=== PATIENT | male | born 1955 | race Caucasian/White ===

== ENCOUNTER → 2024-03-14 02:51 | Outpatient (CLI) | payer MEDICARE, MEDICAID, SELFPAY ==
--- NOTE | 2024-03-14 10:13 | DI.RAD_ITS ---
Exam(s) XR HAND RT COMPLETE XR WRIST RT COMPL NAVICULAR EXAM: XR HAND RT COMPLETE and XR wrist RT complete CLINICAL HISTORY: S/P FALL, ? FX,? SNUFFBOX FX. TECHNIQUE: 2D digital imaging was performed of the right wrist and hand. Seven images were obtained . Scaphoid, AP, lateral and oblique views were obtained. COMPARISON: No priors for comparison. FINDINGS: BONES: No acute fracture is present. No bony destructive lesion is seen. JOINTS: No dislocation present. The joint spaces are well maintained. SOFT TISSUE: Vascular calcifications are present. IMPRESSION: No acute fracture or dislocation. DATA REPOSITORY: RADIATION DOSE DELIVERED:
== END ==
PROVIDERS: Visit Provider Nurse Practitioner Family
DX: M25.531 Pain in right wrist (principal); M79.641 Pain in right hand
CPT/HCPCS: 73110; 73130

== ENCOUNTER 2024-04-13 18:11 | Outpatient (REF) | payer MEDICARE, MEDICAID, SELFPAY ==
[2024-04-13 18:32] LABS: Vitamin D 25 Total 38.5 ng/mL (30-100)
== END 2024-04-13 18:12 | disposition home or self-care (01) ==
LOC: LBN 18:11
PROVIDERS: Visit Provider Nurse Practitioner Family
DX: R53.83 Other fatigue (principal)
CPT/HCPCS: 82306

== ENCOUNTER 2024-05-18 20:49 | Outpatient (REF) | payer MEDICARE, MEDICAID, SELFPAY ==
[2024-05-18 16:46] LABS: Abs Immature Grans 0.05 10^3/uL (0.0-0.06); Absolute Basophil Count 0.05 10^3/uL (0.0-0.2); Absolute Eosinophil Count 0.25 10^3/uL (0.0-0.7); Absolute Monocyte Count 0.59 10^3/uL (0.1-0.8); Absolute Neutrophil Count 5.53 10^3/uL (1.2-6.7); Basophils % 0.6 %; Eosinophils % 2.9 %; HCT 38.7 % (40.0-50.0); HGB 12.6 g/dL (13.5-17.5); Immature Grans % 0.6 %; Lymphocytes % 24.5 %; MCH 29.8 pg (27.0-33.0); MCHC 32.6 % (32.0-36.0); MCV 92 fL (80-95); MPV 10.4 fL (8.0-11.0); Monocytes % 6.9 %; Neutrophils % 64.5 %; Platelet Count 252 10^3/uL (130-400); RBC 4.23 10^6/uL (4.36-5.78); RDW 13.2 % (11.8-14.1); RDW-SD 43.6 fL; WBC 8.57 10^3/uL (4.4-10.8)
[2024-05-18 17:44] LABS: Anion Gap 11.1 mmol/L (3-11); BUN 50 mg/dL (7-18); C-Reactive Protein 0.84 mg/dL (<or=0.5); CO2 27.9 mmol/L (21.0-32.0); CREATININE 2.5 mg/dL (0.70-1.30); Calcium 10.1 mg/dL (8.5-10.1); Chloride 98 mmol/L (98-107); Estimated GFR 27.64 (mL/min/1.73m2); Glucose 274 mg/dL (74-106); Potassium 4.3 mmol/L (3.5-5.1); Sodium 137 mmol/L (136-145)
[2024-05-18 19:29] LABS: Vitamin D 25 Total 43.1 ng/mL (30-100)
== END 2024-05-18 20:50 | disposition home or self-care (01) ==
LOC: LBN 20:49
PROVIDERS: Visit Provider Family Medicine
DX: N18.4 Chronic kidney disease, stage 4 (severe) (principal); M86.272 Subacute osteomyelitis, left ankle and foot; L08.9 Local infection of the skin and subcutaneous tissue, unspecified
CPT/HCPCS: 80048; 82306; 85025; 86140

== ENCOUNTER 2024-06-29 10:16 | Outpatient (REF) | payer MEDICARE, MEDICAID, SELFPAY ==
[2024-06-29 11:47] LABS: Anion Gap 8.1 mmol/L (3-11); BUN 47 mg/dL (7-18); CO2 27.9 mmol/L (21.0-32.0); CREATININE 2.3 mg/dL (0.70-1.30); Calcium 9.5 mg/dL (8.5-10.1); Chloride 102 mmol/L (98-107); Estimated GFR 30.55 (mL/min/1.73m2); Glucose 210 mg/dL (74-106); Potassium 4.2 mmol/L (3.5-5.1); Sodium 138 mmol/L (136-145); Vitamin D 25 Total 38.1 ng/mL (30-100)
== END 2024-06-29 10:17 | disposition home or self-care (01) ==
LOC: LBN 10:16
PROVIDERS: Visit Provider Family Medicine
DX: R68.89 Other general symptoms and signs (principal)
CPT/HCPCS: 80048; 82306

== ENCOUNTER 2024-07-05 19:00 | Outpatient (REF) | payer MEDICARE, MEDICAID, SELFPAY ==
[2024-07-05 16:10] LABS: HGB 11.1 g/dL (13.5-17.5)
[2024-07-05 16:31] LABS: Anion Gap 10.1 mmol/L (3-11); BUN 43 mg/dL (7-18); CO2 25.9 mmol/L (21.0-32.0); CREATININE 2.3 mg/dL (0.70-1.30); Calcium 9.5 mg/dL (8.5-10.1); Chloride 101 mmol/L (98-107); Estimated GFR 30.55 (mL/min/1.73m2); Glucose 275 mg/dL (74-106); Magnesium 1.6 mg/dL (1.8-2.4); PHOSPHORUS 3.3 mg/dL (2.6-4.7); Potassium 4.2 mmol/L (3.5-5.1); Sodium 137 mmol/L (136-145)
[2024-07-05 16:56] LABS: Hemoglobin A1C 8.1 % (<5.7)
== END 2024-07-05 19:01 | disposition home or self-care (01) ==
LOC: LBN 19:00
PROVIDERS: Visit Provider Family Medicine
DX: R68.89 Other general symptoms and signs (principal)
CPT/HCPCS: 80048; 83036; 83735; 84100; 85018

== ENCOUNTER 2024-07-06 14:30 | Outpatient (CLI) | payer MEDICARE, MEDICAID, SELFPAY ==
--- NOTE | 2024-07-06 | DI.RAD_ITS ---
Exam(s) XR RIBS RT W PA LAT CHEST EXAM: XR RIBS RT W PA LAT CHEST CLINICAL HISTORY: Rt rib pain TECHNIQUE: 2D digital imaging was performed. COMPARISON: No exams were available for comparison FINDINGS: RIBS 3 VIEWS-right There are no obvious acute rib fractures evident. No lytic rib lesions identified. CXR- 2 VIEWS: No lung contusion or pneumothorax. There is no pleural effusion evident. Heart size is normal and there is no significant mediastinal widening. Multilevel fusion hardware in the cervical and upper thoracic spinal column noted. IMPRESSION: 1. No obvious rib fractures evident. Also no significant rib lesions. 2. No ipsilateral lung nor pleural abnormality evident. No pneumothorax. Fusion hardware in the cervical and upper thoracic spine is noted. DATA REPOSITORY: RADIATION DOSE DELIVERED:
== END 2024-07-06 14:50 ==
PROVIDERS: Visit Provider Family Medicine
DX: M25.531 Pain in right wrist (principal); R07.81 Pleurodynia
CPT/HCPCS: 99203; 71046; 71100; 73110

== ENCOUNTER 2024-07-06 16:08 | Outpatient (CLI) | payer MEDICARE, MEDICAID, SELFPAY ==
--- NOTE | 2024-07-06 08:45 | DI.RAD_ITS ---
Exam(s) XR WRIST RT COMPL NAVICULAR EXAM: XR WRIST RT COMPL NAVICULAR CLINICAL HISTORY: wrist pain. TECHNIQUE: 2D digital imaging was performed of the right wrist. Four views were obtained. Scaphoid, PA, lateral and oblique views were obtained. COMPARISON: CR XR WRIST RT COMPL NAVICULAR from 03/14/2024 FINDINGS: BONES: No acute fracture is present. No bony destructive lesion is seen. JOINTS: The carpal bones are normally aligned. The joint spaces are well maintained. SOFT TISSUE: Vascular calcifications are present. IMPRESSION: No acute abnormality. DATA REPOSITORY: RADIATION DOSE DELIVERED:
== END 2024-07-06 16:09 | disposition home or self-care (01) ==
LOC: DIORS 16:09
PROVIDERS: Visit Provider Student in an Organized Health Care Education/Training Program
DX: S62.001A Unspecified fracture of navicular [scaphoid] bone of right wrist, initial encounter for closed fracture; W19.XXXA Unspecified fall, initial encounter
CPT/HCPCS: 99203; 73110

== ENCOUNTER 2024-07-24 18:29 | Emergency (ER) | payer MEDICARE, MEDICAID, SELFPAY ==
[2024-07-24] VITALS (72 sets, daily range): BP systolic 91–155; BP diastolic 42–78; PULSE 62–79; RESP 10–23; TEMP 36.4–36.8; O2SAT 96–99
--- NOTE | 2024-07-24 18:30 | RT.EKG_ITS ---
APPROVED REPORT Exam: Resting ECG Reason for Exam: Chest Pain Patient Location: E HR:68 bpm ECG Measurements Heart Rate 68 AXIS MN 216 P 57 QRSd 100 QRS 9 QT 433 T 49 QTc 461 Conclusion Sinus rhythm...normal P axis, V-rate 60- 99 Borderline prolonged MN interval...MN >212, V-rate 50- 90 sinus rhtyhm, normal axis, non ischemic
--- NOTE | 2024-07-24 18:30 | DI.RAD_ITS ---
Exam(s) XR PORTABLE CHEST AP EXAM: XR PORTABLE CHEST AP CLINICAL HISTORY: SOB, CP TECHNIQUE: 2D digital imaging was performed of the chest. One image was obtained. An AP view was ob tained. COMPARISON: No exams were available for comparison FINDINGS: MEDIASTINUM: Normal. HEART: Normal. PULMONARY VASCULATURE: Normal. LUNGS: Clear. PLEURAL SPACE: No pleural effusion or pneumothorax. BONE:Within normal limits for the patient's age. Posterior spinal surgery seen in the lower cervical and upper thoracic spine. OTHER FINDINGS:Normal. IMPRESSION: No acute pulmonary findings. DATA REPOSITORY: RADIATION DOSE DELIVERED:
--- NOTE | 2024-07-24 18:34 | W.ED.GENAD ---
Discharge Plan Disposition Patient Disposition: Half-Way Facility(SNF) Discharge Details Clinical Impression: COPD (chronic obstructive pulmonary disease), Chest pain Primary Care Provider: Unknown,Unknown ED Provider: Marily Post Home Meds and New Rx's Prescriptions: Continued acetaminophen 325 mg tablet 650 mg PO Q4H PRN amitriptyline 10 mg tablet 30 mg PO QHS amlodipine 2.5 mg tablet 2.5 mg PO DAILY Anoro Ellipta 62.5-25 mcg/actuation blister with device 1 inh inhalation DAILY aspirin [Adult Aspirin Regimen] 81 mg tablet,delayed release (DR/EC) 81 mg PO DAILY bupropion HCl 300 mg tablet extended release 24 hr 300 mg PO QAM cholecalciferol (vitamin D3) 25 mcg (1,000 unit) capsule 50 mcg PO DAILY ferrous sulfate 325 mg (65 mg iron) tablet 325 mg PO DAILY folic acid 1 mg tablet 1 mg PO DAILY gabapentin 300 mg capsule 300 mg PO BID glucagon 1 mg recon soln 1 mg subcut Q20M PRN Rx Instructions: until target blood sugar attained insulin glargine 100 unit/mL (3 mL) insulin pen 30 unit subcut QAM insulin lispro 100 unit/mL insulin pen 1 sliding scale dose subcut USEASDIRECTD magnesium L-lactate 84 mg tablet extended release 168 mg PO DAILY metoprolol succinate 25 mg tablet extended release 24 hr 25 mg PO BID magnesium hydroxide [Milk of Magnesia] 400 mg/5 mL suspension 30 ml PO DAILY PRN naloxone 4 mg/actuation spray,non-aerosol 4 mg intranasal Q2M Rx Instructions: spray 1 dose into ONE nostril; alternate nostrils w each dose until help arrives nitroglycerin 0.4 mg tablet, sublingual 0.4 mg sublingual Q5M PRN Rx Instructions: do not exceed 3 doses per episode pantoprazole 40 mg tablet,delayed release (DR/EC) 40 mg PO DAILY ranolazine 500 mg tablet extended release 12 hr 500 mg PO BID sevelamer HCl 800 mg tablet 800 mg PO TID Rx Instructions: must administer with a meal/food risperidone 1 mg tablet 1 mg PO DAILY risperidone 2 mg tablet 2 mg PO QHS ropinirole 1 mg tablet 1 mg PO BID rosuvastatin 20 mg tablet 20 mg PO DAILY sennosides-docusate sodium 8.6-50 mg tablet 1 tab-cap PO BID torsemide 20 mg tablet 20 mg PO DAILY tramadol 25 mg tablet 25 mg PO BID PRN Trulicity 0.75 mg/0.5 mL pen injector 0.75 mg subcut QWEEK ipratropium-albuterol 0.5 mg-3 mg(2.5 mg base)/3 mL solution for nebulization 3 ml inhalation Q4H PRNQty: 90 0RF Discharge Instructions Instructions: COPD Exacerbation, Adult ED Additional Instructions: I recommend that you be evaluated by primary care within the week for monitoring of your COPD symptoms. Your cardiac workup today was reassuring. Your symptoms are most likely caused by COPD exacerbation, as they fully resolved with DuoNeb. For wheezing/chest tightness I recommend that you use the DuoNeb every 4-6 hours as needed. Return to emergency care if you develop new chest pain, difficulty breathing, dizziness/feeling like you are going to pass out, or if you are very worried and need to be rechecked again immediately HPI General Date/Time Provider Initiated Documentation: 07/24/24 18:31. HPI Narrative: Mike is a 68 year old male with history of HTN, HLD, GERD, CHF, CKD stage IV, ASCVD, COPD, T2DM, and morbid obesity who presents to the emergency department from [facility] for evaluation of sudden onset of chest pain with shortness of breath approximately half an hour prior to arrival. He reports it feels like a hammer in the middle of his chest, with radiation down his left arm. Started at rest. He denies associated dizziness, recent illness such as congestion/cough/sore throat, nausea/vomiting, extremity weakness, change in bowel or bladder function, black/tarry stools, change in pedal edema. He does have a history of DVT in his lower extremity for which she was treated with Eliquis earlier in this year. Denies history of KS, cancer diagnosis, recent surgery within last 6 months. He is quite sedentary at baseline, but is able to stand and pivot. He has had similar chest pain in the past, says that he is not sure what caused it but said that he has never been diagnosed with a heart attack. Physical exam remarkable for morbidly obese patient who is short of breath with exertion. Pain is reproducible in the central chest with palpation. Slightly increased work of breathing with clear lung sounds. Normal heart sounds. Abdomen is softly distended, nontender to palpation. Mild pedal edema noted bilaterally. Able to move both upper and lower extremities. DDx includes but is not limited to: ACS, PE, CHF, GERD, PNA, COPD, anxiety, esophageal spasm, severe anemia. Heart score 4 (moderate risk of MACE) based on patient's history of ASCVD and age. I independently interpreted the following tests : EKG shows normal sinus rhythm rate 68, slight AK interval prolongation, no changes consistent with acute ischemia. Serial troponins negative. CBC reassuring, anemia unchanged from baseline. CMP reassuring, no significant change from previous in light of known CKD. BNP slightly elevated at 398, decreased from 878 on 02/17/2024. D-dimer negative. Mild hypomagnesemia unchanged from previous, 1.7. Portable chest x-ray performed, no obvious infiltrates. While in the emergency department Mike was given 324 mg ASA and nitroglycerin for chest pain, as well as fentanyl, GI cocktail, and famotidine. He does report good improvement in chest pain, with only mild epigastric discomfort noted on palpation. DuoNeb was given with good improvement in symptoms, Mike reported full resolution of chest tightness and shortness of breath. Lungs sounds remained clear, though aeration has improved. Mike does report that he had a recent cardiology visit last week, as well as echo within the last year. Records requested from [facility]. I did review office visit records from [facility] cardiology on 07/20/2024. Mike had an echo in November of this year, EF 60 to 65%. 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 Mike does have a history of angina, described as somewhat atypical. Stress is a common trigger and is thought to have a component of vasospasm as well. Overall cardiac workup today reassuring, especially in light of unremarkable echo and stress test within the year. Symptoms most likely due to COPD exacerbation, though gastritis may also be contributory. Recommend continue DuoNebs. I did call [facility], nurse confirms that they do have a nebulizer for Mike to use. Prescription provided for DuoNebs. Recommend follow-up with PCP for further evaluation and management of symptoms. Reviewed discharge instructions with patient, he voices agreement with plan of care. Related Data Home Medications ?Medication ?Instructions ?Recorded ?Confirmed acetaminophen 325 mg tablet 650 mg PO Q4H PRN 07/06/24 07/24/24 amitriptyline 10 mg tablet 30 mg PO QHS 07/06/24 07/24/24 amlodipine 2.5 mg tablet 2.5 mg PO DAILY 07/06/24 07/24/24 aspirin 81 mg tablet,delayed 81 mg PO DAILY 07/06/24 07/24/24 release (Adult Aspirin Regimen) bupropion HCl 300 mg 24 hr tablet, 300 mg PO QAM 07/06/24 07/24/24 extended release cholecalciferol (vitamin D3) 25 50 mcg PO DAILY 07/06/24 07/24/24 mcg (1,000 unit) capsule dulaglutide 0.75 mg/0.5 mL 0.75 mg subcut QWEEK 07/06/24 07/24/24 subcutaneous pen injector (Trulicity) ferrous sulfate 325 mg (65 mg 325 mg PO DAILY 07/06/24 07/24/24 iron) tablet folic acid 1 mg tablet 1 mg PO DAILY 07/06/24 07/24/24 gabapentin 300 mg capsule 300 mg PO BID 07/06/24 07/24/24 glucagon 1 mg solution for 1 mg subcut Q20M PRN 07/06/24 07/24/24 injection insulin glargine 100 unit/mL (3 30 unit subcut QAM 07/06/24 07/24/24 mL) subcutaneous pen insulin lispro 100 unit/mL 1 sliding scale dose subcut 07/06/24 07/24/24 subcutaneous pen USEASDIRECTD magnesium L-lactate 84 mg 168 mg PO DAILY 07/06/24 07/24/24 tablet,extended release magnesium hydroxide 400 mg/5 mL 30 ml PO DAILY PRN 07/06/24 07/24/24 oral suspension (Milk of Magnesia) metoprolol succinate 25 mg 25 mg PO BID 07/06/24 07/24/24 tablet,extended release 24 hr naloxone 4 mg/actuation nasal spray 4 mg intranasal Q2M 07/06/24 07/24/24 nitroglycerin 0.4 mg sublingual 0.4 mg sublingual Q5M PRN 07/06/24 07/24/24 tablet pantoprazole 40 mg tablet,delayed 40 mg PO DAILY 07/06/24 07/24/24 release ranolazine 500 mg tablet,extended 500 mg PO BID 07/06/24 07/24/24 release,12 hr risperidone 1 mg tablet 1 mg PO DAILY 07/06/24 07/24/24 risperidone 2 mg tablet 2 mg PO QHS 07/06/24 07/24/24 ropinirole 1 mg tablet 1 mg PO BID 07/06/24 07/24/24 rosuvastatin 20 mg tablet 20 mg PO DAILY 07/06/24 07/24/24 sennosides 8.6 mg-docusate sodium 1 tab-cap PO BID 07/06/24 07/24/24 50 mg tablet sevelamer HCl 800 mg tablet 800 mg PO TID 07/06/24 07/24/24 torsemide 20 mg tablet 20 mg PO DAILY 07/06/24 07/24/24 tramadol 25 mg tablet 25 mg PO BID PRN 07/06/24 07/24/24 umeclidinium 62.5 mcg-vilanterol 1 inh inhalation DAILY 07/06/24 07/24/24 25 mcg/actuation powdr for inhalation (Anoro Ellipta) ipratropium 0.5 mg-albuterol 3 mg 3 ml inhalation Q4H PRN #90 mL 07/24/24 07/24/24 (2.5 mg base)/3 mL nebulization soln Previous Rx's ?Medication ?Instructions ?Recorded ipratropium 0.5 mg-albuterol 3 mg 3 ml inhalation Q4H PRN #90 mL 07/24/24 (2.5 mg base)/3 mL nebulization soln Allergies Allergy/AdvReac Type Severity Reaction Status Date / Time bee pollen Allergy Severe Unknown Verified 07/24/24 18:45 prednisone Allergy Unknown Other (See Verified 07/24/24 18:45 Comment) tamsulosin (From Flomax) Allergy Unknown Other (See Verified 07/24/24 18:45 Comment) General Stated Complaint: Chest Pain VALERI: 3 Review of Systems Narrative: see hpi Exam Const General: cooperative, comfortable and no acute distress Nutritional Appearance: obese Orientation: alert and oriented x3 Resp Effort & Inspection: able to speak in complete sentences and tachypneic (after exertion) Auscultation: clear to auscultation bilaterally Cardio Rate: regular rate Rhythm: regular rhythm GI Inspection: normal to inspection and obesity Palpation: soft, no pulsatile masses and nontender Skin General skin exam: no rashes or lesions noted Extrem General: no pedal edema and no calf tenderness Course Vital Signs Vital signs: Vital Signs Temperature 36.4 C L 07/24/24 18:30 Pulse 79 07/24/24 18:30 Respiratory Rate 14 07/24/24 18:30 Blood Pressure 155/70 H 07/24/24 18:30 Pulse Oximetry 97 07/24/24 18:30 Temperature 36.4 C L 07/24/24 18:30 Temperature Source Temporal Artery Scan 07/24/24 18:30 Pulse 79 07/24/24 18:30 Respiratory Rate 14 07/24/24 18:30 Blood Pressure 155/70 H 07/24/24 18:30 Blood Pressure Position Sitting 07/24/24 18:30 Pulse Oximetry 97 07/24/24 18:30 Oxygen Delivery Method Room Air 07/24/24 18:30 Oxygen Flow Rate 0 07/24/24 18:30 Pain Level 10 07/24/24 18:30 Medical Decision Making Quality:SDOH Health Related Social Needs: No Data to Display PFSH All Active Problems (Updated 07/24/24 @ 22:29 by Marily Raines) Chest pain (Acute) Nondisplaced fracture of right scaphoid bone (Acute 02/01/24) Right wrist pain (Acute) GERD (gastroesophageal reflux disease) (Chronic) Hypertension (Chronic) Neuropathy (Acute) History of venous thrombosis and embolism (Acute) Pityriasis versicolor (Acute) Hyperlipidemia (Acute) Atherosclerotic heart disease of cahto coronary artery without angina pectoris (Acute) CKD stage 4 due to type 2 diabetes mellitus (Acute) Heart failure (Acute) Anxiety (Chronic) Morbid obesity (Acute) Subacute osteomyelitis, left ankle and foot (Acute) Chronic pain (Chronic) COPD (chronic obstructive pulmonary disease) (Chronic) Asthma (Chronic) Type 2 diabetes mellitus (Acute) Medical History (Updated 07/24/24 @ 22:29 by Marily Raines) Phantom limb syndrome Testicular hypofunction Vitamin D deficiency PTSD (post-traumatic stress disorder) Low back pain Social History Smoking/Tobacco Use Status: Former Tobacco Use Smoking risk assessment performed?: Yes Alcohol Intake: current Alcohol Intake frequency: holidays/special occasions only Drug use: Never Substance use type: does not use Housing: other Do you feel safe at home: Yes Do you feel safe in your relationship?: Yes
[2024-07-24] MEDS: Aspirin 81 MG CHEW 324 MG CH (18:44)
[2024-07-24] MEDS: Famotidine 20 MG/2 ML VIAL IVP (18:57)
[2024-07-24 19:05] LABS: Abs Immature Grans 0.05 10^3/uL (0.0-0.06); Absolute Basophil Count 0.03 10^3/uL (0.0-0.2); Absolute Eosinophil Count 0.15 10^3/uL (0.0-0.7); Absolute Lymphocyte Count 1.74 10^3/uL (1.2-3.4); Absolute Monocyte Count 0.56 10^3/uL (0.1-0.8); Absolute Neutrophil Count 5.95 10^3/uL (1.2-6.7); Basophils % 0.4 %; Eosinophils % 1.8 %; HCT 35.3 % (40.0-50.0); HGB 11.5 g/dL (13.5-17.5); Immature Grans % 0.6 %; Lymphocytes % 20.5 %; MCH 30.4 pg (27.0-33.0); MCHC 32.6 % (32.0-36.0); MCV 93 fL (80-95); MPV 9.6 fL (8.0-11.0); Monocytes % 6.6 %; Neutrophils % 70.1 %; Platelet Count 227 10^3/uL (130-400); RBC 3.78 10^6/uL (4.36-5.78); RDW 12.5 % (11.8-14.1); RDW-SD 43.2 fL; WBC 8.48 10^3/uL (4.4-10.8)
[2024-07-24 19:16] LABS: PTT Activated 24.2 sec (23.6-32.8)
[2024-07-24 19:23] LABS: ALT 25 U/L (16-63); AST 15 U/L (15-37); Albumin 3.7 g/dL (3.4-5.0); Alkaline Phosphatase 89 U/L (46-116); Anion Gap 9.9 mmol/L (3-11); BUN 60 mg/dL (7-18); Bilirubin, Total 0.31 mg/dL (0.2-1.0); CO2 29.1 mmol/L (21.0-32.0); CREATININE 2.6 mg/dL (0.70-1.30); Calcium 9.5 mg/dL (8.5-10.1); Chloride 99 mmol/L (98-107); Estimated GFR 26.37 (mL/min/1.73m2); Glucose 216 mg/dL (74-106); Magnesium 1.7 mg/dL (1.8-2.4); NT-proBNP 398 pg/mL (<300); Potassium 4.3 mmol/L (3.5-5.1); Sodium 138 mmol/L (136-145); Total Protein 7.5 g/dL (6.4-8.2); Troponin I 7 ng/L (<or=76)
[2024-07-24] MEDS: nitroGLYcerin 0.4 MG TAB SL (19:30)
[2024-07-24 19:31] LABS: D-Dimer 385 ng/mlFEU (<500)
--- NOTE | 2024-07-24 19:34 | NUR.NOTE ---
pain decrease3 post NTG from 9/10 to 7/10, FPJ
[2024-07-24] MEDS: fentaNYL 100 MCG/2 ML VIAL 50 MCG IVP (19:51)
--- NOTE | 2024-07-24 19:53 | NUR.NOTE ---
Chest pain decrease post GI Cocktail and Fentanyl, from 7/10 to 5/10, FPJ
--- NOTE | 2024-07-24 20:05 | DI.VRAD_ITS ---
PROCEDURE INFORMATION: Exam: XR Chest Exam date and time: 07/24/2024 6:57 PM Age: 68 years old Clinical indication: Shortness of breath; Prior surgery; Surgery date: 6+ months; Surgery type: C-spine surgery; Patient HX: SOB, cough TECHNIQUE: Imaging protocol: Radiologic exam of the chest. Views: 1 view. COMPARISON: CR XR RIBS RT W PA LAT CHEST 07/06/2024 2:41 PM FINDINGS: Lungs: Lungs are clear with no infiltrate or nodule. Pleural spaces: Unremarkable. No pleural effusion. No pneumothorax. Heart/Mediastinum: Cardiomediastinal silhouette is normal. Bones/joints: Fusion rods present in the lower cervical and upper thoracic spine. IMPRESSION: No active cardiopulmonary disease. Dictated and Authenticated by: David Martel MD. Ordering:OANH Calixto MD
[2024-07-24 20:41] LABS: Troponin I 6 ng/L (<or=76)
[2024-07-24] MEDS: Albuterol/Ipratropium 3 ML UPD VIAL UPD (22:00)
[2024-07-24 22:51] LABS: Troponin I 6 ng/L (<or=76)
== END 2024-07-24 23:11 | disposition skilled nursing facility (03) ==
PROVIDERS: Emergency Provider Nurse Practitioner Family
DX: J44.9 Chronic obstructive pulmonary disease, unspecified (principal); R07.9 Chest pain, unspecified; E11.22 Type 2 diabetes mellitus with diabetic chronic kidney disease; I12.9 Hypertensive chronic kidney disease with stage 1 through stage 4 chronic kidney disease, or unspecified chronic kidney disease; N18.4 Chronic kidney disease, stage 4 (severe); I25.10 Atherosclerotic heart disease of native coronary artery without angina pectoris; E66.01 Morbid (severe) obesity due to excess calories; Z79.4 Long term (current) use of insulin; Z87.891 Personal history of nicotine dependence
CPT/HCPCS: 36415; 80053; 93005; 94640; 96374; 96375; 99285; 71045; 83735; 83880; 84484; 85025; 85379; 85730; 93010; 99284; J3010; J7620

== ENCOUNTER 2024-08-02 18:40 | Outpatient (REF) | payer MEDICARE, MEDICAID, SELFPAY ==
[2024-08-02 18:39] LABS: Abs Immature Grans 0.07 10^3/uL (0.0-0.06); Absolute Basophil Count 0.03 10^3/uL (0.0-0.2); Absolute Eosinophil Count 0.12 10^3/uL (0.0-0.7); Absolute Lymphocyte Count 1.79 10^3/uL (1.2-3.4); Absolute Monocyte Count 1.04 10^3/uL (0.1-0.8); Basophils % 0.3 %; Eosinophils % 1.2 %; HCT 30.8 % (40.0-50.0); HGB 10.3 g/dL (13.5-17.5); Immature Grans % 0.7 %; Lymphocytes % 18.5 %; MCH 30.2 pg (27.0-33.0); MCHC 33.4 % (32.0-36.0); MCV 90 fL (80-95); Monocytes % 10.8 %; Neutrophils % 68.5 %; Platelet Count 277 10^3/uL (130-400); RBC 3.41 10^6/uL (4.36-5.78); RDW 12.3 % (11.8-14.1); RDW-SD 40.6 fL; WBC 9.65 10^3/uL (4.4-10.8)
[2024-08-02 18:54] LABS: ALT 25 U/L (16-63); AST 26 U/L (15-37); Alkaline Phosphatase 104 U/L (46-116); Anion Gap 10.8 mmol/L (3-11); BUN 48 mg/dL (7-18); CO2 27.2 mmol/L (21.0-32.0); CREATININE 2.2 mg/dL (0.70-1.30); Chloride 98 mmol/L (98-107); Estimated GFR 32.23 (mL/min/1.73m2); Glucose 189 mg/dL (74-106); Potassium 4.2 mmol/L (3.5-5.1); Sodium 136 mmol/L (136-145); Total Protein 6.7 g/dL (6.4-8.2)
== END 2024-08-02 18:41 | disposition home or self-care (01) ==
LOC: LBN 18:40
PROVIDERS: Visit Provider Family Medicine
DX: R68.89 Other general symptoms and signs (principal)
CPT/HCPCS: 80053; 85025

== ENCOUNTER 2024-08-25 15:22 | Outpatient (REF) | payer MEDICARE, MEDICAID, SELFPAY ==
[2024-08-25 15:40] LABS: Abs Immature Grans 0.03 10^3/uL (0.0-0.06); Absolute Basophil Count 0.03 10^3/uL (0.0-0.2); Absolute Eosinophil Count 0.14 10^3/uL (0.0-0.7); Absolute Lymphocyte Count 1.74 10^3/uL (1.2-3.4); Absolute Monocyte Count 0.56 10^3/uL (0.1-0.8); Absolute Neutrophil Count 4.45 10^3/uL (1.2-6.7); Basophils % 0.4 %; HGB 10.2 g/dL (13.5-17.5); Immature Grans % 0.4 %; MCH 29.7 pg (27.0-33.0); MCHC 31.9 % (32.0-36.0); MCV 93 fL (80-95); MPV 10.3 fL (8.0-11.0); Monocytes % 8.1 %; Neutrophils % 64.1 %; Platelet Count 255 10^3/uL (130-400); RBC 3.44 10^6/uL (4.36-5.78); RDW 12.5 % (11.8-14.1); RDW-SD 42.3 fL; WBC 6.95 10^3/uL (4.4-10.8)
[2024-08-25 16:24] LABS: Ferritin 177 ng/mL (26-388); Folate > 20.0 ng/mL (8.6-20.0); Vitamin B12 700 pg/mL (193-986); Vitamin D 25 Total 34.5 ng/mL (30-100)
[2024-08-25 16:54] LABS: Iron 46 ug/dL (65-175); Total Iron Binding Capacity 205 ug/dL (250-450); Transferrin Sat 22 % (20-55)
[2024-08-25 17:16] LABS: Hemoglobin A1C 7.4 % (<5.7)
== END 2024-08-25 15:23 | disposition home or self-care (01) ==
LOC: LBN 15:22
PROVIDERS: Visit Provider Family Medicine
DX: E11.621 Type 2 diabetes mellitus with foot ulcer (principal); N18.4 Chronic kidney disease, stage 4 (severe); M86.272 Subacute osteomyelitis, left ankle and foot; M62.81 Muscle weakness (generalized); I50.9 Heart failure, unspecified
CPT/HCPCS: 82306; 82607; 82728; 82746; 83036; 83540; 83550; 85025

== ENCOUNTER 2024-10-28 13:04 | Emergency (ER) | payer MEDICARE, MEDICAID, SELFPAY ==
[2024-10-28] VITALS (38 sets, daily range): BP systolic 141–170; BP diastolic 57–72; PULSE 58–69; RESP 9–20; TEMP 35.7–37.2; O2SAT 95–99
--- NOTE | 2024-10-28 12:45 | RT.EKG_ITS ---
APPROVED REPORT Exam: Resting ECG Reason for Exam: Chest pain Patient Location: E HR:64 bpm ECG Measurements Heart Rate 64 AXIS OR 203 P 47 QRSd 110 QRS 14 QT 435 T 43 QTc 451 Conclusion Sinus rhythm 64 NORMAL AIS NO STEMI
--- NOTE | 2024-10-28 13:18 | ED.GENADUL_ITS ---
Discharge Plan Discharge Details Chief Complaint: Chest Pain Primary Care Provider: Unknown,Unknown ED Provider: Andres Hernandez Home Meds and New Rx's Prescriptions: New cephalexin 500 mg capsule 500 mg PO QID 10 Days Qty: 40 0RF No Action acetaminophen 325 mg tablet 650 mg PO Q4H PRN amitriptyline 10 mg tablet 30 mg PO QHS amlodipine 2.5 mg tablet 2.5 mg PO DAILY Anoro Ellipta 62.5-25 mcg/actuation blister with device 1 inh inhalation DAILY aspirin [Adult Aspirin Regimen] 81 mg tablet,delayed release (DR/EC) 81 mg PO DAILY bupropion HCl 300 mg tablet extended release 24 hr 300 mg PO QAM cholecalciferol (vitamin D3) 25 mcg (1,000 unit) capsule 50 mcg PO DAILY ferrous sulfate 325 mg (65 mg iron) tablet 325 mg PO DAILY folic acid 1 mg tablet 1 mg PO DAILY gabapentin 300 mg capsule 300 mg PO BID glucagon 1 mg recon soln 1 mg subcut Q20M PRN Rx Instructions: until target blood sugar attained insulin glargine 100 unit/mL (3 mL) insulin pen 30 unit subcut QAM insulin lispro 100 unit/mL insulin pen 1 sliding scale dose subcut USEASDIRECTD magnesium L-lactate 84 mg tablet extended release 168 mg PO DAILY metoprolol succinate 25 mg tablet extended release 24 hr 25 mg PO BID magnesium hydroxide [Milk of Magnesia] 400 mg/5 mL suspension 30 ml PO DAILY PRN naloxone 4 mg/actuation spray,non-aerosol 4 mg intranasal Q2M Rx Instructions: spray 1 dose into ONE nostril; alternate nostrils w each dose until help arrives nitroglycerin 0.4 mg tablet, sublingual 0.4 mg sublingual Q5M PRN Rx Instructions: do not exceed 3 doses per episode pantoprazole 40 mg tablet,delayed release (DR/EC) 40 mg PO DAILY ranolazine 500 mg tablet extended release 12 hr 500 mg PO BID sevelamer HCl 800 mg tablet 800 mg PO TID Rx Instructions: must administer with a meal/food risperidone 1 mg tablet 1 mg PO DAILY risperidone 2 mg tablet 2 mg PO QHS ropinirole 1 mg tablet 1 mg PO BID rosuvastatin 20 mg tablet 20 mg PO DAILY sennosides-docusate sodium 8.6-50 mg tablet 1 tab-cap PO BID torsemide 20 mg tablet 20 mg PO DAILY tramadol 25 mg tablet 25 mg PO BID PRN Trulicity 0.75 mg/0.5 mL pen injector 0.75 mg subcut QWEEK ipratropium-albuterol 0.5 mg-3 mg(2.5 mg base)/3 mL solution for nebulization 3 ml inhalation Q4H PRNQty: 90 0RF HPI General Date/Time Provider Initiated Documentation: 10/28/24 13:06 . HPI Narrative: 69 year-old male presents to ED today by EMS with a chief complaint of chest pain, central chest pressure, with L arm pain, mid-back pain with onset around 1200 while watching TV. Quality described as severe chest pressure, no radiation to visual changes, syncope, abdominal pain, cough, recent URI, nausea/vomiting. Severity is described as 9/10. Palliating factors include 324mg ASA given by EMS. Provoking factors include nothing specific. Events leading up to the incident/Associated Symptoms: Patient denies history of [place]- endorses CHF, CKDstage4, and DM. Patient not anticoagulated. Related Data Home Medications ?Medication ?Instructions ?Recorded ?Confirmed acetaminophen 325 mg tablet 650 mg PO Q4H PRN 07/06/24 10/28/24 amitriptyline 10 mg tablet 30 mg PO QHS 07/06/24 10/28/24 amlodipine 2.5 mg tablet 2.5 mg PO DAILY 07/06/24 10/28/24 aspirin 81 mg tablet,delayed 81 mg PO DAILY 07/06/24 10/28/24 release (Adult Aspirin Regimen) bupropion HCl 300 mg 24 hr tablet, 300 mg PO QAM 07/06/24 10/28/24 extended release cholecalciferol (vitamin D3) 25 50 mcg PO DAILY 07/06/24 10/28/24 mcg (1,000 unit) capsule dulaglutide 0.75 mg/0.5 mL 0.75 mg subcut QWEEK 07/06/24 10/28/24 subcutaneous pen injector (Trulicity) ferrous sulfate 325 mg (65 mg 325 mg PO DAILY 07/06/24 10/28/24 iron) tablet folic acid 1 mg tablet 1 mg PO DAILY 07/06/24 10/28/24 gabapentin 300 mg capsule 300 mg PO BID 07/06/24 10/28/24 glucagon 1 mg solution for 1 mg subcut Q20M PRN 07/06/24 10/28/24 injection insulin glargine 100 unit/mL (3 30 unit subcut QAM 07/06/24 10/28/24 mL) subcutaneous pen insulin lispro 100 unit/mL 1 sliding scale dose subcut 07/06/24 10/28/24 subcutaneous pen USEASDIRECTD magnesium L-lactate 84 mg 168 mg PO DAILY 07/06/24 10/28/24 tablet,extended release magnesium hydroxide 400 mg/5 mL 30 ml PO DAILY PRN 07/06/24 10/28/24 oral suspension (Milk of Magnesia) metoprolol succinate 25 mg 25 mg PO BID 07/06/24 10/28/24 tablet,extended release 24 hr naloxone 4 mg/actuation nasal spray 4 mg intranasal Q2M 07/06/24 10/28/24 nitroglycerin 0.4 mg sublingual 0.4 mg sublingual Q5M PRN 07/06/24 10/28/24 tablet pantoprazole 40 mg tablet,delayed 40 mg PO DAILY 07/06/24 10/28/24 release ranolazine 500 mg tablet,extended 500 mg PO BID 07/06/24 10/28/24 release,12 hr risperidone 1 mg tablet 1 mg PO DAILY 07/06/24 10/28/24 risperidone 2 mg tablet 2 mg PO QHS 07/06/24 10/28/24 ropinirole 1 mg tablet 1 mg PO BID 07/06/24 10/28/24 rosuvastatin 20 mg tablet 20 mg PO DAILY 07/06/24 10/28/24 sennosides 8.6 mg-docusate sodium 1 tab-cap PO BID 07/06/24 10/28/24 50 mg tablet sevelamer HCl 800 mg tablet 800 mg PO TID 07/06/24 10/28/24 torsemide 20 mg tablet 20 mg PO DAILY 07/06/24 10/28/24 tramadol 25 mg tablet 25 mg PO BID PRN 07/06/24 10/28/24 umeclidinium 62.5 mcg-vilanterol 1 inh inhalation DAILY 07/06/24 10/28/24 25 mcg/actuation powdr for inhalation (Anoro Ellipta) ipratropium 0.5 mg-albuterol 3 mg 3 ml inhalation Q4H PRN #90 mL 07/24/24 10/28/24 (2.5 mg base)/3 mL nebulization soln cephalexin 500 mg capsule 500 mg PO QID cellulitis 10 days 10/28/24 #40 caps Previous Rx's ?Medication ?Instructions ?Recorded ipratropium 0.5 mg-albuterol 3 mg 3 ml inhalation Q4H PRN #90 mL 07/24/24 (2.5 mg base)/3 mL nebulization soln cephalexin 500 mg capsule 500 mg PO QID cellulitis 10 days 10/28/24 #40 caps Allergies Allergy/AdvReac Type Severity Reaction Status Date / Time bee venom protein (honey bee) Allergy Intermediate Anaphylaxis Verified 10/28/24 13:58 clonidine Allergy Mild Unknown Verified 10/28/24 13:58 Influenza Virus Vaccines Allergy Mild Unknown Verified 10/28/24 13:58 prednisone Allergy Unknown Other (See Verified 10/28/24 13:58 Comment) tamsulosin (From Flomax) Allergy Unknown Other (See Verified 10/28/24 13:58 Comment) General Stated Complaint: Chest Pain VALERI: 3 Review of Systems All systems reviewed & are unremarkable except as noted in HPI and below Exam Narrative Exam Narrative: GENERAL APPEARANCE: Morbid obesity, non-toxic, awake and alert, atraumatic, no acute distress. SKIN: Warm, pale, dry, intact, without rashes/lesions/ulcerations. HEAD: Normocephalic, atraumatic, normal hair distribution for gender/age. EYES: Normal conjunctiva, no exudates on lids/lashes. ENT: Nares patent, no circumoral cyanosis, no facial swelling NECK: Supple, trachea midline, painless cervical ROM. LUNGS/CHEST: Difficult auscultation due to body habitus, no overt rhonchi or wheezes, question coarse rales at bases, non-labored respirations, normal A/P diameter, symmetrical expansion, no chest wall deformity, mild tenderness to the left anterior rib cage just medial to the nipple without crepitus or step-off, no focally absent or diminished lung sounds diffusely HEART (CV/PV): Regular rate and rhythm without murmur, no peripheral edema, no JVD. ABDOMEN: Soft, non-distended, no guarding, mild epigastric tenderness without Rodriguez sign. MSK: Normal ROM, no swelling/deformity to bilateral UEs or LEs, moving all extremities without weakness, no cyanosis, spine midline without tenderness, normal curvature. NEURO: Mental Status AAOx4 - alert to person, place, time, events No facial droop, no forehead involvement. Motor: No focal weakness - strength 5/5 in bilateral UEs and LEs, proximal and distal, symmetric. Sensory: sensation intact to light touch globally. Gait normal: patient ambulated without ataxia into ED room. PSYCH: euthymic, cooperative, pleasant, appropriate speech Course Vital Signs Vital signs: Vital Signs Temperature 35.7 C L 10/28/24 13:11 Pulse 65 10/28/24 13:11 Respiratory Rate 15 10/28/24 13:11 Blood Pressure 153/59 H 10/28/24 13:11 Pulse Oximetry 98 10/28/24 13:11 Temperature 35.7 C L 10/28/24 13:11 Temperature Source Temporal Artery Scan 10/28/24 13:11 Pulse 65 10/28/24 13:11 Respiratory Rate 15 10/28/24 13:15 Respiratory Effort Normal 10/28/24 13:15 Respiratory Depth Normal 10/28/24 13:15 Respiratory Pattern Normal 10/28/24 13:15 Blood Pressure 153/59 H 10/28/24 13:11 Blood Pressure Position Supine 10/28/24 13:11 Pulse Oximetry 98 10/28/24 13:11 Oxygen Delivery Method Room Air 10/28/24 13:11 Oxygen Flow Rate 0 10/28/24 13:11 Pain Level 9 10/28/24 13:11 Medical Decision Making This dictation utilizes [id number] dictation software and may contain unedited grammatical errors. 69 year-old male presents to ED today by EMS with a chief complaint of chest pain, central chest pressure, with L arm pain, mid-back pain with onset around 1200 while watching TV. Quality described as severe chest pressure, no radiation to visual changes, syncope, abdominal pain, cough, recent URI, nausea/vomiting. Severity is described as 9/10. Palliating factors include 324mg ASA given by EMS. Provoking factors include nothing specific. Events leading up to the incident/Associated Symptoms: Patient denies history of [place]- endorses CHF, CKDstage4, and DM. Patients' medical history: Low back pain, GERD, neuropathy, hypertension, history of venous thrombosis and embolism, hyperlipidemia, CKD stage IV, type 2 diabetes, heart failure, morbid obesity, subacute osteomyelitis of left foot and ankle, asthma, COPD. Family and social history: Denies EtOH use COVID no exercise good grooming eats unhealthy diet. Pertinent exam findings / vital signs include morbid obesity, mild epigastric tenderness, some left-sided pleuritic chest pain but states the pain is also deeper, lungs CTA but difficult due to body habitus for auscultation, question coarse Rales in bases, neuro intact, nontoxic vital signs, afebrile. Differential / pathologies of concern include CHF exacerbation, COPD exacerbation, ACS, less likely aortic dissection, pneumonia, pancreatitis, GERD, chronic back pain, PE, costochondritis Diagnostic studies of: -CBC, CMP, serial troponins, BNP, lipase, EKG, CT chest abdomen pelvis without contrast, Covid/Flu/RSV PCR -CBC shows no leukocytosis -CMP shows chronically elevated creatinine 2.5, no other actionable abnormality -Serial troponins negative -Lipase negative -COVID/flu/RSV negative -EKG shows some mild ST depression in V45 and 6 that is slightly worse than priors but no other abnormality noted -CT negative for pulmonary edema or any other intrathoracic or abdominal pathology -Pending D-dimer hopeful negative, potential for VQ scan due to patient's GFR Interventions of: -none. ED Course/Assessment/Plan: 69-year-old male presents with onset of 9 out of 10 throbbing chest pain while at home watching TV, he has morbid obesity as well as heart failure and COPD, he cannot have contrast due to extremely low GFR but his CT without shows no extreme dilatation of the aorta and his troponins are negative I do not suspect dissection, he has no evidence of leukocytosis, he has a mild anemia that is improved from priors, no actionable abnormality on labs, chronically elevated creatinine at 2.5, stable troponins with 3-hour pending, BNP's increased from prior level of 300-16 100 without hypoxic respiratory failure and noted pulmonary edema on CT, lipase is negative, patient signed out to oncoming provider Lizy Harris NP with pending third troponin, consider D-dimer and VQ scan. Patient is negative for Covid/Flu/RSV. Findings not consistent with ACS, dissection, hypoxia, pneumonia. Disposition of Chest Pain of Uncertain Etiology. Patient verbalized understanding of the plan and return to ED criteria and engaged in shared decision making. Medical Records Medical records reviewed: Yes I reviewed the patient's medical records. Imaging Data Radiologic Study: Attestation: I personally reviewed and interpreted this imaging study as follows: Imaging: CT Scan Radiologist's impression: EXAM: CT CHEST/ABD/PEL WO CLINICAL HISTORY: GFR 27, aorta study non-con. TECHNIQUE: Imaging Protocol: Axial computed tomography images with coronal and sagittal reformatted images were created and reviewed. Computer aided detection (CAD) was utilized. CONTRAST MATERIAL: Noncontrast COMPARISON: CR,XR XR PORTABLE CHEST AP from 07/24/2024 FINDINGS: CHEST: Tracheobronchial tree: Patent. Pulmonary parenchyma: No consolidation or dominant measurable mass. Pleura: Trace left pleural effusion. No pneumothorax. Mediastinum: Within normal limits. Aorta: Thoracic portion non-dilated. Pulmonary arteries: No visible emboli. Heart: Normal size. Coronary artery calcifications. No pericardial effusion. Bones: Advanced degenerative changes with prominent endplate osteophytes. Metallic rods in the upper thoracic region. No lytic or blastic lesions.No compression fractures. Soft tissues: Unremarkable. ABDOMEN and PELVIS: Exam is limited by patient body habitus and arm positioning. There is also streak artifact from bilateral hip prostheses. Liver: Normal density. No measurable mass. Gallbladder and biliary tract: No evidence of stones or wall thickening. No biliary dilatation. Pancreas: Normal density, no abnormal calcifications or inflammatory process. Spleen: Normal. Kidneys: Normal size, contour and axis. Bilateral nonobstructing stones. No obstructive uropathy. No suspicious masses seen. Adrenal glands: No masses seen. Aorta: Abdominal portion non-dilated. [id number] calcification. Lymph nodes: Within normal limits. Soft tissues: Dehiscence of the anterior abdominal wall without evidence of coby hernia. Bladder: Somewhat over distended. The inferior bladder is obscured by artifact from bilateral prostheses. Bowel: No obstruction or bowel wall thickening. Moderate quantity of stool. Peritoneal cavity: No ascites. No focal collection. No mesenteric inflammatory response. No free air. Bones: Advanced degenerative changes in the spine. Bilateral hip prostheses. Reproductive organs: Prostate obscured by artifact from hip prostheses. IMPRESSION: Trace left pleural effusion. No acute abnormality in the abdomen or pelvis. Lab Data Lab results reviewed: Yes I reviewed the patient's lab results. Labs: Laboratory Tests Range/Units 10/28/24 10/28/24 10/28/24 13:20 14:10 14:17 WBC (4.4-10.8) 10^3/uL 8.65 RBC (4.36-5.78) 10^6/uL 3.71 L Hgb (13.5-17.5) g/dL 11.0 L Hct (40.0-50.0) % 33.8 L MCV (80-95) fL 91 MCH (27.0-33.0) pg 29.6 MCHC (32.0-36.0) % 32.5 RDW (11.8-14.1) % 12.8 Plt Count (130-400) 10^3/uL 232 MPV (8.0-11.0) fL 9.5 Immature Gran % % 0.6 Neutrophils % % 68.9 Lymphocytes % % 20.6 Monocytes % % 7.5 Eosinophils % % 2.1 Basophils % % 0.3 Nucleated RBC % (0.0-0.3) % 0.0 Absolute Neutrophils (1.2-6.7) 10^3/uL 5.96 Absolute Lymphocytes (1.2-3.4) 10^3/uL 1.78 Absolute Monocytes (0.1-0.8) 10^3/uL 0.65 Absolute Eosinophils (0.0-0.7) 10^3/uL 0.18 Absolute Basophils (0.0-0.2) 10^3/uL 0.03 Sodium (136-145) mmol/L 137 Potassium (3.5-5.1) mmol/L 4.7 Chloride (98-107) mmol/L 101 Carbon Dioxide (21.0-32.0) mmol/L 29.5 Anion Gap (3-11) mmol/L 6.5 BUN (7-18) mg/dL 55 H Creatinine (0.70-1.30) mg/dL 2.5 H Est GFR (CKD-EPI 2020) (mL/min/1.73m2) 27.47 Glucose (74-106) mg/dL 176 H Calcium (8.5-10.1) mg/dL 9.2 Total Bilirubin (0.2-1.0) mg/dL 0.26 AST (15-37) U/L 11 L ALT (16-63) U/L 20 Alkaline Phosphatase (46-116) U/L 87 Troponin I (<or=76) ng/L 4 4 NT-Pro-B Natriuret Pep (<300) pg/mL 1661 H Total Protein (6.4-8.2) g/dL 7.2 Albumin (3.4-5.0) g/dL 3.6 Lipase (<78) U/L 73 COVID-19 Source Nasopharynx SARS-CoV-2 (PCR) (Negative) Negative Influenza Type A (PCR) (Negative) Negative Influenza Type B (PCR) (Negative) Negative RSV (PCR) (Negative) Negative Quality:SDOH Health Related Social Needs: No Data to Display PFSH All Active Problems (Updated 08/24/24 @ 00:06 by UMA WILSON) Nondisplaced fracture of right scaphoid bone (Acute 02/01/24) Right wrist pain (Acute) GERD (gastroesophageal reflux disease) (Chronic) Hypertension (Chronic) Neuropathy (Acute) History of venous thrombosis and embolism (Acute) Pityriasis versicolor (Acute) Hyperlipidemia (Acute) Atherosclerotic heart disease of [place] coronary artery without angina pectoris (Acute) CKD stage 4 due to type 2 diabetes mellitus (Acute) Heart failure (Acute) Anxiety (Chronic) Morbid obesity (Acute) Subacute osteomyelitis, left ankle and foot (Acute) Chronic pain (Chronic) COPD (chronic obstructive pulmonary disease) (Chronic) Asthma (Chronic) Type 2 diabetes mellitus (Acute) Medical History (Updated 08/24/24 @ 00:06 by UMA WILSON) Phantom limb syndrome Testicular hypofunction Vitamin D deficiency PTSD (post-traumatic stress disorder) Low back pain Social History Smoking/Tobacco Use Status: Former Tobacco Use Smoking risk assessment performed?: Yes Alcohol Intake: current Alcohol Intake frequency: holidays/special occasions only Drug use: Never Substance use type: does not use Housing: other Do you feel safe at home: Yes Do you feel safe in your relationship?: Yes
[2024-10-28 13:34] LABS: Abs Immature Grans 0.05 10^3/uL (0.0-0.06); Absolute Basophil Count 0.03 10^3/uL (0.0-0.2); Absolute Eosinophil Count 0.18 10^3/uL (0.0-0.7); Absolute Lymphocyte Count 1.78 10^3/uL (1.2-3.4); Absolute Monocyte Count 0.65 10^3/uL (0.1-0.8); Absolute Neutrophil Count 5.96 10^3/uL (1.2-6.7); Basophils % 0.3 %; Eosinophils % 2.1 %; HCT 33.8 % (40.0-50.0); Immature Grans % 0.6 %; Lymphocytes % 20.6 %; MCH 29.6 pg (27.0-33.0); MCHC 32.5 % (32.0-36.0); MCV 91 fL (80-95); MPV 9.5 fL (8.0-11.0); Monocytes % 7.5 %; Neutrophils % 68.9 %; Platelet Count 232 10^3/uL (130-400); RBC 3.71 10^6/uL (4.36-5.78); RDW 12.8 % (11.8-14.1); RDW-SD 41.5 fL; WBC 8.65 10^3/uL (4.4-10.8)
[2024-10-28 13:58] LABS: ALT 20 U/L (16-63); AST 11 U/L (15-37); Albumin 3.6 g/dL (3.4-5.0); Alkaline Phosphatase 87 U/L (46-116); Anion Gap 6.5 mmol/L (3-11); BUN 55 mg/dL (7-18); Bilirubin, Total 0.26 mg/dL (0.2-1.0); CO2 29.5 mmol/L (21.0-32.0); CREATININE 2.5 mg/dL (0.70-1.30); Chloride 101 mmol/L (98-107); Estimated GFR 27.47 (mL/min/1.73m2); Glucose 176 mg/dL (74-106); Lipase 73 U/L (<78); NT-proBNP 1661 pg/mL (<300); Potassium 4.7 mmol/L (3.5-5.1); Sodium 137 mmol/L (136-145); Total Protein 7.2 g/dL (6.4-8.2); Troponin I 4 ng/L (<or=76)
--- NOTE | 2024-10-28 14:00 | DI.CT_ITS ---
Exam(s) CT CHEST/ABD/PEL WO EXAM: CT CHEST/ABD/PEL WO CLINICAL HISTORY: GFR 27, aorta study non-con. TECHNIQUE: Imaging Protocol: Axial computed tomography images with coronal and sagittal reformatted images were created and reviewed. Computer aided detection (CAD) was utilized. CONTRAST MATERIAL: Noncontrast COMPARISON: CR,XR XR PORTABLE CHEST AP from 07/24/2024 FINDINGS: CHEST: Tracheobronchial tree: Patent. Pulmonary parenchyma: No consolidation or dominant measurable mass. Pleura: Trace left pleural effusion. No pneumothorax. Mediastinum: Within normal limits. Aorta: Thoracic portion non-dilated. Pulmonary arteries: No visible emboli. Heart: Normal size. Coronary artery calcifications. No pericardial effusion. Bones: Advanced degenerative changes with prominent endplate osteophytes. Metallic rods in the upper thoracic region. No lytic or blastic lesions.No compression fractures. Soft tissues: Unremarkable. ABDOMEN and PELVIS: Exam is limited by patient body habitus and arm positioning. There is also streak artifact from bila teral hip prostheses. Liver: Normal density. No measurable mass. Gallbladder and biliary tract: No evidence of stones or wall thickening. No biliary dilatation. Pancreas: Normal density, no abnormal calcifications or inflammatory process. Spleen: Normal. Kidneys: Normal size, contour and axis. Bilateral nonobstructing stones. No obstructive uropathy. No suspicious masses seen. Adrenal glands: No masses seen. Aorta: Abdominal portion non-dilated. [id number] calcification. Lymph nodes: Within normal limits. Soft tissues: Dehiscence of the anterior abdominal wall without evidence of coby hernia. Bladder: Somewhat over distended. The inferior bladder is obscured by artifact from bilateral prosth eses. Bowel: No obstruction or bowel wall thickening. Moderate quantity of stool. Peritoneal cavity: No ascites. No focal collection. No mesenteric inflammatory response. No free ai r. Bones: Advanced degenerative changes in the spine. Bilateral hip prostheses. Reproductive organs: Prostate obscured by artifact from hip prostheses. IMPRESSION: Trace left pleural effusion. No acute abnormality in the abdomen or pelvis. RADIATION DOSE DELIVERED: 1,606.01mGy.cm Total DLP DATA REPOSITORY: All CT scans at this facility are submitted to the National Radiology Data Registry (NRDR) Dose Index Registry (DIR) with the [employer] ([employer]). RADIATION OPTIMIZATION: All CT scans at this facility use at least one of these dose optimization te chniques: automated exposure control; mA and/or kV adjustment per patient size (includes targeted exa ms where dose is matched to clinical indication); or iterative reconstruction.
[2024-10-28 14:03] LABS: Calcium 9.2 mg/dL (8.5-10.1)
[2024-10-28 14:39] LABS: Troponin I 4 ng/L (<or=76)
[2024-10-28 15:03] LABS: COVID-19 PCR Negative (Negative); Influenza A PCR Negative (Negative); Influenza B PCR Negative (Negative); RSV PCR Negative (Negative)
[2024-10-28 15:06] LABS: Source Nasopharynx
--- NOTE | 2024-10-28 15:30 | RT.EKG_ITS ---
APPROVED REPORT Exam: Resting ECG Reason for Exam: Repeat, Chest Pain Patient Location: E HR:66 bpm ECG Measurements Heart Rate 66 AXIS MI 197 P 50 QRSd 114 QRS 15 QT 459 T 39 QTc 483 Conclusion Sinus rhythm. 66 normal axis no stemi
--- NOTE | 2024-10-28 15:39 | ED.PROG_ITS ---
Date of service: 10/28/24 Time of Service: 15:39 Medical Decision Making Care assumed from provider (ISMAEL Carroll) Please see their initial HPI, PE, and documentation. Discussed patient details and case and pending workup and disposition. Patient is hemodynamically stable, and alert and oriented. At the time of signout awaiting serial troponin and D-dimer patient still complaining of 8 out of 10 chest pain and just received some morphine. Thus far workup has been relatively negative however he does have elevated BNP of over thousand, unable to give IV contrast due to chronic kidney disease. Will also do a repeat EKG with the third troponin. Repeat EKG performed by staff, ST depressions have resolved in the anterolateral leads V4, V5, V6. D-dimer within normal limits, chest pain is improved after morphine. Disposition pending serial troponin will be discharged to health and rehab via EMS. This text was generated using [employer] system, please disregard any oddities of phrase or misspellings. Medical Records Medical records reviewed: Yes I reviewed the patient's medical records. Lab Data Lab results reviewed: Yes I reviewed the patient's lab results. Labs: Laboratory Tests Range/Units 10/28/24 10/28/24 10/28/24 13:20 14:10 14:17 WBC (4.4-10.8) 10^3/uL 8.65 RBC (4.36-5.78) 10^6/uL 3.71 L Hgb (13.5-17.5) g/dL 11.0 L Hct (40.0-50.0) % 33.8 L MCV (80-95) fL 91 MCH (27.0-33.0) pg 29.6 MCHC (32.0-36.0) % 32.5 RDW (11.8-14.1) % 12.8 Plt Count (130-400) 10^3/uL 232 MPV (8.0-11.0) fL 9.5 Immature Gran % % 0.6 Neutrophils % % 68.9 Lymphocytes % % 20.6 Monocytes % % 7.5 Eosinophils % % 2.1 Basophils % % 0.3 Nucleated RBC % (0.0-0.3) % 0.0 Absolute Neutrophils (1.2-6.7) 10^3/uL 5.96 Absolute Lymphocytes (1.2-3.4) 10^3/uL 1.78 Absolute Monocytes (0.1-0.8) 10^3/uL 0.65 Absolute Eosinophils (0.0-0.7) 10^3/uL 0.18 Absolute Basophils (0.0-0.2) 10^3/uL 0.03 Sodium (136-145) mmol/L 137 Potassium (3.5-5.1) mmol/L 4.7 Chloride (98-107) mmol/L 101 Carbon Dioxide (21.0-32.0) mmol/L 29.5 Anion Gap (3-11) mmol/L 6.5 BUN (7-18) mg/dL 55 H Creatinine (0.70-1.30) mg/dL 2.5 H Est GFR (CKD-EPI 2020) (mL/min/1.73m2) 27.47 Glucose (74-106) mg/dL 176 H Calcium (8.5-10.1) mg/dL 9.2 Total Bilirubin (0.2-1.0) mg/dL 0.26 AST (15-37) U/L 11 L ALT (16-63) U/L 20 Alkaline Phosphatase (46-116) U/L 87 Troponin I (<or=76) ng/L 4 4 NT-Pro-B Natriuret Pep (<300) pg/mL 1661 H Total Protein (6.4-8.2) g/dL 7.2 Albumin (3.4-5.0) g/dL 3.6 Lipase (<78) U/L 73 COVID-19 Source Nasopharynx SARS-CoV-2 (PCR) (Negative) Negative Influenza Type A (PCR) (Negative) Negative Influenza Type B (PCR) (Negative) Negative RSV (PCR) (Negative) Negative Quality:SDOH Health Related Social Needs: No Data to Display Discharge Plan Disposition Patient Disposition: Home Condition: Stable Discharge Details Clinical Impression: Chest pain Primary Care Provider: Unknown,Unknown ED Provider: Lizy Harris Home Meds and New Rx's Prescriptions: New cephalexin 500 mg capsule 500 mg PO QID 10 Days Qty: 40 0RF Continued acetaminophen 325 mg tablet 650 mg PO Q4H PRN amitriptyline 10 mg tablet 30 mg PO QHS amlodipine 2.5 mg tablet 2.5 mg PO DAILY Anoro Ellipta 62.5-25 mcg/actuation blister with device 1 inh inhalation DAILY aspirin [Adult Aspirin Regimen] 81 mg tablet,delayed release (DR/EC) 81 mg PO DAILY bupropion HCl 300 mg tablet extended release 24 hr 300 mg PO QAM cholecalciferol (vitamin D3) 25 mcg (1,000 unit) capsule 50 mcg PO DAILY ferrous sulfate 325 mg (65 mg iron) tablet 325 mg PO DAILY folic acid 1 mg tablet 1 mg PO DAILY gabapentin 300 mg capsule 300 mg PO BID glucagon 1 mg recon soln 1 mg subcut Q20M PRN Rx Instructions: until target blood sugar attained insulin glargine 100 unit/mL (3 mL) insulin pen 30 unit subcut QAM insulin lispro 100 unit/mL insulin pen 1 sliding scale dose subcut USEASDIRECTD magnesium L-lactate 84 mg tablet extended release 168 mg PO DAILY metoprolol succinate 25 mg tablet extended release 24 hr 25 mg PO BID magnesium hydroxide [Milk of Magnesia] 400 mg/5 mL suspension 30 ml PO DAILY PRN naloxone 4 mg/actuation spray,non-aerosol 4 mg intranasal Q2M Rx Instructions: spray 1 dose into ONE nostril; alternate nostrils w each dose until help arrives nitroglycerin 0.4 mg tablet, sublingual 0.4 mg sublingual Q5M PRN Rx Instructions: do not exceed 3 doses per episode pantoprazole 40 mg tablet,delayed release (DR/EC) 40 mg PO DAILY ranolazine 500 mg tablet extended release 12 hr 500 mg PO BID sevelamer HCl 800 mg tablet 800 mg PO TID Rx Instructions: must administer with a meal/food risperidone 1 mg tablet 1 mg PO DAILY risperidone 2 mg tablet 2 mg PO QHS ropinirole 1 mg tablet 1 mg PO BID rosuvastatin 20 mg tablet 20 mg PO DAILY sennosides-docusate sodium 8.6-50 mg tablet 1 tab-cap PO BID torsemide 20 mg tablet 20 mg PO DAILY tramadol 25 mg tablet 25 mg PO BID PRN Trulicity 0.75 mg/0.5 mL pen injector 0.75 mg subcut QWEEK ipratropium-albuterol 0.5 mg-3 mg(2.5 mg base)/3 mL solution for nebulization 3 ml inhalation Q4H PRNQty: 90 0RF Discharge Instructions Instructions: Chest Pain, Adult ED Additional Instructions: At this time your workup is largely unremarkable does not appear that you are having a heart attack or any blood clots in your lungs. This could be chest wall pain or musculoskeletal pain. However that being said please follow-up with your primary care provider next 3 days to discuss an outpatient echocardiogram if needed. Follow up with primary care provider in 3-5 days. Return to ED sooner if any worsening chest pain, dizziness, nausea, shortness of breath or concerns. Please take Tylenol with food every 4-6 hours as needed for pain and swelling. Continue your previously prescribed medications, Thank you for allowing us to care for you today. Referrals: Primary Care Provider [Outside] CARDIOLOGY,[facility] – [place] [OTHER] - CARDIOLOGY,[facility] [OTHER] - Tanesha Mcdaniels MD [ [facility] STAFF PHYSICIAN] -
[2024-10-28] MEDS: MORPHine 10 MG/ML VIAL 6 MG IVP (15:41)
[2024-10-28 15:54] LABS: D-Dimer 476 ng/mlFEU (<500)
[2024-10-28 16:44] LABS: Troponin I 4 ng/L (<or=76)
== END 2024-10-28 17:01 | disposition home or self-care (01) ==
PROVIDERS: Physician Assistant; Emergency Provider Registered Nurse Emergency
DX: R07.9 Chest pain, unspecified (principal); R10.13 Epigastric pain; E11.22 Type 2 diabetes mellitus with diabetic chronic kidney disease; N18.4 Chronic kidney disease, stage 4 (severe); I50.9 Heart failure, unspecified; E66.01 Morbid (severe) obesity due to excess calories; Z79.82 Long term (current) use of aspirin; Z79.4 Long term (current) use of insulin
CPT/HCPCS: 00123; 71250; 80053; 83690; 87637; 93005; 96374; 99285; 74176; 83880; 84484; 85025; 85379; 93010; J2270

== ENCOUNTER 2024-11-28 17:30 | Outpatient (REF) | payer MEDICARE, MEDICAID, SELFPAY ==
[2024-11-28 13:23] LABS: Abs Immature Grans 0.06 10^3/uL (0.0-0.06); Absolute Basophil Count 0.03 10^3/uL (0.0-0.2); Absolute Eosinophil Count 0.28 10^3/uL (0.0-0.7); Absolute Lymphocyte Count 1.74 10^3/uL (1.2-3.4); Absolute Monocyte Count 0.48 10^3/uL (0.1-0.8); Absolute Neutrophil Count 4.31 10^3/uL (1.2-6.7); Basophils % 0.4 %; Eosinophils % 4.1 %; HCT 34.6 % (40.0-50.0); HGB 11.4 g/dL (13.5-17.5); Immature Grans % 0.9 %; Lymphocytes % 25.2 %; MCH 29.9 pg (27.0-33.0); MCHC 32.9 % (32.0-36.0); MCV 91 fL (80-95); MPV 10.1 fL (8.0-11.0); Neutrophils % 62.4 %; Platelet Count 233 10^3/uL (130-400); RBC 3.81 10^6/uL (4.36-5.78); RDW-SD 42.6 fL
[2024-11-28 13:37] LABS: Anion Gap 7.2 mmol/L (3-11); BUN 44 mg/dL (7-18); CO2 29.8 mmol/L (21.0-32.0); CREATININE 2.2 mg/dL (0.70-1.30); Calcium 9.5 mg/dL (8.5-10.1); Chloride 103 mmol/L (98-107); Estimated GFR 32.03 (mL/min/1.73m2); Glucose 234 mg/dL (74-106); Magnesium 1.8 mg/dL (1.8-2.4); Potassium 5.2 mmol/L (3.5-5.1); Sodium 140 mmol/L (136-145)
[2024-11-28 13:54] LABS: Hemoglobin A1C 7.3 % (<5.7)
== END 2024-11-28 17:31 | disposition home or self-care (01) ==
LOC: LBN 17:30
PROVIDERS: Visit Provider Family Medicine Geriatric Medicine
DX: E11.621 Type 2 diabetes mellitus with foot ulcer (principal)
CPT/HCPCS: 80048; 83036; 83735; 85025

== ENCOUNTER 2025-03-15 16:16 | Emergency (ER) | payer MEDICARE, MEDICAID, SELFPAY ==
[2025-03-15] VITALS (20 sets, daily range): BP systolic 134–186; BP diastolic 54–89; PULSE 59–74; RESP 18; TEMP 36.3–36.7; O2SAT 95–100
--- NOTE | 2025-03-15 16:21 | DI.CT_ITS ---
Exam(s) CT ABDOMEN PELVIS WO EXAM: CT ABDOMEN PELVIS WO CLINICAL HISTORY: RLQ pain x 4 days. TECHNIQUE: Imaging Protocol: Axial computed tomography images with coronal and sagittal reformatted images were created and reviewed CONTRAST MATERIAL: Intravenous: none Oral: None COMPARISON: CT CT CHEST/ABD/PEL WO from 10/28/2024 FINDINGS: VISUALIZED LUNG BASES: There are mild benign-appearing increased markings in the posterior basal segm ent of the left lower lobe which are somewhat decreased from findings which are evident at this locat ion on prior CT scan of 10/28/2024. The previously present small left pleural effusion has resolved. ABDOMEN: There is no ascites. LIVER: There are no obvious focal hepatic lesions evident of this noninfused study. GALLBLADDER/BILIARY: No obvious gallbladder pathology. CBD is not dilated. PANCREAS: No evidence of pancreatic mass nor dilatation of the pancreatic duct. SPLEEN: Spleen is not enlarged. No obvious intrasplenic lesions. There is a solitary tiny calcified granuloma in the spleen again noted. ADRENALS: There are no significant adrenal masses. KIDNEYS:There is again noted a prominent calculus in the upper pole calyx of the left kidney, unchang ed. No other significant left kidney findings and no hydronephrosis. Two slightly smaller calculi a re noted in the right kidney the which are also unchanged in size and position when compared to 10/28 and there is no hydronephrosis on the right side. No cysts nor solid renal masses seen. Both ureters are not dilated and there are no calculi in the nondilated ureters nor within the urinary ankit dder. ABDOMINAL AORTA: Abdominal aorta is not enlarged. There is also no aneurysmal dilatation of the yazmin c arteries. LYMPH NODES: There is no retroperitoneal nor paraaortic adenopathy. ABDOMINAL WALL: No evidence of significant anterior abdominal wall nor inguinal hernia. GI: There is no evidence of bowel obstruction, free air, nor abscess. PELVIS: LYMPH NODES: There is no intrapelvic nor inguinal adenopathy. GI: No evidence of appendicitis.No evidence of sigmoid diverticulitis. URINARY BLADDER: No calculi nor obvious masses evident REPRODUCTIVE: Prostate gland does not appear enlarged. 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 On the right side there is some scarring ag ain noted lateral to the right hip but there is also what appears to be a collection lateral to the r ight hip greater trochanter region and extending to the prosthesis level. There does not appear to b e underlying bone destruction. No fractures. IMPRESSION: 1. No evidence of acute appendicitis nor acute diverticulitis nor other obvious acute inflammatory pr ocess within the abdomen pelvic cavities. 2. Bilateral nephrolithiasis with bilateral nonobstructive renal calculi which appears similar to the previous scan of 10/28/2024. There is no hydronephrosis. There are no calculi seen in the urinary bladder. Ureters are not dilated. 3. There are bilateral hip prostheses. There is significant artifact from these prosthesis but there also appears to be a fluid collection associated with the lateral aspect of the right hip extending towards the prosthesis. This is more evident on the present study because of the iMAR imaging techni que used on the present study. Report called by myself to ER provider 03/15/2025 at 6:43 p.m. RADIATION DOSE DELIVERED: 1,851.61mGy.cm Total DLP DATA REPOSITORY: All CT scans at this facility are submitted to the National Radiology Data Registry (NRDR) Dose Index Registry (DIR) with the [employer] (A[employer]). RADIATION OPTIMIZATION: All CT scans at this facility use at least one of these dose optimization te chniques: automated exposure control; mA and/or kV adjustment per patient size (includes targeted exa ms where dose is matched to clinical indication); or iterative reconstruction.
[2025-03-15 17:02] LABS: Abs Immature Grans 0.02 10^3/uL (0.0-0.06); Absolute Basophil Count 0.03 10^3/uL (0.0-0.2); Absolute Eosinophil Count 0.16 10^3/uL (0.0-0.7); Absolute Monocyte Count 0.63 10^3/uL (0.1-0.8); Absolute Neutrophil Count 5.35 10^3/uL (1.2-6.7); Basophils % 0.4 %; HCT 34.4 % (40.0-50.0); HGB 11.4 g/dL (13.5-17.5); Immature Grans % 0.3 %; Lymphocytes % 21.5 %; MCH 29.6 pg (27.0-33.0); MCHC 33.1 % (32.0-36.0); MCV 89 fL (80-95); MPV 9.7 fL (8.0-11.0); Neutrophils % 67.8 %; Platelet Count 179 10^3/uL (130-400); RBC 3.85 10^6/uL (4.36-5.78); RDW 12.2 % (11.8-14.1); RDW-SD 39.4 fL; WBC 7.89 10^3/uL (4.4-10.8)
[2025-03-15 17:19] LABS: ALT 24 U/L (16-63); AST 17 U/L (15-37); Albumin 3.6 g/dL (3.4-5.0); Alkaline Phosphatase 84 U/L (46-116); Anion Gap 4.7 mmol/L (3-11); BUN 40 mg/dL (7-18); Bilirubin, Total 0.3 mg/dL (0.2-1.0); CO2 32.3 mmol/L (21.0-32.0); CREATININE 2.3 mg/dL (0.70-1.30); Calcium 9.3 mg/dL (8.5-10.1); Chloride 102 mmol/L (98-107); Estimated GFR 30.36 (mL/min/1.73m2); Glucose 220 mg/dL (74-106); Lipase 70 U/L (<78); Magnesium 1.6 mg/dL (1.8-2.4); Potassium 4.1 mmol/L (3.5-5.1); Sodium 139 mmol/L (136-145); Total Protein 6.7 g/dL (6.4-8.2)
[2025-03-15 17:26] LABS: Bilirubin Negative (Negative); Blood Negative (Negative); Clarity Clear (Clear); Glucose Negative (Negative); Ketones Negative (Negative); Leukocyte Esterase Trace (Negative); Nitrite Negative (Negative); Urobilinogen 0.2 mg/dL (Up to 0.2); pH 5.5 (5-8)
[2025-03-15 17:35] LABS: Bacteria Negative HPF (Negative); C & S Indicated? No; Crystals Negative HPF (Negative); Epithelial Cells Rare HPF (Negative); Mucus Negative (Negative); RBC 0-2 HPF (0-2); WBC Negative HPF (0-5)
--- NOTE | 2025-03-15 17:39 | W.ED.GENAD ---
Discharge Plan Disposition Patient Disposition: Home Discharge Details Clinical Impression: Acute pain of right hip Primary Care Provider: Unknown,Unknown ED Provider: Marily Post Home Meds and New Rx's Prescriptions: No Action acetaminophen 325 mg tablet 650 mg PO Q4H PRN amitriptyline 10 mg tablet 30 mg PO QHS Anoro Ellipta 62.5-25 mcg/actuation blister with device 1 inh inhalation DAILY aspirin [Adult Aspirin Regimen] 81 mg tablet,delayed release (DR/EC) 81 mg PO DAILY bupropion HCl 300 mg tablet extended release 24 hr 300 mg PO QAM cholecalciferol (vitamin D3) 25 mcg (1,000 unit) capsule 50 mcg PO DAILY ferrous sulfate 325 mg (65 mg iron) tablet 325 mg PO DAILY folic acid 1 mg tablet 1 mg PO DAILY gabapentin 300 mg capsule 300 mg PO BID glucagon 1 mg recon soln 1 mg subcut Q20M PRN Rx Instructions: until target blood sugar attained insulin glargine 100 unit/mL (3 mL) insulin pen 30 unit subcut QAM insulin lispro 100 unit/mL insulin pen 1 sliding scale dose subcut USEASDIRECTD magnesium L-lactate 84 mg tablet extended release 168 mg PO DAILY metoprolol succinate 25 mg tablet extended release 24 hr 25 mg PO BID magnesium hydroxide [Milk of Magnesia] 400 mg/5 mL suspension 30 ml PO DAILY PRN naloxone 4 mg/actuation spray,non-aerosol 4 mg intranasal Q2M Rx Instructions: spray 1 dose into ONE nostril; alternate nostrils w each dose until help arrives nitroglycerin 0.4 mg tablet, sublingual 0.4 mg sublingual Q5M PRN Rx Instructions: do not exceed 3 doses per episode pantoprazole 40 mg tablet,delayed release (DR/EC) 40 mg PO DAILY ranolazine 500 mg tablet extended release 12 hr 500 mg PO BID sevelamer HCl 800 mg tablet 800 mg PO TID Rx Instructions: must administer with a meal/food risperidone 1 mg tablet 1 mg PO DAILY risperidone 2 mg tablet 2 mg PO QHS ropinirole 1 mg tablet 1 mg PO BID rosuvastatin 20 mg tablet 20 mg PO DAILY sennosides-docusate sodium 8.6-50 mg tablet 1 tab-cap PO BID torsemide 20 mg tablet 20 mg PO DAILY tramadol 25 mg tablet 25 mg PO BID PRN ipratropium-albuterol 0.5 mg-3 mg(2.5 mg base)/3 mL solution for nebulization 3 ml inhalation Q4H PRNQty: 90 0RF amlodipine 5 mg tablet 5 mg PO DAILY lidocaine 4 % adhesive patch,medicated 1 patch topical DAILY PRN hydromorphone 2 mg tablet 2 mg PO Q6H PRN isosorbide mononitrate 60 mg tablet extended release 24 hr 60 mg PO DAILY tizanidine 2 mg tablet 2 mg PO QID Trulicity 1.5 mg/0.5 mL pen injector 1.5 mg SUBCUT .weekly Discharge Instructions Additional Instructions: Please call diagnostic imaging first thing in the morning to schedule appointment for outpatient MRI to further evaluate your hip pain. Follow instructions according to the outpatient order form provided Your abdominal workup today was reassuring I would like you to follow-up with orthopedics in 1 week for further evaluation/management of your hip pain. Return to emergency care if you develop any fevers, inability to move your leg/numbness to your leg, redness around your hip, general malaise/feeling very unwell associate with hip pain, or if you are very worried and need to be rechecked again immediately Referrals: [facility] [Provider Group] Discharge Data Discharge Date/Time-TO BE ENTERED AT DEPARTURE: 03/15/25 22:02 HPI General Date/Time Provider Initiated Documentation: 03/15/25 16:21. HPI Narrative: Mike is a 69-year-old male who presents to the emergency department today for evaluation of right lower quadrant pain. Burning sensation in RLQ began as nagging pain 4-5 days ago, now severe and deep. Denies fevers/chills, headaches, dizziness, congestion, sore throat, chest pain, SOB, nausea, or vomiting. Appetite unaffected, regular bowel movements with brief diarrhea this morning. No pharmacological intervention sought. No dysuria, but one episode of urinary incontinence today. Past medical history significant for: T2DM (uses insulin, blood glucose levels 210-240, last A1c 8-9), hypertension, HLD, ASCVD, GERD, CKD, COPD/asthma. History of chickenpox, no shingles vaccine. No abdominal surgeries. Related Data Home Medications ?Medication ?Instructions ?Recorded ?Confirmed acetaminophen 325 mg tablet 650 mg PO Q4H PRN 07/06/24 03/15/25 amitriptyline 10 mg tablet 30 mg PO QHS 07/06/24 03/15/25 aspirin 81 mg tablet,delayed 81 mg PO DAILY 07/06/24 03/15/25 release (Adult Aspirin Regimen) bupropion HCl 300 mg 24 hr tablet, 300 mg PO QAM 07/06/24 03/15/25 extended release cholecalciferol (vitamin D3) 25 50 mcg PO DAILY 07/06/24 03/15/25 mcg (1,000 unit) capsule ferrous sulfate 325 mg (65 mg 325 mg PO DAILY 07/06/24 03/15/25 iron) tablet folic acid 1 mg tablet 1 mg PO DAILY 07/06/24 03/15/25 gabapentin 300 mg capsule 300 mg PO BID 07/06/24 03/15/25 glucagon 1 mg solution for 1 mg subcut Q20M PRN 07/06/24 03/15/25 injection insulin glargine 100 unit/mL (3 30 unit subcut QAM 07/06/24 03/15/25 mL) subcutaneous pen insulin lispro 100 unit/mL 1 sliding scale dose subcut 07/06/24 03/15/25 subcutaneous pen USEASDIRECTD magnesium L-lactate 84 mg 168 mg PO DAILY 07/06/24 03/15/25 tablet,extended release magnesium hydroxide 400 mg/5 mL 30 ml PO DAILY PRN 07/06/24 03/15/25 oral suspension (Milk of Magnesia) metoprolol succinate 25 mg 25 mg PO BID 07/06/24 03/15/25 tablet,extended release 24 hr naloxone 4 mg/actuation nasal spray 4 mg intranasal Q2M 07/06/24 03/15/25 nitroglycerin 0.4 mg sublingual 0.4 mg sublingual Q5M PRN 07/06/24 03/15/25 tablet pantoprazole 40 mg tablet,delayed 40 mg PO DAILY 07/06/24 03/15/25 release ranolazine 500 mg tablet,extended 500 mg PO BID 07/06/24 03/15/25 release,12 hr risperidone 1 mg tablet 1 mg PO DAILY 07/06/24 03/15/25 risperidone 2 mg tablet 2 mg PO QHS 07/06/24 03/15/25 ropinirole 1 mg tablet 1 mg PO BID 07/06/24 03/15/25 rosuvastatin 20 mg tablet 20 mg PO DAILY 07/06/24 03/15/25 sennosides 8.6 mg-docusate sodium 1 tab-cap PO BID 07/06/24 03/15/25 50 mg tablet sevelamer HCl 800 mg tablet 800 mg PO TID 07/06/24 03/15/25 torsemide 20 mg tablet 20 mg PO DAILY 07/06/24 03/15/25 tramadol 25 mg tablet 25 mg PO BID PRN 07/06/24 03/15/25 umeclidinium 62.5 mcg-vilanterol 1 inh inhalation DAILY 07/06/24 03/15/25 25 mcg/actuation powdr for inhalation (Anoro Ellipta) ipratropium 0.5 mg-albuterol 3 mg 3 ml inhalation Q4H PRN #90 mL 07/24/24 03/15/25 (2.5 mg base)/3 mL nebulization soln amlodipine 5 mg tablet 5 mg PO DAILY 03/15/25 03/15/25 dulaglutide 1.5 mg/0.5 mL 1.5 mg subcut .weekly 03/15/25 03/15/25 subcutaneous pen injector (Trulicity) hydromorphone 2 mg tablet 2 mg PO Q6H PRN 03/15/25 03/15/25 isosorbide mononitrate 60 mg 60 mg PO DAILY 03/15/25 03/15/25 tablet,extended release 24 hr lidocaine 4 % topical patch 1 patch topical DAILY PRN 03/15/25 03/15/25 tizanidine 2 mg tablet 2 mg PO QID 03/15/25 03/15/25 Previous Rx's ?Medication ?Instructions ?Recorded ipratropium 0.5 mg-albuterol 3 mg 3 ml inhalation Q4H PRN #90 mL 07/24/24 (2.5 mg base)/3 mL nebulization soln Allergies Allergy/AdvReac Type Severity Reaction Status Date / Time bee venom protein (honey bee) Allergy Intermediate Anaphylaxis Verified 10/28/24 13:58 clonidine Allergy Mild Unknown Verified 10/28/24 13:58 Influenza Virus Vaccines Allergy Mild Unknown Verified 10/28/24 13:58 prednisone Allergy Unknown Other (See Verified 10/28/24 13:58 Comment) tamsulosin (From [employer]) Allergy Unknown Other (See Verified 10/28/24 13:58 Comment) General Stated Complaint: Abd Prob VALERI: 3 Review of Systems Narrative: see hpi Exam Narrative Exam Narrative: General Appearance: Normal, patient is alert and oriented, in no acute distress. Vital signs: Within normal limits. Respiratory: Easy work of breathing, lung sounds clear bilaterally, able to speak in full sentences. Cardiovascular: Regular rate and rhythm, normal heart sounds. Gastrointestinal: Faint ecchymosis (dime size) on right abdomen, no rashes. Tenderness in suprapubic area and RLQ; also with tenderness to palpation of right lateral hip. Normoactive bowel sounds Extremities: Right hip pain with flexion of hip. Sensation grossly intact to lower extremities. Bilateral pedal edema from knees down Skin: Warm and dry, no rash. Psychiatric: Normal. Course Vital Signs Vital signs: Vital Signs Temperature 36.3 C L 03/15/25 16:13 Pulse 74 03/15/25 16:13 Respiratory Rate 18 03/15/25 16:13 Blood Pressure 186/62 H 03/15/25 16:13 Pulse Oximetry 96 03/15/25 16:13 Temperature 36.7 C 03/15/25 17:15 Temperature Source Oral 03/15/25 17:15 Pulse 73 03/15/25 17:15 Respiratory Rate 18 03/15/25 17:15 Blood Pressure 168/89 H 03/15/25 17:15 Blood Pressure Mean 115 03/15/25 17:15 Blood Pressure Position Sitting 03/15/25 16:13 Pulse Oximetry 98 03/15/25 17:15 Oxygen Delivery Method Room Air 03/15/25 17:15 Oxygen Flow Rate 0 03/15/25 17:15 Lab/Test Results Lab/Test Results: Laboratory Tests Range/Units 03/15/25 03/15/25 16:53 17:17 WBC (4.4-10.8) 10^3/uL 7.89 RBC (4.36-5.78) 10^6/uL 3.85 L Hgb (13.5-17.5) g/dL 11.4 L Hct (40.0-50.0) % 34.4 L MCV (80-95) fL 89 MCH (27.0-33.0) pg 29.6 MCHC (32.0-36.0) % 33.1 RDW (11.8-14.1) % 12.2 Plt Count (130-400) 10^3/uL 179 MPV (8.0-11.0) fL 9.7 Immature Gran % % 0.3 Neutrophils % % 67.8 Lymphocytes % % 21.5 Monocytes % % 8.0 Eosinophils % % 2.0 Basophils % % 0.4 Nucleated RBC % (0.0-0.3) % 0.0 Absolute Neutrophils (1.2-6.7) 10^3/uL 5.35 Absolute Lymphocytes (1.2-3.4) 10^3/uL 1.70 Absolute Monocytes (0.1-0.8) 10^3/uL 0.63 Absolute Eosinophils (0.0-0.7) 10^3/uL 0.16 Absolute Basophils (0.0-0.2) 10^3/uL 0.03 Sodium (136-145) mmol/L 139 Potassium (3.5-5.1) mmol/L 4.1 Chloride (98-107) mmol/L 102 Carbon Dioxide (21.0-32.0) mmol/L 32.3 H Anion Gap (3-11) mmol/L 4.7 BUN (7-18) mg/dL 40 H Creatinine (0.70-1.30) mg/dL 2.3 H Est GFR (CKD-EPI 2020) (mL/min/1.73m2) 30.36 Glucose (74-106) mg/dL 220 H Calcium (8.5-10.1) mg/dL 9.3 Magnesium (1.8-2.4) mg/dL 1.6 L Total Bilirubin (0.2-1.0) mg/dL 0.3 AST (15-37) U/L 17 ALT (16-63) U/L 24 Alkaline Phosphatase (46-116) U/L 84 Total Protein (6.4-8.2) g/dL 6.7 Albumin (3.4-5.0) g/dL 3.6 Lipase (<78) U/L 70 Urine Color (Yellow) Yellow Urine Clarity (Clear) Clear Urine pH (5-8) 5.5 Ur Specific [place] (1.005-1.025) 1.010 Urine Protein (Neg-Trace) mg/dL Negative Urine Ketones (Negative) mg/dL Negative Urine Blood (Negative) Negative Urine Nitrite (Negative) Negative Urine Bilirubin (Negative) Negative Urine Urobilinogen (Up to 0.2) mg/dL 0.2 Ur Leukocyte Esterase (Negative) Trace H Urine RBC (0-2) HPF 0-2 Urine WBC (0-5) HPF Negative Ur Epithelial Cells (Negative) HPF Rare Urine Crystals (Negative) HPF Negative Urine Bacteria (Negative) HPF Negative Urine Mucus (Negative) Negative Ur Culture Indicated? No Urine Glucose (Negative) mg/dL Negative Medical Decision Making Initial Assessment: 69-year-old male with right lower quadrant pain, burning and severe, started 4-5 days ago. Differential Diagnosis includes was not limited to: - Appendicitis, UTI, diverticulitis, hernia, early herpes zoster, hip pain ED Course: - Tenderness noted in suprapubic area, RLQ, and right hip. - Advise NPO until further evaluation. - IV fluids if necessary. - Urine test to rule out infection. - IV Tylenol for pain. I independently interpreted the following tests: CBC, CMP (CKD unchanged from baseline), lipase unremarkable. Mild hypomagnesemia, 1.6. Inflammatory markers obtained, unremarkable. While in the emergency department Mike received IV fluids for gentle hydration anticipation of IV contrast CT abdomen/pelvis overall reassuring, however there was what appears to be a collection lateral to the right greater trochanter region. I discussed findings with Dr. Mancilla, orthopedic surgeon. As patient has reassuring inflammatory markers and is able to mobilize hip, unlikely septic arthritis. Recommends MRI outpatient for further follow-up. Outpatient MRI form completed, patient to have scan performed in the morning. Clinical Impression: Abdominal exam reassuring, right hip pain (possibly related to prosthesis) Disposition: - Discharge: Outpatient MRI and orthopedics follow-up to be performed for further evaluation/management of right hip pain MDM Components Evaluation: - Number of Differential Diagnoses or Management Options: Appendicitis, Urinary tract infection, diverticulitis, hernia, hip pain, early herpes zoster - Amount and Complexity of Data Reviewed: Physical examination, urine test, blood work - Risk of Complication and Morbidity or Mortality: Moderate due to severe pain and potential surgical intervention. Patient consented to the use of [facility] Imaging Data Radiologic Study: Radiologist's impression: PROCEDURE INFORMATION: Exam: XR Right Hip Exam date and time: 03/15/2025 8:01 PM Age: 69 years old Clinical indication: Rlq/r hip pain TECHNIQUE: Imaging protocol: Radiologic exam of the right hip. Views: 2 or 3 views hip with pelvis when performed. COMPARISON: CT ABDOMEN PELVIS WO 03/15/2025 5:59 PM FINDINGS: Bones/joints: No acute fracture. There are bilateral total hip joint replacements noted. No evidence of prosthetic dislocation. Soft tissues: Unremarkable. IMPRESSION: No acute findings. Radiologic Study #2: Radiologist's impression: Exam(s) CT ABDOMEN PELVIS WO EXAM: CT ABDOMEN PELVIS WO CLINICAL HISTORY: RLQ pain x 4 days. TECHNIQUE: Imaging Protocol: Axial computed tomography images with coronal and sagittal reformatted images were created and reviewed CONTRAST MATERIAL: Intravenous: none Oral: None COMPARISON: CT CT CHEST/ABD/PEL WO from 10/28/2024 FINDINGS: VISUALIZED LUNG BASES: There are mild benign-appearing increased markings in the posterior basal segment of the left lower lobe which are somewhat decreased from findings which are evident at this location on prior CT scan of 10/28/2024. The previously present small left pleural effusion has resolved. ABDOMEN: There is no ascites. LIVER: There are no obvious focal hepatic lesions evident of this noninfused study. GALLBLADDER/BILIARY: No obvious gallbladder pathology. CBD is not dilated. PANCREAS: No evidence of pancreatic mass nor dilatation of the pancreatic duct. SPLEEN: Spleen is not enlarged. No obvious intrasplenic lesions. There is a solitary tiny calcified granuloma in the spleen again noted. ADRENALS: There are no significant adrenal masses. KIDNEYS:There is again noted a prominent calculus in the upper pole calyx of the left kidney, unchanged. No other significant left kidney findings and no hydronephrosis. Two slightly smaller calculi are noted in the right kidney the which are also unchanged in size and position when compared to 10/28/2024 and there is no hydronephrosis on the right side. No cysts nor solid renal masses seen. Both ureters are not dilated and there are no calculi in the nondilated ureters nor within the urinary bladder. ABDOMINAL AORTA: Abdominal aorta is not enlarged. There is also no aneurysmal dilatation of the iliac arteries. LYMPH NODES: There is no retroperitoneal nor paraaortic adenopathy. ABDOMINAL WALL: No evidence of significant anterior abdominal wall nor inguinal hernia. GI: There is no evidence of bowel obstruction, free air, nor abscess. PELVIS: LYMPH NODES: There is no intrapelvic nor inguinal adenopathy. GI: No evidence of appendicitis.No evidence of sigmoid diverticulitis. URINARY BLADDER: No calculi nor obvious masses evident REPRODUCTIVE: Prostate gland does not appear enlarged. 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 On the right side there is some scarring again noted lateral to the right hip but there is also what appears to be a collection lateral to the right hip greater trochanter region and extending to the prosthesis level. There does not appear to be underlying bone destruction. No fractures. IMPRESSION: 1. No evidence of acute appendicitis nor acute diverticulitis nor other obvious acute inflammatory process within the abdomen pelvic cavities. 2. Bilateral nephrolithiasis with bilateral nonobstructive renal calculi which appears similar to the previous scan of 10/28/2024. There is no hydronephrosis. There are no calculi seen in the urinary bladder. Ureters are not dilated. 3. There are bilateral hip prostheses. There is significant artifact from these prosthesis but there also appears to be a fluid collection associated with the lateral aspect of the right hip extending towards the prosthesis. This is more evident on the present study because of the iMAR imaging technique used on the present study. Quality:SDOH Health Related Social Needs: No Data to Display PFSH All Active Problems (Updated 03/15/25 @ 21:55 by Marily Raines) Acute pain of right hip (Acute) Nondisplaced fracture of right scaphoid bone (Acute 02/01/24) Right wrist pain (Acute) GERD (gastroesophageal reflux disease) (Chronic) Hypertension (Chronic) Neuropathy (Acute) History of venous thrombosis and embolism (Acute) Pityriasis versicolor (Acute) Hyperlipidemia (Acute) Atherosclerotic heart disease of [place] coronary artery without angina pectoris (Acute) CKD stage 4 due to type 2 diabetes mellitus (Acute) Heart failure (Acute) Anxiety (Chronic) Morbid obesity (Acute) Subacute osteomyelitis, left ankle and foot (Acute) Chronic pain (Chronic) COPD (chronic obstructive pulmonary disease) (Chronic) Asthma (Chronic) Type 2 diabetes mellitus (Acute) Medical History (Updated 03/15/25 @ 21:55 by Marily Raines) Phantom limb syndrome Testicular hypofunction Vitamin D deficiency PTSD (post-traumatic stress disorder) Low back pain Social History Smoking/Tobacco Use Status: Former Tobacco Use Smoking risk assessment performed?: Yes Alcohol Intake: current Alcohol Intake frequency: holidays/special occasions only Drug use: Never Substance use type: does not use Housing: assisted living facility Do you feel safe at home: Yes Do you feel safe in your relationship?: Yes
[2025-03-15] MEDS: Normal Saline 1,000 ML 500 ML IV (18:48)
--- NOTE | 2025-03-15 19:30 | DI.RAD_ITS ---
Exam(s) XR HIP RT COMPLETE AP PELVIS EXAM: XR HIP RT COMPLETE AP PELVIS CLINICAL HISTORY: RLQ/R hip pain. TECHNIQUE: 2D digital imaging was performed of the right hip. Three images were obtained. AP pelvis and lateral right hip views were obtained. COMPARISON: CT CT CHEST/ABD/PEL WO from 10/28/[address] ABDOMEN PELVIS WO from 03/15/2025 FINDINGS: BONES: No acute fracture is present. No bony destructive lesion is seen. There is a stable sclerotic focus in the right supra-acetabular region which may represent a bone island. JOINTS: No dislocation present. The patient has bilateral total hip arthroplasties. No lucencies are seen about the orthopedic hardware to suggest loosening. SOFT TISSUE: Atherosclerotic calcification is present. IMPRESSION: 1. Right total hip arthroplasty. No evidence radiographically to suggest loosening. 2. No acute abnormality. DATA REPOSITORY: RADIATION DOSE DELIVERED:
[2025-03-15 19:37] LABS: ESR 1 mm/hr (0-20)
[2025-03-15 21:20] LABS: Lab Add On Test done
[2025-03-15 21:35] LABS: C-Reactive Protein < 0.50 mg/dL (<or=0.5)
--- NOTE | 2025-03-15 22:20 | DI.VRAD_ITS ---
PROCEDURE INFORMATION: Exam: XR Right Hip Exam date and time: 03/15/2025 8:01 PM Age: 69 years old Clinical indication: Rlq/r hip pain TECHNIQUE: Imaging protocol: Radiologic exam of the right hip. Views: 2 or 3 views hip with pelvis when performed. COMPARISON: CT ABDOMEN PELVIS WO 03/15/2025 5:59 PM FINDINGS: Bones/joints: No acute fracture. There are bilateral total hip joint replacements noted. No evidence of prosthetic dislocation. Soft tissues: Unremarkable. IMPRESSION: No acute findings. Dictated and Authenticated by: Desire Vizcaino MD. Orderin Dusty Calixto MD
[2025-03-16 17:59] LABS: CRP, High Sensitivity 1.85 mg/L (See Note)
== END 2025-03-15 22:02 | disposition home or self-care (01) ==
PROVIDERS: Emergency Provider Nurse Practitioner Family
DX: M25.551 Pain in right hip (principal); N13.2 Hydronephrosis with renal and ureteral calculous obstruction; E11.22 Type 2 diabetes mellitus with diabetic chronic kidney disease; N18.4 Chronic kidney disease, stage 4 (severe); I10 Essential (primary) hypertension; E78.5 Hyperlipidemia, unspecified; Z79.4 Long term (current) use of insulin; Z79.82 Long term (current) use of aspirin; Z96.643 Presence of artificial hip joint, bilateral
CPT/HCPCS: 36415; 80053; 83690; 85652; 86141; 99284; 73502; 74176; 81003; 81015; 83735; 85025; 86140

== ENCOUNTER → 2025-03-20 10:35 | Outpatient (BNVA) | payer MEDICARE, MEDICAID, SELFPAY | PROVIDERS: PCP Family Medicine; Visit Provider Podiatrist | DX: I83.019 Varicose veins of right lower extremity with ulcer of unspecified site (principal); I83.029 Varicose veins of left lower extremity with ulcer of unspecified site; L97.919 Non-pressure chronic ulcer of unspecified part of right lower leg with unspecified severity; L97.929 Non-pressure chronic ulcer of unspecified part of left lower leg with unspecified severity; E11.22 Type 2 diabetes mellitus with diabetic chronic kidney disease; N18.4 Chronic kidney disease, stage 4 (severe); I87.2 Venous insufficiency (chronic) (peripheral); I89.0 Lymphedema, not elsewhere classified; I73.89 Other specified peripheral vascular diseases | CPT/HCPCS: 29580; 29850 ==

== ENCOUNTER 2025-03-31 09:44 | Emergency (ER) | payer MEDICARE, MEDICAID, SELFPAY ==
[2025-03-31 09:50] VITALS: BP 167/84; PULSE 89; RESP 18; TEMP 37; O2SAT 96
--- NOTE | 2025-03-31 10:00 | DI.CT_ITS ---
Exam(s) CT HEAD WO/W FACIAL W EXAM: CT HEAD WO/W FACIAL W CLINICAL HISTORY: L ear pain, nerve pain, photophobia. TECHNIQUE: Imaging Protocol: Axial computed tomography images with coronal and sagittal reformatted images were created and reviewed IV Contrast Dose =100 cc COMPARISON: No exams were available for comparison FINDINGS: BRAIN: There are no skull fractures. There is some mucus in the dependent aspect of the right maxillary sin us. Remainder of the paranasal sinuses are clear. However, there is also fluid in left mastoid air cells. Also some density in the left middle ear cavity. There is no evidence of intracranial hemorrhage, mass effect, or shift of midline structures. There are no extra-axial fluid collections. The ventricles are not enlarged or shifted and there is no blo od within the ventricular system nor within the basal cisterns. There are no ring enhancing lesions in the brain and there is no abnormal meningeal enhancement. MAXILLOFACIAL CT SCAN: There is no evidence of facial fractures nor evidence of orbital blowout fractures.. No evidence of nasal bone fracture. No evidence of mandible fracture. TM joints intact. Zygomatic a rches are intact. Incidentally noted is fusion hardware in the cervical spine C2-5 levels. Also intervertebral bone pl ug at C4 level. Prominent posterior osteophytic ridging evident at C3-floor and C4-5 levels. Below C4-5 not included in the field of view. With respect to images of the temporal bones on this study, right side appears unremarkable. There i s, however, some abnormal density evident within the left middle ear cavity both around, medial to, a nd lateral to the ossicles. Possibly of cholesteatoma. IMPRESSION: No acute intracranial findings on this noninfused CT scan of the brain. No evidence of facial bone fractures nor orbital fractures. Left mastoid air cell fluid and there is abnormal density in the left middle ear cavity which may rep resent cholesteatoma. [facility] preliminary report reviewed RADIATION DOSE DELIVERED: 2,916.87mGy.cm Total DLP 2,916.87mGy.cm Total DLP DATA REPOSITORY: All CT scans at this facility are submitted to the National Radiology Data Registry (NRDR) Dose Index Registry (DIR) with the [employer] (A[employer]). RADIATION OPTIMIZATION: All CT scans at this facility use at least one of these dose optimization te chniques: automated exposure control; mA and/or kV adjustment per patient size (includes targeted exa ms where dose is matched to clinical indication); or iterative reconstruction.
--- NOTE | 2025-03-31 10:05 | ED.GENADUL_ITS ---
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 hold while taking antiviral if possible No Action amitriptyline 10 mg tablet 30 mg PO QHS Anoro Ellipta 62.5-25 mcg/actuation blister with device 1 inh inhalation DAILY aspirin [Adult Aspirin Regimen] 81 mg tablet,delayed release (DR/EC) 81 mg PO DAILY cholecalciferol (vitamin D3) 25 mcg (1,000 unit) capsule 50 mcg PO DAILY ferrous sulfate 325 mg (65 mg iron) tablet 325 mg PO DAILY Patient Comments: Take every Mon, Wed, Fri gabapentin 300 mg capsule 300 mg PO BID glucagon 1 mg recon soln 1 mg subcut Q20M PRN Rx Instructions: until target blood sugar attained insulin glargine 100 unit/mL (3 mL) insulin pen 30 unit subcut QAM insulin lispro 100 unit/mL insulin pen 1 sliding scale dose subcut USEASDIRECTD magnesium L-lactate 84 mg tablet extended release 168 mg PO DAILY metoprolol succinate 25 mg tablet extended release 24 hr 25 mg PO BID magnesium hydroxide [Milk of Magnesia] 400 mg/5 mL suspension 30 ml PO DAILY PRN naloxone 4 mg/actuation spray,non-aerosol 4 mg intranasal Q2M Rx Instructions: spray 1 dose into ONE nostril; alternate nostrils w each dose until help arrives nitroglycerin 0.4 mg tablet, sublingual 0.4 mg sublingual Q5M PRN Rx Instructions: do not exceed 3 doses per episode pantoprazole 40 mg tablet,delayed release (DR/EC) 40 mg PO DAILY ranolazine 500 mg tablet extended release 12 hr 500 mg PO BID sevelamer HCl 800 mg tablet 800 mg PO TID Rx Instructions: must administer with a meal/food risperidone 1 mg tablet 1 mg PO BID risperidone 2 mg tablet 2 mg PO QHS ropinirole 1 mg tablet 1 mg PO DAILY rosuvastatin 20 mg tablet 20 mg PO QHS sennosides-docusate sodium 8.6-50 mg tablet 1 tab-cap PO BID torsemide 20 mg tablet 20 mg PO DAILY hydrocodone-acetaminophen 5-325 mg tablet 1 tab PO Q4H PRN Rx Instructions: For severe pain prazosin 1 mg capsule 2 mg PO QPM amlodipine 5 mg tablet 5 mg PO DAILY isosorbide mononitrate 60 mg tablet extended release 24 hr 60 mg PO DAILY Trulicity 1.5 mg/0.5 mL pen injector 1.5 mg SUBCUT .weekly Discharge Instructions Additional Instructions: Please follow-up with [facility] next week for reevaluation. Your ear pain and facial pain is likely due to acute otitis media and probable shingles (herpes zoster). Please keep your skin clean and dry. Gently cleanse the plaques and monitor for signs of infection such as increasing redness, pus drainage, pain. Keep an eye for vesicular lesions consistent with shingles. You are being prescribed Augmentin to treat the ear infection and valacyclovir as an antiviral. Continue using Tylenol and gabapentin for pain control. Return to emergency care if develop new signs of skin infection, severe headache, new neurovascular symptoms, vision loss, protrusion of the ear, severe headaches, uncontrollable vomiting, new weakness, drainage from the ear, or if you are very worried and need to be rechecked again immediately. Referrals: [facility] [Provider Group] HPI General Date/Time Provider Initiated Documentation: 03/31/25 09:52 . HPI Narrative: Mike is a 69-year-old male who presents to the emergency department today for evaluation of left ear pain, photophobia to L eye, and left-sided facial numbness/pain. Severe pain on the left side of his head began yesterday morning, preceded by itching and a sensation of a large blood blister within the ear. He has a history of psoriasis and eczema, which he believes has extended into his left ear, causing hearing loss and pain to the ear. The excruciating pain extends from his ear to his forehead and cheek, worsened by opening his mouth, smiling, or touching the area. He reports photophobia to the left eye only but no changes in vision. Symptoms are accompanied by generalized headache and fatigue/low energy as well as left-sided facial pain. He had a brief episode of dizziness upon standing but no balance issues. Denies recent illness such as congestion, sore throat, cough chest pain, nausea/vomiting, change in p.o. intake, change in bowel or bladder function. Past medical history significant for obesity, T2DM, CKD stage IV, ASCVD, HLD, COPD, and lymphedema. He uses a walker due to previous hip and knee replacements. Related Data Home Medications ?Medication ?Instructions ?Recorded ?Confirmed amitriptyline 10 mg tablet 30 mg PO QHS 07/06/24 03/31/25 aspirin 81 mg tablet,delayed 81 mg PO DAILY 07/06/24 03/31/25 release (Adult Aspirin Regimen) cholecalciferol (vitamin D3) 25 50 mcg PO DAILY 07/06/24 03/31/25 mcg (1,000 unit) capsule ferrous sulfate 325 mg (65 mg 325 mg PO DAILY 07/06/24 03/31/25 iron) tablet gabapentin 300 mg capsule 300 mg PO BID 07/06/24 03/31/25 glucagon 1 mg solution for 1 mg subcut Q20M PRN 07/06/24 03/31/25 injection insulin glargine 100 unit/mL (3 30 unit subcut QAM 07/06/24 03/31/25 mL) subcutaneous pen insulin lispro 100 unit/mL 1 sliding scale dose subcut 07/06/24 03/31/25 subcutaneous pen USEASDIRECTD magnesium L-lactate 84 mg 168 mg PO DAILY 07/06/24 03/31/25 tablet,extended release magnesium hydroxide 400 mg/5 mL 30 ml PO DAILY PRN 07/06/24 03/31/25 oral suspension (Milk of Magnesia) metoprolol succinate 25 mg 25 mg PO BID 07/06/24 03/31/25 tablet,extended release 24 hr naloxone 4 mg/actuation nasal spray 4 mg intranasal Q2M 07/06/24 03/31/25 nitroglycerin 0.4 mg sublingual 0.4 mg sublingual Q5M PRN 07/06/24 03/31/25 tablet pantoprazole 40 mg tablet,delayed 40 mg PO DAILY 07/06/24 03/31/25 release ranolazine 500 mg tablet,extended 500 mg PO BID 07/06/24 03/31/25 release,12 hr risperidone 1 mg tablet 1 mg PO BID 07/06/24 03/31/25 risperidone 2 mg tablet 2 mg PO QHS 07/06/24 03/31/25 ropinirole 1 mg tablet 1 mg PO DAILY 07/06/24 03/31/25 rosuvastatin 20 mg tablet 20 mg PO QHS 07/06/24 03/31/25 sennosides 8.6 mg-docusate sodium 1 tab-cap PO BID 07/06/24 03/31/25 50 mg tablet sevelamer HCl 800 mg tablet 800 mg PO TID 07/06/24 03/31/25 torsemide 20 mg tablet 20 mg PO DAILY 07/06/24 03/31/25 umeclidinium 62.5 mcg-vilanterol 1 inh inhalation DAILY 07/06/24 03/31/25 25 mcg/actuation powdr for inhalation (Anoro Ellipta) amlodipine 5 mg tablet 5 mg PO DAILY 03/15/25 03/31/25 dulaglutide 1.5 mg/0.5 mL 1.5 mg subcut .weekly 03/15/25 03/31/25 subcutaneous pen injector (Trulicity) isosorbide mononitrate 60 mg 60 mg PO DAILY 03/15/25 03/31/25 tablet,extended release 24 hr tizanidine 2 mg tablet 2 mg PO QID 03/15/25 03/31/25 amoxicillin 875 mg-potassium 1 tab PO BID #10 tabs 03/31/25 clavulanate 125 mg tablet hydrocodone 5 mg-acetaminophen 325 1 tab PO Q4H PRN 03/31/25 03/31/25 mg tablet prazosin 1 mg capsule 2 mg PO QPM 03/31/25 03/31/25 valacyclovir 1 gram tablet 1,000 mg PO Q8H #20 tabs 03/31/25 Previous Rx's ?Medication ?Instructions ?Recorded amoxicillin 875 mg-potassium 1 tab PO BID #10 tabs 03/31/25 clavulanate 125 mg tablet valacyclovir 1 gram tablet 1,000 mg PO Q8H #20 tabs 03/31/25 Allergies Allergy/AdvReac Type Severity Reaction Status Date / Time bee venom protein (honey bee) Allergy Intermediate Anaphylaxis Verified 10/28/24 13:58 clonidine Allergy Mild Unknown Verified 10/28/24 13:58 Influenza Virus Vaccines Allergy Mild Unknown Verified 10/28/24 13:58 prednisone Allergy Unknown Other (See Verified 10/28/24 13:58 Comment) tamsulosin (From Flomax) Allergy Unknown Other (See Verified 10/28/24 13:58 Comment) General Stated Complaint: FacialProb VALERI: 4 Exam Narrative Exam Narrative: General Appearance: Normal. Mike is alert and oriented, in no acute distress. Vital signs: Within normal limits. Hypertension noted, consistent with baseline HEENT: Tenderness to palpation of mastoid bone, as well as manipulation of pinna. Also tenderness with palpation of left side of face. No facial drooping. Swelling in the ear canal. Tympanic membrane appears figueroa but difficult to visualize due to edema. No drainage in your canal. Neurological: Cranial nerves 2-12 intact. Clear voice. PERRL, EOMs intact Skin: Warm and dry. Extensive eczema and psoriatic plaques noted over face and around left ear. No obvious vesicular rash. Psychiatric: Normal. Course Vital Signs Vital signs: Vital Signs Temperature 37.0 C 03/31/25 09:50 Pulse 89 03/31/25 09:50 Respiratory Rate 18 03/31/25 09:50 Blood Pressure 167/84 H 03/31/25 09:50 Pulse Oximetry 96 03/31/25 09:50 Temperature 37.0 C 03/31/25 09:50 Pulse 89 03/31/25 09:50 Respiratory Rate 18 03/31/25 09:50 Blood Pressure 167/84 H 03/31/25 09:50 Pulse Oximetry 96 03/31/25 09:50 Pain Level 5 03/31/25 09:50 Medical Decision Making Initial Assessment: Severe pain in the left ear extending to the whole side of his head, started early . Pain worsened by opening mouth, smiling, and touching the area. Swelling in the ear canal, tympanic membrane appears figueroa but difficult to visualize due to edema. History of psoriasis and eczema may have contributed. DDx includes but is not limited to: Giant cell arteritis/temporal arteritis, sinusitis, malignant otitis externa, trigeminal neuralgia, TMJ pain, herpes zoster, dental infection, obstructive process such as neoplasm, skull osteomyelitis I independently interpreted the following tests: CBC notable for mild anemia, unchanged from baseline. CMP reassuring, kidney function unchanged from baseline. A1c 7.4%. TSH and inflammatory markers unremarkable. ED Course: - Blood work and head/facial CT ordered - APAP given for discomfort Discussed case with Terrance Hinojosa ENT PA. If hearing is intact to left ear (I confirmed this with finger rub test), it is appropriate to treat patient for herpes zoster. Terrance did review patient's CT, unclear if mastoid effusion is new. Patient recommended to follow-up with ENT next week for reassessment. I did review previous medical records available from [facility], no previous head CT available for comparison. As it is not clear whether this effusion is new or old, we will treat for AOM due to sudden onset of ear pain with facial neuropathy Final Assessment: Facial neuralgia with probable AOM. Likely herpes zoster etiology. As patient has reassuring physical exam without cranial nerve palsy/deficits and labs are reassuring, this is appropriate for outpatient management with close PCP follow-up. Prescriptions provided for Augmentin and valacyclovir. Reviewed discharge instructions with patient, including importance of follow-up with ENT, medication use, pain control, and red flags indicating need return to emergency care. 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 (Acute) PAD (peripheral artery disease) (Acute) Lymphedema (Acute) Venous ulcers of both lower extremities (Acute) Venous (peripheral) insufficiency (Acute) Phantom limb syndrome (Acute) PTSD (post-traumatic stress disorder) (Acute) Vitamin D deficiency (Acute) Acute pain of right hip (Acute) Nondisplaced fracture of right scaphoid bone (Acute 02/01/24) Right wrist pain (Acute) GERD (gastroesophageal reflux disease) (Chronic) Hypertension (Chronic) Neuropathy (Acute) History of venous thrombosis and embolism (Acute) Pityriasis versicolor (Acute) Hyperlipidemia (Acute) Atherosclerotic heart disease of [place] coronary artery without angina pectoris (Acute) CKD stage 4 due to type 2 diabetes mellitus (Acute) Heart failure (Acute) Anxiety (Chronic) Morbid obesity (Acute) Subacute osteomyelitis, left ankle and foot (Acute) Chronic pain (Chronic) COPD (chronic obstructive pulmonary disease) (Chronic) Asthma (Chronic) Type 2 diabetes mellitus (Acute) Medical History Testicular hypofunction Low back pain Social History Smoking/Tobacco Use Status: Former Tobacco Use Smoking risk assessment performed?: Yes Alcohol Intake: current Alcohol Intake frequency: holidays/special occasions only Drug use: Never Substance use type: does not use Housing: assisted living facility Do you feel safe at home: Yes Do you feel safe in your relationship?: Yes
[2025-03-31 10:27] LABS: Abs Immature Grans 0.02 10^3/uL (0.0-0.06); Absolute Basophil Count 0.03 10^3/uL (0.0-0.2); Absolute Eosinophil Count 0.18 10^3/uL (0.0-0.7); Absolute Lymphocyte Count 1.25 10^3/uL (1.2-3.4); Absolute Monocyte Count 0.47 10^3/uL (0.1-0.8); Absolute Neutrophil Count 5.32 10^3/uL (1.2-6.7); Basophils % 0.4 %; Eosinophils % 2.5 %; HCT 36.8 % (40.0-50.0); HGB 12.4 g/dL (13.5-17.5); Immature Grans % 0.3 %; Lymphocytes % 17.2 %; MCH 29.6 pg (27.0-33.0); MCHC 33.7 % (32.0-36.0); MCV 88 fL (80-95); MPV 9.5 fL (8.0-11.0); Monocytes % 6.5 %; Neutrophils % 73.1 %; Platelet Count 182 10^3/uL (130-400); RBC 4.19 10^6/uL (4.36-5.78); RDW 12.1 % (11.8-14.1); RDW-SD 38.7 fL; WBC 7.27 10^3/uL (4.4-10.8)
[2025-03-31 10:29] VITALS: BP 167/84; PULSE 89; RESP 18; TEMP 37; O2SAT 96
[2025-03-31 10:33] LABS: ESR 4 mm/hr (0-20)
[2025-03-31 10:51] LABS: Hemoglobin A1C 7.4 % (<5.7)
[2025-03-31 10:56] LABS: ALT 32 U/L (16-63); AST 28 U/L (15-37); Albumin 3.9 g/dL (3.4-5.0); Alkaline Phosphatase 81 U/L (46-116); Anion Gap 9.3 mmol/L (3-11); BUN 35 mg/dL (7-18); Bilirubin, Total 0.5 mg/dL (0.2-1.0); CO2 31.7 mmol/L (21.0-32.0); CREATININE 2.3 mg/dL (0.70-1.30); Calcium 9.7 mg/dL (8.5-10.1); Chloride 99 mmol/L (98-107); Estimated GFR 30.36 (mL/min/1.73m2); Glucose 220 mg/dL (74-106); Potassium 4.1 mmol/L (3.5-5.1); Sodium 140 mmol/L (136-145); TSH (W/Ref FT4) 2.24 uIU/mL (0.36-3.74)
[2025-03-31 11:00] LABS: C-Reactive Protein < 0.50 mg/dL (<or=0.5)
[2025-03-31] MEDS: Normal Saline - Diluent 50 ML VIAL IJ (11:22)
[2025-03-31] MEDS: Omnipaque 350 MG/ML 500 ML BTL-Imaging package 100 ML IJ (11:23)
[2025-03-31] MEDS: Acetaminophen 325 MG TAB 650 MG PO (11:40)
[2025-03-31 11:44] VITALS: BP 181/79; PULSE 72; RESP 24; O2SAT 98
[2025-03-31] MEDS: Gabapentin 300 MG CAP PO (16:16)
[2025-03-31] MEDS: Amoxicillin 875/Clav. 125 TAB PO (16:16)
[2025-03-31] MEDS: valACYclovir 1,000 MG TAB 1000 MG PO (16:23)
[2025-03-31 16:44] VITALS: BP 181/79; PULSE 72; RESP 24; O2SAT 98
--- NOTE | 2025-04-03 11:54 | DI.[facility]_ITS ---
Addendum created by Wei Tafoya MD on 03/31/2025 5:55:53 PM EDT: Internal auditory canals are not enlarged. No gross cerebellopontine angle cistern mass. Small vestibular schwannoma can not be excluded. Initial report created on 03/31/2025 2:00:46 PM EDT: PROCEDURE INFORMATION: Exam: CT Head Without And With Contrast Exam date and time: 03/31/2025 11:15 AM Age: 69 years old Clinical indication: Other: L ear pain, nerve pain, photophobia TECHNIQUE: Imaging protocol: Computed tomography of the head without and with contrast. Contrast material: OMNIPAQUE 350; Contrast volume: 100 ml; Contrast route: INTRAVENOUS (IV); COMPARISON: No relevant prior studies available. FINDINGS: Brain: No hemorrhage. Unremarkable white matter. No mass effect. Cerebral ventricles: No ventriculomegaly. Paranasal sinuses: Visualized sinuses are unremarkable. No fluid levels. Mastoid air cells: Visualized mastoid air cells are well aerated. Bones: Unremarkable. No acute fracture. Soft tissues: Unremarkable. IMPRESSION: No acute intracranial abnormality. PROCEDURE INFORMATION: Exam: CT Maxillofacial With Contrast Exam date and time: 03/31/2025 11:15 AM Age: 69 years old Clinical indication: Other: L ear pain, nerve pain, photophobia TECHNIQUE: Imaging protocol: Computed tomography of the face with contrast. Contrast material: OMNIPAQUE 350; Contrast volume: 100 ml; Contrast route: INTRAVENOUS (IV); COMPARISON: No relevant prior studies available. FINDINGS: Paranasal sinuses: No air-fluid levels. Orbital cavities: Orbits are normal. Globes are unremarkable. Mastoid air cells: Left mastoid effusion. Vasculature: Severe stenosis of the bilateral internal carotid arteries. Bones: No acute fracture. Partially visualized severe degenerative changes of the cervical spine Soft tissues: Unremarkable. IMPRESSION: 1. No acute facial bone fracture. 2. Left mastoid effusion. Dictated and Authenticated by: Wei Tafoya MD. Orderin Dusty Calixto MD
== END 2025-03-31 16:44 | disposition skilled nursing facility (03) ==
PROVIDERS: Emergency Provider Nurse Practitioner Family; PCP Family Medicine
DX: G51.9 Disorder of facial nerve, unspecified (principal); H66.92 Otitis media, unspecified, left ear; E11.22 Type 2 diabetes mellitus with diabetic chronic kidney disease; I12.9 Hypertensive chronic kidney disease with stage 1 through stage 4 chronic kidney disease, or unspecified chronic kidney disease; N18.4 Chronic kidney disease, stage 4 (severe); I25.10 Atherosclerotic heart disease of native coronary artery without angina pectoris; E78.5 Hyperlipidemia, unspecified; J44.9 Chronic obstructive pulmonary disease, unspecified; Z98.1 Arthrodesis status; Z79.82 Long term (current) use of aspirin; Z79.4 Long term (current) use of insulin; Z87.891 Personal history of nicotine dependence
CPT/HCPCS: 36415; 80053; 85652; 99285; 70470; 70487; 83036; 84443; 85025; 86140; 99284

== ENCOUNTER 2025-05-18 20:20 | Outpatient (REF) | payer MEDICARE, MEDICAID, SELFPAY ==
[2025-05-18 14:20] LABS: Abs Immature Grans 0.02 10^3/uL (0.0-0.06); HCT 38.9 % (40.0-50.0); HGB 13.4 g/dL (13.5-17.5); Immature Grans % 0.3 %; MCH 30.8 pg (27.0-33.0); MCHC 34.4 % (32.0-36.0); MCV 89 fL (80-95); MPV 10.4 fL (8.0-11.0); Platelet Count 169 10^3/uL (130-400); RBC 4.35 10^6/uL (4.36-5.78); RDW 12.1 % (11.8-14.1); RDW-SD 39.5 fL; WBC 5.97 10^3/uL (4.4-10.8)
[2025-05-18 14:43] LABS: Hemoglobin A1C 8.2 % (<5.7)
[2025-05-18 14:52] LABS: ALT 48 U/L (16-63); AST 26 U/L (15-37); Albumin 4.4 g/dL (3.4-5.0); Alkaline Phosphatase 87 U/L (46-116); Anion Gap 11.9 mmol/L (3-11); BUN 46 mg/dL (7-18); Bilirubin, Total 0.5 mg/dL (0.2-1.0); CO2 27.1 mmol/L (21.0-32.0); Calcium 9.8 mg/dL (8.5-10.1); Calculated LDL 53 mg/dL (<100); Chloride 98 mmol/L (98-107); Cholesterol 168 mg/dL (<200); Estimated GFR 32.03 (mL/min/1.73m2); Glucose 307 mg/dL (74-106); HDL Cholesterol 39 mg/dL (>or=40); Potassium 4.3 mmol/L (3.5-5.1); Sodium 137 mmol/L (136-145); Total Protein 7.3 g/dL (6.4-8.2); Triglyceride 384 mg/dL (<150)
== END 2025-05-18 20:21 | disposition home or self-care (01) ==
LOC: LBN 20:20
PROVIDERS: PCP Family Medicine; Visit Provider Nurse Practitioner Adult Health
DX: E66.01 Morbid (severe) obesity due to excess calories (principal); E11.21 Type 2 diabetes mellitus with diabetic nephropathy
CPT/HCPCS: 80053; 80061; 83036; 85025

== ENCOUNTER 2025-05-23 17:24 | Outpatient (REF) | payer MEDICARE, MEDICAID, SELFPAY ==
[2025-05-23 17:15] LABS: COMMENT (LAB VIEW ONLY) 64.71 mg/dL; Microalb ug/mg Crea 17.0 ug/mg Cr
== END 2025-05-23 17:25 | disposition home or self-care (01) ==
LOC: LBN 17:24
PROVIDERS: PCP Family Medicine; Visit Provider Nurse Practitioner Adult Health
DX: N18.4 Chronic kidney disease, stage 4 (severe) (principal)
CPT/HCPCS: 82043; 82570

== ENCOUNTER 2025-05-30 22:23 | Inpatient (IN) | payer MEDICARE, MEDICAID, SELFPAY ==
[2025-05-30] VITALS (23 sets, daily range): BP systolic 119–161; BP diastolic 50–95; PULSE 69–86; RESP 8–18; O2SAT 95–98
--- NOTE | 2025-05-30 22:15 | RT.EKG_ITS ---
APPROVED REPORT Exam: Resting ECG Reason for Exam: chest pain Patient Location: E HR:77 bpm ECG Measurements Heart Rate 77 AXIS WY 86 P 119 QRSd 102 QRS 26 QT 420 T 43 QTc 477 Conclusion Sinus rhythm...normal P axis, V-rate 60- 99 I have reviewed and interpreted ECG and agree with software generated interpretation.
--- NOTE | 2025-05-30 22:30 | DI.RAD_ITS ---
Exam(s) XR PORTABLE CHEST AP EXAM: XR PORTABLE CHEST AP CLINICAL HISTORY: chest pain, central TECHNIQUE: 2D digital imaging was performed. COMPARISON: CT CT CHEST/ABD/PEL WO from 10/28/2024 FINDINGS: LUNGS: Clear. No pleural abnormality seen. HEART: Normal size. AORTA: Normal diameter. BONES: Unre hardware in the cervical through upper thoracic regions. Soft tissues: Unremarkable. IMPRESSION: No acute findings. The preliminary [facility] report was reviewed. DATA REPOSITORY: RADIATION DOSE DELIVERED:
[2025-05-30] MEDS: nitroGLYcerin in D5W 50 MG/250 ML BTL IV (22:48)
[2025-05-30 22:50] LABS: Abs Immature Grans 0.08 10^3/uL (0.0-0.06); HCT 34.4 % (40.0-50.0); HGB 11.6 g/dL (13.5-17.5); Immature Grans % 1.1 %; MCH 29.7 pg (27.0-33.0); MCHC 33.7 % (32.0-36.0); MCV 88 fL (80-95); MPV 9.8 fL (8.0-11.0); Platelet Count 195 10^3/uL (130-400); RBC 3.90 10^6/uL (4.36-5.78); RDW 12.2 % (11.8-14.1); RDW-SD 39.1 fL; WBC 7.01 10^3/uL (4.4-10.8)
[2025-05-30 23:04] LABS: INR 1.0 (0.9-1.1); PTT Activated 22.5 sec (20.6-30.2); Prothrombin Time 10.3 sec (9.1-11.1)
[2025-05-30 23:15] LABS: ALT 39 U/L (16-63); AST 23 U/L (15-37); Albumin 4.0 g/dL (3.4-5.0); Alkaline Phosphatase 80 U/L (46-116); Anion Gap 7.7 mmol/L (3-11); BUN 43 mg/dL (7-18); Bilirubin, Total 0.4 mg/dL (0.2-1.0); CO2 30.3 mmol/L (21.0-32.0); Calcium 9.2 mg/dL (8.5-10.1); Chloride 97 mmol/L (98-107); Estimated GFR 30.36 (mL/min/1.73m2); Glucose 275 mg/dL (74-106); NT-proBNP 550 pg/mL (<300); Potassium 4.3 mmol/L (3.5-5.1); Sodium 135 mmol/L (136-145); Total Protein 7.0 g/dL (6.4-8.2); Troponin I 5 ng/L (<or=76)
--- NOTE | 2025-05-30 23:52 | DI.VRAD_ITS ---
PROCEDURE INFORMATION: Exam: XR Chest Exam date and time: 05/30/2025 11:03 PM Age: 69 years old Clinical indication: Chest pressure and chest wall pain TECHNIQUE: Imaging protocol: Radiologic exam of the chest. Views: 1 view. COMPARISON: No relevant prior studies available. FINDINGS: Lungs: Lung volumes are low. No significant infiltrate. Pleural spaces: Unremarkable. No pleural effusion. No pneumothorax. Heart/Mediastinum: Unremarkable. No cardiomegaly. Bones/joints: Moderate degenerative changes of the spine and shoulders. Orthopedic hardware in the cervical spine. No acute osseous abnormality. IMPRESSION: No acute abnormality Dictated and Authenticated by: Gennaro Laura MD. Orderin Diego Campos MD
[2025-05-31] VITALS (115 sets, daily range): BP systolic 94–145; BP diastolic 42–74; PULSE 59–82; RESP 9–21; TEMP 35.9–36.5; O2SAT 88–100
--- NOTE | 2025-05-31 00:10 | NUR.NOTE ---
discussed PTs VS with ED MD. ED MD is ok with continuation of nitro drip Nursing Note:
[2025-05-31 00:20] LABS: Troponin I 7 ng/L (<or=76)
--- NOTE | 2025-05-31 01:47 | W.ED.GENAD ---
Discharge Plan Disposition Patient Disposition: Admit to [facility] Condition: Improving Discharge Details Clinical Impression: Chest pain, Unstable angina Primary Care Provider: Nica Carrasco ED Provider: Andres Cortez Home Meds and New Rx's Prescriptions: No Action amitriptyline 10 mg tablet 30 mg PO QHS Anoro Ellipta 62.5-25 mcg/actuation blister with device 1 inh inhalation DAILY aspirin [Adult Aspirin Regimen] 81 mg tablet,delayed release (DR/EC) 81 mg PO DAILY cholecalciferol (vitamin D3) 25 mcg (1,000 unit) capsule 50 mcg PO DAILY ferrous sulfate 325 mg (65 mg iron) tablet 325 mg PO DAILY Patient Comments: Take every Mon, Wed, Fri gabapentin 300 mg capsule 300 mg PO BID glucagon 1 mg recon soln 1 mg subcut Q20M PRN Rx Instructions: until target blood sugar attained insulin glargine 100 unit/mL (3 mL) insulin pen 30 unit subcut QAM insulin lispro 100 unit/mL insulin pen 1 sliding scale dose subcut USEASDIRECTD magnesium L-lactate 84 mg tablet extended release 168 mg PO DAILY metoprolol succinate 25 mg tablet extended release 24 hr 25 mg PO BID magnesium hydroxide [Milk of Magnesia] 400 mg/5 mL suspension 30 ml PO DAILY PRN naloxone 4 mg/actuation spray,non-aerosol 4 mg intranasal Q2M Rx Instructions: spray 1 dose into ONE nostril; alternate nostrils w each dose until help arrives nitroglycerin 0.4 mg tablet, sublingual 0.4 mg sublingual Q5M PRN Rx Instructions: do not exceed 3 doses per episode pantoprazole 40 mg tablet,delayed release (DR/EC) 40 mg PO DAILY ranolazine 500 mg tablet extended release 12 hr 500 mg PO BID sevelamer HCl 800 mg tablet 800 mg PO TID Rx Instructions: must administer with a meal/food risperidone 1 mg tablet 1 mg PO BID risperidone 2 mg tablet 2 mg PO QHS ropinirole 1 mg tablet 1 mg PO DAILY rosuvastatin 20 mg tablet 20 mg PO QHS sennosides-docusate sodium 8.6-50 mg tablet 1 tab-cap PO BID torsemide 20 mg tablet 20 mg PO DAILY hydrocodone-acetaminophen 5-325 mg tablet 1 tab PO Q4H PRN Rx Instructions: For severe pain prazosin 1 mg capsule 2 mg PO QPM amoxicillin-pot clavulanate 875-125 mg tablet 1 tab PO BID Qty: 10 0RF valacyclovir 1 gram tablet 1,000 mg PO Q8H Qty: 20 0RF amlodipine 5 mg tablet 5 mg PO DAILY isosorbide mononitrate 60 mg tablet extended release 24 hr 60 mg PO DAILY tizanidine 2 mg tablet 2 mg PO QID Trulicity 1.5 mg/0.5 mL pen injector 1.5 mg SUBCUT .weekly HPI General Date/Time Provider Initiated Documentation: 05/30/25 22:29. HPI Narrative: This is a 69-year-old male with a past medical history of previous blood clot previously on Eliquis (but not currently), known coronary artery disease with a cardiac cath in 2021 demonstrating severe LAD stenosis but too small for stenting, COPD, CKD, previous TIA, hypertension, diabetes, obesity, bipolar disorder, who currently resides at [facility] presents today for evaluation of chest pain. Patient states that about 30 minutes prior to arrival while resting he developed sudden severe chest pain described as a 400 pound elephant sitting on his chest, with a sharp sensation as well. He had no associated hypoxemia, tachypnea, or shortness of breath. He states that the pain radiates towards his left arm and causes some tingling there as well. EMS administered 325 of aspirin and gave a sublingual nitroglycerin which brought the pain and weight down from 9 to an 8. Currently the patient denies any other complaints aside for the chest pain and heaviness. He denies any cough, pleuritic chest pain, headache, fever, chills, or weakness. No other complaints at this time. He denies any recent exertional component. Related Data Home Medications ?Medication ?Instructions ?Recorded ?Confirmed amitriptyline 10 mg tablet 30 mg PO QHS 07/06/24 03/31/25 aspirin 81 mg tablet,delayed 81 mg PO DAILY 07/06/24 03/31/25 release (Adult Aspirin Regimen) cholecalciferol (vitamin D3) 25 50 mcg PO DAILY 07/06/24 03/31/25 mcg (1,000 unit) capsule ferrous sulfate 325 mg (65 mg 325 mg PO DAILY 07/06/24 03/31/25 iron) tablet gabapentin 300 mg capsule 300 mg PO BID 07/06/24 03/31/25 glucagon 1 mg solution for 1 mg subcut Q20M PRN 07/06/24 03/31/25 injection insulin glargine 100 unit/mL (3 30 unit subcut QAM 07/06/24 03/31/25 mL) subcutaneous pen insulin lispro 100 unit/mL 1 sliding scale dose subcut 07/06/24 03/31/25 subcutaneous pen USEASDIRECTD magnesium L-lactate 84 mg 168 mg PO DAILY 07/06/24 03/31/25 tablet,extended release magnesium hydroxide 400 mg/5 mL 30 ml PO DAILY PRN 07/06/24 03/31/25 oral suspension (Milk of Magnesia) metoprolol succinate 25 mg 25 mg PO BID 07/06/24 03/31/25 tablet,extended release 24 hr naloxone 4 mg/actuation nasal spray 4 mg intranasal Q2M 07/06/24 03/31/25 nitroglycerin 0.4 mg sublingual 0.4 mg sublingual Q5M PRN 07/06/24 03/31/25 tablet pantoprazole 40 mg tablet,delayed 40 mg PO DAILY 07/06/24 03/31/25 release ranolazine 500 mg tablet,extended 500 mg PO BID 07/06/24 03/31/25 release,12 hr risperidone 1 mg tablet 1 mg PO BID 07/06/24 03/31/25 risperidone 2 mg tablet 2 mg PO QHS 07/06/24 03/31/25 ropinirole 1 mg tablet 1 mg PO DAILY 07/06/24 03/31/25 rosuvastatin 20 mg tablet 20 mg PO QHS 07/06/24 03/31/25 sennosides 8.6 mg-docusate sodium 1 tab-cap PO BID 07/06/24 03/31/25 50 mg tablet sevelamer HCl 800 mg tablet 800 mg PO TID 07/06/24 03/31/25 torsemide 20 mg tablet 20 mg PO DAILY 07/06/24 03/31/25 umeclidinium 62.5 mcg-vilanterol 1 inh inhalation DAILY 07/06/24 03/31/25 25 mcg/actuation powdr for inhalation (Anoro Ellipta) amlodipine 5 mg tablet 5 mg PO DAILY 03/15/25 03/31/25 dulaglutide 1.5 mg/0.5 mL 1.5 mg subcut .weekly 03/15/25 03/31/25 subcutaneous pen injector ([facility]) isosorbide mononitrate 60 mg 60 mg PO DAILY 03/15/25 03/31/25 tablet,extended release 24 hr tizanidine 2 mg tablet 2 mg PO QID 03/15/25 03/31/25 Held on 03/31/25. Instructions: Resume on 04/07/25. hold while taking antiviral if possible amoxicillin 875 mg-potassium 1 tab PO BID #10 tabs 03/31/25 clavulanate 125 mg tablet hydrocodone 5 mg-acetaminophen 325 1 tab PO Q4H PRN 03/31/25 03/31/25 mg tablet prazosin 1 mg capsule 2 mg PO QPM 03/31/25 03/31/25 valacyclovir 1 gram tablet 1,000 mg PO Q8H #20 tabs 03/31/25 Previous Rx's ?Medication ?Instructions ?Recorded amoxicillin 875 mg-potassium 1 tab PO BID #10 tabs 03/31/25 clavulanate 125 mg tablet valacyclovir 1 gram tablet 1,000 mg PO Q8H #20 tabs 03/31/25 Allergies Allergy/AdvReac Type Severity Reaction Status Date / Time bee venom protein (honey bee) Allergy Intermediate Anaphylaxis Verified 10/28/24 13:58 clonidine Allergy Mild Unknown Verified 10/28/24 13:58 Influenza Virus Vaccines Allergy Mild Unknown Verified 10/28/24 13:58 prednisone Allergy Unknown Other (See Verified 10/28/24 13:58 Comment) tamsulosin (From Flomax) Allergy Unknown Other (See Verified 10/28/24 13:58 Comment) General Stated Complaint: Chest Pain VALERI: 3 Exam Narrative Exam Narrative: 1.Const: Well-nourished, Well-developed, appearing stated age 2.Eyes: PERRL, no conjunctival injection, and symmetrical lids. 3.ENT: Atraumatic external nose and ears. Moist MM. Neck: Symmetric, trachea midline, No thyromegaly. 4.CVS: +S1/S2, Peripheral pulses 2+ and equal in all extremities. Brisk capillary refill in all extremities. 5.RESP: Unlabored respiratory effort. Clear to auscultation bilaterally. No wheezes rales or rhonchi 6.GI: Soft, Nontender/Nondistended, No hepatosplenomegaly. No guarding or rebound. 7.MSK: Normocephalic/Atraumatic, Extremities w/o deformity or ttp No cyanosis or clubbing, Normal movement of all extremities. +2 pitting edema of his lower extremities bilaterally. 8.Skin: Warm, Dry. Chronic ulcers on his lower extremities bilaterally. Currently wrapped. 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 Sensation grossly intact, no focal neurologic deficits. 10.Psych: (AAO) x3. Appropriate mood and affect Course Vital Signs Vital signs: Vital Signs Pulse 86 05/30/25 22:24 Respiratory Rate 18 05/30/25 22:24 Blood Pressure 161/57 H 05/30/25 22:24 Pulse Oximetry 98 05/30/25 22:24 Pulse 71 05/31/25 01:40 Pulse 71 05/31/25 01:40 Respiratory Rate 11 L 05/31/25 01:40 Respiratory Effort Non-Labored 05/30/25 22:29 Blood Pressure 101/47 L 05/31/25 01:36 Blood Pressure Mean 66 05/31/25 01:36 Pulse Oximetry 96 05/31/25 01:40 Oxygen Delivery Method Room Air 05/30/25 22:24 Oxygen Flow Rate 0 05/30/25 22:24 Pain Level 4 05/31/25 01:09 Lab/Test Results Lab/Test Results: Laboratory Tests Range/Units 05/30/25 05/30/25 22:41 23:58 WBC (4.4-10.8) 10^3/uL 7.01 RBC (4.36-5.78) 10^6/uL 3.90 L Hgb (13.5-17.5) g/dL 11.6 L Hct (40.0-50.0) % 34.4 L MCV (80-95) fL 88 MCH (27.0-33.0) pg 29.7 MCHC (32.0-36.0) % 33.7 RDW (11.8-14.1) % 12.2 Plt Count (130-400) 10^3/uL 195 MPV (8.0-11.0) fL 9.8 Immature Gran % % 1.1 Neutrophils % % 50.4 Lymphocytes % % 36.9 Monocytes % % 6.8 Eosinophils % % 4.4 Basophils % % 0.4 Nucleated RBC % (0.0-0.3) % 0.0 Absolute Neutrophils (1.2-6.7) 10^3/uL 3.52 Absolute Lymphocytes (1.2-3.4) 10^3/uL 2.59 Absolute Monocytes (0.1-0.8) 10^3/uL 0.48 Absolute Eosinophils (0.0-0.7) 10^3/uL 0.31 Absolute Basophils (0.0-0.2) 10^3/uL 0.03 PT (9.1-11.1) sec 10.3 INR (0.9-1.1) 1.0 APTT (20.6-30.2) sec 22.5 Sodium (136-145) mmol/L 135 L Potassium (3.5-5.1) mmol/L 4.3 Chloride (98-107) mmol/L 97 L Carbon Dioxide (21.0-32.0) mmol/L 30.3 Anion Gap (3-11) mmol/L 7.7 BUN (7-18) mg/dL 43 H Creatinine (0.70-1.30) mg/dL 2.3 H Est GFR (CKD-EPI 2020) (mL/min/1.73m2) 30.36 Glucose (74-106) mg/dL 275 H Calcium (8.5-10.1) mg/dL 9.2 Total Bilirubin (0.2-1.0) mg/dL 0.4 AST (15-37) U/L 23 ALT (16-63) U/L 39 Alkaline Phosphatase (46-116) U/L 80 Troponin I (<or=76) ng/L 5 7 NT-Pro-B Natriuret Pep (<300) pg/mL 550 H Total Protein (6.4-8.2) g/dL 7.0 Albumin (3.4-5.0) g/dL 4.0 Medical Decision Making This is a 69-year-old male with a past medical history of previous blood clot previously on Eliquis (but not currently), known coronary artery disease with a cardiac cath in 2021 demonstrating severe LAD stenosis but too small for stenting, COPD, CKD, previous TIA, hypertension, diabetes, obesity, bipolar disorder, who currently resides at [facility] presents today for evaluation of chest pain. Patient states that about 30 minutes prior to arrival while resting he developed sudden severe chest pain described as a 400 pound elephant sitting on his chest, with a sharp sensation as well. He had no associated hypoxemia, tachypnea, or shortness of breath. He states that the pain radiates towards his left arm and causes some tingling there as well. EMS administered 325 of aspirin and gave a sublingual nitroglycerin which brought the pain and weight down from 9 to an 8. Currently the patient denies any other complaints aside for the chest pain and heaviness. He denies any cough, pleuritic chest pain, headache, fever, chills, or weakness. No other complaints at this time. He denies any recent exertional component. Exam demonstrates clear lung sounds, no reproducible component of his chest pain. Vital signs demonstrate hypertension, normal heart rate. Chronic insufficiency of his lower extremities with chronic ulcers. Differential is broad, but includes cardiac etiology versus ACS especially with the nitro improvement in his known history of coronary artery disease. PE is unlikely as he has no tachycardia, tachypnea, pleuritic chest pain or shortness of breath. Pneumonia and pneumothorax less likely with no trauma. Will evaluate for concerning cardiac etiologies, start the patient on a nitroglycerin drip, monitor closely and reassess. 1:57 AM Laboratory workup is returned, no white count. Patient's electrolytes are relatively stable. Renal function at baseline at 2.3 for creatinine. Initial and 1 hour troponin both normal, proBNP 550 suggesting minimal strain. Patient's pain improved from an 8 to a 7 on 20 of nitro. We transitioned him to 100 of nitro and his pain improved to a 4 out of 10 with essentially no weight on his chest anymore. Concern for potential cardiac etiology with his known history. We will contact [facility] cardiology for further discussion. EKG remains benign At this time. 2:32 AM Discussed the case with Dr. Diaz at [facility] cardiology, he agrees with the concern for unstable angina especially considering the patient's prior cath history And responsiveness to nitro. He does recommend heparinization, Plavix load, atorvastatin 80 mg. These have been started. They are resting until tomorrow. However they do accept the patient otherwise for transfer. Patient will be excepted under Dr. Abbasi. In the meantime we will admit the patient here for continued troponin trending, heparinization and monitoring. Discussed the case with the hospitalist Dr. Riddle. She agrees with the assessment and plan. I have extensively reviewed the treatment plan with the patient. I have addressed all patient concerns at this time. I have also discussed the plan with the admitting physician and they agree with the current assessment and plan and have agreed to assume responsibility for the patient. All parties demonstrate verbal understanding and agreement with our assessment and plan at this time. The documentation in this chart was dictated using [employer] dictation software. Please excuse any dictation errors. FINDINGS: Lungs: Lung volumes are low. No significant infiltrate. Pleural spaces: Unremarkable. No pleural effusion. No pneumothorax. Heart/Mediastinum: Unremarkable. No cardiomegaly. Bones/joints: Moderate degenerative changes of the spine and shoulders. Orthopedic hardware in the cervical spine. No acute osseous abnormality. IMPRESSION: No acute abnormality Thank you for allowing us to participate in the care of your patient. Dictated and Authenticated by: Gennaro Laura MD 05/30/2025 11:51 PM Eastern Time ([place] & [place]) Critical Care Time Critical Care Time Critical Care Time: Yes Total Critical Care Time: 45 Attestation: Upon my evaluation, this patient had a high probability of imminent or life-threatening deterioration, which required my direct attention, intervention, and personal management. I have personally provided 45 minutes of critical care time exclusive of time spent on separately billable procedures. Time includes review of laboratory data, radiology results, discussion with consultants, and monitoring for potential decompensation. Interventions were performed as documented. PFSH All Active Problems (Updated 05/31/25 @ 02:36 by Andres Cortez DO) Unstable angina (Acute) Chest pain (Acute) Osteoarthritis of hip (Acute) Right hip pain (Acute) PAD (peripheral artery disease) (Acute) Lymphedema (Acute) Venous ulcers of both lower extremities (Acute) Venous (peripheral) insufficiency (Acute) Phantom limb syndrome (Acute) PTSD (post-traumatic stress disorder) (Acute) Vitamin D deficiency (Acute) Nondisplaced fracture of right scaphoid bone (Acute 02/01/24) Right wrist pain (Acute) GERD (gastroesophageal reflux disease) (Chronic) Hypertension (Chronic) Neuropathy (Acute) History of venous thrombosis and embolism (Acute) Pityriasis versicolor (Acute) Hyperlipidemia (Acute) Atherosclerotic heart disease of [place] coronary artery without angina pectoris (Acute) CKD stage 4 due to type 2 diabetes mellitus (Acute) Heart failure (Acute) Anxiety (Chronic) Morbid obesity (Acute) Subacute osteomyelitis, left ankle and foot (Acute) Chronic pain (Chronic) COPD (chronic obstructive pulmonary disease) (Chronic) Asthma (Chronic) Type 2 diabetes mellitus (Acute) Medical History (Updated 05/31/25 @ 02:36 by Andres Cortez DO) MRSA infection Testicular hypofunction Low back pain Social History Smoking/Tobacco Use Status: Former Tobacco Use Smoking risk assessment performed?: Yes Alcohol Intake: current Alcohol Intake frequency: holidays/special occasions only Drug use: Never Substance use type: does not use Housing: assisted living facility Do you feel safe at home: Yes Do you feel safe in your relationship?: Yes
[2025-05-31 02:06] LABS: Troponin I 5 ng/L (<or=76)
[2025-05-31] MEDS: Atorvastatin 40 MG TAB 80 MG PO (02:33)
[2025-05-31] MEDS: Clopidogrel 300 MG TAB PO (02:35)
[2025-05-31] MEDS: Heparin in 0.45% NaCl 25,000 UNIT/250 ML BAG 10 UNIT IVINF (02:41)
[2025-05-31] MEDS: nitroGLYcerin 2% 1 INCH/1 GM PKT TP (02:43)
--- NOTE | 2025-05-31 02:44 | W.PM.HP.N ---
Date of service: 05/31/25 Time of Service: 01:00 Assessment and Plan Assessment and plan (1) Unstable angina: Status: Acute Assessment and plan: Known LAD occlusion in distal vessel [facility] has accepted patient, awaiting a bed, likely May 31 afternoon Admit to telemetry on heparin drip with nitroglycerin paste PRN oxycodone for pain (no recent narcotics prescribed per [employer]) Continue home medications as tolerated (2) CKD stage 4 due to type 2 diabetes mellitus: Status: Acute Assessment and plan: Creatinine 2.5 at baseline Patient's home regimen includes sevelamer, will hold and check phosphorus (3) Diabetes mellitus type 2, insulin dependent: Status: Acute Assessment and plan: A1C not available Home regimen includes dulaglutide, insulin Hold GLP-1 Will give half basal insulin dose, 15u in the morning Correctional insulin (4) MRSA infection: Assessment and plan: Routine swab was positive Isolation per floor protocol (5) Iron deficiency anemia: Status: Acute Assessment and plan: Chronic, on iron at home Hold PO iron supplementation while hospitalized (6) Chronic back pain greater than 3 months duration: Status: Acute Assessment and plan: Longstanding opioid use, stopped in 2023 He is now on gabapentin, will continue (7) Morbid obesity: Status: Acute Assessment and plan: BMI not available pending height measurement (8) COPD (chronic obstructive pulmonary disease): Status: Chronic Assessment and plan: Hold home regimen (9) Chronic bipolar disorder: Status: Acute Assessment and plan: Continue home regimen History of Present Illness History of Present Illness Chief Complaint: chest pain Narrative: Mike Rouse is a 69 year old man presenting May 30 with severe chest pain and pressure that started a half hour prior to arrival. Per ED physician, patient reported 400 lb elephant on his chest on arrival. Patient reported sharp, throbbing chest pain radiating to his left arm with consequent tingling. He does not know if this feels the same as his similar 2021 episode where he went to the production laborer but LAD was too small for intervention. He has no other complaints. [facility] PMH: DVT, CAD 2021 cath with severe LAD stenosis, COPD, CKD, TIA, HTN, DM, obesity, bipolar disorder In the ED he was hypertensive 160's / 50's. Other vitals unremarkable. Blood glucose 275. Creatinine at baseline 2.3. BNP 550. EKG and CXR unremarkable. Troponins negative x 3. MRSA swab positive. Transfer to [facility] was initiated. Patient continued to have crushing chest pain which eventually abated on nitroglycerin gtt, and he was comfortable on NTG paste. [facility] unable to take patient until May 31 afternoon, so he was started on a heparin drip. PFSH All Active Problems (Updated 05/31/25 @ 06:05 by Mynor Torres MD) Chronic bipolar disorder (Acute) Chronic back pain greater than 3 months duration (Acute) Iron deficiency anemia (Acute) Diabetes mellitus type 2, insulin dependent (Acute) Unstable angina (Acute) Chest pain (Acute) Osteoarthritis of hip (Acute) Right hip pain (Acute) PAD (peripheral artery disease) (Acute) Lymphedema (Acute) Venous ulcers of both lower extremities (Acute) Venous (peripheral) insufficiency (Acute) Phantom limb syndrome (Acute) PTSD (post-traumatic stress disorder) (Acute) Vitamin D deficiency (Acute) Nondisplaced fracture of right scaphoid bone (Acute 02/01/24) Right wrist pain (Acute) GERD (gastroesophageal reflux disease) (Chronic) Hypertension (Chronic) Neuropathy (Acute) History of venous thrombosis and embolism (Acute) Pityriasis versicolor (Acute) Hyperlipidemia (Acute) Atherosclerotic heart disease of [place] coronary artery without angina pectoris (Acute) CKD stage 4 due to type 2 diabetes mellitus (Acute) Heart failure (Acute) Anxiety (Chronic) Morbid obesity (Acute) Subacute osteomyelitis, left ankle and foot (Acute) Chronic pain (Chronic) COPD (chronic obstructive pulmonary disease) (Chronic) Asthma (Chronic) Type 2 diabetes mellitus (Acute) Medical History (Updated 05/31/25 @ 06:05 by Mynor Torres MD) MRSA infection Testicular hypofunction Low back pain Social History Smoking/Tobacco Use Status: Former Tobacco Use Smoking risk assessment performed?: Yes Alcohol Intake: current Alcohol Intake frequency: holidays/special occasions only Drug use: Never Substance use type: does not use Housing: assisted living facility Do you feel safe at home: Yes Do you feel safe in your relationship?: Yes Meds Allergies and Home Medications Allergies Allergy/AdvReac Type Severity Reaction Status Date / Time bee venom protein (honey bee) Allergy Intermediate Anaphylaxis Verified 05/31/25 03:13 clonidine Allergy Mild Unknown Verified 05/31/25 03:13 Influenza Virus Vaccines Allergy Mild Unknown Verified 05/31/25 03:13 prednisone Allergy Unknown Other (See Verified 05/31/25 03:13 Comment) tamsulosin (From Flomax) Allergy Unknown Other (See Verified 05/31/25 03:13 Comment) Home Medications ?Medication ?Instructions ?Recorded ?Confirmed ?Type amitriptyline 10 mg tablet 50 mg PO QHS 07/06/24 05/31/25 History aspirin 81 mg tablet,delayed 81 mg PO DAILY 07/06/24 05/31/25 History release (Adult Aspirin Regimen) cholecalciferol (vitamin D3) 25 50 mcg PO DAILY 07/06/24 05/31/25 History mcg (1,000 unit) capsule ferrous sulfate 325 mg (65 mg 325 mg PO DAILY 07/06/24 05/31/25 History iron) tablet gabapentin 300 mg capsule 300 mg PO BID 07/06/24 05/31/25 History glucagon 1 mg solution for 1 mg subcut Q20M PRN 07/06/24 05/31/25 History injection Held on 05/31/25. Instructions: Changed by Provider insulin glargine 100 unit/mL (3 30 unit subcut QAM 07/06/24 05/31/25 History mL) subcutaneous pen insulin lispro 100 unit/mL 1 sliding scale dose subcut 07/06/24 05/31/25 History subcutaneous pen USEASDIRECTD magnesium L-lactate 84 mg 168 mg PO DAILY 07/06/24 05/31/25 History tablet,extended release magnesium hydroxide 400 mg/5 mL 30 ml PO DAILY PRN 07/06/24 03/31/25 History oral suspension (Milk of Magnesia) metoprolol succinate 25 mg 25 mg PO BID 07/06/24 05/31/25 History tablet,extended release 24 hr naloxone 4 mg/actuation nasal spray 4 mg intranasal Q2M 07/06/24 05/31/25 History nitroglycerin 0.4 mg sublingual 0.4 mg sublingual Q5M PRN 07/06/24 05/31/25 History tablet pantoprazole 40 mg tablet,delayed 40 mg PO DAILY 07/06/24 05/31/25 History release ranolazine 500 mg tablet,extended 500 mg PO BID 07/06/24 05/31/25 History release,12 hr risperidone 1 mg tablet 1 mg PO DAILY 07/06/24 05/31/25 History risperidone 2 mg tablet 2 mg PO QHS 07/06/24 05/31/25 History ropinirole 1 mg tablet 1 mg PO DAILY 07/06/24 05/31/25 History rosuvastatin 20 mg tablet 20 mg PO QHS 07/06/24 05/31/25 History sennosides 8.6 mg-docusate sodium 1 tab-cap PO BID 07/06/24 05/31/25 History 50 mg tablet sevelamer HCl 800 mg tablet 800 mg PO TID 07/06/24 03/31/25 History torsemide 20 mg tablet 20 mg PO DAILY 07/06/24 05/31/25 History umeclidinium 62.5 mcg-vilanterol 1 inh inhalation DAILY 07/06/24 03/31/25 History 25 mcg/actuation powdr for inhalation (Anoro Ellipta) amlodipine 5 mg tablet 5 mg PO DAILY 03/15/25 05/31/25 History dulaglutide 1.5 mg/0.5 mL 1.5 mg subcut .weekly 03/15/25 05/31/25 History subcutaneous pen injector (Trulicity) isosorbide mononitrate 60 mg 60 mg PO DAILY 03/15/25 05/31/25 History tablet,extended release 24 hr tizanidine 2 mg tablet 2 mg PO QID 03/15/25 05/31/25 History amoxicillin 875 mg-potassium 1 tab PO BID #10 tabs 03/31/25 05/31/25 Rx clavulanate 125 mg tablet hydrocodone 5 mg-acetaminophen 325 1 tab PO Q4H PRN 03/31/25 05/31/25 History mg tablet prazosin 1 mg capsule 2 mg PO QPM 03/31/25 05/31/25 History valacyclovir 1 gram tablet 1,000 mg PO Q8H #20 tabs 03/31/25 Rx umeclidinium 62.5 mcg-vilanterol 1 inh inhalation DAILY 05/31/25 05/31/25 History 25 mcg/actuation powdr for inhalation (Anoro Ellipta) Exam Narrative Exam Narrative: General: This is a pleasant, obese man in no distress HEENT: Normocephalic, atraumatic CV: RRR, 2+ distal pitting edema BLE Resp: CTAB Abd: soft, NTND, +NBS MSK: voluntary motion x4 Neuro: Aqwake, alert, no focal deficits Results Labs 05/30/25 22:41 05/30/25 22:41 Labs: Laboratory Results - last 24 hr 05/30/25 05/30/25 05/31/25 22:41 23:58 01:42 WBC 7.01 RBC 3.90 L Hgb 11.6 L Hct 34.4 L MCV 88 MCH 29.7 MCHC 33.7 RDW 12.2 Plt Count 195 MPV 9.8 Immature Gran % 1.1 Neutrophils % 50.4 Lymphocytes % 36.9 Monocytes % 6.8 Eosinophils % 4.4 Basophils % 0.4 Nucleated RBC % 0.0 Absolute Neutrophils 3.52 Absolute Lymphocytes 2.59 Absolute Monocytes 0.48 Absolute Eosinophils 0.31 Absolute Basophils 0.03 PT 10.3 INR 1.0 APTT 22.5 Sodium 135 L Potassium 4.3 Chloride 97 L Carbon Dioxide 30.3 Anion Gap 7.7 BUN 43 H Creatinine 2.3 H Est GFR (CKD-EPI 2020) 30.36 Glucose 275 H Calcium 9.2 Total Bilirubin 0.4 AST 23 ALT 39 Alkaline Phosphatase 80 Troponin I 5 7 5 NT-Pro-B Natriuret Pep 550 H Total Protein 7.0 Albumin 4.0 Last Vital Signs Pulse 67 05/31/25 02:07 Resp 16 05/31/25 02:07 BP 123/48 L 05/31/25 02:07 Pulse Ox 91 L 05/31/25 02:00 Time Spent Time spent with Patient: 40-54 minutes Time was spent: preparing to see the patient(eg.review tests), obtaining and/or reviewing separately otained hiistory, ordering medications,tests, procedures, referring, communicating with other health intensive care medicine specialist, indepentently interpreting results, counseling the patient and care coordination
[2025-05-31 05:30] LABS: MRSA PCR Positive (Negative)
[2025-05-31 07:02] LABS: Lab Add On Test DONE
[2025-05-31 07:48] LABS: HCT 35.1 % (40.0-50.0); HGB 12.1 g/dL (13.5-17.5); MCH 30.2 pg (27.0-33.0); MCHC 34.5 % (32.0-36.0); MCV 88 fL (80-95); MPV 9.8 fL (8.0-11.0); Platelet Count 197 10^3/uL (130-400); RBC 4.01 10^6/uL (4.36-5.78); RDW 12.1 % (11.8-14.1); RDW-SD 38.5 fL; WBC 7.09 10^3/uL (4.4-10.8)
[2025-05-31 08:00] LABS: INR 1.0 (0.9-1.1); Prothrombin Time 10.4 sec (9.1-11.1)
[2025-05-31 08:01] LABS: Anion Gap 7.8 mmol/L (3-11); BUN 41 mg/dL (7-18); CO2 30.2 mmol/L (21.0-32.0); Calcium 9.8 mg/dL (8.5-10.1); Chloride 98 mmol/L (98-107); Estimated GFR 32.03 (mL/min/1.73m2); Glucose 212 mg/dL (74-106); Magnesium 2.0 mg/dL (1.8-2.4); Potassium 4.1 mmol/L (3.5-5.1); Sodium 136 mmol/L (136-145)
[2025-05-31] MEDS: Insulin Aspart 300 UNITS/3 ML PEN SC ×3 (09:25→17:53)
[2025-05-31] MEDS: Insulin Glargine 300 UNITS/3 ML PEN 15 UNITS SC (09:26)
[2025-05-31 09:27] LABS: PTT Activated 34.0 sec (20.6-30.2)
[2025-05-31] MEDS: rOPINIRole 1 MG TAB PO (09:27)
[2025-05-31] MEDS: Normal Saline Flush 10 ML SYR IVP (09:27)
[2025-05-31] MEDS: risperiDONE 1 MG TAB PO (09:27)
[2025-05-31] MEDS: amLODIPine 5 MG TAB PO (09:27)
[2025-05-31] MEDS: Torsemide 20 MG TAB PO (09:27)
[2025-05-31] MEDS: Aspirin E.C. 81 MG TABEC PO (09:27)
[2025-05-31] MEDS: Metoprolol CR 25 MG TABCR PO (09:27)
[2025-05-31] MEDS: Isosorbide Mononitrate 30 MG TABCR 60 MG PO (09:27)
[2025-05-31] MEDS: Miconazole 2% Topical Powder 85 GM BTL (09:35)
--- NOTE | 2025-05-31 10:12 | PDOC.CMIN ---
Date of service: 05/31/25 Time of Service: 10:12 Care Management Initial Assmt Initial Assessment Reason for Hospitalization: chest pain, unstable angina Functional Status/Living Situation Patient Presentation: Mike presented to the ED early this morning with c/o sudden and severe chest pain described as a 400# elephant sitting on his chest, along with a sharp sensation. EMS did give 325mg of aspirin and SL nitroglycerin, which brought the pain down minimally. [facility] has accepted Mike, and his is currently in the ICU on a heparin drip, awaiting a bed. Mike was lying in bed, watching TV, when CM met with him today. He was very pleasant and easy to talk to. He had no complaints, except that he is hungry. He has been kept NPO since his arrival very early this morning. He is really hoping to be transferred soon. Mike is a senior care resident at [facility]. He has lived there for about a year, and had been in a different facility for about 9.5 months prior to that. Mike had a blister on his foot that got infected, and never really healed. He was non-weight bearing, and lost so much strength that he is unable to do more than take a couple of steps. Town of Residence: [facility] Resides with: Other (resides at [facility]) Significant Other/Family: Out of area (no significant family. He has not spoken with his daughter in 13 years.) Employment Status: Disabled Instrumental Activities of Daily Living (ADLs): Requires support Physical Functioning/Mobility Assistive Device: mostly uses a wheel chair. Can take a few steps with a walker Advance Directives Advance Directives: Do you have an Advance Directive: N 10/28/24, 13:[address] [facility]: N 03/15/24, 13:49 Date Asked 05/23/25 05/23/25, 17:25 AD Date Reviewed COLST On File at [facility] COLST Date Scanned Code Status Resuscitation Status Full Code Insurance Coverage/Financial Issues Insurance: Medicare Part A & B - Medicaid of [place] - Care Team Visit Care Team Role Provider Type Alexei Newell MD [facility] STAFF PHYSICIAN Nica Carrasco Primary Care Provider NON-[facility] STAFF PHYSICIAN Andres Cortez DO Emergency Provider [facility] STAFF PHYSICIAN Mynor Torres MD Admit Provider MD [facility] STAFF PHYSICIAN Attending Provider Discharge Potential Discharge Needs: Other (transfer to [facility]) Anticipated Barriers to Discharge: Bed availability Patient/Family Education Needs: Review discharge instructions, discuss Ask Me Three Transportation: EMS Plan: Anticipate that Mike will transfer to [facility] once a bed is available. He will transport via EMS and continue with his care. CM will continue to follow. Social Determinants of Health Screening Will the Patient Participate in the Screening?: Declined to provide PFSH All Active Problems (Updated 05/31/25 @ 06:39 by UMA WILSON) Chronic bipolar disorder (Acute) Chronic back pain greater than 3 months duration (Acute) Iron deficiency anemia (Acute) Diabetes mellitus type 2, insulin dependent (Acute) Unstable angina (Acute) Chest pain (Acute) Osteoarthritis of hip (Acute) Right hip pain (Acute) PAD (peripheral artery disease) (Acute) Lymphedema (Acute) Venous ulcers of both lower extremities (Acute) Venous (peripheral) insufficiency (Acute) Phantom limb syndrome (Acute) PTSD (post-traumatic stress disorder) (Acute) Vitamin D deficiency (Acute) Nondisplaced fracture of right scaphoid bone (Acute 02/01/24) Right wrist pain (Acute) GERD (gastroesophageal reflux disease) (Chronic) Hypertension (Chronic) Neuropathy (Acute) History of venous thrombosis and embolism (Acute) Pityriasis versicolor (Acute) Hyperlipidemia (Acute) Atherosclerotic heart disease of [place] coronary artery without angina pectoris (Acute) CKD stage 4 due to type 2 diabetes mellitus (Acute) Heart failure (Acute) Anxiety (Chronic) Morbid obesity (Acute) Subacute osteomyelitis, left ankle and foot (Acute) Chronic pain (Chronic) COPD (chronic obstructive pulmonary disease) (Chronic) Asthma (Chronic) Type 2 diabetes mellitus (Acute) Medical History (Updated 05/31/25 @ 06:39 by UMA WILSON) MRSA infection Testicular hypofunction Low back pain Social History Smoking/Tobacco Use Status: Former Tobacco Use Smoking risk assessment performed?: Yes Alcohol Intake: current Alcohol Intake frequency: holidays/special occasions only Drug use: Never Substance use type: does not use Housing: assisted living facility Do you feel safe at home: Yes Do you feel safe in your relationship?: Yes
--- NOTE | 2025-05-31 11:00 | PHA.REVIEW2 ---
Pharmacy Admission Review Admission Clinical Review Admission Pharmacy Review: Chronic bipolar disorder (Acute) Chronic back pain greater than 3 months duration (Acute) Iron deficiency anemia (Acute) Diabetes mellitus type 2, insulin dependent (Acute) Unstable angina (Acute) CKD stage 4 due to type 2 diabetes mellitus (Acute) Morbid obesity (Acute) bee venom protein (honey bee) Allergy (Intermediate, Verified 05/31/25 03:13) Anaphylaxis clonidine Allergy (Mild, Verified 05/31/25 03:13) Unknown Influenza Virus Vaccines Allergy (Mild, Verified 05/31/25 03:13) Unknown prednisone Allergy (Unknown, Verified 05/31/25 03:13) Other (See Comment) tamsulosin (From Flomax) Allergy (Unknown, Verified 05/31/25 03:13) Other (See Comment) Resuscitation Status Full Code Height 2.4 in Weight 151.3 kg Pharmacy Admission Review Renal Dosing Renal Dosing: BUN 41 mg/dL (7-18) H 05/31/25 07:15 Creatinine 2.2 mg/dL (0.70-1.30) H 05/31/25 07:15 Medications needing adjustments: Intervened (CrCl 27.91 mL/min, SCr decreased from 2.3) List of meds needing interventions: Reached out to provider regarding oxycodone, recommended frequency of no more than q8h for CrCl < 30. Order changed per provider. Anticoagulation Anticoagulation: Hgb 12.1 g/dL (13.5-17.5) L 05/31/25 07:15 Hct 35.1 % (40.0-50.0) L 05/31/25 07:15 Plt Count 197 10^3/uL (130-400) 05/31/25 07:15 INR 1.0 (0.9-1.1) 05/31/25 07:15 Creatinine 2.2 mg/dL (0.70-1.30) H 05/31/25 07:15 Therapeutic Anticoagulation: Reviewed (last aPTT was 34 at 0902, repeat pending for 1600) Medications: Heparin (infusion @ 14.5mL/hr) Opiate Usage Evaluate Pain Scale/Pains Meds: Intervened (oxycodone 5mg q8h PRN - no doses given, changed frequency from q4h due to CrCl (provider aware)) Scheduled Bowel Reg ordered if on Opiates?: No Relevant Labs Relevant Labs: Sodium 136 mmol/L (136-145) 05/31/25 07:15 Potassium 4.1 mmol/L (3.5-5.1) 05/31/25 07:15 Chloride 98 mmol/L (98-107) 05/31/25 07:15 Phosphorus 4.0 mg/dL (2.6-4.7) 05/31/25 07:15 Magnesium 2.0 mg/dL (1.8-2.4) 05/31/25 07:15 Electrolytes, C-Reactive P, ESR: Reviewed DM Control DM Control: Glucose 212 mg/dL (74-106) H 05/31/25 07:15 Finger Stick Blood Glucose 198 0926 Finger Stick Blood Glucose 198 0925 Finger Stick Blood Glucose 198 0718 Finger Stick Blood Glucose 198 0718 DM Control: Reviewed Insulin Dosing, Diabetic Medication: Has order for SS insulin and glargine 15 units daily Cardiac Review Cardiac Review: Troponin I 5 ng/L (<or=76) 05/31/25 01:42 NT-Pro-B Natriuret Pep 550 pg/mL (<300) H 05/30/25 22:41 BP, HR, EF%: Reviewed (BP and HR WNL) QTc Review QTc: Reviewed (477 from 05/30/25) IV to PO Switch IV Medications: Reviewed (heparin infusion) Home Meds Home Med List reviewed: Intervened Relevent Home Meds Not ordered & why?: sevelamer (on hold per H+P), iron (on hold per H+P), Anoro Ellipta (on hold per H+P), Trulicity (on hold per H+P), vitamin D3, gabapentin, hydrocodone (has order for oxycodone), Augmentin, magnesium, nitroglycerin (PRN), pantoprazole, ranolazine and Senna (PRN) Patient recently filled Augmentin on 05/25 for 10 day supply - reached out to provider to make sure they were aware. Waiting to hear back. Reached out to provider regarding pantoprazole, ranolazine and gabapentin. Waiting to hear back. Called nurse to verify how patient takes amitriptyline and prazosin at home: filled amitriptyline 10mg and 50mg tablet on same day and filled prazosin 1mg and 2mg capsules on same day. Waiting to hear back. Current Meds Current Medication Order Review: Intervened Comments: Changed amitriptyline order from 10mg tablets to 50mg tablets (dose = 50mg) Changed IV ED access order
[2025-05-31] MEDS: Lactated Ringers 1,000 ML 100 ML IV (14:53)
[2025-05-31] MEDS: Heparin in 0.45% NaCl 25,000 UNIT/250 ML BAG 14.5 UNIT IVINF (14:56)
[2025-05-31 17:05] LABS: PTT Activated 67.4 sec (20.6-30.2)
--- NOTE | 2025-05-31 18:48 | DSE_ITS ---
Date of service: 05/31/25 Time of Service: 18:48 DS: Diagnosis Discharge Diagnosis (1) Unstable angina: Status: Acute (2) CKD stage 4 due to type 2 diabetes mellitus: Status: Acute (3) Diabetes mellitus type 2, insulin dependent: Status: Acute (4) MRSA infection: (5) Iron deficiency anemia: Status: Acute (6) Chronic back pain greater than 3 months duration: Status: Acute (7) Morbid obesity: Status: Acute (8) COPD (chronic obstructive pulmonary disease): Status: Chronic (9) Chronic bipolar disorder: Status: Acute Discharge Plan Disposition Patient Disposition: Transfer-Acute Inpatient Care Specific Acute Inpt Facility: [facility] Condition: Fair Discharge Details Reason For Visit: [place] - Chest Pain Admit Date/Time: 05/31/25 02:38 Admit Provider: Mynor Torres Attending Provider: Mynor Torres Primary Care Provider: Nica Carrasco Hospital Course Hospital Course: 69 year old man with history of DVT, CAD 2021 cath with severe LAD stenosis, COPD, CKD, TIA, HTN, DM, obesity, bipolar disorder, presenting May 30 with severe chest pain and pressure that started a half hour prior to arrival. Pain abated with nitroglycerine drip, and he was transitioned to paste. Case reviewed with cardiology who accepted him for unstable angina pending bed availability, he was admitted to [facility] on heparin drip. He was also given 300mg clopidogrel. He was given an 80mg dose of atorvastatin in the ED and written to continue his chronic rosuvastatin 20mg and aspirin 81mg and other chronic cardiac medications. He has CKD4 and his creatinine was at baseline 2.5. His last A1c was 8.2 on 05/18/25 on GLP-1 and basal/bolus insulin. His basal glargine was continued at 15 units. He was NPO pending transfer. SGLT2i should be considered given CKD and heart disease, though it won't help his blood sugar. CKD low to start metformin. He would be a good candidate for CGM to better titrate his insulin. Home Meds and New Rx's Prescriptions: No Action amitriptyline 10 mg tablet 50 mg PO QHS aspirin [Adult Aspirin Regimen] 81 mg tablet,delayed release (DR/EC) 81 mg PO DAILY cholecalciferol (vitamin D3) 25 mcg (1,000 unit) capsule 50 mcg PO DAILY ferrous sulfate 325 mg (65 mg iron) tablet 325 mg PO DAILY Patient Comments: Take every Mon, Wed, Fri gabapentin 300 mg capsule 300 mg PO BID glucagon 1 mg recon soln 1 mg subcut Q20M PRN Rx Instructions: until target blood sugar attained insulin glargine 100 unit/mL (3 mL) insulin pen 30 unit subcut QAM insulin lispro 100 unit/mL insulin pen 1 sliding scale dose subcut USEASDIRECTD magnesium L-lactate 84 mg tablet extended release 168 mg PO DAILY metoprolol succinate 25 mg tablet extended release 24 hr 25 mg PO BID magnesium hydroxide [Milk of Magnesia] 400 mg/5 mL suspension 30 ml PO DAILY PRN naloxone 4 mg/actuation spray,non-aerosol 4 mg intranasal Q2M Rx Instructions: spray 1 dose into ONE nostril; alternate nostrils w each dose until help arrives nitroglycerin 0.4 mg tablet, sublingual 0.4 mg sublingual Q5M PRN Rx Instructions: do not exceed 3 doses per episode pantoprazole 40 mg tablet,delayed release (DR/EC) 40 mg PO DAILY ranolazine 500 mg tablet extended release 12 hr 500 mg PO BID sevelamer HCl 800 mg tablet 800 mg PO TID Rx Instructions: must administer with a meal/food risperidone 1 mg tablet 1 mg PO DAILY risperidone 2 mg tablet 2 mg PO QHS ropinirole 1 mg tablet 1 mg PO DAILY rosuvastatin 20 mg tablet 20 mg PO QHS sennosides-docusate sodium 8.6-50 mg tablet 1 tab-cap PO BID torsemide 20 mg tablet 20 mg PO DAILY hydrocodone-acetaminophen 5-325 mg tablet 1 tab PO Q4H PRN Rx Instructions: For severe pain prazosin 1 mg capsule 2 mg PO QPM amoxicillin-pot clavulanate 875-125 mg tablet 1 tab PO BID Qty: 10 0RF valacyclovir 1 gram tablet 1,000 mg PO Q8H Qty: 20 0RF amlodipine 5 mg tablet 5 mg PO DAILY isosorbide mononitrate 60 mg tablet extended release 24 hr 60 mg PO DAILY tizanidine 2 mg tablet 2 mg PO QID Trulicity 1.5 mg/0.5 mL pen injector 1.5 mg SUBCUT .weekly umeclidinium-vilanterol [Anoro Ellipta] 62.5-25 mcg/actuation blister with device 1 inh inhalation DAILY Discharge Instructions Activity:: Activity as Tolerated Equipment/Supplies:: No Equipment Needed Diet:: NPO pending catheterization Discharge Orders Discharge Orders: Discharge Order (Routine); Ordered 05/31/25 Ordered By: Alexei Newell DS: Summary Time Spent with Patient providing and/or coordinating discharge services: Greater than 30 minutes Status at Discharge Functional status at discharge: independent ambulation Overall status at discharge: patient is not back to baseline Mental Status: mental status grossly normal Speech and Movement: speech and movement normal Mood: congruent mood Affect: normal affect Exam Narrative Exam Narrative: General: This is a pleasant, obese man in no distress HEENT: Normocephalic, atraumatic CV: RRR, no m/g/r. 1-2+ distal pitting edema BLE Resp: CTAB, nl effort Abd: soft, NTND, +NBS Neuro: [place], alert, no focal deficits Psych Mental Status: mental status grossly normal Speech and Movement: speech and movement normal Mood: congruent mood Affect: normal affect DS: Data Vitals/I&O Vitals and I&O: Vital Signs Temperature 36.5 C 05/31/25 15:50 Temperature Source Temporal Artery Scan 05/31/25 15:50 Pulse 66 05/31/25 18:01 Pulse 66 05/31/25 18:01 Respiratory Rate 14 05/31/25 18:01 Respiratory Effort Normal, Non-Labored 05/31/25 06:53 Respiratory Depth Normal 05/31/25 06:53 Blood Pressure 106/62 05/31/25 18:01 Blood Pressure Mean 75 05/31/25 18:01 Blood Pressure Position Supine 05/31/25 06:53 Pulse Oximetry 91 L 05/31/25 12:01 Oxygen Delivery Method Room Air 05/31/25 06:53 Oxygen Flow Rate 0 05/31/25 06:53 Pain Level 4 05/31/25 09:30 Intake & Output 05/30/25 05/31/25 05/31/25 23:59 11:59 23:59 Intake Total 4.725 / 4.725 136 / 239.192 103.192 / 239.192 Output Total 850 / 2525 1675 / 2525 Balance 4.725 / 4.725 -714 / -2285.808 -1571.808 / -2285.808 Weight 154.7 kg 151.3 kg Intake: IV 4.725 / 4.725 136 / 239.192 103.192 / 239.192 Output: Urine 850 / 2525 1675 / 2525 Other: Urine Color Yellow Straw Urine Appearance Clear Clear Data Completed and Pending Labs on day of discharge: Labs from last 24 hours 05/31/25 05/31/25 05/31/25 23:00 16:40 09:02 WBC RBC Hgb Hct MCV MCH MCHC RDW Plt Count MPV Immature Gran % Neutrophils % Lymphocytes % Monocytes % Eosinophils % Basophils % Nucleated RBC % Absolute Neutrophils Absolute Lymphocytes Absolute Monocytes Absolute Eosinophils Absolute Basophils PT INR APTT Pending 67.4 H 34.0 H Sodium Potassium Chloride Carbon Dioxide Anion Gap BUN Creatinine Est GFR (CKD-EPI 2020) Glucose Calcium Phosphorus Magnesium Total Bilirubin AST ALT Alkaline Phosphatase Troponin I NT-Pro-B Natriuret Pep Total Protein Albumin MRSA (TEM-PCR) Add-On Test Request 05/31/25 05/31/25 05/31/25 07:15 05:47 04:15 WBC 7.09 RBC 4.01 L Hgb 12.1 L Hct 35.1 L MCV 88 MCH 30.2 MCHC 34.5 RDW 12.1 Plt Count 197 MPV 9.8 Immature Gran % Neutrophils % Lymphocytes % Monocytes % Eosinophils % Basophils % Nucleated RBC % Absolute Neutrophils Absolute Lymphocytes Absolute Monocytes Absolute Eosinophils Absolute Basophils PT 10.4 INR 1.0 APTT Sodium 136 Potassium 4.1 Chloride 98 Carbon Dioxide 30.2 Anion Gap 7.8 BUN 41 H Creatinine 2.2 H Est GFR (CKD-EPI 2020) 32.03 Glucose 212 H Calcium 9.8 Phosphorus 4.0 Magnesium 2.0 Total Bilirubin AST ALT Alkaline Phosphatase Troponin I NT-Pro-B Natriuret Pep Total Protein Albumin MRSA (TEM-PCR) Positive A Add-On Test Request DONE 05/31/25 05/30/25 05/30/25 01:42 23:58 22:41 WBC 7.01 RBC 3.90 L Hgb 11.6 L Hct 34.4 L MCV 88 MCH 29.7 MCHC 33.7 RDW 12.2 Plt Count 195 MPV 9.8 Immature Gran % 1.1 Neutrophils % 50.4 Lymphocytes % 36.9 Monocytes % 6.8 Eosinophils % 4.4 Basophils % 0.4 Nucleated RBC % 0.0 Absolute Neutrophils 3.52 Absolute Lymphocytes 2.59 Absolute Monocytes 0.48 Absolute Eosinophils 0.31 Absolute Basophils 0.03 PT 10.3 INR 1.0 APTT 22.5 Sodium 135 L Potassium 4.3 Chloride 97 L Carbon Dioxide 30.3 Anion Gap 7.7 BUN 43 H Creatinine 2.3 H Est GFR (CKD-EPI 2020) 30.36 Glucose 275 H Calcium 9.2 Phosphorus Magnesium Total Bilirubin 0.4 AST 23 ALT 39 Alkaline Phosphatase 80 Troponin I 5 7 5 NT-Pro-B Natriuret Pep 550 H Total Protein 7.0 Albumin 4.0 MRSA (TEM-PCR) Add-On Test Request PFSH All Active Problems (Updated 05/31/25 @ 06:39 by UMA WILSON) Chronic bipolar disorder (Acute) Chronic back pain greater than 3 months duration (Acute) Iron deficiency anemia (Acute) Diabetes mellitus type 2, insulin dependent (Acute) Unstable angina (Acute) Chest pain (Acute) Osteoarthritis of hip (Acute) Right hip pain (Acute) PAD (peripheral artery disease) (Acute) Lymphedema (Acute) Venous ulcers of both lower extremities (Acute) Venous (peripheral) insufficiency (Acute) Nondisplaced fracture of right scaphoid bone (Acute 02/01/24) Right wrist pain (Acute) GERD (gastroesophageal reflux disease) (Chronic) Hypertension (Chronic) Neuropathy (Acute) Phantom limb syndrome (Acute) History of venous thrombosis and embolism (Acute) Vitamin D deficiency (Acute) Pityriasis versicolor (Acute) Hyperlipidemia (Acute) Atherosclerotic heart disease of [place] coronary artery without angina pectoris (Acute) CKD stage 4 due to type 2 diabetes mellitus (Acute) Heart failure (Acute) PTSD (post-traumatic stress disorder) (Acute) Anxiety (Chronic) Morbid obesity (Acute) Subacute osteomyelitis, left ankle and foot (Acute) Chronic pain (Chronic) COPD (chronic obstructive pulmonary disease) (Chronic) Asthma (Chronic) Type 2 diabetes mellitus (Acute) Medical History (Updated 05/31/25 @ 06:39 by UMA WILSON) MRSA infection Testicular hypofunction Low back pain Social History Smoking/Tobacco Use Status: Former Tobacco Use Smoking risk assessment performed?: Yes Alcohol Intake: current Alcohol Intake frequency: holidays/special occasions only Drug use: Never Substance use type: does not use Housing: assisted living facility Do you feel safe at home: Yes Do you feel safe in your relationship?: Yes Time Spent with Patient Time Spent with Patient: <45 minutes Time was spent: preparing to see the patient(eg.review tests), obtaining and/or reviewing separately otained hiistory, ordering medications,tests, procedures, referring, communicating with other health reproductive healthcare assistant, indepentently interpreting results, counseling the patient and care coordination
== END 2025-05-31 19:20 | disposition short-term general hospital (02) | DRG 303 ==
LOC: ER 05-31 06:18 → ICU 05-31 06:38
PROVIDERS: Admitting Provider Family Medicine; Emergency Provider Student in an Organized Health Care Education/Training Program; PCP Family Medicine; Responsible Provider Family Medicine; Visit Provider Family Medicine
DX: N18.4 Chronic kidney disease, stage 4 (severe); E11.22 Type 2 diabetes mellitus with diabetic chronic kidney disease; Z79.4 Long term (current) use of insulin; Z79.85 Long-term (current) use of injectable non-insulin antidiabetic drugs; G89.29 Other chronic pain; D50.9 Iron deficiency anemia, unspecified; E66.01 Morbid (severe) obesity due to excess calories; J44.9 Chronic obstructive pulmonary disease, unspecified; F31.9 Bipolar disorder, unspecified; I25.110 Atherosclerotic heart disease of native coronary artery with unstable angina pectoris; Z86.73 Personal history of transient ischemic attack (TIA), and cerebral infarction without residual deficits; I10 Essential (primary) hypertension; I73.9 Peripheral vascular disease, unspecified; I89.0 Lymphedema, not elsewhere classified; I87.2 Venous insufficiency (chronic) (peripheral); F43.10 Post-traumatic stress disorder, unspecified; E55.9 Vitamin D deficiency, unspecified; K21.9 Gastro-esophageal reflux disease without esophagitis; E11.40 Type 2 diabetes mellitus with diabetic neuropathy, unspecified; B36.0 Pityriasis versicolor; E78.5 Hyperlipidemia, unspecified; Z87.891 Personal history of nicotine dependence; Z22.322 Carrier or suspected carrier of Methicillin resistant Staphylococcus aureus
CPT/HCPCS: 00123; 36415; 80048; 80053; 85027; 87641; 93005; 96365; 96366; 99291; 71045; 83735; 83880; 84100; 84484; 85025; 85610; 85730; 93010; 99222; 99236; J1644; J1815; J2305

== ENCOUNTER 2025-06-09 18:29 | Observation (INO) | payer MEDICARE, MEDICAID, SELFPAY ==
[2025-06-09] VITALS (39 sets, daily range): BP systolic 107–149; BP diastolic 49–85; PULSE 69–102; RESP 10–22; TEMP 36.3; O2SAT 97–99
--- NOTE | 2025-06-09 18:15 | RT.EKG_ITS ---
APPROVED REPORT Exam: Resting ECG Reason for Exam: chest pain Patient Location: E HR:81 bpm ECG Measurements Heart Rate 81 AXIS MI 217 P 58 QRSd 112 QRS 9 QT 403 T 72 QTc 468 Conclusion Sinus rhythm...normal P axis, V-rate 60- 99 Multiple ventricular premature complexes...V complexes w/ short R-R intervls Borderline prolonged MI interval...MI >212, V-rate 50- [address] segment or T wave abnormalities to suggest occlusive NE
--- NOTE | 2025-06-09 18:30 | DI.RAD_ITS ---
Exam(s) XR PORTABLE CHEST AP EXAM: XR PORTABLE CHEST AP CLINICAL HISTORY: SOB, CP TECHNIQUE: 2D digital imaging was performed of the chest. One image was obtained. An AP view was obtained. COMPARISON: CR,XR XR PORTABLE CHEST AP from 05/30/2025 FINDINGS: MEDIASTINUM: Normal. HEART: Normal. PULMONARY VASCULATURE: Normal. LUNGS: Clear. PLEURAL SPACE: No pleural effusion or pneumothorax. BONE:Within normal limits for the patient's age. Lower cervical/upper thoracic spine surgery is present. OTHER FINDINGS:Normal. IMPRESSION: 1. No acute pulmonary findings. 2. The preliminary [facility] report was reviewed. DATA REPOSITORY: RADIATION DOSE DELIVERED:
--- NOTE | 2025-06-09 18:35 | W.ED.GENAD ---
Discharge Plan Disposition Patient Disposition: Admit to [facility] Discharge Details Clinical Impression: Acute on chronic kidney failure, Chest pain Primary Care Provider: Nica Carrasco ED Provider: Marily Post Home Meds and New Rx's Prescriptions: No Action amitriptyline 10 mg tablet 50 mg PO QHS aspirin [Adult Aspirin Regimen] 81 mg tablet,delayed release (DR/EC) 81 mg PO DAILY cholecalciferol (vitamin D3) 25 mcg (1,000 unit) capsule 50 mcg PO DAILY ferrous sulfate 325 mg (65 mg iron) tablet 325 mg PO DAILY Patient Comments: Take every Mon, Wed, Fri gabapentin 300 mg capsule 300 mg PO BID glucagon 1 mg recon soln 1 mg subcut Q20M PRN Rx Instructions: until target blood sugar attained insulin glargine 100 unit/mL (3 mL) insulin pen 30 unit subcut QAM insulin lispro 100 unit/mL insulin pen 1 sliding scale dose subcut USEASDIRECTD magnesium L-lactate 84 mg tablet extended release 168 mg PO DAILY metoprolol succinate 25 mg tablet extended release 24 hr 25 mg PO BID magnesium hydroxide [Milk of Magnesia] 400 mg/5 mL suspension 30 ml PO DAILY PRN naloxone 4 mg/actuation spray,non-aerosol 4 mg intranasal Q2M Rx Instructions: spray 1 dose into ONE nostril; alternate nostrils w each dose until help arrives nitroglycerin 0.4 mg tablet, sublingual 0.4 mg sublingual Q5M PRN Rx Instructions: do not exceed 3 doses per episode pantoprazole 40 mg tablet,delayed release (DR/EC) 40 mg PO DAILY ranolazine 500 mg tablet extended release 12 hr 500 mg PO BID sevelamer HCl 800 mg tablet 800 mg PO TID Rx Instructions: must administer with a meal/food risperidone 1 mg tablet 1 mg PO DAILY risperidone 2 mg tablet 2 mg PO QHS ropinirole 1 mg tablet 1 mg PO DAILY rosuvastatin 20 mg tablet 20 mg PO QHS sennosides-docusate sodium 8.6-50 mg tablet 1 tab-cap PO BID torsemide 20 mg tablet 20 mg PO DAILY hydrocodone-acetaminophen 5-325 mg tablet 1 tab PO Q4H PRN Rx Instructions: For severe pain prazosin 1 mg capsule 2 mg PO QPM amoxicillin-pot clavulanate 875-125 mg tablet 1 tab PO BID Qty: 10 0RF valacyclovir 1 gram tablet 1,000 mg PO Q8H Qty: 20 0RF amlodipine 5 mg tablet 5 mg PO DAILY isosorbide mononitrate 60 mg tablet extended release 24 hr 60 mg PO DAILY tizanidine 2 mg tablet 2 mg PO QID Trulicity 1.5 mg/0.5 mL pen injector 1.5 mg SUBCUT .weekly umeclidinium-vilanterol [Anoro Ellipta] 62.5-25 mcg/actuation blister with device 1 inh inhalation DAILY HPI General Date/Time Provider Initiated Documentation: 06/09/25 18:31. HPI Narrative: Mike is a 69-year-old male who presents to the emergency department via EMS from [facility] and rehab for evaluation of sudden onset of sternal chest pressure described as elephant sitting on my chest. This started at 1700 while watching TV, when pain was at its worst 10/10, radiated down left arm and caused a lightheaded feeling. He received 324 mg aspirin, 1 nitro, and 100 mcg fentanyl IM en route, pain is now currently rated 4/10 and lightheaded feeling has disappeared. He denies associated fever/chills, headache, congestion, sore throat, cough, nausea/vomiting, diaphoresis, abdominal pain, change in bowel or bladder function, change in baseline pedal edema. He was recently discharged from [facility] on 05/31. During hospitalization he underwent cardiac catheterization revealed severe CAD inmLAD and pRCA. Stent was placed in the mLAD. He was discharged on clopidogrel, amlodipine, isosorbide, metoprolol, prazosin, rosuvastatin, ranolazine, and torsemide. Past medical history significant for HFpEF, history of PE, bipolar disorder, GERD, COPD, T2DM, arteriosclerosis, stage II CKD, HTN, HLD, asthma, TIA, obesity. Says blood sugars have been well-controlled by health staff. Related Data Home Medications ?Medication ?Instructions ?Recorded ?Confirmed amitriptyline 10 mg tablet 50 mg PO QHS 07/06/24 06/09/25 aspirin 81 mg tablet,delayed 81 mg PO DAILY 07/06/24 06/09/25 release (Adult Aspirin Regimen) cholecalciferol (vitamin D3) 25 50 mcg PO DAILY 07/06/24 06/09/25 mcg (1,000 unit) capsule ferrous sulfate 325 mg (65 mg 325 mg PO DAILY 07/06/24 06/09/25 iron) tablet gabapentin 300 mg capsule 300 mg PO BID 07/06/24 06/09/25 glucagon 1 mg solution for 1 mg subcut Q20M PRN 07/06/24 06/09/25 injection Held on 05/31/25. Instructions: Changed by Provider insulin glargine 100 unit/mL (3 30 unit subcut QAM 07/06/24 06/09/25 mL) subcutaneous pen insulin lispro 100 unit/mL 1 sliding scale dose subcut 07/06/24 06/09/25 subcutaneous pen USEASDIRECTD magnesium L-lactate 84 mg 168 mg PO DAILY 07/06/24 06/09/25 tablet,extended release magnesium hydroxide 400 mg/5 mL 30 ml PO DAILY PRN 07/06/24 06/09/25 oral suspension (Milk of Magnesia) metoprolol succinate 25 mg 25 mg PO BID 07/06/24 06/09/25 tablet,extended release 24 hr naloxone 4 mg/actuation nasal spray 4 mg intranasal Q2M 07/06/24 06/09/25 nitroglycerin 0.4 mg sublingual 0.4 mg sublingual Q5M PRN 07/06/24 06/09/25 tablet pantoprazole 40 mg tablet,delayed 40 mg PO DAILY 07/06/24 06/09/25 release ranolazine 500 mg tablet,extended 500 mg PO BID 07/06/24 06/09/25 release,12 hr risperidone 1 mg tablet 1 mg PO DAILY 07/06/24 06/09/25 risperidone 2 mg tablet 2 mg PO QHS 07/06/24 06/09/25 ropinirole 1 mg tablet 1 mg PO DAILY 07/06/24 06/09/25 rosuvastatin 20 mg tablet 20 mg PO QHS 07/06/24 06/09/25 sennosides 8.6 mg-docusate sodium 1 tab-cap PO BID 07/06/24 06/09/25 50 mg tablet sevelamer HCl 800 mg tablet 800 mg PO TID 07/06/24 06/09/25 torsemide 20 mg tablet 20 mg PO DAILY 07/06/24 06/09/25 amlodipine 5 mg tablet 5 mg PO DAILY 03/15/25 06/09/25 dulaglutide 1.5 mg/0.5 mL 1.5 mg subcut .weekly 03/15/25 06/09/25 subcutaneous pen injector (Trulicity) isosorbide mononitrate 60 mg 60 mg PO DAILY 03/15/25 06/09/25 tablet,extended release 24 hr tizanidine 2 mg tablet 2 mg PO QID 03/15/25 06/09/25 amoxicillin 875 mg-potassium 1 tab PO BID #10 tabs 03/31/25 06/09/25 clavulanate 125 mg tablet hydrocodone 5 mg-acetaminophen 325 1 tab PO Q4H PRN 03/31/25 06/09/25 mg tablet prazosin 1 mg capsule 2 mg PO QPM 03/31/25 06/09/25 valacyclovir 1 gram tablet 1,000 mg PO Q8H #20 tabs 03/31/25 06/09/25 umeclidinium 62.5 mcg-vilanterol 1 inh inhalation DAILY 05/31/25 06/09/25 25 mcg/actuation powdr for inhalation (Anoro Ellipta) Previous Rx's ?Medication ?Instructions ?Recorded amoxicillin 875 mg-potassium 1 tab PO BID #10 tabs 03/31/25 clavulanate 125 mg tablet valacyclovir 1 gram tablet 1,000 mg PO Q8H #20 tabs 03/31/25 Allergies Allergy/AdvReac Type Severity Reaction Status Date / Time bee venom protein (honey bee) Allergy Intermediate Anaphylaxis Verified 05/31/25 03:13 clonidine Allergy Mild Unknown Verified 05/31/25 03:13 Influenza Virus Vaccines Allergy Mild Unknown Verified 05/31/25 03:13 prednisone Allergy Unknown Other (See Verified 05/31/25 03:13 Comment) tamsulosin (From Flomax) Allergy Unknown Other (See Verified 05/31/25 03:13 Comment) General VALERI: 3 Exam Narrative Exam Narrative: General Appearance: Normal. Patient is alert and oriented, no acute distress. Vital signs: Within normal limits, mild hypertension noted, 148/67. HEENT: Oropharynx clear, no lesions. Respiratory: Breath sounds clear bilaterally, no wheezes, rales, or rhonchi. Cardiovascular: Heart sounds normal, no murmurs, rubs, or gallops. Gastrointestinal: Abdomen soft, non-tender, no masses or organomegaly. Skin: Warm and dry, no rash. Psychiatric: Normal. Medical Decision Making Initial Assessment: 69-year-old male with chest pain, similar to previous episodes, described as 'elephant on the chest,' radiating to left arm, associated with shortness of breath and disorientation. Differential Diagnosis includes but is not limited to: ACS, unstable angina, cardiac arrhythmia, pneumonia, electrolyte imbalance, dehydration, GERD, esophageal spasm ED Course: - EKG performed, no changes consistent with acute ischemia - Nitroglycerin administered with good relief of symptoms, Nitropaste applied - Blood work ordered -CXR performed - Consulted with [facility] cardiology I independently interpreted the following tests: Serial EKGs reassuring, initial performed at 183, shows normal sinus rhythm with rate 81, multiple PVCs, prolonged CA interval 217, no changes consistent with acute ischemia. Repeat at 2021 performed, normal sinus rhythm rate 82, PVCs, CA interval 209, no changes consistent with acute ischemia. CMP notable for GINETTE, creatinine and BUN today 3.1 and 56 (compared to 1.78 and 29 respectively at 06/02/2025). BNP elevated at 1255. CBC and serial troponins reassuring. Magnesium slightly low at 1.6. No acute abnormalities noted on chest x-ray, this was confirmed by radiologist I did review patient's [facility] records, including cardiology notes. He was recently discharged from [facility] on 05/31. During hospitalization he underwent cardiac catheterization revealed severe CAD inmLAD and pRCA. Stent was placed in the mLAD. He was discharged on clopidogrel, amlodipine, isosorbide, metoprolol, prazosin, rosuvastatin, ranolazine, and torsemide. Cardiac workup today reassuring. I discussed case with automobile service station manager on-call, who recommends serial troponins, repeat EKGs to see if there is any evolution, and monitoring. As patient recently received stent, unlikely to be any new occlusive process, most likely patient requires optimization of his antianginal therapy. As patient has GINETTE secondary to recent medication changes, hospitalization for optimization of antianginal therapy and treatment of acute GINETTE recommended. Clinical Impression: - chest pain, likely angina -GINETTE Disposition: - Admission to med surg unit; discussed case with Dr. Tran, he is agreeable with plan of care. Patient consented to the use of [facility] Imaging Data Radiologic Study: Radiologist's impression: PROCEDURE INFORMATION: Exam: XR Chest Exam date and time: 06/09/2025 7:19 PM Age: 69 years old Clinical indication: Chest pressure and chest wall pain TECHNIQUE: Imaging protocol: Radiologic exam of the chest. Views: 1 view. COMPARISON: CR XR PORTABLE CHEST AP 05/30/2025 11:03 PM FINDINGS: Lungs: Unremarkable. No consolidation. Pleural spaces: Unremarkable. No pleural effusion. No pneumothorax. Heart/Mediastinum: Unremarkable. No cardiomegaly. Bones/joints: Unremarkable. IMPRESSION: No acute findings. PFSH All Active Problems (Updated 06/10/25 @ 00:45 by Marily Raines) Chest pain (Acute) Acute on chronic kidney failure (Acute) Chronic bipolar disorder (Acute) Chronic back pain greater than 3 months duration (Acute) Iron deficiency anemia (Acute) Diabetes mellitus type 2, insulin dependent (Acute) Unstable angina (Acute) Chest pain (Acute) Osteoarthritis of hip (Acute) Right hip pain (Acute) PAD (peripheral artery disease) (Acute) Lymphedema (Acute) Venous ulcers of both lower extremities (Acute) Venous (peripheral) insufficiency (Acute) Phantom limb syndrome (Acute) PTSD (post-traumatic stress disorder) (Acute) Vitamin D deficiency (Acute) Nondisplaced fracture of right scaphoid bone (Acute 02/01/24) Right wrist pain (Acute) GERD (gastroesophageal reflux disease) (Chronic) Hypertension (Chronic) Neuropathy (Acute) History of venous thrombosis and embolism (Acute) Pityriasis versicolor (Acute) Hyperlipidemia (Acute) Atherosclerotic heart disease of [place] coronary artery without angina pectoris (Acute) CKD stage 4 due to type 2 diabetes mellitus (Acute) Heart failure (Acute) Anxiety (Chronic) Morbid obesity (Acute) Subacute osteomyelitis, left ankle and foot (Acute) Chronic pain (Chronic) COPD (chronic obstructive pulmonary disease) (Chronic) Asthma (Chronic) Type 2 diabetes mellitus (Acute) Medical History (Updated 06/10/25 @ 00:45 by Marily Raines) MRSA infection Testicular hypofunction Low back pain Social History Smoking/Tobacco Use Status: Former Tobacco Use Smoking risk assessment performed?: Yes Alcohol Intake: current Alcohol Intake frequency: holidays/special occasions only Drug use: Never Substance use type: does not use Housing: assisted living facility Do you feel safe at home: Yes Do you feel safe in your relationship?: Yes
[2025-06-09] MEDS: nitroGLYcerin 0.4 MG TAB SL (18:58)
--- NOTE | 2025-06-09 19:56 | DI.VRAD_ITS ---
PROCEDURE INFORMATION: Exam: XR Chest Exam date and time: 06/09/2025 7:19 PM Age: 69 years old Clinical indication: Chest pressure and chest wall pain TECHNIQUE: Imaging protocol: Radiologic exam of the chest. Views: 1 view. COMPARISON: CR XR PORTABLE CHEST AP 05/30/2025 11:03 PM FINDINGS: Lungs: Unremarkable. No consolidation. Pleural spaces: Unremarkable. No pleural effusion. No pneumothorax. Heart/Mediastinum: Unremarkable. No cardiomegaly. Bones/joints: Unremarkable. IMPRESSION: No acute findings. Dictated and Authenticated by: Ramone Valle MD. Orderin Dusty Calixto MD
[2025-06-09 19:58] LABS: Abs Immature Grans 0.03 10^3/uL (0.0-0.06); HCT 31.5 % (40.0-50.0); HGB 10.6 g/dL (13.5-17.5); Immature Grans % 0.6 %; MCH 30.5 pg (27.0-33.0); MCHC 33.7 % (32.0-36.0); MCV 91 fL (80-95); MPV 9.9 fL (8.0-11.0); Platelet Count 173 10^3/uL (130-400); RBC 3.47 10^6/uL (4.36-5.78); RDW 13.0 % (11.8-14.1); RDW-SD 42.3 fL; WBC 4.80 10^3/uL (4.4-10.8)
--- NOTE | 2025-06-09 20:00 | RT.EKG_ITS ---
APPROVED REPORT Exam: Resting ECG Reason for Exam: rpt to r/o changes Patient Location: E HR:82 bpm ECG Measurements Heart Rate 82 AXIS NJ 209 P 86 QRSd 108 QRS 7 QT 385 T 62 QTc 452 Conclusion Sinus rhythm...normal P axis, V-rate 60- 99 Multiple ventricular premature complexes...V complexes w/ short R-R intervls no ST segment or T wave abnormalities to suggest occlusive ME
[2025-06-09 20:13] LABS: INR 1.1 (0.9-1.1); PTT Activated 22.7 sec (20.6-30.2); Prothrombin Time 10.6 sec (9.1-11.1)
[2025-06-09 20:21] LABS: ALT 36 U/L (16-63); AST 20 U/L (15-37); Albumin 4.0 g/dL (3.4-5.0); Alkaline Phosphatase 70 U/L (46-116); Anion Gap 9.9 mmol/L (3-11); BUN 56 mg/dL (7-18); Bilirubin, Total 0.4 mg/dL (0.2-1.0); CO2 26.1 mmol/L (21.0-32.0); Calcium 8.9 mg/dL (8.5-10.1); Chloride 102 mmol/L (98-107); Estimated GFR 21.22 (mL/min/1.73m2); Glucose 211 mg/dL (74-106); Lipase 70 U/L (<78); Magnesium 1.6 mg/dL (1.8-2.4); NT-proBNP 1255 pg/mL (<300); Potassium 4.8 mmol/L (3.5-5.1); Sodium 138 mmol/L (136-145); Total Protein 6.8 g/dL (6.4-8.2); Troponin I 26 ng/L (<or=76)
[2025-06-09] MEDS: nitroGLYcerin 2% 1 INCH/1 GM PKT TP (20:36)
[2025-06-09 21:31] LABS: Troponin I 25 ng/L (<or=76)
[2025-06-09 22:56] LABS: Troponin I 24 ng/L (<or=76)
[2025-06-10] VITALS (19 sets, daily range): BP systolic 136–163; BP diastolic 52–79; PULSE 80–97; RESP 9–22; TEMP 35.9–36.7; O2SAT 96–99
--- NOTE | 2025-06-10 00:43 | W.PM.HP.N ---
Date of service: 06/10/25 Time of Service: 00:43 Assessment and Plan Assessment and plan (1) Unstable angina: Start date: 06/10/25 Status: Acute Assessment and plan: This is a 69-year-old gentleman with recent PTCA and stenting of the LAD and having disease of his proximal RCA not intervened upon. He was placed on torsemide during that hospital stay and had his antianginal medications adjusted. He is on chronic statin and low-dose beta-nereyda. He also is on Imdur. He had resting onset of chest pain with negative troponins x 3 and will be observed overnight with continued cardiac monitoring with PVCs on his EKG with no acute ischemic changes. He was given IV magnesium with hypomagnesemia which should help with his ectopy. He is pain-free presently with residual discomfort which is hard to interpret. He did have resting pain. [facility] [place] wanted to maximize medical therapy therefore metoprolol will be increased with patient having adequate blood pressure with this change. He is already on Imdur 60 mg daily. He will use nitroglycerin sublingually as needed. Because he has slight worsening of his CKD, torsemide will be held. This is given most likely for right-sided heart failure with recent catheterization and echocardiogram revealing left ventricular ejection fraction at 55%. If patient does well he will be discharged to the [place] [facility] with his modified medical therapy. He is minimally physically active. He will be following up with [facility] [place]. (2) CKD stage 4 due to type 2 diabetes mellitus: Status: Chronic Assessment and plan: Worsened recently with torsemide, hold torsemide and oral hydration with trending labs. Continue outpatient medical therapy. (3) Hypomagnesemia: Start date: 06/10/25 Status: Acute Assessment and plan: IV repletion with patient chronically, intermittently hypomagnesemic. Trend lab. (4) Heart failure: Status: Chronic Assessment and plan: Preserved left and right ejection fraction with patient not tolerating torsemide. This most likely is diastolic dysfunction but can be followed up with cardiology [place] [facility] (5) CAD (coronary artery disease), [place] coronary artery: Status: Chronic Assessment and plan: Active disease with patient to modify risk factors as best he can with limited physical ability and being morbidly obese, prognosis is poor. He should review CODE STATUS. (6) Type 2 diabetes mellitus: Status: Chronic Assessment and plan: Hold outpatient medical therapy with glucometer measurements before meals and bedtime and moderate sliding scale insulin coverage. Once he returns to the [place] [facility], he will resume his regimen. (7) COPD (chronic obstructive pulmonary disease): Status: Chronic Assessment and plan: Continue outpatient medical therapy. (8) Hyperlipidemia: Status: Chronic Assessment and plan: Continue statin. (9) Chronic pain: Status: Chronic Assessment and plan: Off hydrocodone since 2023 by review of VPMS. Check NAY. Continue outpatient medical therapy with low-dose amitriptyline and gabapentin. (10) PTSD (post-traumatic stress disorder): Status: Chronic Assessment and plan: Continue outpatient medical therapy and monitoring. He appears to be coping well. (11) Morbid obesity: Status: Chronic Assessment and plan: Poor prognosis for change but patient should consider losing weight. This would need to be through diet with patient having minimal ability to exercise. He is on Trulicity. History of Present Illness History of Present Illness Chief Complaint: Onset retrosternal chest pain watching TV. Narrative: This is a 69-year-old male patient who recently was transferred [place] [facility] [place] institution [place] 05/31/2025 with cardiac catheterization and PTCA with stenting of his LAD and having disease also in the RCA not intervened upon. 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 He was nonweightbearing for such a long time that he had lost the ability to walk and now has lost his apartment. He has been ambulating with assistance recently but had sudden onset of retrosternal chest pressure as if an elephant was sitting on his chest with associated lightheadedness and radiation of pain into his left arm. He was at rest at the time watching TV. EMS was called and patient was treated on the scene with nitroglycerin sublingually, 100 mcg of fentanyl and 325 mg of aspirin. By the time the patient arrived in the ED via EMS his pain was 4-10 having been 10 out of 10 at the [place] [facility]. Treatment in the ED apparently made his chest pain completely resolved with only residual discomfort. At the time I saw the patient he had the same mild discomfort and was not complaining of chest pain. Cardiology at [facility] [place] advise observation with maximizing medical care but no initiation of heparin or further interventions at this time. They did not recommend transfer. Troponins were negative and EKG did show more frequent unifocal PVCs but no acute ischemic changes. They were unchanged prior and after his chest pain resolved. Patient will be observed on telemetry with maximization of medical therapy adjusting his metoprolol with patient already on Imdur and ranolazine. He also recently started on torsemide and had slight worsening of his CKD with torsemide to be held. He is hypomagnesemic and this will be replaced. If the patient's kidney function is improved off torsemide this may be held for now. [facility] [place] need to follow-up patient to continue modification of his medical therapy. He does have a history of CHF which most likely is right-sided with his left ventricular ejection fraction reported during his last hospitalization to be at 55%. Patient was comfortable with this plan and plans return to the [place] [facility]. He is a full code. Review of Systems Narrative: 13 point review of systems otherwise unrevealing or stable. Patient does have chronic nonpitting edema over lower extremities which has not changed and he does wear a bandage over his left foot where he had previous amputations. He is minimally physically active. [facility] All Active Problems (Updated 06/10/25 @ 08:28 by Nahun Tran) Hypomagnesemia (Acute) CAD (coronary artery disease), [place] coronary artery (Chronic) CAD S/P percutaneous coronary angioplasty (Acute) Chest pain (Acute) Acute on chronic kidney failure (Acute) Chronic bipolar disorder (Acute) Chronic back pain greater than 3 months duration (Acute) Iron deficiency anemia (Acute) Diabetes mellitus type 2, insulin dependent (Acute) Unstable angina (Acute) Chest pain (Acute) Osteoarthritis of hip (Acute) Right hip pain (Acute) PAD (peripheral artery disease) (Acute) Lymphedema (Acute) Venous ulcers of both lower extremities (Acute) Venous (peripheral) insufficiency (Acute) Phantom limb syndrome (Acute) PTSD (post-traumatic stress disorder) (Chronic) Vitamin D deficiency (Acute) Nondisplaced fracture of right scaphoid bone (Acute 02/01/24) Right wrist pain (Acute) GERD (gastroesophageal reflux disease) (Chronic) Hypertension (Chronic) Neuropathy (Acute) History of venous thrombosis and embolism (Acute) Pityriasis versicolor (Acute) Hyperlipidemia (Chronic) Atherosclerotic heart disease of [place] coronary artery without angina pectoris (Acute) CKD stage 4 due to type 2 diabetes mellitus (Chronic) Heart failure (Chronic) Anxiety (Chronic) Morbid obesity (Chronic) Subacute osteomyelitis, left ankle and foot (Acute) Chronic pain (Chronic) COPD (chronic obstructive pulmonary disease) (Chronic) Asthma (Chronic) Type 2 diabetes mellitus (Chronic) Medical History MRSA infection Testicular hypofunction Low back pain Social History Smoking/Tobacco Use Status: Former Tobacco Use Smoking risk assessment performed?: Yes Alcohol Intake: current Alcohol Intake frequency: holidays/special occasions only Drug use: Never Substance use type: does not use Housing: assisted living facility Do you feel safe at home: Yes Do you feel safe in your relationship?: Yes Meds Allergies and Home Medications Allergies Allergy/AdvReac Type Severity Reaction Status Date / Time bee venom protein (honey bee) Allergy Intermediate Anaphylaxis Verified 05/31/25 03:13 clonidine Allergy Mild Unknown Verified 05/31/25 03:13 Influenza Virus Vaccines Allergy Mild Unknown Verified 05/31/25 03:13 prednisone Allergy Unknown Other (See Verified 05/31/25 03:13 Comment) tamsulosin (From Flomax) Allergy Unknown Other (See Verified 05/31/25 03:13 Comment) Home Medications ?Medication ?Instructions ?Recorded ?Confirmed ?Type amitriptyline 10 mg tablet 30 mg PO QHS 07/06/24 06/10/25 History aspirin 81 mg tablet,delayed 81 mg PO DAILY 07/06/24 06/09/25 History release (Adult Aspirin Regimen) cholecalciferol (vitamin D3) 25 50 mcg PO DAILY 07/06/24 06/09/25 History mcg (1,000 unit) capsule ferrous sulfate 325 mg (65 mg 325 mg PO DAILY 07/06/24 06/09/25 History iron) tablet gabapentin 300 mg capsule 300 mg PO BID 07/06/24 06/09/25 History glucagon 1 mg solution for 1 mg subcut Q20M PRN 07/06/24 06/09/25 History injection Held on 05/31/25. Instructions: Changed by Provider insulin glargine 100 unit/mL (3 30 unit subcut QAM 07/06/24 06/09/25 History mL) subcutaneous pen insulin lispro 100 unit/mL 1 sliding scale dose subcut 07/06/24 06/09/25 History subcutaneous pen USEASDIRECTD magnesium L-lactate 84 mg 168 mg PO DAILY 07/06/24 06/09/25 History tablet,extended release magnesium hydroxide 400 mg/5 mL 30 ml PO DAILY PRN 07/06/24 06/09/25 History oral suspension (Milk of Magnesia) metoprolol succinate 25 mg 25 mg PO BID 07/06/24 06/09/25 History tablet,extended release 24 hr naloxone 4 mg/actuation nasal spray 4 mg intranasal Q2M 07/06/24 06/09/25 History nitroglycerin 0.4 mg sublingual 0.4 mg sublingual Q5M PRN 07/06/24 06/09/25 History tablet pantoprazole 40 mg tablet,delayed 40 mg PO DAILY 07/06/24 06/09/25 History release ranolazine 500 mg tablet,extended 500 mg PO BID 07/06/24 06/09/25 History release,12 hr risperidone 1 mg tablet 1 mg PO DAILY 07/06/24 06/09/25 History risperidone 2 mg tablet 2 mg PO QHS 07/06/24 06/09/25 History ropinirole 1 mg tablet 2 mg PO DAILY 07/06/24 06/10/25 History rosuvastatin 20 mg tablet 20 mg PO QHS 07/06/24 06/09/25 History sennosides 8.6 mg-docusate sodium 1 tab-cap PO BID 07/06/24 06/09/25 History 50 mg tablet sevelamer HCl 800 mg tablet 800 mg PO TID 07/06/24 06/09/25 History torsemide 20 mg tablet 20 mg PO DAILY 07/06/24 06/09/25 History amlodipine 5 mg tablet 5 mg PO DAILY 03/15/25 06/09/25 History dulaglutide 1.5 mg/0.5 mL 1.5 mg subcut .weekly 03/15/25 06/09/25 History subcutaneous pen injector (Trulicity) isosorbide mononitrate 60 mg 60 mg PO DAILY 03/15/25 06/09/25 History tablet,extended release 24 hr tizanidine 2 mg tablet 2 mg PO QID 03/15/25 06/09/25 History hydrocodone 5 mg-acetaminophen 325 1 tab PO Q4H PRN 03/31/25 06/09/25 History mg tablet prazosin 1 mg capsule 3 mg PO QPM 03/31/25 06/10/25 History umeclidinium 62.5 mcg-vilanterol 1 inh inhalation DAILY 05/31/25 06/09/25 History 25 mcg/actuation powdr for inhalation (Anoro Ellipta) Exam Narrative Exam Narrative: General: Patient is morbidly obese, appears appropriate for age, alert and oriented x 3. He is smiling and joking at times and in no acute distress though he states he has a residual discomfort over his substernal area. He does not radiate with any pain scale. HEENT: Normocephalic, eyes with pupils equal and reactive to light symmetrically, extraocular movement intact and sclera anicteric. Oropharynx with moist mucosa and poor dentition. Neck: Supple without JVD. Back: Stooped posture with patient not able to sit up in bed. Lungs: Fair aeration and clear to auscultation percussion. Bronchovesicular breath sounds diffusely. No focalizing rales or rhonchi. No expiratory wheeze. Heart: Regular rate and rhythm with no appreciable murmurs or gallops. Distant heart sounds. Abdomen: Obese contour, soft and nontender to palpation with no palpable hepatosplenomegaly. Large pannus. Bowel sounds positive all quadrants. Genitalia/rectal: Exam deferred. Extremities: Gross nonpitting edema lower extremities with left foot bandage having had first toe and lateral foot amputation in the past. There is no drainage on the bandage. No cyanosis or clubbing. Fair cap refill. Skin: Normal color, warm and dry. Neuro: Cranial nerves II through XII gross intact, no focalized motor deficits or tremor. Psych: Normal affect and mood. Patient slightly euphoric at times. No abnormal thought processes. Remote and recent memory intact. Results Imaging Imaging Studies: Exam: XR Chest Exam date and time: 06/09/2025 7:19 PM Age: 69 years old Clinical indication: Chest pressure and chest wall pain TECHNIQUE: Imaging protocol: Radiologic exam of the chest. Views: 1 view. COMPARISON: CR XR PORTABLE CHEST AP 05/30/2025 11:03 PM FINDINGS: Lungs: Unremarkable. No consolidation. Pleural spaces: Unremarkable. No pleural effusion. No pneumothorax. Heart/Mediastinum: Unremarkable. No cardiomegaly. Bones/joints: Unremarkable. IMPRESSION: No acute findings. Labs 06/09/25 19:51 06/09/25 19:51 Labs: Laboratory Results - last 24 hr 06/09/25 06/09/25 06/09/25 19:00 19:51 20:54 WBC Cancelled 4.80 RBC Cancelled 3.47 L Hgb Cancelled 10.6 L Hct Cancelled 31.5 L MCV Cancelled 91 MCH Cancelled 30.5 MCHC Cancelled 33.7 RDW Cancelled 13.0 Plt Count Cancelled 173 MPV Cancelled 9.9 Immature Gran % Cancelled 0.6 Neutrophils % Cancelled 55.4 Band Neutrophils % Cancelled Lymphocytes % Cancelled 28.1 Atypical Lymphs % Cancelled Monocytes % Cancelled 9.0 Eosinophils % Cancelled 6.5 Basophils % Cancelled 0.4 Metamyelocytes % Cancelled Myelocytes % Cancelled Promyelocytes % Cancelled Other Cells % Cancelled Nucleated RBC % Cancelled 0.0 Absolute Neutrophils Cancelled 2.66 Absolute Lymphocytes Cancelled 1.35 Absolute Monocytes Cancelled 0.43 Absolute Eosinophils Cancelled 0.31 Absolute Basophils Cancelled 0.02 RBC Morphology Cancelled Polychromasia Cancelled Hypochromasia Cancelled Poikilocytosis Cancelled Basophilic Stippling Cancelled Anisocytosis Cancelled Microcytosis Cancelled Macrocytosis Cancelled Spherocytes Cancelled Tear Drop Cells Cancelled Ovalocytes Cancelled Stomatocytes Cancelled [place] Bodies Cancelled Alie Cells/Echinocytes Cancelled Acanthocytes (Spur) Cancelled Schistocytes Cancelled PT Cancelled 10.6 INR Cancelled 1.1 APTT Cancelled 22.7 Sodium Cancelled 138 Potassium Cancelled 4.8 Chloride Cancelled 102 Carbon Dioxide Cancelled 26.1 Anion Gap Cancelled 9.9 BUN Cancelled 56 H Creatinine Cancelled 3.1 H Est GFR (CKD-EPI 2020) Cancelled 21.22 Glucose Cancelled 211 H Calcium Cancelled 8.9 Magnesium Cancelled 1.6 L Total Bilirubin Cancelled 0.4 AST Cancelled 20 ALT Cancelled 36 Alkaline Phosphatase Cancelled 70 Troponin I Cancelled 26 25 NT-Pro-B Natriuret Pep Cancelled 1255 H Total Protein Cancelled 6.8 Albumin Cancelled 4.0 Lipase Cancelled 70 06/09/25 22:31 WBC RBC Hgb Hct MCV MCH MCHC RDW Plt Count MPV Immature Gran % Neutrophils % Band Neutrophils % Lymphocytes % Atypical Lymphs % Monocytes % Eosinophils % Basophils % Metamyelocytes % Myelocytes % Promyelocytes % Other Cells % Nucleated RBC % Absolute Neutrophils Absolute Lymphocytes Absolute Monocytes Absolute Eosinophils Absolute Basophils RBC Morphology Polychromasia Hypochromasia Poikilocytosis Basophilic Stippling Anisocytosis Microcytosis Macrocytosis Spherocytes Tear Drop Cells Ovalocytes Stomatocytes [place] Bodies [place] Cells/Echinocytes Acanthocytes (Spur) Schistocytes PT INR APTT Sodium Potassium Chloride Carbon Dioxide Anion Gap BUN Creatinine Est GFR (CKD-EPI 2020) Glucose Calcium Magnesium Total Bilirubin AST ALT Alkaline Phosphatase Troponin I 24 NT-Pro-B Natriuret Pep Total Protein Albumin Lipase Last Vital Signs Temp 36.3 C L 06/09/25 18:33 Pulse 86 06/10/25 00:05 Resp 11 L 06/10/25 00:05 BP 137/56 L 06/10/25 00:05 Pulse Ox 99 06/10/25 00:05 Time Spent Time spent with Patient: >75 minutes Time was spent: preparing to see the patient(eg.review tests), obtaining and/or reviewing separately otained hiistory, ordering medications,tests, procedures, referring, communicating with other health healthcare associate, indepentently interpreting results, counseling the patient and care coordination
[2025-06-10] MEDS: Magnesium Oxide 400 MG TAB PO (01:08)
--- NOTE | 2025-06-10 01:37 | W.PC.ACHO ---
Registration Status: REG ER Primary Language: Preferred Language: ED Information & Data Chief Complaint Chest Pain 06/09/25 22:03 Chief Complaint Chest Pain 06/09/25 18:33 Triage Note Approx 1730 10/ Crushing 06/09/25 18:33 Sternal CP with SOB and flushed feeling after exertion. [place] sluggish all day yesterday in the afternoon felt increased fatigue had a weight on chest Prior to arrival x1 nitro and Fent 100mg IM with some relief HX Recent stent placement 05/31/25 Medical / Surgical History (Last Reviewed 06/10/25 @ 00:43 by Nahun Tran) MRSA infection Testicular hypofunction Low back pain Most Recent Vital Signs Temperature 36.3 C L 06/09/25 18:33 Temperature Source Tympanic 06/09/25 18:33 Pulse 89 06/10/25 01:28 Pulse 88 06/10/25 01:28 Respiratory Rate 22 06/10/25 01:28 Respiratory Effort Normal 06/09/25 22:03 Respiratory Depth Normal 06/09/25 22:03 Respiratory Pattern Normal 06/09/25 22:03 Blood Pressure 145/52 H 06/10/25 01:28 Blood Pressure Mean 81 06/10/25 01:28 Pulse Oximetry 98 06/10/25 01:28 Oxygen Delivery Method Room Air 06/09/25 18:33 Oxygen Flow Rate 0 06/09/25 18:33 Pain Level 4 06/09/25 18:58 Allergies bee venom protein (honey bee) Allergy (Intermediate, Verified 05/31/25 03:13) Anaphylaxis clonidine Allergy (Mild, Verified 05/31/25 03:13) Unknown Influenza Virus Vaccines Allergy (Mild, Verified 05/31/25 03:13) Unknown prednisone Allergy (Unknown, Verified 05/31/25 03:13) Other (See Comment) tamsulosin (From Flomax) Allergy (Unknown, Verified 05/31/25 03:13) Other (See Comment) Precautions Isolation Standard precaution 06/09/25 22:03 Diagnostics 06/10/25 06/10/25 06/09/25 Range/Units 05:35 01:30 22:31 WBC RBC Hgb Hct MCV MCH MCHC RDW Plt Count MPV Immature Gran % Neutrophils % Band Neutrophils % Lymphocytes % Atypical Lymphs % Monocytes % Eosinophils % Basophils % Metamyelocytes % Myelocytes % Promyelocytes % Other Cells % Nucleated RBC % Absolute Neutrophils Absolute Lymphocytes Absolute Monocytes Absolute Eosinophils Absolute Basophils RBC Morphology Polychromasia Hypochromasia Poikilocytosis Basophilic Stippling Anisocytosis Microcytosis Macrocytosis Spherocytes Tear Drop Cells Ovalocytes Stomatocytes [place] Bodies [place] Cells/Echinocytes Acanthocytes (Spur) Schistocytes PT INR APTT Sodium Potassium Chloride Carbon Dioxide Anion Gap BUN Creatinine Est GFR (CKD-EPI 2020) Glucose Calcium Phosphorus Pending Magnesium Total Bilirubin AST ALT Alkaline Phosphatase Troponin I 24 NT-Pro-B Natriuret Pep Total Protein Albumin Lipase COVID-19 Source Pending SARS-CoV-2 (PCR) Pending Influenza Type A (PCR) Pending Influenza Type B (PCR) Pending RSV (PCR) Pending 06/09/25 06/09/25 06/09/25 Range/Units 20:54 19:51 19:00 WBC 4.80 Cancelled RBC 3.47 L Cancelled Hgb 10.6 L Cancelled Hct 31.5 L Cancelled MCV 91 Cancelled MCH 30.5 Cancelled MCHC 33.7 Cancelled RDW 13.0 Cancelled Plt Count 173 Cancelled MPV 9.9 Cancelled Immature Gran % 0.6 Cancelled Neutrophils % 55.4 Cancelled Band Neutrophils % Cancelled Lymphocytes % 28.1 Cancelled Atypical Lymphs % Cancelled Monocytes % 9.0 Cancelled Eosinophils % 6.5 Cancelled Basophils % 0.4 Cancelled Metamyelocytes % Cancelled Myelocytes % Cancelled Promyelocytes % Cancelled Other Cells % Cancelled Nucleated RBC % 0.0 Cancelled Absolute Neutrophils 2.66 Cancelled Absolute Lymphocytes 1.35 Cancelled Absolute Monocytes 0.43 Cancelled Absolute Eosinophils 0.31 Cancelled Absolute Basophils 0.02 Cancelled RBC Morphology Cancelled Polychromasia Cancelled Hypochromasia Cancelled Poikilocytosis Cancelled Basophilic Stippling Cancelled Anisocytosis Cancelled Microcytosis Cancelled Macrocytosis Cancelled Spherocytes Cancelled Tear Drop Cells Cancelled Ovalocytes Cancelled Stomatocytes Cancelled [place] Bodies Cancelled Alie Cells/Echinocytes Cancelled Acanthocytes (Spur) Cancelled Schistocytes Cancelled PT 10.6 Cancelled INR 1.1 Cancelled APTT 22.7 Cancelled Sodium 138 Cancelled Potassium 4.8 Cancelled Chloride 102 Cancelled Carbon Dioxide 26.1 Cancelled Anion Gap 9.9 Cancelled BUN 56 H Cancelled Creatinine 3.1 H Cancelled Est GFR (CKD-EPI 2020) 21.22 Cancelled Glucose 211 H Cancelled Calcium 8.9 Cancelled Phosphorus Magnesium 1.6 L Cancelled Total Bilirubin 0.4 Cancelled AST 20 Cancelled ALT 36 Cancelled Alkaline Phosphatase 70 Cancelled Troponin I 25 26 Cancelled NT-Pro-B Natriuret Pep 1255 H Cancelled Total Protein 6.8 Cancelled Albumin 4.0 Cancelled Lipase 70 Cancelled COVID-19 Source SARS-CoV-2 (PCR) Influenza Type A (PCR) Influenza Type B (PCR) RSV (PCR) Intake and Output - 24 Hour Total 06/09/25 18:21 thru 06/10/25 00:07 Output Total 550 Balance -550 Weight 155.9 kg Output: Urine 550 Other: Urine Color Yellow Urine Appearance Clear Urine Odor Normal Falls Risk Assessment History of Falls No History 06/09/25 22:03 Contributing Factors Impairments,Incontinence 06/09/25 22:03 Ambulatory Aids Uses ambulatory device + 06/09/25 22:03 Tubes/Lines With any additional score 06/09/25 22:03 Cognition No cognitive impairment 06/09/25 22:03 Fall Total Score 56 06/09/25 22:03 Level of Risk High Risk 06/09/25 22:03 Problems (Last Reviewed 06/10/25 @ 00:43 by Nahun Tran) Hypomagnesemia (Acute) CAD (coronary artery disease), [place] coronary artery (Chronic) Chest pain (Acute) Acute on chronic kidney failure (Acute) Unstable angina (Acute) PTSD (post-traumatic stress disorder) (Acute) Hyperlipidemia (Chronic) CKD stage 4 due to type 2 diabetes mellitus (Chronic) Heart failure (Chronic) Morbid obesity (Acute) Chronic pain (Chronic) COPD (chronic obstructive pulmonary disease) (Chronic) Type 2 diabetes mellitus (Chronic) v v v v v v v v v Sending and/or Receiving Nurses: Please use comment section below to note any information pertinent to the patient hand-off not included above. Information / Comments: Report received from: Danielito
[2025-06-10 02:11] LABS: COVID-19 PCR Negative (Negative); RSV PCR Negative (Negative)
[2025-06-10] MEDS: MAGNESIUM SULFATE 4 GM/100 ML BAG IV_INF (03:05)
[2025-06-10] MEDS: Acetaminophen 325 MG TAB 650 MG PO (06:40)
[2025-06-10 07:36] LABS: TSH (W/Ref FT4) 3.70 uIU/mL (0.36-3.74)
[2025-06-10 07:56] LABS: ALT 35 U/L (16-63); AST 18 U/L (15-37); Albumin 4.0 g/dL (3.4-5.0); Alkaline Phosphatase 62 U/L (46-116); Anion Gap 9.4 mmol/L (3-11); BUN 52 mg/dL (7-18); Bilirubin, Total 0.3 mg/dL (0.2-1.0); CO2 27.6 mmol/L (21.0-32.0); Calcium 9.3 mg/dL (8.5-10.1); Chloride 104 mmol/L (98-107); Estimated GFR 23.98 (mL/min/1.73m2); Glucose 185 mg/dL (74-106); Magnesium 2.8 mg/dL (1.8-2.4); Potassium 4.5 mmol/L (3.5-5.1); Sodium 141 mmol/L (136-145); Total Protein 6.8 g/dL (6.4-8.2); Troponin I 21 ng/L (<or=76)
--- NOTE | 2025-06-10 08:21 | TELEP.MEDR_ITS ---
Date of service: 06/10/25 Time of Service: 08:21 Telepharmacy Home Med Rec Allergies Allergies: bee venom protein (honey bee) Allergy (Intermediate, Verified 05/31/25 03:13) Anaphylaxis clonidine Allergy (Mild, Verified 05/31/25 03:13) Unknown Influenza Virus Vaccines Allergy (Mild, Verified 05/31/25 03:13) Unknown prednisone Allergy (Unknown, Verified 05/31/25 03:13) Other (See Comment) tamsulosin (From Flomax) Allergy (Unknown, Verified 05/31/25 03:13) Other (See Comment) Interview Person Interviewed: pharmacy Quality Quality of Interview/Accuracy of Medication List: Good Sources Sources used to compile medication list: [facility] Medication List, Retail Pharmacy and Patient List Changes made to Home Medication List: ADDITIONS: None DELETIONS: * Augmentin * valacyclovir CHANGES: * amitriptyline: dose decreased from 50mg to 30mg based on most recent pharmacy fill * prazosin: increased from 2mg to 3mg based on most recent pharmacy fill * ropinirole: increased from 1mg to 2mg based on most recent pharmacy fill Additional Notes Additional Notes: Patient did not know his medications. A med list for patient was faxed, but list was from 2020 so do not believe it is up to date. Patient's pharmacy recently filled all his medications in mid-May so I used that list to complete med rec. Recommended Changes Attestation: The home medication list is now updated to the best of my knowledge and is ready to be reconciled by the provider. Please contact the TelePharmacy Medication Reconciliation Pharmacist at for any questions.
[2025-06-10] MEDS: Cholecalciferol (Vitamin D3) 1,000 UNIT TAB 2000 UNITS PO (08:32)
[2025-06-10] MEDS: Ferrous Sulfate 325 MG TAB PO (08:32)
[2025-06-10] MEDS: Sennosides/Docusate Sodium TAB 1 TAB PO (08:32)
[2025-06-10] MEDS: amLODIPine 5 MG TAB PO (08:32)
[2025-06-10] MEDS: risperiDONE 1 MG TAB PO (08:32)
[2025-06-10] MEDS: Metoprolol 25 MG TAB PO ×2 (08:32→13:47)
[2025-06-10] MEDS: Pantoprazole 40 MG TABCR PO (08:33)
[2025-06-10] MEDS: Isosorbide Mononitrate 60 MG TABCR PO (08:33)
[2025-06-10] MEDS: Aspirin E.C. 81 MG TABEC PO (08:33)
[2025-06-10] MEDS: Gabapentin 300 MG CAP PO (08:33)
[2025-06-10] MEDS: Ranolazine 500 MG TABCR PO (08:33)
[2025-06-10] MEDS: rOPINIRole 1 MG TAB PO (08:33)
[2025-06-10] MEDS: Magnesium Lactate-SR 84 MG TABCR 168 MG PO (08:33)
[2025-06-10] MEDS: Normal Saline Flush 10 ML SYR IVP (08:34)
[2025-06-10] MEDS: Enoxaparin 40 MG/0.4 ML SYR SC (08:34)
--- NOTE | 2025-06-10 08:43 | PDOC.CMIN ---
Date of service: 06/10/25 Time of Service: 08:44 Care Management Initial Assmt Functional Status/Living Situation Town of Residence: [place] Resides with: Other ([place] at [facility]) Natural Supports: no significant family. He has not spoken with his daughter in 13 years. Employment Status: Disabled Instrumental Activities of Daily Living (ADLs): Requires support Medications Medication Management: No Issues/Barriers identified Advance Directives Advance Directives: Do you have an Advance Directive: N 10/28/24, 13:12 AD On File at [facility]: N 03/15/24, 13:49 Date Asked 06/09/25 06/09/25, 19:18 AD Date Reviewed COLST On File at [facility] No 06/09/25, 19:18 COLST Date Scanned Code Status Resuscitation Status Full Code Insurance Coverage/Financial Issues Insurance: Medicare Part A & B - Medicaid of [place] - Care Team Visit Care Team Role Provider Type Nica Carrasco Primary Care Provider NON-[facility] STAFF PHYSICIAN Marily Raines Emergency Provider NURSE PRACTITIONER Nahun Tran Admit Provider NON-[facility] STAFF PHYSICIAN Attending Provider Social Determinants of Health Screening Will the Patient Participate in the Screening?: Unable to obtain Do you worry about having a steady place to live?: no In the past 12 months, have you had to go without electric, gas, oil or water in your home?: no Has lack of transportation kept you from medical appointments or from doing things needed for daily living?: no Has anyone in your life made you feel unsafe or unsupported?: no How hard is it for you to pay for the very basics like food, housing, medical care, and heating? Would you say it is:: Not hard at all Do you want help finding or keeping work or a job?: I do not need or want help If for any reason you need help with day-to-day activities such as bathing, preparing meals, shopping, managing finances, etc., do you get the help you need?: I need a lot more help How often do you feel lonely or isolated from those around you?: Never Do you speak a language other than Yoruba at home?: No Does the patient want assistance with any of the above?: No Health Related Social Needs Health related social needs: problems with daily activities (Z73.9) PFSH All Active Problems (Updated 06/10/25 @ 08:28 by Nahun Tran) Hypomagnesemia (Acute) CAD (coronary artery disease), [place] coronary artery (Chronic) CAD S/P percutaneous coronary angioplasty (Acute) Chest pain (Acute) Acute on chronic kidney failure (Acute) Chronic bipolar disorder (Acute) Chronic back pain greater than 3 months duration (Acute) Iron deficiency anemia (Acute) Diabetes mellitus type 2, insulin dependent (Acute) Unstable angina (Acute) Chest pain (Acute) Osteoarthritis of hip (Acute) Right hip pain (Acute) PAD (peripheral artery disease) (Acute) Lymphedema (Acute) Venous ulcers of both lower extremities (Acute) Venous (peripheral) insufficiency (Acute) Phantom limb syndrome (Acute) PTSD (post-traumatic stress disorder) (Chronic) Vitamin D deficiency (Acute) Nondisplaced fracture of right scaphoid bone (Acute 02/01/24) Right wrist pain (Acute) GERD (gastroesophageal reflux disease) (Chronic) Hypertension (Chronic) Neuropathy (Acute) History of venous thrombosis and embolism (Acute) Pityriasis versicolor (Acute) Hyperlipidemia (Chronic) Atherosclerotic heart disease of [place] coronary artery without angina pectoris (Acute) CKD stage 4 due to type 2 diabetes mellitus (Chronic) Heart failure (Chronic) Anxiety (Chronic) Morbid obesity (Chronic) Subacute osteomyelitis, left ankle and foot (Acute) Chronic pain (Chronic) COPD (chronic obstructive pulmonary disease) (Chronic) Asthma (Chronic) Type 2 diabetes mellitus (Chronic) Medical History MRSA infection Testicular hypofunction Low back pain Social History Smoking/Tobacco Use Status: Former Tobacco Use Smoking risk assessment performed?: Yes Alcohol Intake: current Alcohol Intake frequency: holidays/special occasions only Drug use: Never Substance use type: does not use Housing: assisted living facility Do you feel safe at home: Yes Do you feel safe in your relationship?: Yes Readmission Within the Past 30 Days Yes or No: Yes Date of First Admission Date of 1st Admission: 05/31/25 Date of this Admission Date of Admission: 06/09/25 This admission was: Through ED Office Visit Since 1st Admission Have you seen your PCP in the office since discharge?: No Speicalist Appointments Have you seen any other specialist since your 1st Admission?: No
[2025-06-10] MEDS: Tiotropium/Olodaterol 10 PUFF INHALER 2 PUFF IH (09:14)
--- NOTE | 2025-06-10 10:55 | PDOC.CMDIS ---
Date of service: 06/10/25 Time of Service: 10:55 Care Management Discharge Plan Reason for Hospitalization: Angina Discharge Plan: Mike is discharged back to [facility], where he resides for long-term care. [facility] will provide transportation. The patient will follow up with facility and community providers and continue with the discharge plan of care as directed. Patient/Family Education Needs: Review discharge instructions and plan to follow up with [facility]. Discuss ask me three. Services Needed at Discharge: Nursing Home Facility and Transportation ([facility]) SDOH Health Related Social Needs: Health related social needs daily activities
--- NOTE | 2025-06-10 11:21 | W.PM.PROGNOT ---
Date of Service Date of service: 06/10/25 Time of Service: 11:23 Objective Last Vital Signs Temp 35.9 C L 06/10/25 07:32 Pulse 89 06/10/25 07:32 Resp 16 06/10/25 07:32 BP 159/70 H 06/10/25 07:32 Pulse Ox 98 06/10/25 07:32 Laboratory Results - last 24 hr 06/09/25 06/09/25 06/09/25 19:00 19:51 20:54 WBC Cancelled 4.80 RBC Cancelled 3.47 L Hgb Cancelled 10.6 L Hct Cancelled 31.5 L MCV Cancelled 91 MCH Cancelled 30.5 MCHC Cancelled 33.7 RDW Cancelled 13.0 Plt Count Cancelled 173 MPV Cancelled 9.9 Immature Gran % Cancelled 0.6 Neutrophils % Cancelled 55.4 Band Neutrophils % Cancelled Lymphocytes % Cancelled 28.1 Atypical Lymphs % Cancelled Monocytes % Cancelled 9.0 Eosinophils % Cancelled 6.5 Basophils % Cancelled 0.4 Metamyelocytes % Cancelled Myelocytes % Cancelled Promyelocytes % Cancelled Other Cells % Cancelled Nucleated RBC % Cancelled 0.0 Absolute Neutrophils Cancelled 2.66 Absolute Lymphocytes Cancelled 1.35 Absolute Monocytes Cancelled 0.43 Absolute Eosinophils Cancelled 0.31 Absolute Basophils Cancelled 0.02 RBC Morphology Cancelled Polychromasia Cancelled Hypochromasia Cancelled Poikilocytosis Cancelled Basophilic Stippling Cancelled Anisocytosis Cancelled Microcytosis Cancelled Macrocytosis Cancelled Spherocytes Cancelled Tear Drop Cells Cancelled Ovalocytes Cancelled Stomatocytes Cancelled [place] Bodies Cancelled Alie Cells/Echinocytes Cancelled Acanthocytes (Spur) Cancelled Schistocytes Cancelled PT Cancelled 10.6 INR Cancelled 1.1 APTT Cancelled 22.7 Sodium Cancelled 138 Potassium Cancelled 4.8 Chloride Cancelled 102 Carbon Dioxide Cancelled 26.1 Anion Gap Cancelled 9.9 BUN Cancelled 56 H Creatinine Cancelled 3.1 H Est GFR (CKD-EPI 2020) Cancelled 21.22 Glucose Cancelled 211 H Calcium Cancelled 8.9 Phosphorus Magnesium Cancelled 1.6 L Total Bilirubin Cancelled 0.4 AST Cancelled 20 ALT Cancelled 36 Alkaline Phosphatase Cancelled 70 Troponin I Cancelled 26 25 NT-Pro-B Natriuret Pep Cancelled 1255 H Total Protein Cancelled 6.8 Albumin Cancelled 4.0 Lipase Cancelled 70 TSH COVID-19 Source SARS-CoV-2 (PCR) Influenza Type A (PCR) Influenza Type B (PCR) RSV (PCR) 06/09/25 06/10/25 06/10/25 22:31 01:30 06:48 WBC RBC Hgb Hct MCV MCH MCHC RDW Plt Count MPV Immature Gran % Neutrophils % Band Neutrophils % Lymphocytes % Atypical Lymphs % Monocytes % Eosinophils % Basophils % Metamyelocytes % Myelocytes % Promyelocytes % Other Cells % Nucleated RBC % Absolute Neutrophils Absolute Lymphocytes Absolute Monocytes Absolute Eosinophils Absolute Basophils RBC Morphology Polychromasia Hypochromasia Poikilocytosis Basophilic Stippling Anisocytosis Microcytosis Macrocytosis Spherocytes Tear Drop Cells Ovalocytes Stomatocytes [place] Bodies [place] Cells/Echinocytes Acanthocytes (Spur) Schistocytes PT INR APTT Sodium 141 Potassium 4.5 Chloride 104 Carbon Dioxide 27.6 Anion Gap 9.4 BUN 52 H Creatinine 2.8 H Est GFR (CKD-EPI 2020) 23.98 Glucose 185 H Calcium 9.3 Phosphorus 2.1 L Magnesium 2.8 H Total Bilirubin 0.3 AST 18 ALT 35 Alkaline Phosphatase 62 Troponin I 24 21 NT-Pro-B Natriuret Pep Total Protein 6.8 Albumin 4.0 Lipase TSH 3.70 COVID-19 Source Nasopharynx SARS-CoV-2 (PCR) Negative Influenza Type A (PCR) Negative Influenza Type B (PCR) Negative RSV (PCR) Negative
--- NOTE | 2025-06-10 11:23 | DSE_ITS ---
Date of service: 06/10/25 Time of Service: 11:23 DS: Diagnosis Discharge Diagnosis (1) Unstable angina: Status: Acute (2) CKD stage 4 due to type 2 diabetes mellitus: Status: Chronic (3) Hypomagnesemia: Status: Acute (4) Heart failure: Status: Chronic (5) CAD (coronary artery disease), [place] coronary artery: Status: Chronic (6) Type 2 diabetes mellitus: Status: Chronic (7) COPD (chronic obstructive pulmonary disease): Status: Chronic (8) Hyperlipidemia: Status: Chronic (9) Chronic pain: Status: Chronic (10) PTSD (post-traumatic stress disorder): Status: Chronic (11) Morbid obesity: Status: Chronic Discharge Plan Disposition Patient Disposition: Intermediate Facility(SNF) Condition: Stable Discharge Details Reason For Visit: CAD with angina pectoria, CKD CHG Admit Date/Time: 06/10/25 01:20 Admit Provider: Nahun Tran Attending Provider: Nahun Tran Primary Care Provider: Nica Carrasco Hospital Course Hospital Course: 69-year-old male with a past medical history significant for HFpEF, history of PE, bipolar disorder, obesity GERD, COPD, T2DM, arteriosclerosis, stage II CKD, HTN, HLD, asthma, TIA, with recent PTCA and stenting of the mLAD and having disease of his proximal RCA not intervened upon and discharged on discharged on clopidogrel, amlodipine, isosorbide, metoprolol, prazosin, rosuvastatin, ranolazine, and torsemide who presented to the ED om 06/09/25 via EMS from [facility] rehab for evaluation of sudden onset of sternal chest pressure described as elephant sitting on my chest. He received 324 mg aspirin, 1 nitro, and 100 mcg fentanyl IM en route with pain down to 4/10 from 10/10 on arrival. In the ED, symptoms subsided after nitroglycerin paste application. EKG was negative for coronary occlusion, troponins were negative X2 , magnesium was supplement ed for hypomagnesemia, BNP at 1255, Cr at 3.1 with repeat at 2.8. [facility] cardiology recommended admission for serial troponin, EKGs which remained unremarkable. The patient was admitted to the medical surgical floor with telemetry by the hospitalist for unstable angina. The patient no longer experienced chest pain. Troponin still negative this AM. The patient will be discharged to SNF with optimized medical therapy and follow- up with [facility] cardiology as previously scheduled on 06/12/25. Patient to take nitro SL PRN chest pain. Torsemide on held but to be resumed in AM as Cr is trending toward baseline. The patient mentioned a follow-up with his cardi ologist at [facility] on Thursday06/12/25. Follow-up with outpatient provider within [address] Discuss[address] Newell Home Meds and New Rx's Prescriptions: Continued amitriptyline 10 mg tablet 30 mg PO QHS aspirin [Adult Aspirin Regimen] 81 mg tablet,delayed release (DR/EC) 81 mg PO DAILY cholecalciferol (vitamin D3) 25 mcg (1,000 unit) capsule 50 mcg PO DAILY ferrous sulfate 325 mg (65 mg iron) tablet 325 mg PO DAILY Patient Comments: Take every Mon, Thu, Thu gabapentin 300 mg capsule 300 mg PO BID glucagon 1 mg recon soln 1 mg subcut Q20M PRN Rx Instructions: until target blood sugar attained insulin glargine 100 unit/mL (3 mL) insulin pen 30 unit subcut QAM insulin lispro 100 unit/mL insulin pen 1 sliding scale dose subcut USEASDIRECTD magnesium L-lactate 84 mg tablet extended release 168 mg PO DAILY metoprolol succinate 25 mg tablet extended release 24 hr 25 mg PO BID magnesium hydroxide [Milk of Magnesia] 400 mg/5 mL suspension 30 ml PO DAILY PRN naloxone 4 mg/actuation spray,non-aerosol 4 mg intranasal Q2M Rx Instructions: spray 1 dose into ONE nostril; alternate nostrils w each dose until help arrives nitroglycerin 0.4 mg tablet, sublingual 0.4 mg sublingual Q5M PRN Rx Instructions: do not exceed 3 doses per episode pantoprazole 40 mg tablet,delayed release (DR/EC) 40 mg PO DAILY ranolazine 500 mg tablet extended release 12 hr 500 mg PO BID sevelamer HCl 800 mg tablet 800 mg PO TID Rx Instructions: must administer with a meal/food risperidone 1 mg tablet 1 mg PO DAILY risperidone 2 mg tablet 2 mg PO QHS ropinirole 1 mg tablet 2 mg PO DAILY rosuvastatin 20 mg tablet 20 mg PO QHS sennosides-docusate sodium 8.6-50 mg tablet 1 tab-cap PO BID hydrocodone-acetaminophen 5-325 mg tablet 1 tab PO Q4H PRN Rx Instructions: For severe pain prazosin 1 mg capsule 3 mg PO QPM torsemide 20 mg tablet 20 mg PO DAILY Qty: 0 0RF Rx Instructions: Hold until 06/11/25 isosorbide mononitrate 60 mg tablet extended release 24 hr 60 mg PO DAILY tizanidine 2 mg tablet 2 mg PO QID Trulicity 1.5 mg/0.5 mL pen injector 1.5 mg SUBCUT .weekly umeclidinium-vilanterol [Anoro Ellipta] 62.5-25 mcg/actuation blister with device 1 inh inhalation DAILY Changed amlodipine 5 mg tablet 10 mg PO DAILY Qty: 0 0RF Discharge Instructions Referrals: Nica Carrasco [Primary Care Provider, Medicine] Referral Note: Follow-up within7 days of discharge Activity:: Activity as Tolerated Equipment/Supplies:: No Equipment Needed Diet:: heart healthy diabetic Discharge Orders Discharge Orders: Discharge Order (Routine); Ordered 06/10/25 Ordered By: Lisa Rubalcava DS: Summary Time Spent with Patient providing and/or coordinating discharge services: Greater than 30 minutes Status at Discharge Functional status at discharge: independent ambulation Overall status at discharge: patient is progressing back to baseline Mental Status: mental status grossly normal Speech and Movement: speech and movement normal Mood: congruent mood Affect: normal affect Quality:SDOH Health Related Social Needs: Health related social needs daily activities Exam Narrative Exam Narrative: Alert and oriented X 4, no focal neurological deficit, clear lungs, unlabored breathing S1, S2 no murmur tele SA HR 95, abdomen in non-acute, no CVA tenderness Psych Mental Status: mental status grossly normal Speech and Movement: speech and movement normal Mood: congruent mood Affect: normal affect DS: Data Vitals/I&O Vitals and I&O: Vital Signs Temperature 36.7 C 06/10/25 11:20 Temperature Source Temporal Artery Scan 06/10/25 11:20 Pulse 80 06/10/25 11:20 Pulse Rhythm Regular 06/10/25 02:06 Pulse 88 06/10/25 01:28 Respiratory Rate 16 06/10/25 11:20 Respiratory Effort Normal 06/10/25 02:06 Respiratory Depth Normal 06/10/25 02:06 Respiratory Pattern Normal 06/09/25 22:03 Blood Pressure 140/68 06/10/25 11:20 Blood Pressure Mean 92 06/10/25 11:20 Pulse Oximetry 98 06/10/25 11:20 Oxygen Delivery Method Room Air 06/10/25 11:20 Oxygen Flow Rate 0 06/10/25 11:20 Pain Level 2 06/10/25 02:33 Intake & Output 06/09/25 06/09/25 06/10/25 11:59 23:59 11:59 Intake Total 240 / 240 Output Total 1250 / 1250 Balance -1010 / -1010 Weight 155.9 kg 148.325 kg Intake: Oral 240 / 240 Output: Urine 1250 / 1250 Other: Urine Color Yellow Urine Appearance Clear Urine Odor Normal Data Completed and Pending Labs on day of discharge: Labs from last 24 hours 06/10/25 06/10/25 06/09/25 06:48 01:30 22:31 WBC RBC Hgb Hct MCV MCH MCHC RDW Plt Count MPV Immature Gran % Neutrophils % Band Neutrophils % Lymphocytes % Atypical Lymphs % Monocytes % Eosinophils % Basophils % Metamyelocytes % Myelocytes % Promyelocytes % Other Cells % Nucleated RBC % Absolute Neutrophils Absolute Lymphocytes Absolute Monocytes Absolute Eosinophils Absolute Basophils RBC Morphology Polychromasia Hypochromasia Poikilocytosis Basophilic Stippling Anisocytosis Microcytosis Macrocytosis Spherocytes Tear Drop Cells Ovalocytes Stomatocytes [place] Bodies Alie Cells/Echinocytes Acanthocytes (Spur) Schistocytes PT INR APTT Sodium 141 Potassium 4.5 Chloride 104 Carbon Dioxide 27.6 Anion Gap 9.4 BUN 52 H Creatinine 2.8 H Est GFR (CKD-EPI 2020) 23.98 Glucose 185 H Calcium 9.3 Phosphorus 2.1 L Magnesium 2.8 H Total Bilirubin 0.3 AST 18 ALT 35 Alkaline Phosphatase 62 Troponin I 21 24 NT-Pro-B Natriuret Pep Total Protein 6.8 Albumin 4.0 Lipase TSH 3.70 COVID-19 Source Nasopharynx SARS-CoV-2 (PCR) Negative Influenza Type A (PCR) Negative Influenza Type B (PCR) Negative RSV (PCR) Negative 06/09/25 06/09/25 06/09/25 20:54 19:51 19:00 WBC 4.80 Cancelled RBC 3.47 L Cancelled Hgb 10.6 L Cancelled Hct 31.5 L Cancelled MCV 91 Cancelled MCH 30.5 Cancelled MCHC 33.7 Cancelled RDW 13.0 Cancelled Plt Count 173 Cancelled MPV 9.9 Cancelled Immature Gran % 0.6 Cancelled Neutrophils % 55.4 Cancelled Band Neutrophils % Cancelled Lymphocytes % 28.1 Cancelled Atypical Lymphs % Cancelled Monocytes % 9.0 Cancelled Eosinophils % 6.5 Cancelled Basophils % 0.4 Cancelled Metamyelocytes % Cancelled Myelocytes % Cancelled Promyelocytes % Cancelled Other Cells % Cancelled Nucleated RBC % 0.0 Cancelled Absolute Neutrophils 2.66 Cancelled Absolute Lymphocytes 1.35 Cancelled Absolute Monocytes 0.43 Cancelled Absolute Eosinophils 0.31 Cancelled Absolute Basophils 0.02 Cancelled RBC Morphology Cancelled Polychromasia Cancelled Hypochromasia Cancelled Poikilocytosis Cancelled Basophilic Stippling Cancelled Anisocytosis Cancelled Microcytosis Cancelled Macrocytosis Cancelled Spherocytes Cancelled Tear Drop Cells Cancelled Ovalocytes Cancelled Stomatocytes Cancelled [place] Bodies Cancelled [place] Cells/Echinocytes Cancelled Acanthocytes (Spur) Cancelled Schistocytes Cancelled PT 10.6 Cancelled INR 1.1 Cancelled APTT 22.7 Cancelled Sodium 138 Cancelled Potassium 4.8 Cancelled Chloride 102 Cancelled Carbon Dioxide 26.1 Cancelled Anion Gap 9.9 Cancelled BUN 56 H Cancelled Creatinine 3.1 H Cancelled Est GFR (CKD-EPI 2020) 21.22 Cancelled Glucose 211 H Cancelled Calcium 8.9 Cancelled Phosphorus Magnesium 1.6 L Cancelled Total Bilirubin 0.4 Cancelled AST 20 Cancelled ALT 36 Cancelled Alkaline Phosphatase 70 Cancelled Troponin I 25 26 Cancelled NT-Pro-B Natriuret Pep 1255 H Cancelled Total Protein 6.8 Cancelled Albumin 4.0 Cancelled Lipase 70 Cancelled TSH COVID-19 Source SARS-CoV-2 (PCR) Influenza Type A (PCR) Influenza Type B (PCR) RSV (PCR) PFSH All Active Problems (Updated 06/10/25 @ 12:57 by Lisa Rubalcava APRN) Hypomagnesemia (Acute) CAD (coronary artery disease), [place] coronary artery (Chronic) CAD S/P percutaneous coronary angioplasty (Acute) Chest pain (Acute) Acute on chronic kidney failure (Acute) Chronic bipolar disorder (Acute) Chronic back pain greater than 3 months duration (Acute) Iron deficiency anemia (Acute) Diabetes mellitus type 2, insulin dependent (Acute) Unstable angina (Acute) Chest pain (Acute) Osteoarthritis of hip (Acute) Right hip pain (Acute) PAD (peripheral artery disease) (Acute) Lymphedema (Acute) Venous ulcers of both lower extremities (Acute) Venous (peripheral) insufficiency (Acute) Phantom limb syndrome (Acute) PTSD (post-traumatic stress disorder) (Chronic) Vitamin D deficiency (Acute) Nondisplaced fracture of right scaphoid bone (Acute 02/01/24) Right wrist pain (Acute) GERD (gastroesophageal reflux disease) (Chronic) Hypertension (Chronic) Neuropathy (Acute) History of venous thrombosis and embolism (Acute) Pityriasis versicolor (Acute) Hyperlipidemia (Chronic) Atherosclerotic heart disease of [place] coronary artery without angina pectoris (Acute) CKD stage 4 due to type 2 diabetes mellitus (Chronic) Heart failure (Chronic) Anxiety (Chronic) Morbid obesity (Chronic) Subacute osteomyelitis, left ankle and foot (Acute) Chronic pain (Chronic) COPD (chronic obstructive pulmonary disease) (Chronic) Asthma (Chronic) Type 2 diabetes mellitus (Chronic) Medical History MRSA infection Testicular hypofunction Low back pain Social History Smoking/Tobacco Use Status: Former Tobacco Use Smoking risk assessment performed?: Yes Alcohol Intake: current Alcohol Intake frequency: holidays/special occasions only Drug use: Never Substance use type: does not use Housing: assisted living facility Do you feel safe at home: Yes Do you feel safe in your relationship?: Yes Time Spent with Patient Time Spent with Patient: >85 minutes Time was spent: preparing to see the patient(eg.review tests), obtaining and/or reviewing separately otained hiistory, ordering medications,tests, procedures, referring, communicating with other health patient care technician instructor, indepentently interpreting results, counseling the patient and care coordination
--- NOTE | 2025-06-10 17:45 | W.PM.DS.N ---
Date of service: 06/10/25 Time of Service: 11:30 DS: Diagnosis Discharge Diagnosis (1) Unstable angina: Status: Acute (2) CKD stage 4 due to type 2 diabetes mellitus: Status: Chronic (3) Hypomagnesemia: Status: Acute (4) Heart failure: Status: Chronic (5) CAD (coronary artery disease), douglas coronary artery: Status: Chronic (6) Type 2 diabetes mellitus: Status: Chronic (7) COPD (chronic obstructive pulmonary disease): Status: Chronic (8) Hyperlipidemia: Status: Chronic (9) Chronic pain: Status: Chronic (10) PTSD (post-traumatic stress disorder): Status: Chronic (11) Morbid obesity: Status: Chronic Discharge Plan Disposition [facility] Condition: Stable Discharge Details Reason For Visit: CAD with angina pectoria, CKD CHG Admit Date/Time: 06/10/25 01:20 Admit Provider: Nahun Tran Attending Provider: Nahun Tran Primary Care Provider: Nica Carrasco Hospital Course Hospital Course: 69-year-old male with a past medical history significant for HFpEF, history of PE, bipolar disorder, obesity GERD, COPD, T2DM, arteriosclerosis, stage II CKD, HTN, HLD, asthma, TIA, with recent PTCA and stenting of the mLAD and having disease of his proximal RCA not intervened upon and discharged on discharged on clopidogrel, amlodipine, isosorbide, metoprolol, prazosin, rosuvastatin, ranolazine, and torsemide who presented to the ED om 06/09/25 via EMS from [facility] for evaluation of sudden onset of sternal chest pressure described as elephant sitting on my chest. He received 324 mg aspirin, 1 nitro, and 100 mcg fentanyl IM en route with pain down to 4/10 from 10/10 on arrival. In the ED, symptoms subsided after nitroglycerin paste application. EKG was negative for coronary occlusion, troponins were negative X2 , magnesium was supplement ed for hypomagnesemia, BNP at 1255, Cr at 3.1 with repeat at 2.8. [facility] [place] admission for serial troponin, EKGs which remained unremarkable. The patient was admitted to the medical surgical floor with telemetry by the hospitalist for unstable angina. The patient no longer experienced chest pain. Troponin still negative this AM. The patient will be discharged to SNF with optimized medical therapy and follow-up with [facility] [place] as previously scheduled on 06/12/25. Patient to take nitro SL PRN chest pain. Torsemide on held but to be resumed in AM as Cr is trending toward baseline. 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 Follow-up with outpatient provider within 7 days of discharge. At 16:00 [facility] from [facility] brought accurate home medicines list s/p d/c at [facility] s/sp stent - medicines at discharge from [facility] today updated. Discussed Dr. Newell Home Meds and New Rx's Prescriptions: New acetaminophen 500 mg capsule 1,000 mg PO Q8H PRN PRNQty: 10 0RF hydrocodone-acetaminophen 10-325 mg tablet 1 tab PO Q6H PRNQty: 10 0RF insulin asp prt-insulin aspart [Novolog Mix 70-30 U-100 Insuln] 100 unit/mL (70-30) solution 50 unit subcut DAILY Qty: 10 0RF Rx Instructions: In AM insulin asp prt-insulin aspart [Novolog Mix 70-30 U-100 Insuln] 100 unit/mL (70-30) solution 45 unit subcut HS Qty: 10 0RF Rx Instructions: hold if BS < 140 polyethylene glycol 3350 17 gram/dose powder 17 g PO DAILY PRNQty: 119 0RF Rx Instructions: Constipation magnesium oxide 400 mg magnesium capsule 400 mg PO DAILY Qty: 7 0RF metformin 750 mg tablet 750 mg PO BID Qty: 10 0RF bisacodyl [Dulcolax (bisacodyl)] 10 mg suppository 10 mg ND DAILY PRNQty: 12 0RF diazepam [Valium] 5 mg tablet 5 mg PO DAILY Qty: 7 0RF Rx Instructions: anxiety- end date 06/21/25 clopidogrel 75 mg tablet 75 mg PO DAILY Qty: 10 0RF lidocaine 4 % adhesive patch,medicated 1 patch topical DAILY PRNQty: 5 0RF Biofreeze (menthol) 4 % gel 1 applic topical Q6H PRN PRNQty: 237 0RF Continued aspirin [Adult Aspirin Regimen] 81 mg tablet,delayed release (DR/EC) 81 mg PO DAILY ferrous sulfate 325 mg (65 mg iron) tablet 325 mg PO DAILY Patient Comments: Take every Thu, Wed, Thu gabapentin 300 mg capsule 300 mg PO BID glucagon 1 mg recon soln 1 mg subcut Q20M PRN Rx Instructions: until target blood sugar attained insulin lispro 100 unit/mL insulin pen 1 sliding scale dose subcut USEASDIRECTD metoprolol succinate 25 mg tablet extended release 24 hr 25 mg PO BID magnesium hydroxide [Milk of Magnesia] 400 mg/5 mL suspension 30 ml PO DAILY PRN naloxone 4 mg/actuation spray,non-aerosol 4 mg intranasal Q2M Rx Instructions: spray 1 dose into ONE nostril; alternate nostrils w each dose until help arrives nitroglycerin 0.4 mg tablet, sublingual 0.4 mg sublingual Q5M PRN Rx Instructions: do not exceed 3 doses per episode pantoprazole 40 mg tablet,delayed release (DR/EC) 40 mg PO DAILY ranolazine 500 mg tablet extended release 12 hr 500 mg PO BID sevelamer HCl 800 mg tablet 800 mg PO TID Rx Instructions: must administer with a meal/food risperidone 1 mg tablet 1 mg PO DAILY risperidone 2 mg tablet 2 mg PO QHS rosuvastatin 20 mg tablet 20 mg PO QHS sennosides-docusate sodium 8.6-50 mg tablet 1 tab-cap PO BID prazosin 1 mg capsule 3 mg PO QPM torsemide 20 mg tablet 20 mg PO DAILY Qty: 0 0RF Rx Instructions: Hold until 06/11/25 Trulicity 1.5 mg/0.5 mL pen injector 1.5 mg SUBCUT .weekly Qty: 0 0RF Rx Instructions: On Thursday isosorbide mononitrate 60 mg tablet extended release 24 hr 60 mg PO DAILY tizanidine 2 mg tablet 2 mg PO QID umeclidinium-vilanterol [Anoro Ellipta] 62.5-25 mcg/actuation blister with device 1 inh inhalation DAILY Changed amlodipine 5 mg tablet 10 mg PO DAILY Qty: 0 0RF amitriptyline 10 mg tablet 50 mg PO QHS Qty: 0 0RF cholecalciferol (vitamin D3) 25 mcg (1,000 unit) capsule 100 mcg PO DAILY Qty: 0 0RF ropinirole 1 mg tablet 1 mg PO BID Qty: 0 0RF Discontinued insulin glargine 100 unit/mL (3 mL) insulin pen 30 unit subcut QAM magnesium L-lactate 84 mg tablet extended release 168 mg PO DAILY hydrocodone-acetaminophen 5-325 mg tablet 1 tab PO Q4H PRN Rx Instructions: For severe pain Discharge Instructions Referrals: Nica Carrasco [Primary Care Provider, Medicine] Referral Note: Follow-up within7 days of discharge Activity:: Activity as Tolerated Equipment/Supplies:: No Equipment Needed Diet:: heart healthy diabetic Discharge Orders Discharge Orders: Discharge Order (Routine); Ordered 06/10/25 Ordered By: Lisa Rubalcava Discharge Data Discharge Date/Time-TO BE ENTERED AT DEPARTURE: 06/10/25 14:04 DS: Summary Time Spent with Patient providing and/or coordinating discharge services: Greater than 30 minutes Status at Discharge Functional status at discharge: independent ambulation Overall status at discharge: patient is progressing back to baseline Mental Status: mental status grossly normal Speech and Movement: speech and movement normal Mood: congruent mood Affect: normal affect Exam Narrative Exam Narrative: Alert and oriented X 4, no focal neurological deficit, clear lungs, unlabored breathing S1, S2 no murmur tele SA HR 95, abdomen in non-acute, no CVA tenderness Psych Mental Status: mental status grossly normal Speech and Movement: speech and movement normal Mood: congruent mood Affect: normal affect DS: Data Vitals/I&O Vitals and I&O: Vital Signs Temperature 36.7 C 06/10/25 11:20 Temperature Source Temporal Artery Scan 06/10/25 11:20 Pulse 80 06/10/25 11:20 Pulse Rhythm Regular 06/10/25 02:06 Pulse 88 06/10/25 01:28 Respiratory Rate 16 06/10/25 11:20 Respiratory Effort Normal 06/10/25 02:06 Respiratory Depth Normal 06/10/25 02:06 Respiratory Pattern Normal 06/09/25 22:03 Blood Pressure 140/68 06/10/25 11:20 Blood Pressure Mean 92 06/10/25 11:20 Pulse Oximetry 98 06/10/25 11:20 Oxygen Delivery Method Room Air 06/10/25 11:20 Oxygen Flow Rate 0 06/10/25 11:20 Pain Level 2 06/10/25 02:33 Intake & Output 06/09/25 06/10/25 06/10/25 23:59 11:59 23:59 Intake Total 240 / 240 Output Total 1250 / 1250 Balance -1010 / -1010 Weight 155.9 kg 148.325 kg Intake: Oral 240 / 240 Output: Urine 1250 / 1250 Other: Urine Color Yellow Urine Appearance Clear Urine Odor Normal Data Completed and Pending Labs on day of discharge: Labs from last 24 hours 06/10/25 06/10/25 06/09/25 06:48 01:30 22:31 WBC RBC Hgb Hct MCV MCH MCHC RDW Plt Count MPV Immature Gran % Neutrophils % Band Neutrophils % Lymphocytes % Atypical Lymphs % Monocytes % Eosinophils % Basophils % Metamyelocytes % Myelocytes % Promyelocytes % Other Cells % Nucleated RBC % Absolute Neutrophils Absolute Lymphocytes Absolute Monocytes Absolute Eosinophils Absolute Basophils RBC Morphology Polychromasia Hypochromasia Poikilocytosis Basophilic Stippling Anisocytosis Microcytosis Macrocytosis Spherocytes Tear Drop Cells Ovalocytes Stomatocytes [place]vey-Sultana Bodies Alie Cells/Echinocytes Acanthocytes (Spur) Schistocytes PT INR APTT Sodium 141 Potassium 4.5 Chloride 104 Carbon Dioxide 27.6 Anion Gap 9.4 BUN 52 H Creatinine 2.8 H Est GFR (CKD-EPI 2020) 23.98 Glucose 185 H Calcium 9.3 Phosphorus 2.1 L Magnesium 2.8 H Total Bilirubin 0.3 AST 18 ALT 35 Alkaline Phosphatase 62 Troponin I 21 24 NT-Pro-B Natriuret Pep Total Protein 6.8 Albumin 4.0 Lipase TSH 3.70 COVID-19 Source Nasopharynx SARS-CoV-2 (PCR) Negative Influenza Type A (PCR) Negative Influenza Type B (PCR) Negative RSV (PCR) Negative 06/09/25 06/09/25 06/09/25 20:54 19:51 19:00 WBC 4.80 Cancelled RBC 3.47 L Cancelled Hgb 10.6 L Cancelled Hct 31.5 L Cancelled MCV 91 Cancelled MCH 30.5 Cancelled MCHC 33.7 Cancelled RDW 13.0 Cancelled Plt Count 173 Cancelled MPV 9.9 Cancelled Immature Gran % 0.6 Cancelled Neutrophils % 55.4 Cancelled Band Neutrophils % Cancelled Lymphocytes % 28.1 Cancelled Atypical Lymphs % Cancelled Monocytes % 9.0 Cancelled Eosinophils % 6.5 Cancelled Basophils % 0.4 Cancelled Metamyelocytes % Cancelled Myelocytes % Cancelled Promyelocytes % Cancelled Other Cells % Cancelled Nucleated RBC % 0.0 Cancelled Absolute Neutrophils 2.66 Cancelled Absolute Lymphocytes 1.35 Cancelled Absolute Monocytes 0.43 Cancelled Absolute Eosinophils 0.31 Cancelled Absolute Basophils 0.02 Cancelled RBC Morphology Cancelled Polychromasia Cancelled Hypochromasia Cancelled Poikilocytosis Cancelled Basophilic Stippling Cancelled Anisocytosis Cancelled Microcytosis Cancelled Macrocytosis Cancelled Spherocytes Cancelled Tear Drop Cells Cancelled Ovalocytes Cancelled Stomatocytes Cancelled [place]vey-Sult[place] Bodies Cancelled Lockwood Cells/Echinocytes Cancelled Acanthocytes (Spur) Cancelled Schistocytes Cancelled PT 10.6 Cancelled INR 1.1 Cancelled APTT 22.7 Cancelled Sodium 138 Cancelled Potassium 4.8 Cancelled Chloride 102 Cancelled Carbon Dioxide 26.1 Cancelled Anion Gap 9.9 Cancelled BUN 56 H Cancelled Creatinine 3.1 H Cancelled Est GFR (CKD-EPI 2020) 21.22 Cancelled Glucose 211 H Cancelled Calcium 8.9 Cancelled Phosphorus Magnesium 1.6 L Cancelled Total Bilirubin 0.4 Cancelled AST 20 Cancelled ALT 36 Cancelled Alkaline Phosphatase 70 Cancelled Troponin I 25 26 Cancelled NT-Pro-B Natriuret Pep 1255 H Cancelled Total Protein 6.8 Cancelled Albumin 4.0 Cancelled Lipase 70 Cancelled TSH COVID-19 Source SARS-CoV-2 (PCR) Influenza Type A (PCR) Influenza Type B (PCR) RSV (PCR) PFSH All Active Problems (Updated 06/10/25 @ 12:57 by Lisa Rubalcava APRN) Hypomagnesemia (Acute) CAD (coronary artery disease), douglas coronary artery (Chronic) CAD S/P percutaneous coronary angioplasty (Acute) Chest pain (Acute) Acute on chronic kidney failure (Acute) Chronic bipolar disorder (Acute) Chronic back pain greater than 3 months duration (Acute) Iron deficiency anemia (Acute) Diabetes mellitus type 2, insulin dependent (Acute) Unstable angina (Acute) Chest pain (Acute) Osteoarthritis of hip (Acute) Right hip pain (Acute) PAD (peripheral artery disease) (Acute) Lymphedema (Acute) Venous ulcers of both lower extremities (Acute) Venous (peripheral) insufficiency (Acute) Phantom limb syndrome (Acute) PTSD (post-traumatic stress disorder) (Chronic) Vitamin D deficiency (Acute) Nondisplaced fracture of right scaphoid bone (Acute 02/01/24) Right wrist pain (Acute) GERD (gastroesophageal reflux disease) (Chronic) Hypertension (Chronic) Neuropathy (Acute) History of venous thrombosis and embolism (Acute) Pityriasis versicolor (Acute) Hyperlipidemia (Chronic) Atherosclerotic heart disease of douglas coronary artery without angina pectoris (Acute) CKD stage 4 due to type 2 diabetes mellitus (Chronic) Heart failure (Chronic) Anxiety (Chronic) Morbid obesity (Chronic) Subacute osteomyelitis, left ankle and foot (Acute) Chronic pain (Chronic) COPD (chronic obstructive pulmonary disease) (Chronic) Asthma (Chronic) Type 2 diabetes mellitus (Chronic) Medical History MRSA infection Testicular hypofunction Low back pain Social History Smoking/Tobacco Use Status: Former Tobacco Use Smoking risk assessment performed?: Yes Alcohol Intake: current Alcohol Intake frequency: holidays/special occasions only Drug use: Never Substance use type: does not use Housing: assisted living facility Do you feel safe at home: Yes Do you feel safe in your relationship?: Yes Time Spent with Patient Time Spent with Patient: >85 minutes Time was spent: preparing to see the patient(eg.review tests), obtaining and/or reviewing separately otained hiistory, ordering medications,tests, procedures, referring, communicating with other health summer child caregiver, indepentently interpreting results, counseling the patient and care coordination
== END 2025-06-10 14:04 | disposition skilled nursing facility (03) ==
LOC: ER 06-10 00:45 → MS 06-10 01:54
PROVIDERS: Admitting Provider Family Medicine; Emergency Provider Nurse Practitioner Family; PCP Family Medicine; Responsible Provider Nurse Practitioner Acute Care; Visit Provider Family Medicine
DX: I25.110 Atherosclerotic heart disease of native coronary artery with unstable angina pectoris (principal); E11.22 Type 2 diabetes mellitus with diabetic chronic kidney disease; N18.4 Chronic kidney disease, stage 4 (severe); I13.0 Hypertensive heart and chronic kidney disease with heart failure and stage 1 through stage 4 chronic kidney disease, or unspecified chronic kidney disease; Z68.41 Body mass index [BMI] 40.0-44.9, adult; J44.9 Chronic obstructive pulmonary disease, unspecified; I50.32 Chronic diastolic (congestive) heart failure; E11.40 Type 2 diabetes mellitus with diabetic neuropathy, unspecified; E78.5 Hyperlipidemia, unspecified; I73.9 Peripheral vascular disease, unspecified; E83.42 Hypomagnesemia; G89.29 Other chronic pain; E66.01 Morbid (severe) obesity due to excess calories; F43.10 Post-traumatic stress disorder, unspecified; F31.9 Bipolar disorder, unspecified; D50.9 Iron deficiency anemia, unspecified; I89.0 Lymphedema, not elsewhere classified; K21.9 Gastro-esophageal reflux disease without esophagitis; Z79.4 Long term (current) use of insulin; Z95.5 Presence of coronary angioplasty implant and graft; Z86.718 Personal history of other venous thrombosis and embolism; Z86.73 Personal history of transient ischemic attack (TIA), and cerebral infarction without residual deficits; Z86.711 Personal history of pulmonary embolism
CPT/HCPCS: 00123; 36415; 80053; 83690; 87637; 93005; 96365; 96372; 99285; J1650; 71045; 83735; 83880; 84100; 84443; 84484; 85025; 85610; 85730; 93010; 99236; G0378; J1815; J3475; J3490

== ENCOUNTER 2025-06-13 16:04 | Observation (INO) | payer MEDICARE, MEDICAID, SELFPAY ==
--- NOTE | 2025-06-13 16:00 | RT.EKG_ITS ---
APPROVED REPORT Exam: Resting ECG Reason for Exam: CVA Patient Location: E HR:67 bpm ECG Measurements Heart Rate 67 AXIS [place] 201 P 55 QRSd 101 QRS 12 QT 396 T 53 QTc 419 Conclusion Sinus rhythm...normal P axis, V-rate 60- 99 Ventricular premature complex...V complex w/ short R-R interval
[2025-06-13 16:06] VITALS: BP 137/50; PULSE 69; RESP 22; TEMP 36.4; O2SAT 98
--- NOTE | 2025-06-13 16:07 | W.ED.GENAD ---
Discharge Plan Disposition Patient Disposition: Admit to [facility] Condition: Improving Discharge Details Clinical Impression: TIA (transient ischemic attack) Primary Care Provider: Nica Carrasco ED Provider: Toby Friedman Home Meds and New Rx's Prescriptions: Continued aspirin [Adult Aspirin Regimen] 81 mg tablet,delayed release (DR/EC) 81 mg PO DAILY ferrous sulfate 325 mg (65 mg iron) tablet 325 mg PO DAILY Patient Comments: Take every Mon, Thu, Thu gabapentin 300 mg capsule 300 mg PO BID glucagon 1 mg recon soln 1 mg subcut Q20M PRN Rx Instructions: until target blood sugar attained insulin lispro 100 unit/mL insulin pen 1 sliding scale dose subcut USEASDIRECTD metoprolol succinate 25 mg tablet extended release 24 hr 25 mg PO BID magnesium hydroxide [Milk of Magnesia] 400 mg/5 mL suspension 30 ml PO DAILY PRN naloxone 4 mg/actuation spray,non-aerosol 4 mg intranasal Q2M Rx Instructions: spray 1 dose into ONE nostril; alternate nostrils w each dose until help arrives nitroglycerin 0.4 mg tablet, sublingual 0.4 mg sublingual Q5M PRN Rx Instructions: do not exceed 3 doses per episode pantoprazole 40 mg tablet,delayed release (DR/EC) 40 mg PO DAILY ranolazine 500 mg tablet extended release 12 hr 500 mg PO BID sevelamer HCl 800 mg tablet 800 mg PO TID Rx Instructions: must administer with a meal/food risperidone 1 mg tablet 1 mg PO DAILY risperidone 2 mg tablet 2 mg PO QHS rosuvastatin 20 mg tablet 20 mg PO QHS sennosides-docusate sodium 8.6-50 mg tablet 1 tab-cap PO BID prazosin 1 mg capsule 3 mg PO QPM torsemide 20 mg tablet 20 mg PO DAILY Qty: 0 0RF Rx Instructions: Hold until 06/11/25 amlodipine 5 mg tablet 10 mg PO DAILY Qty: 0 0RF amitriptyline 10 mg tablet 50 mg PO QHS Qty: 0 0RF hydrocodone-acetaminophen 10-325 mg tablet 1 tab PO Q6H PRNQty: 10 0RF insulin asp prt-insulin aspart [Novolog Mix 70-30 U-100 Insuln] 100 unit/mL (70-30) solution 50 unit subcut DAILY Qty: 10 0RF Rx Instructions: In AM insulin asp prt-insulin aspart [Novolog Mix 70-30 U-100 Insuln] 100 unit/mL (70-30) solution 45 unit subcut HS Qty: 10 0RF Rx Instructions: hold if BS < 140 cholecalciferol (vitamin D3) 25 mcg (1,000 unit) capsule 100 mcg PO DAILY Qty: 0 0RF polyethylene glycol 3350 17 gram/dose powder 17 g PO DAILY PRNQty: 119 0RF Rx Instructions: Constipation magnesium oxide 400 mg magnesium capsule 400 mg PO DAILY Qty: 7 0RF metformin 750 mg tablet 750 mg PO BID Qty: 10 0RF bisacodyl [Dulcolax (bisacodyl)] 10 mg suppository 10 mg MN DAILY PRNQty: 12 0RF diazepam [Valium] 5 mg tablet 5 mg PO DAILY Qty: 7 0RF Rx Instructions: anxiety- end date 06/21/25 clopidogrel 75 mg tablet 75 mg PO DAILY Qty: 10 0RF lidocaine 4 % adhesive patch,medicated 1 patch topical DAILY PRNQty: 5 0RF Biofreeze (menthol) 4 % gel 1 applic topical Q6H PRN PRNQty: 237 0RF ropinirole 1 mg tablet 1 mg PO BID Qty: 0 0RF Trulicity 1.5 mg/0.5 mL pen injector 1.5 mg SUBCUT .weekly Qty: 0 0RF Rx Instructions: On Thursday loperamide [Anti-Diarrheal (loperamide)] 2 mg capsule 2 mg PO Q6H PRN vilazodone [Viibryd] 20 mg tablet 20 mg PO DAILY Rx Instructions: must administer with a meal/food acetaminophen 500 mg capsule 650 mg PO Q4H PRN isosorbide mononitrate 60 mg tablet extended release 24 hr 60 mg PO DAILY tizanidine 2 mg tablet 2 mg PO QID umeclidinium-vilanterol [Anoro Ellipta] 62.5-25 mcg/actuation blister with device 1 inh inhalation DAILY Discharge Data Discharge Physician: Toby Friedman [facility] General Date/Time Provider Initiated Documentation: 06/13/25 16:07. HPI Narrative: Patient presents emergency department after he experienced about 45 minutes ago left-sided weakness which she states his left side of arm and leg are weaker. Related Data Home Medications ?Medication ?Instructions ?Recorded ?Confirmed aspirin 81 mg tablet,delayed 81 mg PO DAILY 07/06/24 06/13/25 release (Adult Aspirin Regimen) ferrous sulfate 325 mg (65 mg 325 mg PO DAILY 07/06/24 06/13/25 iron) tablet gabapentin 300 mg capsule 300 mg PO BID 07/06/24 06/13/25 glucagon 1 mg solution for 1 mg subcut Q20M PRN 07/06/24 06/13/25 injection insulin lispro 100 unit/mL 1 sliding scale dose subcut 07/06/24 06/13/25 subcutaneous pen USEASDIRECTD magnesium hydroxide 400 mg/5 mL 30 ml PO DAILY PRN 07/06/24 06/13/25 oral suspension (Milk of Magnesia) metoprolol succinate 25 mg 25 mg PO BID 07/06/24 06/13/25 tablet,extended release 24 hr naloxone 4 mg/actuation nasal spray 4 mg intranasal Q2M 07/06/24 06/13/25 nitroglycerin 0.4 mg sublingual 0.4 mg sublingual Q5M PRN 07/06/24 06/13/25 tablet pantoprazole 40 mg tablet,delayed 40 mg PO DAILY 07/06/24 06/13/25 release ranolazine 500 mg tablet,extended 500 mg PO BID 07/06/24 06/13/25 release,12 hr risperidone 1 mg tablet 1 mg PO DAILY 07/06/24 06/13/25 risperidone 2 mg tablet 2 mg PO QHS 07/06/24 06/13/25 rosuvastatin 20 mg tablet 20 mg PO QHS 07/06/24 06/13/25 sennosides 8.6 mg-docusate sodium 1 tab-cap PO BID 07/06/24 06/13/25 50 mg tablet sevelamer HCl 800 mg tablet 800 mg PO TID 07/06/24 06/13/25 isosorbide mononitrate 60 mg 60 mg PO DAILY 03/15/25 06/13/25 tablet,extended release 24 hr tizanidine 2 mg tablet 2 mg PO QID 03/15/25 06/13/25 prazosin 1 mg capsule 3 mg PO QPM 03/31/25 06/13/25 umeclidinium 62.5 mcg-vilanterol 1 inh inhalation DAILY 05/31/25 06/13/25 25 mcg/actuation powdr for inhalation (Anoro Ellipta) amitriptyline 10 mg tablet 50 mg (5 x 10 mg) PO QHS #0 tabs 06/10/25 06/13/25 amlodipine 5 mg tablet 10 mg (2 x 5 mg) PO DAILY #0 tabs 06/10/25 06/13/25 bisacodyl 10 mg rectal suppository 10 mg MN DAILY PRN #12 ea 06/10/25 06/13/25 (Dulcolax (bisacodyl)) cholecalciferol (vitamin D3) 25 100 mcg (4 x 25 mcg (1,000 unit)) 06/10/25 06/13/25 mcg (1,000 unit) capsule PO DAILY #0 caps clopidogrel 75 mg tablet 75 mg PO DAILY #10 tabs 06/10/25 06/13/25 diazepam 5 mg tablet (Valium) 5 mg PO DAILY #7 tabs 06/10/25 06/13/25 dulaglutide 1.5 mg/0.5 mL 1.5 mg (0.5 mL) subcut .weekly #0 06/10/25 06/13/25 subcutaneous pen injector mL (Trulicity) hydrocodone 10 mg-acetaminophen 1 tab PO Q6H PRN #10 tabs 06/10/25 06/13/25 325 mg tablet insulin aspar prt-insulin aspart 45 unit (0.45 mL) subcut HS #10 mL 06/10/25 06/13/25 100 unit/mL (70-30) subcutaneous soln (Novolog Mix 70-30 U-100 Insuln) insulin aspar prt-insulin aspart 50 unit (0.5 mL) subcut DAILY #10 06/10/25 06/13/25 100 unit/mL (70-30) subcutaneous mL soln (Novolog Mix 70-30 U-100 Insuln) lidocaine 4 % topical patch 1 patch topical DAILY PRN #5 ea 06/10/25 06/13/25 magnesium oxide 400 mg PO DAILY #7 caps 06/10/25 06/13/25 menthol 4 % topical gel (Biofreeze 1 applic topical Q6H PRN PRN #237 06/10/25 06/13/25 (menthol)) mL metformin 750 mg tablet 750 mg PO BID #10 tabs 06/10/25 06/13/25 polyethylene glycol 3350 17 17 g PO DAILY PRN #119 grams 06/10/25 06/13/25 gram/dose oral powder ropinirole 1 mg tablet 1 mg PO BID #0 tabs 06/10/25 06/13/25 torsemide 20 mg tablet 20 mg PO DAILY #0 tabs 06/10/25 06/13/25 acetaminophen 500 mg capsule 650 mg PO Q4H PRN 06/13/25 06/13/25 loperamide 2 mg capsule 2 mg PO Q6H PRN 06/13/25 06/13/25 (Anti-Diarrheal (loperamide)) vilazodone 20 mg tablet (Viibryd) 20 mg PO DAILY 06/13/25 06/13/25 Previous Rx's ?Medication ?Instructions ?Recorded amitriptyline 10 mg tablet 50 mg (5 x 10 mg) PO QHS #0 tabs 06/10/25 amlodipine 5 mg tablet 10 mg (2 x 5 mg) PO DAILY #0 tabs 06/10/25 bisacodyl 10 mg rectal suppository 10 mg MN DAILY PRN #12 ea 06/10/25 (Dulcolax (bisacodyl)) cholecalciferol (vitamin D3) 25 100 mcg (4 x 25 mcg (1,000 unit)) 06/10/25 mcg (1,000 unit) capsule PO DAILY #0 caps clopidogrel 75 mg tablet 75 mg PO DAILY #10 tabs 06/10/25 diazepam 5 mg tablet (Valium) 5 mg PO DAILY #7 tabs 06/10/25 dulaglutide 1.5 mg/0.5 mL 1.5 mg (0.5 mL) subcut .weekly #0 06/10/25 subcutaneous pen injector mL (Trulicity) hydrocodone 10 mg-acetaminophen 1 tab PO Q6H PRN #10 tabs 06/10/25 325 mg tablet insulin aspar prt-insulin aspart 45 unit (0.45 mL) subcut HS #10 mL 06/10/25 100 unit/mL (70-30) subcutaneous soln (Novolog Mix 70-30 U-100 Insuln) insulin aspar prt-insulin aspart 50 unit (0.5 mL) subcut DAILY #10 06/10/25 100 unit/mL (70-30) subcutaneous mL soln (Novolog Mix 70-30 U-100 Insuln) lidocaine 4 % topical patch 1 patch topical DAILY PRN #5 ea 06/10/25 magnesium oxide 400 mg PO DAILY #7 caps 06/10/25 menthol 4 % topical gel (Biofreeze 1 applic topical Q6H PRN PRN #237 06/10/25 (menthol)) mL metformin 750 mg tablet 750 mg PO BID #10 tabs 06/10/25 polyethylene glycol 3350 17 17 g PO DAILY PRN #119 grams 06/10/25 gram/dose oral powder ropinirole 1 mg tablet 1 mg PO BID #0 tabs 06/10/25 torsemide 20 mg tablet 20 mg PO DAILY #0 tabs 06/10/25 Allergies Allergy/AdvReac Type Severity Reaction Status Date / Time bee venom protein (honey bee) Allergy Intermediate Anaphylaxis Verified 06/13/25 16:18 clonidine Allergy Mild Unknown Verified 06/13/25 16:18 Influenza Virus Vaccines Allergy Mild Unknown Verified 06/13/25 16:18 prednisone Allergy Unknown Other (See Verified 06/13/25 16:18 Comment) tamsulosin (From Flomax) Allergy Unknown Other (See Verified 06/13/25 16:18 Comment) General VALERI: 3 Review of Systems Narrative: Review of Systems: Constitutional: No fevers, chills, sweats Eye: No recent visual problems ENT: No ear pain, nasal congestion, sore throat Respiratory: No shortness of breath, cough Cardiovascular: No Chest pain, palpitations, syncope Gastrointestinal: No nausea, vomiting, diarrhea Genitourinary: No hematuria Reddy/Lymph: Negative for bruising tendency, swollen lymph glands Endocrine: Negative for excessive thirst, excessive hunger Musculoskeletal: No back pain, neck pain, joint pain, muscle pain, decreased range of motion Integumentary: No rash, pruritus, abrasions Neurologic: Alert & oriented X 4 Psychiatric: No anxiety, depression Exam Narrative Exam Narrative: Exam; vitals signs as reported above normal Constitutional; In no acute distress, afebrile General: cooperative, healthy appearing, comfortable and no acute distress HEENT: Head: normal to inspection, no palpable skull fracture and normocephalic atraumatic Eyes: : appearance normal, both eyes and all related structures EOM intact bilaterally Pupils: PERRL : conjunctiva normal Direct ophthalmoscopy: normal light reflex, normal conjunctiva, normal visual acuity Ears: Normal TM, normal external canal Nose: normal no rhinorreha Neck no JVD, supple non tender Neck: normal visual inspection, full ROM and no lymphadenopathy Chest: normal inspection of the chest Respiratory : normal respiratory effort and able to speak in complete sentences no wheezing no rales Cardio Rate: regular rate, rhythm: regular rhythm normal heart sounds S1 and S2 no murmurs, gallops, or rubs GI : normal to inspection, normal bowel sounds, soft, non tender, non distended, no organomegaly Back/Spine/ no CVA tenderness Thoracic/Lumbar Spine: no tenderness or deformities Skin no rashes or lesions Neuro: patient alert oriented x 4 and no meningeal signs, Cranial Nerves: CN's II-XI intact bilaterally, Cognition: normal cognition, Speech: speech normal, Gait: normal gait, Depp tendon reflexes normal 2+ muscle strength 5/5 bilaterally NIH score is 0 Extremities, no edema, full range of motion, normal strength Medical Decision Making MDM: Summary: Patient who was discharged from the hospital 2 days ago after he underwent hospitalization he went to [facility] for cardiac catheterization for unstable angina but sent back here on Plavix and aspirin after stent who is not in A-fib and today at the alf where he resides across the street experience dizziness and left upper extremity left lower extremity weakness. When he came here he was not weak with an NIH score is 0 CT scan of the head was obtained without a show any abnormality. Teleneurology was consulted and Dr. Morales also agrees that his NIH score is 0 but she suggest the patient get admitted to the hospital for any other echocardiogram and neurological workup and monitor for A-fib. She also suggested the patient be on atorvastatin 80 mg daily which apparently he did not get when he was discharged from [facility]. Patient is to continue Plavix and aspirin for now Data Review Analysis All the data on this patient was reviewed by me including laboratory and imaging studies as well as bedside studies performed by me Independent review of Studies Imaging CT scan as reported above Lab: Labs are similar to previous when he is anemic with chronic kidney disease and elevated BUN and creatinine Risk Stratification: Patient with a questionable TIA he will need to be treated for monitoring Differential Diagnosis: 1. TIA 2. Stroke in evolution 3. Hypoglycemia 4. 5. Consultants: Spoke with Dr. Barragan who will admit the patient Shared disposition: Patient resents disposition Impression: Medical Records Medical records reviewed: Yes I reviewed the patient's medical records. Lab Data Lab results reviewed: Yes I reviewed the patient's lab results. ECG Data Attestation: I personally reviewed and interpreted this ECG (s) as follows: Prior ECG tracings: available for review Interpretation: Normal sinus rhythm heart rate [address]-T changes occasional PVC PFSH All Active Problems (Updated 06/13/25 @ 19:32 by Toby Friedman MD) TIA (transient ischemic attack) (Acute) CAD (coronary artery disease), [place] coronary artery (Chronic) CAD S/P percutaneous coronary angioplasty (Acute) Acute on chronic kidney failure (Acute) Chronic bipolar disorder (Acute) Chronic back pain greater than 3 months duration (Acute) Iron deficiency anemia (Acute) Diabetes mellitus type 2, insulin dependent (Acute) Unstable angina (Acute) Chest pain (Acute) Osteoarthritis of hip (Acute) Right hip pain (Acute) PAD (peripheral artery disease) (Acute) Lymphedema (Acute) Venous ulcers of both lower extremities (Acute) Venous (peripheral) insufficiency (Acute) Phantom limb syndrome (Acute) PTSD (post-traumatic stress disorder) (Chronic) Vitamin D deficiency (Acute) Nondisplaced fracture of right scaphoid bone (Acute 02/01/24) Right wrist pain (Acute) GERD (gastroesophageal reflux disease) (Chronic) Hypertension (Chronic) Neuropathy (Acute) History of venous thrombosis and embolism (Acute) Pityriasis versicolor (Acute) Hyperlipidemia (Chronic) Atherosclerotic heart disease of [place] coronary artery without angina pectoris (Acute) CKD stage 4 due to type 2 diabetes mellitus (Chronic) Heart failure (Chronic) Anxiety (Chronic) Morbid obesity (Chronic) Subacute osteomyelitis, left ankle and foot (Acute) Chronic pain (Chronic) COPD (chronic obstructive pulmonary disease) (Chronic) Asthma (Chronic) Type 2 diabetes mellitus (Chronic) Medical History MRSA infection Testicular hypofunction Low back pain Social History Smoking/Tobacco Use Status: Former Tobacco Use Smoking risk assessment performed?: Yes Alcohol Intake: current Alcohol Intake frequency: holidays/special occasions only Drug use: Never Substance use type: does not use Housing: assisted living facility Do you feel safe at home: Yes Do you feel safe in your relationship?: Yes
--- NOTE | 2025-06-13 16:08 | DI.CT_ITS ---
Exam(s) CT HEAD WO EXAM: CT HEAD WO CLINICAL HISTORY: left sided wekaness. TECHNIQUE: Imaging Protocol: Axial computed tomography images with coronal and sagittal reformatted images were created and reviewed COMPARISON: CT CT HEAD WO/W FACIAL W from 03/31/2025 FINDINGS: Ventricles and Extra axial spaces: Normal in size and morphology for the patient's age. Hemorrhage: None. Cerebral parenchyma: There are areas of decreased attenuation seen in the white matter suggesting chronic microvascular ischemic disease. No acute territorial infarct is seen at this time. Midline shift: None. Brainstem/Cerebellum: Normal. Calvarium: Normal. Visualized Paranasal sinuses/Mastoids: Clear. Soft Tissues: Unremarkable. IMPRESSION: No acute intracranial process. RADIATION DOSE DELIVERED: 818.24mGy.cm Total DLP DATA REPOSITORY: All CT scans at this facility are submitted to the National Radiology Data Registry (NRDR) Dose Index Registry (DIR) with the [employer] (A[employer]). RADIATION OPTIMIZATION: All CT scans at this facility use at least one of these dose optimization techniques: automated exposure control; mA and/or kV adjustment per patient size (includes targeted exams where dose is matched to clinical indication); or iterative reconstruction.
[2025-06-13 16:10] VITALS: RESP 18
[2025-06-13 16:37] LABS: Abs Immature Grans 0.02 10^3/uL (0.0-0.06); HCT 33.1 % (40.0-50.0); HGB 11.1 g/dL (13.5-17.5); Immature Grans % 0.3 %; MCH 30.7 pg (27.0-33.0); MCHC 33.5 % (32.0-36.0); MCV 92 fL (80-95); MPV 9.7 fL (8.0-11.0); Platelet Count 212 10^3/uL (130-400); RBC 3.61 10^6/uL (4.36-5.78); RDW 13.2 % (11.8-14.1); RDW-SD 43.7 fL; WBC 7.58 10^3/uL (4.4-10.8)
[2025-06-13 17:04] LABS: ALT 28 U/L (16-63); AST 18 U/L (15-37); Albumin 4.0 g/dL (3.4-5.0); Alkaline Phosphatase 65 U/L (46-116); Anion Gap 6.0 mmol/L (3-11); BUN 53 mg/dL (7-18); Bilirubin, Total 0.4 mg/dL (0.2-1.0); CO2 32.0 mmol/L (21.0-32.0); Calcium 9.1 mg/dL (8.5-10.1); Chloride 100 mmol/L (98-107); Estimated GFR 23.98 (mL/min/1.73m2); Glucose 99 mg/dL (74-106); Magnesium 1.6 mg/dL (1.8-2.4); Potassium 4.8 mmol/L (3.5-5.1); Sodium 138 mmol/L (136-145); Total Protein 6.8 g/dL (6.4-8.2); Troponin I 19 ng/L (<or=76)
[2025-06-13 17:56] LABS: Troponin I 17 ng/L (<or=76)
--- NOTE | 2025-06-13 19:42 | W.PM.HP.N ---
Date of service: 06/13/25 Time of Service: 20:56 Assessment and Plan Assessment and plan (1) TIA (transient ischemic attack): Status: Acute Assessment and plan: - Patient initially presented to the emergency department due to dizziness, left upper and lower extremity weakness - However, upon arrival to the emergency department patient's NIH score was 0 - Appreciate teleneurology recommendations; obtain echocardiogram, monitor on telemetry, continue aspirin and Plavix, initiate 80 mg statin - MRI was recommended, however patient states that he is highly anxious and only able to sit in MRI for an open MRI machine, and is recommended that this be scheduled as outpatient (2) CAD (coronary artery disease), craig coronary artery: Status: Chronic Assessment and plan: - Recently at [facility] with cardiac catheterization resulting in stenting of mLAD, and known proximal RCA disease without intervention - Continue home Plavix, aspirin, isosorbide mononitrate, metoprolol, torsemide (3) Chronic bipolar disorder: Status: Acute Assessment and plan: - Continue home for vilazodone, risperidone, amitriptyline - Also with anxiety and PTSD, continue daily 5 mg Valium (4) Chronic back pain greater than 3 months duration: Status: Acute Assessment and plan: - Chronic, with acute out acute exacerbation - Continue home hydrocodone every 6 hours as needed (5) Diabetes mellitus type 2, insulin dependent: Status: Acute Assessment and plan: - Continue home long-acting insulin, 50 units a.m., 45 units NovoLog at bedtime, metformin - Sliding scale insulin, heart healthy carb consistent diet History of Present Illness History of Present Illness Chief Complaint: Left-sided weakness Narrative: 69-year-old male past medical history HFpEF, history of PE, bipolar, obesity, GERD, COPD, IDDM, CKD stage II, hypertension, hyperlipidemia, asthma, TIA, and cardiac catheterization with stenting of mLAD and noted disease of proximal RCA without intervention presents to the emergency department with complaints of left-sided weakness. Patient states that about 45 minutes prior to arrival to the emergency department he experienced dizziness, left upper and lower extremity weakness. However, upon presenting to the emergency department symptoms appear to have resolved the patient had an NIH score of 0, as well as a head CT without any acute findings. CBC, and CMP were also unremarkable. While in the emergency department patient had teleneuro consultation, and they recommended obtaining MRI, placing on telemetry to evaluate for possible atrial fibrillation, and echocardiogram as well as initiating 80 mg statin and continuing Plavix and aspirin. At which time emergency room physician paged hospitalist for admission for patient with suspected TIA. Review of Systems All systems reviewed & are unremarkable except as noted in HPI and below PFSH All Active Problems (Updated 06/13/25 @ 19:32 by Toby Friedman MD) TIA (transient ischemic attack) (Acute) CAD (coronary artery disease), craig coronary artery (Chronic) CAD S/P percutaneous coronary angioplasty (Acute) Acute on chronic kidney failure (Acute) Chronic bipolar disorder (Acute) Chronic back pain greater than 3 months duration (Acute) Iron deficiency anemia (Acute) Diabetes mellitus type 2, insulin dependent (Acute) Unstable angina (Acute) Chest pain (Acute) Osteoarthritis of hip (Acute) Right hip pain (Acute) PAD (peripheral artery disease) (Acute) Lymphedema (Acute) Venous ulcers of both lower extremities (Acute) Venous (peripheral) insufficiency (Acute) Phantom limb syndrome (Acute) PTSD (post-traumatic stress disorder) (Chronic) Vitamin D deficiency (Acute) Nondisplaced fracture of right scaphoid bone (Acute 02/01/24) Right wrist pain (Acute) GERD (gastroesophageal reflux disease) (Chronic) Hypertension (Chronic) Neuropathy (Acute) History of venous thrombosis and embolism (Acute) Pityriasis versicolor (Acute) Hyperlipidemia (Chronic) Atherosclerotic heart disease of craig coronary artery without angina pectoris (Acute) CKD stage 4 due to type 2 diabetes mellitus (Chronic) Heart failure (Chronic) Anxiety (Chronic) Morbid obesity (Chronic) Subacute osteomyelitis, left ankle and foot (Acute) Chronic pain (Chronic) COPD (chronic obstructive pulmonary disease) (Chronic) Asthma (Chronic) Type 2 diabetes mellitus (Chronic) Medical History MRSA infection Testicular hypofunction Low back pain Social History Smoking/Tobacco Use Status: Former Tobacco Use Smoking risk assessment performed?: Yes Alcohol Intake: current Alcohol Intake frequency: holidays/special occasions only Drug use: Never Substance use type: does not use Housing: assisted living facility Do you feel safe at home: Yes Do you feel safe in your relationship?: Yes Meds Allergies and Home Medications Allergies Allergy/AdvReac Type Severity Reaction Status Date / Time bee venom protein (honey bee) Allergy Intermediate Anaphylaxis Verified 06/13/25 16:18 clonidine Allergy Mild Unknown Verified 06/13/25 16:18 Influenza Virus Vaccines Allergy Mild Unknown Verified 06/13/25 16:18 prednisone Allergy Unknown Other (See Verified 06/13/25 16:18 Comment) tamsulosin (From Flomax) Allergy Unknown Other (See Verified 06/13/25 16:18 Comment) Home Medications ?Medication ?Instructions ?Recorded ?Confirmed ?Type aspirin 81 mg tablet,delayed 81 mg PO DAILY 07/06/24 06/13/25 History release (Adult Aspirin Regimen) ferrous sulfate 325 mg (65 mg 325 mg PO DAILY 07/06/24 06/13/25 History iron) tablet gabapentin 300 mg capsule 300 mg PO BID 07/06/24 06/13/25 History glucagon 1 mg solution for 1 mg subcut Q20M PRN 07/06/24 06/13/25 History injection insulin lispro 100 unit/mL 1 sliding scale dose subcut 07/06/24 06/13/25 History subcutaneous pen USEASDIRECTD magnesium hydroxide 400 mg/5 mL 30 ml PO DAILY PRN 07/06/24 06/13/25 History oral suspension (Milk of Magnesia) metoprolol succinate 25 mg 25 mg PO BID 07/06/24 06/13/25 History tablet,extended release 24 hr naloxone 4 mg/actuation nasal spray 4 mg intranasal Q2M 07/06/24 06/13/25 History nitroglycerin 0.4 mg sublingual 0.4 mg sublingual Q5M PRN 07/06/24 06/13/25 History tablet pantoprazole 40 mg tablet,delayed 40 mg PO DAILY 07/06/24 06/13/25 History release ranolazine 500 mg tablet,extended 500 mg PO BID 07/06/24 06/13/25 History release,12 hr risperidone 1 mg tablet 1 mg PO DAILY 07/06/24 06/13/25 History risperidone 2 mg tablet 2 mg PO QHS 07/06/24 06/13/25 History rosuvastatin 20 mg tablet 20 mg PO QHS 07/06/24 06/13/25 History sennosides 8.6 mg-docusate sodium 1 tab-cap PO BID 07/06/24 06/13/25 History 50 mg tablet sevelamer HCl 800 mg tablet 800 mg PO TID 07/06/24 06/13/25 History isosorbide mononitrate 60 mg 60 mg PO DAILY 03/15/25 06/13/25 History tablet,extended release 24 hr tizanidine 2 mg tablet 2 mg PO QID 03/15/25 06/13/25 History prazosin 1 mg capsule 3 mg PO QPM 03/31/25 06/13/25 History umeclidinium 62.5 mcg-vilanterol 1 inh inhalation DAILY 05/31/25 06/13/25 History 25 mcg/actuation powdr for inhalation (Anoro Ellipta) amitriptyline 10 mg tablet 50 mg (5 x 10 mg) PO QHS #0 tabs 06/10/25 06/13/25 Rx amlodipine 5 mg tablet 10 mg (2 x 5 mg) PO DAILY #0 tabs 06/10/25 06/13/25 Rx bisacodyl 10 mg rectal suppository 10 mg OK DAILY PRN #12 ea 06/10/25 06/13/25 Rx (Dulcolax (bisacodyl)) cholecalciferol (vitamin D3) 25 100 mcg (4 x 25 mcg (1,000 unit)) 06/10/25 06/13/25 Rx mcg (1,000 unit) capsule PO DAILY #0 caps clopidogrel 75 mg tablet 75 mg PO DAILY #10 tabs 06/10/25 06/13/25 Rx diazepam 5 mg tablet (Valium) 5 mg PO DAILY #7 tabs 06/10/25 06/13/25 Rx dulaglutide 1.5 mg/0.5 mL 1.5 mg (0.5 mL) subcut .weekly #0 06/10/25 06/13/25 Rx subcutaneous pen injector mL (Trulicity) hydrocodone 10 mg-acetaminophen 1 tab PO Q6H PRN #10 tabs 06/10/25 06/13/25 Rx 325 mg tablet insulin aspar prt-insulin aspart 45 unit (0.45 mL) subcut HS #10 mL 06/10/25 06/13/25 Rx 100 unit/mL (70-30) subcutaneous soln (Novolog Mix 70-30 U-100 Insuln) insulin aspar prt-insulin aspart 50 unit (0.5 mL) subcut DAILY #10 08/09/25 08/12/25 Rx 100 unit/mL (70-30) subcutaneous mL soln (Novolog Mix 70-30 U-100 Insuln) lidocaine 4 % topical patch 1 patch topical DAILY PRN #5 ea 06/10/25 06/13/25 Rx magnesium oxide 400 mg PO DAILY #7 caps 06/10/25 06/13/25 Rx menthol 4 % topical gel (Biofreeze 1 applic topical Q6H PRN PRN #237 06/10/25 06/13/25 Rx (menthol)) mL metformin 750 mg tablet 750 mg PO BID #10 tabs 06/10/25 06/13/25 Rx polyethylene glycol 3350 17 17 g PO DAILY PRN #119 grams 06/10/25 06/13/25 Rx gram/dose oral powder ropinirole 1 mg tablet 1 mg PO BID #0 tabs 06/10/25 06/13/25 Rx torsemide 20 mg tablet 20 mg PO DAILY #0 tabs 06/10/25 06/13/25 Rx acetaminophen 500 mg capsule 650 mg PO Q4H PRN 06/13/25 06/13/25 History loperamide 2 mg capsule 2 mg PO Q6H PRN 06/13/25 06/13/25 History (Anti-Diarrheal (loperamide)) vilazodone 20 mg tablet (Viibryd) 20 mg PO DAILY 06/13/25 06/13/25 History Exam Narrative Exam Narrative: Well-appearing gentleman laying in bed in no acute distress, ANO x 4, heart regular rhythm, lungs good auscultation bilaterally, abdomen soft, nontender, nondistended, cranial nerves II through XII intact, normal sensation and strength in bilateral upper and lower extremities Results Labs 06/13/25 16:28 06/13/25 16:28 Labs: Laboratory Results - last 24 hr 06/13/25 06/13/25 16:28 17:26 WBC 7.58 RBC 3.61 L Hgb 11.1 L Hct 33.1 L MCV 92 MCH 30.7 MCHC 33.5 RDW 13.2 Plt Count 212 MPV 9.7 Immature Gran % 0.3 Neutrophils % 47.8 Lymphocytes % 34.7 Monocytes % 9.4 Eosinophils % 7.1 Basophils % 0.7 Nucleated RBC % 0.0 Absolute Neutrophils 3.63 Absolute Lymphocytes 2.63 Absolute Monocytes 0.71 Absolute Eosinophils 0.54 Absolute Basophils 0.05 Sodium 138 Potassium 4.8 Chloride 100 Carbon Dioxide 32.0 Anion Gap 6.0 BUN 53 H Creatinine 2.8 H Est GFR (CKD-EPI 2020) 23.98 Glucose 99 Calcium 9.1 Magnesium 1.6 L Total Bilirubin 0.4 AST 18 ALT 28 Alkaline Phosphatase 65 Troponin I 19 17 Total Protein 6.8 Albumin 4.0 Last Vital Signs Temp 97.5 F L 06/13/25 16:06 Pulse 69 06/13/25 16:06 Resp 18 06/13/25 16:10 BP 137/50 L 06/13/25 16:06 Pulse Ox 98 06/13/25 16:06 Time Spent Time spent with Patient: >75 minutes Time was spent: preparing to see the patient(eg.review tests), obtaining and/or reviewing separately otained hiistory, ordering medications,tests, procedures, referring, communicating with other health career consultant, indepentently interpreting results, counseling the patient and care coordination
[2025-06-13 20:00] VITALS: BP 149/51; PULSE 97; RESP 18; TEMP 36; O2SAT 97
[2025-06-13 20:11] VITALS: BP 118/30; PULSE 74; RESP 19; O2SAT 96
[2025-06-13] MEDS: Ranolazine 500 MG TABCR PO (21:37)
[2025-06-13] MEDS: Metoprolol CR 25 MG TABCR PO (21:38)
[2025-06-13] MEDS: risperiDONE 1 MG TAB 2 MG PO (21:38)
[2025-06-13] MEDS: Gabapentin 300 MG CAP PO (21:38)
[2025-06-13] MEDS: Amitriptyline 50 MG TAB PO (21:38)
[2025-06-13] MEDS: rOPINIRole 1 MG TAB PO (21:38)
[2025-06-13] MEDS: Normal Saline Flush 10 ML SYR IVP (21:39)
[2025-06-13] MEDS: Prazosin 1 MG CAP 3 MG PO (22:09)
[2025-06-13] MEDS: HYDROcodone 10/Acetaminophen 325 TAB PO (22:20)
[2025-06-13] MEDS: Atorvastatin 40 MG TAB 80 MG PO (22:21)
[2025-06-13 23:06] VITALS: BP 127/64; PULSE 68; RESP 18; TEMP 35.7; O2SAT 97
--- NOTE | 2025-06-13 23:32 | W.PC.ACHO ---
Registration Status: ADM NEL Primary Language: Preferred Language: ED Information & Data Chief Complaint CVA/TIA 06/13/25 16:10 Chief Complaint CVA/TIA 06/13/25 16:06 Triage Note Pt reports he was sitting in 06/13/25 16:06 his wheelchair when everything went blank- when he came to he couldn't remember anything or move his left side- believes it was about 1 hour to 30 minutes ago Medical / Surgical History (Last Reviewed 06/13/25 @ 16:32 by Toby Friedman MD) MRSA infection Testicular hypofunction Low back pain Most Recent Vital Signs Temperature 35.7 C L 06/13/25 23:06 Temperature Source Temporal Artery Scan 06/13/25 23:06 Pulse 68 06/13/25 23:06 Respiratory Rate 18 06/13/25 23:06 Respiratory Effort Normal 06/13/25 20:00 Respiratory Depth Normal 06/13/25 20:00 Respiratory Pattern Normal 06/13/25 20:00 Blood Pressure 127/64 06/13/25 23:06 Blood Pressure Mean 85 06/13/25 23:06 Blood Pressure Position Sitting 06/13/25 16:06 Pulse Oximetry 97 06/13/25 23:06 Oxygen Delivery Method Room Air 06/13/25 23:06 Oxygen Flow Rate 0 06/13/25 23:06 Pain Level 8 06/13/25 23:06 Allergies bee venom protein (honey bee) Allergy (Intermediate, Verified 06/13/25 16:18) Anaphylaxis clonidine Allergy (Mild, Verified 06/13/25 16:18) Unknown Influenza Virus Vaccines Allergy (Mild, Verified 06/13/25 16:18) Unknown prednisone Allergy (Unknown, Verified 06/13/25 16:18) Other (See Comment) tamsulosin (From Flomax) Allergy (Unknown, Verified 06/13/25 16:18) Other (See Comment) Precautions Isolation Standard precaution 06/13/25 16:10 Active Medications Generic Name Dose Route Start Last Admin Trade Name Freq PRN Reason Stop Dose Admin Hydrocodone Bitart/Acetaminophen 1 tab 06/13/25 20:26 06/13/25 22:20 Hydrocodone 10/Acetaminophen 325 Tab PO 1 tab Q6H PRN PRN Administration Amitriptyline HCl 50 mg 06/13/25 20:48 06/13/25 21:38 Amitriptyline 50 Mg Tab PO 50 mg HS HANSEL Administration Atorvastatin Calcium 80 mg 06/13/25 22:00 06/13/25 22:21 Atorvastatin 40 Mg Tab PO 80 mg QPM HANSEL Administration Gabapentin 300 mg 06/13/25 20:26 06/13/25 21:38 Gabapentin 300 Mg Cap PO 300 mg BID HANSEL Administration Insulin Aspart 0 units 06/13/25 22:00 06/13/25 21:22 Insulin Aspart 300 Units/3 Ml Pen SC Not Given 0800,1200,1700,2200 [facility] Protocol Metoprolol Succinate 25 mg 06/13/25 20:26 06/13/25 21:38 Metoprolol Cr 25 Mg Tabcr PO 25 mg BID HANSEL Administration Prazosin HCl 3 mg 06/13/25 20:26 06/13/25 22:09 Prazosin 1 Mg Cap PO 3 mg QPM HANSEL Administration Ranolazine 500 mg 06/13/25 20:26 06/13/25 21:37 Ranolazine 500 Mg Tabcr PO 500 mg BID HANSEL Administration Risperidone 2 mg 06/13/25 20:57 06/13/25 21:38 Risperidone 1 Mg Tab PO 2 mg HS HANSEL Administration Ropinirole HCl 1 mg 06/13/25 21:00 06/13/25 21:38 Ropinirole 1 Mg Tab PO 1 mg BID HANSEL Administration Sodium Chloride 0 ml 06/13/25 20:00 06/13/25 21:39 Normal Saline Flush 10 Ml Syr IVP 10 ml BID HANSEL Administration Tizanidine HCl 2 mg 06/13/25 21:00 06/13/25 21:37 Tizanidine 2 Mg Tab PO 2 mg QID HANSEL Administration IV IV Catheter Type [Right Peripheral IV Antecubital] IV Catheter Gauge [Right 18 Antecubital] Diet Orders Category Date Time Status Diabetes Consistent CHO/Heart Healthy [DIET] Nutrition 06/14/25 Breakfast Ordered Diagnostics 06/13/25 06/13/25 06/13/25 Range/Units 19:09 17:26 16:28 WBC 7.58 (4.4-10.8) 10^3/uL RBC 3.61 L (4.36-5.78) 10^6/uL Hgb 11.1 L (13.5-17.5) g/dL Hct 33.1 L (40.0-50.0) % MCV 92 (80-95) fL MCH 30.7 (27.0-33.0) pg MCHC 33.5 (32.0-36.0) % RDW 13.2 (11.8-14.1) % Plt Count 212 (130-400) 10^3/uL MPV 9.7 (8.0-11.0) fL Immature Gran % 0.3 % Neutrophils % 47.8 % Lymphocytes % 34.7 % Monocytes % 9.4 % Eosinophils % 7.1 % Basophils % 0.7 % Nucleated RBC % 0.0 (0.0-0.3) % Absolute Neutrophils 3.63 (1.2-6.7) 10^3/uL Absolute Lymphocytes 2.63 (1.2-3.4) 10^3/uL Absolute Monocytes 0.71 (0.1-0.8) 10^3/uL Absolute Eosinophils 0.54 (0.0-0.7) 10^3/uL Absolute Basophils 0.05 (0.0-0.2) 10^3/uL Sodium 138 (136-145) mmol/L Potassium 4.8 (3.5-5.1) mmol/L Chloride 100 (98-107) mmol/L Carbon Dioxide 32.0 (21.0-32.0) mmol/L Anion Gap 6.0 (3-11) mmol/L BUN 53 H (7-18) mg/dL Creatinine 2.8 H (0.70-1.30) mg/dL Est GFR (CKD-EPI 2020) 23.98 (mL/min/1.73m2) Glucose 99 (74-106) mg/dL Calcium 9.1 (8.5-10.1) mg/dL Magnesium 1.6 L (1.8-2.4) mg/dL Total Bilirubin 0.4 (0.2-1.0) mg/dL AST 18 (15-37) U/L ALT 28 (16-63) U/L Alkaline Phosphatase 65 (46-116) U/L Troponin I Cancelled 17 19 (<or=76) ng/L Total Protein 6.8 (6.4-8.2) g/dL Albumin 4.0 (3.4-5.0) g/dL [id number] Documentation Fingerstick Glucose Start: 06/13/25 16:08 Freq: Status: Complete Protocol: Activity Type Activity Date Activity User E-sign Co-sign Detail Recorded Client Recorded Date Recorded By Document 06/13/25 16:07 BKG DAEMON(10) [id number] 06/13/25 16:08 BKG DAEMON(10) Fingerstick Glucose Start: 06/13/25 16:09 Freq: .Stat Status: Complete Protocol: Activity Type Activity Date Activity User E-sign Co-sign Detail Recorded Client Recorded Date Recorded By Document 06/13/25 16:22 CB [id number] 06/13/25 16:22 CB Fingerstick Glucose Start: 06/13/25 19:48 Freq: .ACHS Status: Active Protocol: Activity Type Activity Date Activity User E-sign Co-sign Detail Recorded Client Recorded Date Recorded By Document 06/13/25 20:32 BKG DAEMON(10) [id number] 06/13/25 20:33 BKG DAEMON(10) Intake and Output - 24 Hour Total 06/13/25 16:01 thru 06/13/25 22:50 Intake Total 210 Output Total 779 Balance -569 Weight 154.2 kg Intake: IV 10 Oral 200 Output: Urine 779 Other: Urine Appearance Clear Falls Risk Assessment History of Falls No History 06/13/25 20:00 Contributing Factors Impairments 06/13/25 20:00 Ambulatory Aids Uses ambulatory device 06/13/25 20:00 Tubes/Lines None 06/13/25 20:00 Gait Evaluation W/any additional score 06/13/25 20:00 Cognition No cognitive impairment 06/13/25 16:12 Fall Total Score 38 06/13/25 20:00 Level of Risk Moderate Risk 06/13/25 20:00 Problems (Last Reviewed 06/13/25 @ 16:32 by Toby Friedman MD) TIA (transient ischemic attack) (Acute) CAD (coronary artery disease), [place] coronary artery (Chronic) Chronic bipolar disorder (Acute) Chronic back pain greater than 3 months duration (Acute) Diabetes mellitus type 2, insulin dependent (Acute) v v v v v v v v v Sending and/or Receiving Nurses: Please use comment section below to note any information pertinent to the patient hand-off not included above. Information / Comments: DC from hospital 2 days ago TO [facility] for cardiac cath, pt lives in nnursing home cross the street, felt dizzeness and weakness on left side, comebac to ER, A&OX4, on RA, VS stable, CT head normal,not able to do MRI, pt doesn't fit on the machine. Report received from: Irene Raymond
--- NOTE | 2025-06-14 | DI.US_ITS ---
Exam(s) US CAROTID EXAM: US CAROTID CLINICAL HISTORY: TIA. TECHNIQUE: Ultrasound carotids performed using grayscale, color-flow, and spectral Doppler imaging. COMPARISON: No exams were available for comparison FINDINGS: RIGHT CAROTID ARTERY: Evaluation of the right internal carotid arteries with somewhat limited due to the patient's cervical spine orthopedic hardware. Plaque: Moderate calcific plaque is seen particularly in the carotid bulb. Velocity elevation: Yes. LEFT CAROTID ARTERY: Plaque: Moderate calcific plaque is seen particularly in the carotid bulb. Velocity elevation: Yes VERTEBRAL ARTERIES: Antegrade flow. Measurements: R Bulb: 73cm/s PS / 9.3cm/s ED R CCA: 58.3cm/s PS / 8.4cm/s ED R ECA: 166.1cm/s PS / 9.3cm/s ED R ICA Prox: 181.3cm/s PS / 24.9cm/s ED R ICA Mid: 174.2cm/s PS / 24.2cm/s ED R ICA Distal: 43.9cm/s PS /12cm/s ED R Vert: 82.8cm/s PS / 16.7cm/s ED R SVR: 3.1 R DVR: 3 L Bulb: 103cm/s PS / 19.3cm/s ED L CCA: 89.3cm/s PS / 15.7cm/s ED L ECA: 129cm/s PS / 5.3cm/s ED L ICA Prox: 163cm/s PS / 38cm/s ED L ICA Mid: 93.9cm/s PS / 17.5cm/s ED L ICA Distal: 86.6cm/s PS / 19.3cm/s ED L Vert: 78.3cm/s PS / 8.3cm/s ED L SVR: 1.8 L DVR: 2.4 IMPRESSION: 1. There are velocity elevations seen in the proximal internal carotid arteries bilaterally consistent with 50-69 percent stenosis. 2. Atherosclerotic calcification is present. Criteria for Carotid Stenosis: Normal: ICA PSV <125 cm/s no plaque or intimal thickening is visible. <50% stenosis: ICA PSV <125 cm/s and plaque or intimal thickening is visible. 50-69% stenosis: ICA PSV is 125-250 cm/s and plaque is visible. >70% stenosis to near occlusion: ICA PSV >250 cm/s with visible plaque and luminal narrowing. DATA REPOSITORY:
[2025-06-14] MEDS: Insulin Asp Prt/Insulin Aspart 70/30 Mix 300 UNITS/3 ML PEN 45 UNITS SC (00:31)
[2025-06-14 03:06] VITALS: BP 129/58; PULSE 65; RESP 18; TEMP 35.5; O2SAT 97
[2025-06-14 06:45] LABS: HCT 38.0 % (40.0-50.0); HGB 12.7 g/dL (13.5-17.5); MCH 30.4 pg (27.0-33.0); MCHC 33.4 % (32.0-36.0); MCV 91 fL (80-95); MPV 9.6 fL (8.0-11.0); Platelet Count 216 10^3/uL (130-400); RBC 4.18 10^6/uL (4.36-5.78); RDW 12.9 % (11.8-14.1); RDW-SD 42.0 fL; WBC 6.79 10^3/uL (4.4-10.8)
[2025-06-14 06:59] LABS: Anion Gap 7.0 mmol/L (3-11); BUN 48 mg/dL (7-18); CO2 32.0 mmol/L (21.0-32.0); Calcium 9.7 mg/dL (8.5-10.1); Chloride 101 mmol/L (98-107); Estimated GFR 26.21 (mL/min/1.73m2); Glucose 67 mg/dL (74-106); Magnesium 1.8 mg/dL (1.8-2.4); Potassium 3.9 mmol/L (3.5-5.1); Sodium 140 mmol/L (136-145)
[2025-06-14 07:15] VITALS: BP 127/63; PULSE 63; RESP 16; TEMP 35.2; O2SAT 99
[2025-06-14] MEDS: Tiotropium/Olodaterol 10 PUFF INHALER 2 PUFF IH (07:57)
--- NOTE | 2025-06-14 08:52 | INITIAL_ITS ---
Date of service: 06/14/25 Time of Service: 08:52 Care Management Initial Assmt Initial Assessment Reason for Hospitalization: TIA Functional Status/Living Situation Patient Presentation: Mike presented to the ED yesterday afternoon with c/o left-sided weakness and dizziness. Weakness and dizziness had resolved by the time he came to the ED, but tele-neuro suggested echocardiogram, neuro workup and monitoring for afib. Head CT did not show any acute process, he is ordered for carotid ultrasound and echo. Mike lives at [facility], and was just discharged from [facility] on 06/11 where he had a cardiac cath. 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 He has lived there for about a year, and had been in a different facility for about 9.5 months prior to that. Mike had a blister on his foot that got infected, and never really healed. He was non-weight bearing, and lost so much strength that he is unable to do more than take a couple of steps. Mike was sitting up in the bed side chair, watching TV, when CM met with him. He is known to and was very pleasant. Mike will be discharged back to [facility] later today. Town of Residence: [facility] Resides with: Other ([facility]) Significant Other/Family: Out of area (no significant family. He has not spoken with his daughter in 13 years.) Caregiver/Guardian: [facility] Employment Status: Disabled Instrumental Activities of Daily Living (ADLs): Requires support Medications Medication Management: No Issues/Barriers identified Physical Functioning/Mobility Assistive Device: mostly uses a wheel chair. Can take a few steps with a walker Advance Directives Advance Directives: Do you have an Advance Directive: N , 13:12 AD On File at [facility]: N 03/15/24, 13:49 Date Asked 06/13/25 06/13/25, 16:11 AD Date Reviewed COLST On File at [facility] No 06/09/25, 19:18 COLST Date Scanned Code Status Resuscitation Status Full Code Insurance Coverage/Financial Issues Insurance: Medicare Part A & B - Medicaid of [place] - Care Team Visit Care Team Role Provider Type Silvia García NP MD [facility] STAFF PHYSICIAN Nica Carrasco Primary Care Provider NON-[facility] STAFF PHYSICIAN Toby Friedman MD Emergency Provider [facility] STAFF PHYSICIAN Bijan Barragan MD Admit Provider [facility] STAFF PHYSICIAN Attending Provider Discharge Potential Discharge Needs: Imaging/labs (head CT and echocardiogram) and PCP F/U Appt Anticipated Barriers to Discharge: None Identified Patient/Family Education Needs: Review discharge instructions, discuss Ask Me Three Transportation: [facility] Transportation: Wheel chair van Plan: Mike will return to [facility] this afternoon. He will require an outpatient open MRI and this was communicated with [facility] staff by CM. He will f/u with the facility provider and continue per his plan of care. Mike will transport via [facility] wheelchair van. CM will continue to follow. Social Determinants of Health Screening Social Determinants of health last assessed in clinic: 06/16/25 Will the Patient Participate in the Screening?: Yes Do you worry about having a steady place to live?: no Problems where you live: no known problems In the past 12 months, have you had to go without electric, gas, oil or water in your home?: no 1. Within the past 12 months, we worried whether our food would run out before we got money to buy more.: Never true 2. Within the past 12 months, the food we bought just didn't last and we didn't have money to get more.: Never true Has lack of transportation kept you from medical appointments or from doing things needed for daily living?: no Has anyone in your life made you feel unsafe or unsupported?: no How hard is it for you to pay for the very basics like food, housing, medical care, and heating? Would you say it is:: Not hard at all Do you want help finding or keeping work or a job?: I do not need or want help If for any reason you need help with day-to-day activities such as bathing, preparing meals, shopping, managing finances, etc., do you get the help you need?: I don?t need any help How often do you feel lonely or isolated from those around you?: Never Do you speak a language other than Slov[place] at home?: No Does the patient want assistance with any of the above?: No Comments: pt lives in [facility] All Active Problems (Updated 06/15/25 @ 00:03 by UMA WILSON) TIA (transient ischemic attack) (Acute) CAD S/P percutaneous coronary angioplasty (Acute) Acute on chronic kidney failure (Acute) Iron deficiency anemia (Acute) Unstable angina (Acute) Chest pain (Acute) Osteoarthritis of hip (Acute) Right hip pain (Acute) PAD (peripheral artery disease) (Acute) Lymphedema (Acute) Venous ulcers of both lower extremities (Acute) Venous (peripheral) insufficiency (Acute) Phantom limb syndrome (Acute) PTSD (post-traumatic stress disorder) (Chronic) Vitamin D deficiency (Acute) Nondisplaced fracture of right scaphoid bone (Acute 02/01/24) Right wrist pain (Acute) GERD (gastroesophageal reflux disease) (Chronic) Hypertension (Chronic) Neuropathy (Acute) History of venous thrombosis and embolism (Acute) Pityriasis versicolor (Acute) Hyperlipidemia (Chronic) Atherosclerotic heart disease of [place] coronary artery without angina pectoris (Acute) CKD stage 4 due to type 2 diabetes mellitus (Chronic) Heart failure (Chronic) Anxiety (Chronic) Morbid obesity (Chronic) Subacute osteomyelitis, left ankle and foot (Acute) Chronic pain (Chronic) COPD (chronic obstructive pulmonary disease) (Chronic) Asthma (Chronic) Type 2 diabetes mellitus (Chronic) Medical History MRSA infection Testicular hypofunction Low back pain Social History Smoking/Tobacco Use Status: Former Tobacco Use Smoking risk assessment performed?: Yes Alcohol Intake: current Alcohol Intake frequency: holidays/special occasions only Drug use: Never Substance use type: does not use Housing: assisted living facility Do you feel safe at home: Yes Do you feel safe in your relationship?: Yes
--- NOTE | 2025-06-14 09:23 | NUR.NOTE ---
Patient currently off unit at ultrasound ,will assess upon returning Note:
[2025-06-14] MEDS: Gabapentin 300 MG CAP PO (10:31)
[2025-06-14] MEDS: Vilazodone 20 MG TAB PO (10:31)
[2025-06-14] MEDS: Pantoprazole 40 MG TABCR PO (10:31)
[2025-06-14] MEDS: rOPINIRole 1 MG TAB PO (10:31)
[2025-06-14] MEDS: diazePAM 5 MG TAB PO (10:32)
[2025-06-14] MEDS: Clopidogrel 75 MG TAB PO (10:32)
[2025-06-14] MEDS: Magnesium Oxide 400 MG TAB PO (10:32)
[2025-06-14] MEDS: Isosorbide Mononitrate 60 MG TABCR PO (10:32)
[2025-06-14] MEDS: Metoprolol CR 25 MG TABCR PO (10:32)
[2025-06-14] MEDS: risperiDONE 1 MG TAB PO (10:32)
[2025-06-14] MEDS: amLODIPine 5 MG TAB 10 MG PO (10:33)
[2025-06-14] MEDS: Aspirin E.C. 81 MG TABEC PO (10:33)
[2025-06-14] MEDS: Torsemide 20 MG TAB PO (10:33)
[2025-06-14] MEDS: Ranolazine 500 MG TABCR PO (10:33)
[2025-06-14] MEDS: Enoxaparin 40 MG/0.4 ML SYR SC (10:33)
[2025-06-14] MEDS: Normal Saline Flush 10 ML SYR IVP (10:39)
[2025-06-14 10:45] VITALS: BP 128/64; PULSE 71; RESP 16; TEMP 35.2; O2SAT 100
[2025-06-14] MEDS: HYDROcodone 10/Acetaminophen 325 TAB PO (11:15)
[2025-06-14] MEDS: Ferrous Sulfate 325 MG TAB PO (11:16)
--- NOTE | 2025-06-14 12:13 | DSE_ITS ---
Date of service: 06/14/25 Time of Service: 12:14 DS: Diagnosis Discharge Diagnosis (1) TIA (transient ischemic attack): Status: Acute (2) CAD (coronary artery disease), [place] coronary artery: Status: Chronic (3) Chronic bipolar disorder: Status: Acute (4) Chronic back pain greater than 3 months duration: Status: Acute (5) Diabetes mellitus type 2, insulin dependent: Status: Acute Discharge Plan Disposition Patient Disposition: [facility]NF[facility] Condition: Improving Condition: Fair Discharge Details Reason For Visit: TIA Admit Date/Time: 06/13/25 19:42 Admit Provider: Bijan Barragan Attending Provider: Bijan Barragan Primary Care Provider: Nica Carrasco Hospital Course Hospital Course: Reason for Admission: 69-year-old male with sudden onset dizziness and transient left-sided weakness. Symptoms resolved prior to arrival; NIHSS = 0. Past Medical History: HFpEF, prior PE, bipolar disorder, obesity, GERD, COPD, type 2 diabetes mellitus, arteriosclerosis, stage II CKD, hypertension, hyperlipidemia, asthma, prior TIA, recent PTCA with mid-LAD stenting, proximal RCA disease without intervention. Recent Hospitalization Prior to This Admission (06/09/25 ? [facility]): Patient was transferred via EMS from [facility] for sudden-onset sternal chest pressure described as ?an elephant sitting on my chest.? En route, he received aspirin 324 mg, nitroglycerin ?1, and fentanyl 100 mcg IM with partial relief. In the ED, symptoms resolved after nitroglycerin paste application. EKG showed no acute ischemia; serial troponins were negative; magnesium was repleted for hypomagnesemia. BNP was elevated at 1255; creatinine was 3.1, improved to 2.8. [facility] cardiology recommended admission for unstable angina monitoring. The patient remained chest pain?free with negative troponins throughout admission. He was discharged to SNF with optimized medical therapy, including clopidogrel, amlodipine, isosorbide mononitrate, metoprolol, prazosin, rosuvastatin, ranolazine, and torsemide (held initially, resumed as renal function improved), with follow-up scheduled at [facility] cardiology on 06/12/25. Current Admission (06/13/25 ? [facility]): Patient presented to the ED with sudden-onset dizziness and transient left upper and lower extremity weakness that resolved prior to arrival. On evaluation, NIHSS = 0; head CT was negative for acute findings; CBC and CMP were unremarkable. Teleneurology recommended echocardiogram, telemetry monitoring for possible atrial fibrillation, continuation of aspirin and clopidogrel, initiation of high-intensity statin, and MRI brain. Patient declined inpatient MRI due to anxiety and need for open MRI; this will be arranged as outpatient. No recurrence of neurologic symptoms during admission. Hospital Course: * Monitored on telemetry; no arrhythmias detected. * Echocardiogram ordered; results pending at discharge. * Risk factor modification discussed; patient agreeable to high-intensity statin. Discharge Medications (TIA-related changes): * Continue: Aspirin 81 mg daily, Clopidogrel 75 mg daily. * Start: Atorvastatin 80 mg nightly (replaces rosuvastatin). Other chronic cardiac, psychiatric, pulmonary, and diabetes medications continued per home regimen. Follow-Up & Instructions: * Outpatient open MRI brain. * Outpatient echocardiogram (if not completed prior to discharge). * Follow-up with [facility] cardiology and primary care provider within 1 week. * Return to ED for any recurrence of neurologic symptoms, chest pain, shortness of breath, or severe headache. Discharge Medications (TIA-related changes): * Continue: Aspirin 81 mg daily, Clopidogrel 75 mg daily. * Start: Atorvastatin 80 mg nightly * Stop: Rosuvastatin Follow-up & Instructions: * Outpatient open MRI brain. * Cardiology follow-up as arranged. * Continue risk factor modification for secondary stroke prevention. * Return to ED for any recurrence of weakness, numbness, vision/speech changes, or severe headache. Home Meds and New Rx's Prescriptions: New clopidogrel [Plavix] 75 mg tablet 75 mg PO DAILY Qty: 20 0RF atorvastatin [Lipitor] 80 mg tablet 80 mg PO DAILY Qty: 30 0RF Continued aspirin [Adult Aspirin Regimen] 81 mg tablet,delayed release (DR/EC) 81 mg PO DAILY ferrous sulfate 325 mg (65 mg iron) tablet 325 mg PO DAILY Patient Comments: Take every Mon, Wed, Fri gabapentin 300 mg capsule 300 mg PO BID glucagon 1 mg recon soln 1 mg subcut Q20M PRN Rx Instructions: until target blood sugar attained insulin lispro 100 unit/mL insulin pen 1 sliding scale dose subcut USEASDIRECTD metoprolol succinate 25 mg tablet extended release 24 hr 25 mg PO BID magnesium hydroxide [Milk of Magnesia] 400 mg/5 mL suspension 30 ml PO DAILY PRN naloxone 4 mg/actuation spray,non-aerosol 4 mg intranasal Q2M Rx Instructions: spray 1 dose into ONE nostril; alternate nostrils w each dose until help arrives nitroglycerin 0.4 mg tablet, sublingual 0.4 mg sublingual Q5M PRN Rx Instructions: do not exceed 3 doses per episode pantoprazole 40 mg tablet,delayed release (DR/EC) 40 mg PO DAILY ranolazine 500 mg tablet extended release 12 hr 500 mg PO BID sevelamer HCl 800 mg tablet 800 mg PO TID Rx Instructions: must administer with a meal/food risperidone 1 mg tablet 1 mg PO DAILY risperidone 2 mg tablet 2 mg PO QHS sennosides-docusate sodium 8.6-50 mg tablet 1 tab-cap PO BID prazosin 1 mg capsule 3 mg PO QPM torsemide 20 mg tablet 20 mg PO DAILY Qty: 0 0RF Rx Instructions: Hold until 06/11/25 amlodipine 5 mg tablet 10 mg PO DAILY Qty: 0 0RF amitriptyline 10 mg tablet 50 mg PO QHS Qty: 0 0RF hydrocodone-acetaminophen 10-325 mg tablet 1 tab PO Q6H PRNQty: 10 0RF insulin asp prt-insulin aspart [Novolog Mix 70-30 U-100 Insuln] 100 unit/mL (70-30) solution 50 unit subcut DAILY Qty: 10 0RF Rx Instructions: In AM insulin asp prt-insulin aspart [Novolog Mix 70-30 U-100 Insuln] 100 unit/mL (70-30) solution 45 unit subcut HS Qty: 10 0RF Rx Instructions: hold if BS < 140 cholecalciferol (vitamin D3) 25 mcg (1,000 unit) capsule 100 mcg PO DAILY Qty: 0 0RF polyethylene glycol 3350 17 gram/dose powder 17 g PO DAILY PRNQty: 119 0RF Rx Instructions: Constipation magnesium oxide 400 mg magnesium capsule 400 mg PO DAILY Qty: 7 0RF metformin 750 mg tablet 750 mg PO BID Qty: 10 0RF bisacodyl [Dulcolax (bisacodyl)] 10 mg suppository 10 mg SC DAILY PRNQty: 12 0RF diazepam [Valium] 5 mg tablet 5 mg PO DAILY Qty: 7 0RF Rx Instructions: anxiety- end date 06/21/25 clopidogrel 75 mg tablet 75 mg PO DAILY Qty: 10 0RF lidocaine 4 % adhesive patch,medicated 1 patch topical DAILY PRNQty: 5 0RF Biofreeze (menthol) 4 % gel 1 applic topical Q6H PRN PRNQty: 237 0RF ropinirole 1 mg tablet 1 mg PO BID Qty: 0 0RF Trulicity 1.5 mg/0.5 mL pen injector 1.5 mg SUBCUT .weekly Qty: 0 0RF Rx Instructions: On Thursday loperamide [Anti-Diarrheal (loperamide)] 2 mg capsule 2 mg PO Q6H PRN vilazodone [Viibryd] 20 mg tablet 20 mg PO DAILY Rx Instructions: must administer with a meal/food acetaminophen 500 mg capsule 650 mg PO Q4H PRN amitriptyline 50 mg tablet 50 mg PO HS isosorbide mononitrate 60 mg tablet extended release 24 hr 60 mg PO DAILY tizanidine 2 mg tablet 2 mg PO QID umeclidinium-vilanterol [Anoro Ellipta] 62.5-25 mcg/actuation blister with device 1 inh inhalation DAILY Discontinued rosuvastatin 20 mg tablet 20 mg PO QHS Discharge Instructions Additional Instructions: Return to [facility]. Recommend PT. Continue clopidorgrel and aspirin. Follow up with PCP. Referrals: Nica Carrasco [Primary Care Provider, Medicine] Referral Note: 1 week s/p TIA Activity:: Activity as Tolerated Equipment/Supplies:: No Equipment Needed Diet:: As Tolerated Discharge Orders Discharge Orders: Discharge Order (Routine); Ordered 06/14/25 Ordered By: Silvia García DS: Summary Time Spent with Patient providing and/or coordinating discharge services: Greater than 30 minutes Status at Discharge Functional status at discharge: independent ambulation Overall status at discharge: patient is back to baseline Mental Status: mental status grossly normal Speech and Movement: speech and movement normal Mood: congruent mood Affect: normal affect Exam Narrative Exam Narrative: General: Alert, oriented, in no acute distress. Vital Signs: Stable; mild hypertension noted (BP 148/67). HEENT: Oropharynx clear, no lesions. Respiratory: Lungs clear to auscultation bilaterally; no wheezes, rales, or rhonchi. Cardiovascular: Regular rate and rhythm; no murmurs, rubs, or gallops. Abdomen: Soft, non-tender, non-distended; no masses or hepatosplenomegaly. Skin: Warm, dry, no rashes or lesions. Psychiatric: Appropriate mood and affect. Psych Mental Status: mental status grossly normal Speech and Movement: speech and movement normal Mood: congruent mood Affect: normal affect DS: Data Vitals/I&O Vitals and I&O: Vital Signs Temperature 35.2 C L 06/14/25 10:45 Temperature Source Temporal Artery Scan 06/14/25 10:45 Pulse 71 06/14/25 10:45 Respiratory Rate 16 06/14/25 10:45 Respiratory Effort Normal 06/13/25 20:00 Respiratory Depth Normal 06/13/25 20:00 Respiratory Pattern Normal 06/13/25 20:00 Blood Pressure 128/64 06/14/25 10:45 Blood Pressure Mean 85 06/14/25 10:45 Blood Pressure Position Sitting 06/13/25 16:06 Pulse Oximetry 100 06/14/25 10:45 Oxygen Delivery Method Room Air 06/14/25 10:45 Oxygen Flow Rate 0 06/14/25 10:45 Pain Level 10 06/14/25 11:00 Intake & Output 06/13/25 06/14/25 06/14/25 23:59 11:59 23:59 Intake Total 210 / 210 240 / 240 Output Total 779 / 779 1850 / 1850 Balance -569 / -569 -1610 / -1610 Weight 154.2 kg Intake: IV 10 Oral 200 / 200 240 / 240 Output: Urine 779 / 779 1850 / 1850 Other: Urine Color Yellow Urine Appearance Clear Clear Sediment Urine Odor Normal Data Completed and Pending Labs on day of discharge: Labs from last 24 hours 06/14/25 06/13/25 06/13/25 06:32 19:09 17:26 WBC 6.79 RBC 4.18 L Hgb 12.7 L Hct 38.0 L MCV 91 MCH 30.4 MCHC 33.4 RDW 12.9 Plt Count 216 MPV 9.6 Immature Gran % Neutrophils % Lymphocytes % Monocytes % Eosinophils % Basophils % Nucleated RBC % Absolute Neutrophils Absolute Lymphocytes Absolute Monocytes Absolute Eosinophils Absolute Basophils Sodium 140 Potassium 3.9 Chloride 101 Carbon Dioxide 32.0 Anion Gap 7.0 BUN 48 H Creatinine 2.6 H Est GFR (CKD-EPI 2020) 26.21 Glucose 67 L Calcium 9.7 Magnesium 1.8 Total Bilirubin AST ALT Alkaline Phosphatase Troponin I Cancelled 17 Total Protein Albumin 06/13/25 16:28 WBC 7.58 RBC 3.61 L Hgb 11.1 L Hct 33.1 L MCV 92 MCH 30.7 MCHC 33.5 RDW 13.2 Plt Count 212 MPV 9.7 Immature Gran % 0.3 Neutrophils % 47.8 Lymphocytes % 34.7 Monocytes % 9.4 Eosinophils % 7.1 Basophils % 0.7 Nucleated RBC % 0.0 Absolute Neutrophils 3.63 Absolute Lymphocytes 2.63 Absolute Monocytes 0.71 Absolute Eosinophils 0.54 Absolute Basophils 0.05 Sodium 138 Potassium 4.8 Chloride 100 Carbon Dioxide 32.0 Anion Gap 6.0 BUN 53 H Creatinine 2.8 H Est GFR (CKD-EPI 2020) 23.98 Glucose 99 Calcium 9.1 Magnesium 1.6 L Total Bilirubin 0.4 AST 18 ALT 28 Alkaline Phosphatase 65 Troponin I 19 Total Protein 6.8 Albumin 4.0 PFSH All Active Problems (Updated 06/13/25 @ 19:32 by Toby Friedman MD) TIA (transient ischemic attack) (Acute) CAD (coronary artery disease), [place] coronary artery (Chronic) CAD S/P percutaneous coronary angioplasty (Acute) Acute on chronic kidney failure (Acute) Chronic bipolar disorder (Acute) Chronic back pain greater than 3 months duration (Acute) Iron deficiency anemia (Acute) Diabetes mellitus type 2, insulin dependent (Acute) Unstable angina (Acute) Chest pain (Acute) Osteoarthritis of hip (Acute) Right hip pain (Acute) PAD (peripheral artery disease) (Acute) Lymphedema (Acute) Venous ulcers of both lower extremities (Acute) Venous (peripheral) insufficiency (Acute) Phantom limb syndrome (Acute) PTSD (post-traumatic stress disorder) (Chronic) Vitamin D deficiency (Acute) Nondisplaced fracture of right scaphoid bone (Acute 02/01/24) Right wrist pain (Acute) GERD (gastroesophageal reflux disease) (Chronic) Hypertension (Chronic) Neuropathy (Acute) History of venous thrombosis and embolism (Acute) Pityriasis versicolor (Acute) Hyperlipidemia (Chronic) Atherosclerotic heart disease of [place] coronary artery without angina pectoris (Acute) CKD stage 4 due to type 2 diabetes mellitus (Chronic) Heart failure (Chronic) Anxiety (Chronic) Morbid obesity (Chronic) Subacute osteomyelitis, left ankle and foot (Acute) Chronic pain (Chronic) COPD (chronic obstructive pulmonary disease) (Chronic) Asthma (Chronic) Type 2 diabetes mellitus (Chronic) Medical History MRSA infection Testicular hypofunction Low back pain Social History Smoking/Tobacco Use Status: Former Tobacco Use Smoking risk assessment performed?: Yes Alcohol Intake: current Alcohol Intake frequency: holidays/special occasions only Drug use: Never Substance use type: does not use Housing: assisted living facility Do you feel safe at home: Yes Do you feel safe in your relationship?: Yes Time Spent with Patient Time Spent with Patient: 45-69 minutes Time was spent: preparing to see the patient(eg.review tests), ordering medications,tests, procedures, referring, communicating with other health sub acute care nurse, indepentently interpreting results, counseling the patient and care coordination
== END 2025-06-14 13:09 | disposition skilled nursing facility (03) ==
LOC: ER 19:32 → MS 20:19
PROVIDERS: Admitting Provider Family Medicine; Emergency Provider Emergency Medicine Emergency Medical Services; PCP Family Medicine; Responsible Provider Nurse Practitioner Family; Visit Provider Family Medicine
DX: I65.23 Occlusion and stenosis of bilateral carotid arteries (principal); F31.9 Bipolar disorder, unspecified; G89.29 Other chronic pain; I50.30 Unspecified diastolic (congestive) heart failure; I25.10 Atherosclerotic heart disease of native coronary artery without angina pectoris; Z95.5 Presence of coronary angioplasty implant and graft; Z86.711 Personal history of pulmonary embolism; Z79.4 Long term (current) use of insulin; Z79.85 Long-term (current) use of injectable non-insulin antidiabetic drugs; Z79.82 Long term (current) use of aspirin; I13.0 Hypertensive heart and chronic kidney disease with heart failure and stage 1 through stage 4 chronic kidney disease, or unspecified chronic kidney disease; E11.22 Type 2 diabetes mellitus with diabetic chronic kidney disease; N18.2 Chronic kidney disease, stage 2 (mild); E78.5 Hyperlipidemia, unspecified; J44.9 Chronic obstructive pulmonary disease, unspecified; K21.9 Gastro-esophageal reflux disease without esophagitis; D50.9 Iron deficiency anemia, unspecified; I73.9 Peripheral vascular disease, unspecified; I89.0 Lymphedema, not elsewhere classified; E55.9 Vitamin D deficiency, unspecified; E11.40 Type 2 diabetes mellitus with diabetic neuropathy, unspecified; E66.01 Morbid (severe) obesity due to excess calories; Z68.41 Body mass index [BMI] 40.0-44.9, adult; Z86.73 Personal history of transient ischemic attack (TIA), and cerebral infarction without residual deficits
CPT/HCPCS: 00123; 36415; 36416; 80048; 80053; 82962; 85027; 93005; 94640; 96372; 99285; J1650; 70450; 83735; 84484; 85025; 93010; 93306; 93880; 94664; 99223; 99239; G0378; J1815; J3490

== ENCOUNTER 2025-06-14 07:58 | Outpatient (CLI) | payer MEDICARE, MEDICAID, SELFPAY | END 2025-06-14 07:59 | disposition home or self-care (01) | LOC: DI.CARD 07:59 | PROVIDERS: PCP Family Medicine; Visit Provider Registered Nurse | CPT/HCPCS: 93010 ==

== ENCOUNTER 2025-06-20 15:40 | Emergency (ER) | payer MEDICARE, MEDICAID, SELFPAY ==
[2025-06-20] VITALS (36 sets, daily range): BP systolic 129–154; BP diastolic 41–79; PULSE 67–78; RESP 9–22; TEMP 36.7; O2SAT 97–100
--- NOTE | 2025-06-20 15:30 | RT.EKG_ITS ---
APPROVED REPORT Exam: Resting ECG Reason for Exam: Chest Pain Patient Location: E HR:74 bpm ECG Measurements Heart Rate 74 AXIS MD 214 P 67 QRSd 107 QRS 12 QT 421 T 43 QTc 466 Conclusion Sinus rhythm...normal P axis, V-rate 60- 99 Borderline prolonged MD interval...MD >212, V-rate 50- 90
--- NOTE | 2025-06-20 16:19 | W.ED.GENAD ---
Discharge Plan Disposition Patient Disposition[facility] Condition: Stable Discharge Details Clinical Impression: Chest pain Primary Care Provider: Nica Carrasco ED Provider: Lizy Harris [place] Meds and New Rx's Prescriptions: Continued aspirin [Adult Aspirin Regimen] 81 mg tablet,delayed release (DR/EC) 81 mg PO DAILY ferrous sulfate 325 mg (65 mg iron) tablet 325 mg PO DAILY Patient Comments: Take every Mon, Wed, Fri gabapentin 300 mg capsule 300 mg PO BID glucagon 1 mg recon soln 1 mg subcut Q20M PRN Rx Instructions: until target blood sugar attained insulin lispro 100 unit/mL insulin pen 1 sliding scale dose subcut USEASDIRECTD metoprolol succinate 25 mg tablet extended release 24 hr 25 mg PO BID magnesium hydroxide [Milk of Magnesia] 400 mg/5 mL suspension 30 ml PO DAILY PRN naloxone 4 mg/actuation spray,non-aerosol 4 mg intranasal Q2M Rx Instructions: spray 1 dose into ONE nostril; alternate nostrils w each dose until help arrives nitroglycerin 0.4 mg tablet, sublingual 0.4 mg sublingual Q5M PRN Rx Instructions: do not exceed 3 doses per episode pantoprazole 40 mg tablet,delayed release (DR/EC) 40 mg PO DAILY ranolazine 500 mg tablet extended release 12 hr 500 mg PO BID sevelamer HCl 800 mg tablet 800 mg PO TID Rx Instructions: must administer with a meal/food risperidone 1 mg tablet 1 mg PO DAILY risperidone 2 mg tablet 2 mg PO QHS sennosides-docusate sodium 8.6-50 mg tablet 1 tab-cap PO BID prazosin 1 mg capsule 3 mg PO QPM torsemide 20 mg tablet 20 mg PO DAILY Qty: 0 0RF Rx Instructions: Hold until 06/11/25 amlodipine 5 mg tablet 10 mg PO DAILY Qty: 0 0RF amitriptyline 10 mg tablet 50 mg PO QHS Qty: 0 0RF hydrocodone-acetaminophen 10-325 mg tablet 1 tab PO Q6H PRNQty: 10 0RF insulin asp prt-insulin aspart [Novolog Mix 70-30 U-100 Insuln] 100 unit/mL (70-30) solution 50 unit subcut DAILY Qty: 10 0RF Rx Instructions: In AM insulin asp prt-insulin aspart [Novolog Mix 70-30 U-100 Insuln] 100 unit/mL (70-30) solution 45 unit subcut HS Qty: 10 0RF Rx Instructions: hold if BS < 140 cholecalciferol (vitamin D3) 25 mcg (1,000 unit) capsule 100 mcg PO DAILY Qty: 0 0RF polyethylene glycol 3350 17 gram/dose powder 17 g PO DAILY PRNQty: 119 0RF Rx Instructions: Constipation magnesium oxide 400 mg magnesium capsule 400 mg PO DAILY Qty: 7 0RF metformin 750 mg tablet 750 mg PO BID Qty: 10 0RF bisacodyl [Dulcolax (bisacodyl)] 10 mg suppository 10 mg CO DAILY PRNQty: 12 0RF diazepam [Valium] 5 mg tablet 5 mg PO DAILY Qty: 7 0RF Rx Instructions: anxiety- end date 06/21/25 clopidogrel 75 mg tablet 75 mg PO DAILY Qty: 10 0RF lidocaine 4 % adhesive patch,medicated 1 patch topical DAILY PRNQty: 5 0RF Biofreeze (menthol) 4 % gel 1 applic topical Q6H PRN PRNQty: 237 0RF ropinirole 1 mg tablet 1 mg PO BID Qty: 0 0RF Trulicity 1.5 mg/0.5 mL pen injector 1.5 mg SUBCUT .weekly Qty: 0 0RF Patient Comments: Per [facility], dosage is 3Mg/0.5Ml Q Thursday. Rx Instructions: On Thursday loperamide [Anti-Diarrheal (loperamide)] 2 mg capsule 2 mg PO Q6H PRN vilazodone [Viibryd] 20 mg tablet 20 mg PO DAILY Rx Instructions: must administer with a meal/food acetaminophen 500 mg capsule 650 mg PO Q4H PRN amitriptyline 50 mg tablet 50 mg PO HS clopidogrel [Plavix] 75 mg tablet 75 mg PO DAILY Qty: 20 0RF atorvastatin [Lipitor] 80 mg tablet 80 mg PO DAILY Qty: 30 0RF Enema 19-7 gram/118 mL enema 118 ml CO DAILY PRN ketoconazole 2 % shampoo 1 applic topical Q2W isosorbide mononitrate 60 mg tablet extended release 24 hr 60 mg PO DAILY tizanidine 2 mg tablet 2 mg PO QID umeclidinium-vilanterol [Anoro Ellipta] 62.5-25 mcg/actuation blister with device 1 inh inhalation DAILY Discharge Instructions Instructions: Chest Pain, Adult ED Additional Instructions: At this time you have had 2 flat troponins no evidence of heart attack on your EKG, please continue with your previously prescribed medications. Follow up with primary care provider in 3-5 days. Return to ED sooner if any worsening or concerns. Thank you for allowing us to care for you today. Referrals: Nica Carrasco [Primary Care Provider, Medicine] - 3 days Discharge Data Discharge Date/Time-TO BE ENTERED AT DEPARTURE: 06/20/25 20:04 HPI General Mode of arrival: EMS. Date/Time Provider Initiated Documentation: 06/20/25 15:52. Limitations to Documentation: no limitations. Information obtained by: patient, EMS, RN notes reviewed and old records reviewed. HPI Narrative: 89-year-old male with a past medical history of coronary artery disease, status post percutaneous angiography, COPD, asthma insulin-dependent diabetes, hypertension, chronic kidney disease stage IV, cholesterol bipolar disorder chronic back pain, presents with 10 out of 10 chest pressure which began around 1430 this afternoon was given 3 nitroglycerin prior to arrival and aspirin 324 mg patient reports the pain radiates to his left jaw and arm. He is a full code. He does take clopidogrel daily did receive his a.m. medications this morning. Related Data Home Medications ?Medication ?Instructions ?Recorded ?Confirmed aspirin 81 mg tablet,delayed 81 mg PO DAILY 07/06/24 06/20/25 release (Adult Aspirin Regimen) ferrous sulfate 325 mg (65 mg 325 mg PO DAILY 07/06/24 06/20/25 iron) tablet gabapentin 300 mg capsule 300 mg PO BID 07/06/24 06/20/25 glucagon 1 mg solution for 1 mg subcut Q20M PRN 07/06/24 06/20/25 injection insulin lispro 100 unit/mL 1 sliding scale dose subcut 07/06/24 06/20/25 subcutaneous pen USEASDIRECTD magnesium hydroxide 400 mg/5 mL 30 ml PO DAILY PRN 07/06/24 06/20/25 oral suspension (Milk of Magnesia) metoprolol succinate 25 mg 25 mg PO BID 07/06/24 06/20/25 tablet,extended release 24 hr naloxone 4 mg/actuation nasal spray 4 mg intranasal Q2M 07/06/24 06/20/25 nitroglycerin 0.4 mg sublingual 0.4 mg sublingual Q5M PRN 07/06/24 06/20/25 tablet pantoprazole 40 mg tablet,delayed 40 mg PO DAILY 07/06/24 06/20/25 release ranolazine 500 mg tablet,extended 500 mg PO BID 07/06/24 06/20/25 release,12 hr risperidone 1 mg tablet 1 mg PO DAILY 07/06/24 06/20/25 risperidone 2 mg tablet 2 mg PO QHS 07/06/24 06/20/25 sennosides 8.6 mg-docusate sodium 1 tab-cap PO BID 07/06/24 06/20/25 50 mg tablet sevelamer HCl 800 mg tablet 800 mg PO TID 07/06/24 06/20/25 isosorbide mononitrate 60 mg 60 mg PO DAILY 03/15/25 06/20/25 tablet,extended release 24 hr tizanidine 2 mg tablet 2 mg PO QID 03/15/25 06/20/25 prazosin 1 mg capsule 3 mg PO QPM 03/31/25 06/20/25 umeclidinium 62.5 mcg-vilanterol 1 inh inhalation DAILY 05/31/25 06/20/25 25 mcg/actuation powdr for inhalation (Anoro Ellipta) amitriptyline 10 mg tablet 50 mg (5 x 10 mg) PO QHS #0 tabs 06/10/25 06/20/25 amlodipine 5 mg tablet 10 mg (2 x 5 mg) PO DAILY #0 tabs 06/10/25 06/20/25 bisacodyl 10 mg rectal suppository 10 mg CO DAILY PRN #12 ea 06/10/25 06/20/25 (Dulcolax (bisacodyl)) cholecalciferol (vitamin D3) 25 100 mcg (4 x 25 mcg (1,000 unit)) 06/10/25 06/20/25 mcg (1,000 unit) capsule PO DAILY #0 caps clopidogrel 75 mg tablet 75 mg PO DAILY #10 tabs 06/10/25 06/20/25 diazepam 5 mg tablet (Valium) 5 mg PO DAILY #7 tabs 06/10/25 06/20/25 dulaglutide 1.5 mg/0.5 mL 1.5 mg (0.5 mL) subcut .weekly #0 06/10/25 06/20/25 subcutaneous pen injector mL (Trulicity) hydrocodone 10 mg-acetaminophen 1 tab PO Q6H PRN #10 tabs 06/10/25 06/20/25 325 mg tablet insulin aspar prt-insulin aspart 45 unit (0.45 mL) subcut HS #10 mL 06/10/25 06/20/25 100 unit/mL (70-30) subcutaneous soln (Novolog Mix 70-30 U-100 Insuln) insulin aspar prt-insulin aspart 50 unit (0.5 mL) subcut DAILY #10 06/10/25 06/20/25 100 unit/mL (70-30) subcutaneous mL soln (Novolog Mix 70-30 U-100 Insuln) lidocaine 4 % topical patch 1 patch topical DAILY PRN #5 ea 06/10/25 06/20/25 magnesium oxide 400 mg PO DAILY #7 caps 06/10/25 06/20/25 menthol 4 % topical gel (Biofreeze 1 applic topical Q6H PRN PRN #237 06/10/25 06/20/25 (menthol)) mL metformin 750 mg tablet 750 mg PO BID #10 tabs 06/10/25 06/20/25 polyethylene glycol 3350 17 17 g PO DAILY PRN #119 grams 06/10/25 06/20/25 gram/dose oral powder ropinirole 1 mg tablet 1 mg PO BID #0 tabs 06/10/25 06/20/25 torsemide 20 mg tablet 20 mg PO DAILY #0 tabs 06/10/25 06/20/25 acetaminophen 500 mg capsule 650 mg PO Q4H PRN 06/13/25 06/20/25 loperamide 2 mg capsule 2 mg PO Q6H PRN 06/13/25 06/20/25 (Anti-Diarrheal (loperamide)) vilazodone 20 mg tablet (Viibryd) 20 mg PO DAILY 06/13/25 06/20/25 amitriptyline 50 mg tablet 50 mg PO HS 06/14/25 06/20/25 atorvastatin 80 mg tablet (Lipitor) 80 mg PO DAILY #30 tabs 06/14/25 06/20/25 clopidogrel 75 mg tablet (Plavix) 75 mg PO DAILY #20 tabs 06/14/25 06/20/25 ketoconazole 2 % shampoo 1 applic topical Q2W 06/20/25 06/20/25 sodium phosphates 19 gram-7 118 ml CO DAILY PRN 06/20/25 06/20/25 gram/118 mL enema (Enema) Previous Rx's ?Medication ?Instructions ?Recorded amitriptyline 10 mg tablet 50 mg (5 x 10 mg) PO QHS #0 tabs 06/10/25 amlodipine 5 mg tablet 10 mg (2 x 5 mg) PO DAILY #0 tabs 06/10/25 bisacodyl 10 mg rectal suppository 10 mg CO DAILY PRN #12 ea 06/10/25 (Dulcolax (bisacodyl)) cholecalciferol (vitamin D3) 25 100 mcg (4 x 25 mcg (1,000 unit)) 06/10/25 mcg (1,000 unit) capsule PO DAILY #0 caps clopidogrel 75 mg tablet 75 mg PO DAILY #10 tabs 06/10/25 diazepam 5 mg tablet (Valium) 5 mg PO DAILY #7 tabs 06/10/25 dulaglutide 1.5 mg/0.5 mL 1.5 mg (0.5 mL) subcut .weekly #0 06/10/25 subcutaneous pen injector mL (Trulicity) hydrocodone 10 mg-acetaminophen 1 tab PO Q6H PRN #10 tabs 06/10/25 325 mg tablet insulin aspar prt-insulin aspart 45 unit (0.45 mL) subcut HS #10 mL 06/10/25 100 unit/mL (70-30) subcutaneous soln (Novolog Mix 70-30 U-100 Insuln) insulin aspar prt-insulin aspart 50 unit (0.5 mL) subcut DAILY #10 06/10/25 100 unit/mL (70-30) subcutaneous mL soln (Novolog Mix 70-30 U-100 Insuln) lidocaine 4 % topical patch 1 patch topical DAILY PRN #5 ea 06/10/25 magnesium oxide 400 mg PO DAILY #7 caps 06/10/25 menthol 4 % topical gel (Biofreeze 1 applic topical Q6H PRN PRN #237 06/10/25 (menthol)) mL metformin 750 mg tablet 750 mg PO BID #10 tabs 06/10/25 polyethylene glycol 3350 17 17 g PO DAILY PRN #119 grams 06/10/25 gram/dose oral powder ropinirole 1 mg tablet 1 mg PO BID #0 tabs 06/10/25 torsemide 20 mg tablet 20 mg PO DAILY #0 tabs 06/10/25 atorvastatin 80 mg tablet (Lipitor) 80 mg PO DAILY #30 tabs 06/14/25 clopidogrel 75 mg tablet (Plavix) 75 mg PO DAILY #20 tabs 06/14/25 Allergies Allergy/AdvReac Type Severity Reaction Status Date / Time bee venom protein (honey bee) Allergy Intermediate Anaphylaxis Verified 06/13/25 16:18 clonidine Allergy Mild Unknown Verified 06/13/25 16:18 Influenza Virus Vaccines Allergy Mild Unknown Verified 06/13/25 16:18 prednisone Allergy Unknown Other (See Verified 06/13/25 16:18 Comment) tamsulosin (From Flomax) Allergy Unknown Other (See Verified 06/13/25 16:18 Comment) General Stated Complaint: Chest Pain VALERI: 3 Review of Systems All systems reviewed & are unremarkable except as noted in HPI and below Cardiovascular Cardiovascular: Reports chest pain, Reports chest pain at rest, Denies syncope, Reports leg edema (None new), Reports radiating jaw, neck or arm pain and Reports dyspnea Respiratory Respiratory: Denies cough, Denies excessive phlegm production and Reports dyspnea Integumentary/Breasts Skin/Breast: Reports skin pain, Reports skin ulcer (Does have some diabetic skin ulcers noted to his bilateral legs) and Reports sores Neurologic Neurologic: Denies syncope Hematologic/Lymphatic Hematologic/Lymphatic: Reports easy bleeding and Reports easy bruising Exam Narrative Exam Narrative: Constitutional: Alert and oriented x3. Appears stated age. Obese body habitus. Patient appears chronically ill. Head: Normocephalic, no trauma. Eyes: Pupils PERRL, Red reflex noted, EOM's intact. Eyelids symmetrical without lesions, discharge, or swelling. ENT: Bilateral TM's WNL, External ear normal to inspection, no mastoid TTP, swelling, or erythema, Nasal turbinates WNL, no nasal discharge. Normal dentition, Posterior pharynx WNL, no exudate. Chest: RRR, Normal S1, S2, distal pulses intact. Resp: Lungs clear to auscultation bilaterally, no wheezes, rales, or rhonchi. No increased work of breathing, no tachypnea, no pursed lip breathing. Abdomen: Soft, non-distended, Normoactive bowel sounds all 4 quads. Musculoskeletal: Unable to assess gait, bilateral lower extremity swelling approximately 2-3+ bilaterally, Skin: Skin sloughing noted to bilateral lower extremities, up presents with dressings in place, no significant drainage noted no significant erythema or induration, capillary refill less than 2 sec. does have multiple healing bruises noted to bilateral upper extremities. Neurologic: Cranial nerves II-XII intact. Alert and oriented x 3. Motor: No deficits noted. Sensory: Intact bilaterally all 4 extremities. Hematologic/Lymphatic: No ecchymosis, no lymphadenopathy. Course Vital Signs Vital signs: Vital Signs Temperature 36.7 C 06/20/25 15:42 Pulse 78 06/20/25 15:42 Respiratory Rate 20 06/20/25 15:42 Blood Pressure 154/59 H 06/20/25 15:42 Pulse Oximetry 99 06/20/25 15:42 Temperature 36.7 C 06/20/25 15:42 Temperature Source Oral 06/20/25 15:42 Pulse 78 06/20/25 15:42 Respiratory Rate 20 06/20/25 15:42 Respiratory Effort Short of Breath 06/20/25 15:46 Respiratory Depth Normal 06/20/25 15:46 Respiratory Pattern Normal 06/20/25 15:46 Blood Pressure 154/59 H 06/20/25 15:42 Blood Pressure Position Sitting 06/20/25 15:42 Pulse Oximetry 99 06/20/25 15:42 Oxygen Delivery Method Room Air 06/20/25 15:42 Oxygen Flow Rate 0 06/20/25 15:42 Pain Level 10 06/20/25 15:46 Medical Decision Making 89-year-old male with a past medical history of coronary artery disease, status post percutaneous angiography, COPD, asthma insulin-dependent diabetes, hypertension, chronic kidney disease stage IV, cholesterol bipolar disorder chronic back pain, presents with 10 out of 10 chest pressure which began around 1430 this afternoon was given 3 nitroglycerin prior to arrival and aspirin 324 mg patient reports the pain radiates to his left jaw and arm. He is a full code. He does take clopidogrel daily did receive his a.m. medications this morning. EKG was reviewed by myself and Dr. Goddard ER attending, sinus rhythm, nonischemic EKG CO interval 214, QT 421 no significant ectopy, old EKG available for review. Workup ordered including serial troponins, CBC PT PTT proBNP and lipase chest x-ray. CBC shows no leukocytosis hemoglobin 10.4 hematocrit 32.2 approximately 6 days ago hemoglobin was 12 and hematocrit was 38. Initial troponin has resulted which is 10, chemistries were slight bit delayed, sodium 141 potassium 4.8 BUN is 61 creatinine 2.8, baseline is approximately 2.3, GFR is 23.9 which is about at patient's baseline, glucose 167 magnesium is 1.5, baseline is approximately 1.6. proBNP is pending at this time. Lipase 41. Patient does take daily magnesium oxide 400 mg. I did order an additional 400 mg of p.o. magnesium. 1 hour serial troponin pending. Serial 1 hour troponin is flat at 10 on patient reevaluation he is sleeping peacefully, breathing eupneic awakens easily to verbal. Discussed home care, follow-up care and will discharge back to health and rehab. This text was generated using Ticiesation system, please disregard any oddities of phrase or misspellings. Patient remained hemodynamically stable throughout the remainder of stay. Medical Records Medical records reviewed: Yes I reviewed the patient's medical records. Lab Data Lab results reviewed: Yes I reviewed the patient's lab results. Labs: Laboratory Tests Range/Units 06/20/25 06/20/25 06/20/25 16:32 18:00 18:00 WBC (4.4-10.8) 10^3/uL 10.60 RBC (4.36-5.78) 10^6/uL 3.44 L Hgb (13.5-17.5) g/dL 10.4 L Hct (40.0-50.0) % 32.2 L MCV (80-95) fL 94 MCH (27.0-33.0) pg 30.2 MCHC (32.0-36.0) % 32.3 RDW (11.8-14.1) % 13.3 Plt Count (130-400) 10^3/uL 168 MPV (8.0-11.0) fL 9.8 Immature Gran % % 0.8 Neutrophils % % 73.8 Lymphocytes % % 16.4 Monocytes % % 5.5 Eosinophils % % 3.1 Basophils % % 0.4 Nucleated RBC % (0.0-0.3) % 0.0 Absolute Neutrophils (1.2-6.7) 10^3/uL 7.83 H Absolute Lymphocytes (1.2-3.4) 10^3/uL 1.74 Absolute Monocytes (0.1-0.8) 10^3/uL 0.58 Absolute Eosinophils (0.0-0.7) 10^3/uL 0.33 Absolute Basophils (0.0-0.2) 10^3/uL 0.04 PT (9.1-11.1) sec 10.8 INR (0.9-1.1) 1.1 APTT (20.6-30.2) sec 23.0 Sodium (136-145) mmol/L 141 Potassium (3.5-5.1) mmol/L 4.8 Chloride (98-107) mmol/L 102 Carbon Dioxide (21.0-32.0) mmol/L 28.4 Anion Gap (3-11) mmol/L 10.6 BUN (7-18) mg/dL 61 H Creatinine (0.70-1.30) mg/dL 2.8 H Est GFR (CKD-EPI 2020) (mL/min/1.73m2) 23.98 Glucose (74-106) mg/dL 167 H Calcium (8.5-10.1) mg/dL 9.4 Magnesium (1.8-2.4) mg/dL 1.5 L Total Bilirubin (0.2-1.0) mg/dL 0.4 AST (15-37) U/L 22 ALT (16-63) U/L 32 Alkaline Phosphatase (46-116) U/L 58 Troponin I (<or=76) ng/L 10 10 Cancelled NT-Pro-B Natriuret Pep (<300) pg/mL 738 H Total Protein (6.4-8.2) g/dL 6.7 Albumin (3.4-5.0) g/dL 4.0 Lipase (<78) U/L 41 PFSH All Active Problems (Updated 06/20/25 @ 19:29 by Lizy Harris NP) Chest pain (Acute) TIA (transient ischemic attack) (Acute) CAD S/P percutaneous coronary angioplasty (Acute) Acute on chronic kidney failure (Acute) Iron deficiency anemia (Acute) Unstable angina (Acute) Chest pain (Acute) Osteoarthritis of hip (Acute) Right hip pain (Acute) PAD (peripheral artery disease) (Acute) Lymphedema (Acute) Venous ulcers of both lower extremities (Acute) Venous (peripheral) insufficiency (Acute) Phantom limb syndrome (Acute) PTSD (post-traumatic stress disorder) (Chronic) Vitamin D deficiency (Acute) Nondisplaced fracture of right scaphoid bone (Acute 02/01/24) Right wrist pain (Acute) GERD (gastroesophageal reflux disease) (Chronic) Hypertension (Chronic) Neuropathy (Acute) History of venous thrombosis and embolism (Acute) Pityriasis versicolor (Acute) Hyperlipidemia (Chronic) Atherosclerotic heart disease of [place] coronary artery without angina pectoris (Acute) CKD stage 4 due to type 2 diabetes mellitus (Chronic) Heart failure (Chronic) Anxiety (Chronic) Morbid obesity (Chronic) Subacute osteomyelitis, left ankle and foot (Acute) Chronic pain (Chronic) COPD (chronic obstructive pulmonary disease) (Chronic) Asthma (Chronic) Type 2 diabetes mellitus (Chronic) Medical History CAD (coronary artery disease), [place] coronary artery Chronic bipolar disorder Chronic back pain greater than 3 months duration Diabetes mellitus type 2, insulin dependent MRSA infection Testicular hypofunction Low back pain Social History Smoking/Tobacco Use Status: Former Tobacco Use Smoking risk assessment performed?: Yes Alcohol Intake: current Alcohol Intake frequency: holidays/special occasions only Drug use: Never Substance use type: does not use Housing: assisted living facility Do you feel safe at home: Yes Do you feel safe in your relationship?: Yes
[2025-06-20 16:43] LABS: Abs Immature Grans 0.08 10^3/uL (0.0-0.06); HCT 32.2 % (40.0-50.0); HGB 10.4 g/dL (13.5-17.5); Immature Grans % 0.8 %; MCH 30.2 pg (27.0-33.0); MCHC 32.3 % (32.0-36.0); MCV 94 fL (80-95); MPV 9.8 fL (8.0-11.0); Platelet Count 168 10^3/uL (130-400); RBC 3.44 10^6/uL (4.36-5.78); RDW 13.3 % (11.8-14.1); RDW-SD 45.4 fL; WBC 10.60 10^3/uL (4.4-10.8)
--- NOTE | 2025-06-20 16:50 | DI.RAD_ITS ---
Exam(s) XR PORTABLE CHEST AP EXAM: XR PORTABLE CHEST AP CLINICAL HISTORY: Chest pain TECHNIQUE: 2D digital imaging was performed. COMPARISON: No exams were available for comparison FINDINGS: Exam mildly limited by lordotic positioning. LUNGS: Clear. No pleural abnormality seen. HEART: Normal size. AORTA: Normal diameter. BONES: The hardware in the lower cervical upper thoracic spine. Soft tissues: Unremarkable. IMPRESSION: No acute findings. DATA REPOSITORY: RADIATION DOSE DELIVERED:
[2025-06-20 16:56] LABS: INR 1.1 (0.9-1.1); PTT Activated 23.0 sec (20.6-30.2); Prothrombin Time 10.8 sec (9.1-11.1)
[2025-06-20 17:22] LABS: ALT 32 U/L (16-63); AST 22 U/L (15-37); Albumin 4.0 g/dL (3.4-5.0); Alkaline Phosphatase 58 U/L (46-116); Anion Gap 10.6 mmol/L (3-11); BUN 61 mg/dL (7-18); Bilirubin, Total 0.4 mg/dL (0.2-1.0); CO2 28.4 mmol/L (21.0-32.0); Calcium 9.4 mg/dL (8.5-10.1); Chloride 102 mmol/L (98-107); Estimated GFR 23.98 (mL/min/1.73m2); Glucose 167 mg/dL (74-106); Lipase 41 U/L (<78); Magnesium 1.5 mg/dL (1.8-2.4); Potassium 4.8 mmol/L (3.5-5.1); Sodium 141 mmol/L (136-145); Total Protein 6.7 g/dL (6.4-8.2); Troponin I 10 ng/L (<or=76)
[2025-06-20 17:46] LABS: NT-proBNP 738 pg/mL (<300)
[2025-06-20] MEDS: Magnesium Oxide 400 MG TAB PO (18:01)
[2025-06-20 18:29] LABS: Troponin I 10 ng/L (<or=76)
== END 2025-06-20 20:04 | disposition skilled nursing facility (03) ==
PROVIDERS: Emergency Provider Registered Nurse Emergency; PCP Family Medicine
DX: R07.9 Chest pain, unspecified (principal)
CPT/HCPCS: 80053; 83690; 93005; 99285; 71045; 83735; 83880; 84484; 85025; 85610; 85730; 93010; 99284

== ENCOUNTER 2025-06-28 12:09 | Inpatient (IN) | payer MEDICARE, MEDICAID, SELFPAY ==
[2025-06-28] VITALS (80 sets, daily range): BP systolic 109–157; BP diastolic 43–78; PULSE 40–85; RESP 10–23; TEMP 36–36.9; O2SAT 97–100
--- NOTE | 2025-06-28 12:00 | RT.EKG_ITS ---
APPROVED REPORT Exam: Resting ECG Reason for Exam: Chest Pain Patient Location: E HR:66 bpm ECG Measurements Heart Rate 66 AXIS ID 195 P 52 QRSd 90 QRS 13 QT 412 T 35 QTc 431 Conclusion Sinus rhythm...normal P axis, V-rate 60- 99 Sinus rhythm. When compared to prior 06/20/25 ID has decreased. WD
[2025-06-28 12:41] LABS: Abs Immature Grans 0.01 10^3/uL (0.0-0.06); HCT 34.8 % (40.0-50.0); HGB 11.3 g/dL (13.5-17.5); Immature Grans % 0.2 %; MCH 30.4 pg (27.0-33.0); MCHC 32.5 % (32.0-36.0); MCV 94 fL (80-95); MPV 9.6 fL (8.0-11.0); Platelet Count 178 10^3/uL (130-400); RBC 3.72 10^6/uL (4.36-5.78); RDW 13.3 % (11.8-14.1); RDW-SD 45.7 fL; WBC 5.95 10^3/uL (4.4-10.8)
--- NOTE | 2025-06-28 12:41 | DI.RAD_ITS ---
Exam(s) XR PORTABLE CHEST AP EXAM: XR PORTABLE CHEST AP CLINICAL HISTORY: Chest pain TECHNIQUE: 2D digital imaging was performed of the chest. One image was obtained. An AP view was obtained. COMPARISON: CR XR PORTABLE CHEST AP from 06/20/2025 FINDINGS: MEDIASTINUM: Normal. HEART: Normal. PULMONARY VASCULATURE: Normal. LUNGS: Clear. PLEURAL SPACE: No pleural effusion or pneumothorax. BONE:Within normal limits for the patient's age. There is again seen posterior spinal surgery spanning the cervical thoracic junction. OTHER FINDINGS:Normal. IMPRESSION: No acute pulmonary findings. DATA REPOSITORY: RADIATION DOSE DELIVERED:
[2025-06-28 12:59] LABS: ALT 34 U/L (16-63); AST 25 U/L (15-37); Albumin 4.3 g/dL (3.4-5.0); Alkaline Phosphatase 58 U/L (46-116); Anion Gap 11.1 mmol/L (3-11); BUN 42 mg/dL (7-18); Bilirubin, Total 0.6 mg/dL (0.2-1.0); CO2 26.9 mmol/L (21.0-32.0); Calcium 9.6 mg/dL (8.5-10.1); Chloride 101 mmol/L (98-107); Estimated GFR 32.03 (mL/min/1.73m2); Glucose 173 mg/dL (74-106); Lipase 74 U/L (<78); Magnesium 1.4 mg/dL (1.8-2.4); Potassium 4.6 mmol/L (3.5-5.1); Sodium 139 mmol/L (136-145); Total Protein 7.1 g/dL (6.4-8.2)
[2025-06-28 13:01] LABS: Troponin I 369 ng/L (<or=76)
--- NOTE | 2025-06-28 13:07 | W.ED.GENAD ---
Discharge Plan Disposition Patient Disposition: Admit to [facility] Condition: Stable Discharge Details Clinical Impression: Acute non-ST elevation myocardial infarction (NSTEMI), CKD stage 4 due to type 2 diabetes mellitus, Hypomagnesemia Primary Care Provider: Nica Carrasco ED Provider: Oma Mcclellan Home Meds and New Rx's Prescriptions: No Action aspirin [Adult Aspirin Regimen] 81 mg tablet,delayed release (DR/EC) 81 mg PO DAILY ferrous sulfate 325 mg (65 mg iron) tablet 325 mg PO DAILY Patient Comments: Take every Mon, Wed, Fri gabapentin 300 mg capsule 300 mg PO BID glucagon 1 mg recon soln 1 mg subcut Q20M PRN Rx Instructions: until target blood sugar attained insulin lispro 100 unit/mL insulin pen 1 sliding scale dose subcut USEASDIRECTD metoprolol succinate 25 mg tablet extended release 24 hr 25 mg PO BID magnesium hydroxide [Milk of Magnesia] 400 mg/5 mL suspension 30 ml PO DAILY PRN naloxone 4 mg/actuation spray,non-aerosol 4 mg intranasal Q2M Rx Instructions: spray 1 dose into ONE nostril; alternate nostrils w each dose until help arrives nitroglycerin 0.4 mg tablet, sublingual 0.4 mg sublingual Q5M PRN Rx Instructions: do not exceed 3 doses per episode pantoprazole 40 mg tablet,delayed release (DR/EC) 40 mg PO DAILY ranolazine 500 mg tablet extended release 12 hr 500 mg PO BID sevelamer HCl 800 mg tablet 800 mg PO TID Rx Instructions: must administer with a meal/food risperidone 1 mg tablet 1 mg PO DAILY risperidone 2 mg tablet 2 mg PO QHS sennosides-docusate sodium 8.6-50 mg tablet 1 tab-cap PO BID prazosin 1 mg capsule 3 mg PO QPM torsemide 20 mg tablet 20 mg PO DAILY Qty: 0 0RF Rx Instructions: Hold until 06/11/25 amlodipine 5 mg tablet 10 mg PO DAILY Qty: 0 0RF hydrocodone-acetaminophen 10-325 mg tablet 1 tab PO Q6H PRNQty: 10 0RF insulin asp prt-insulin aspart [Novolog Mix 70-30 U-100 Insuln] 100 unit/mL (70-30) solution 50 unit subcut DAILY Qty: 10 0RF Rx Instructions: In AM insulin asp prt-insulin aspart [Novolog Mix 70-30 U-100 Insuln] 100 unit/mL (70-30) solution 45 unit subcut HS Qty: 10 0RF Rx Instructions: hold if BS < 140 cholecalciferol (vitamin D3) 25 mcg (1,000 unit) capsule 100 mcg PO DAILY Qty: 0 0RF magnesium oxide 400 mg magnesium capsule 400 mg PO DAILY Qty: 7 0RF metformin 750 mg tablet 750 mg PO BID Qty: 10 0RF bisacodyl [Dulcolax (bisacodyl)] 10 mg suppository 10 mg NM DAILY PRNQty: 12 0RF Biofreeze (menthol) 4 % gel 1 applic topical Q6H PRN PRNQty: 237 0RF ropinirole 1 mg tablet 1 mg PO BID Qty: 0 0RF Trulicity 1.5 mg/0.5 mL pen injector 1.5 mg SUBCUT .weekly Qty: 0 0RF Patient Comments: Per Rehab center [facility], dosage is 3Mg/0.5Ml Q Thursday. Rx Instructions: On Thursday loperamide [Anti-Diarrheal (loperamide)] 2 mg capsule 2 mg PO Q6H PRN vilazodone [Viibryd] 20 mg tablet 20 mg PO DAILY Rx Instructions: must administer with a meal/food acetaminophen 500 mg capsule 650 mg PO Q4H PRN amitriptyline 50 mg tablet 50 mg PO HS clopidogrel [Plavix] 75 mg tablet 75 mg PO DAILY Qty: 20 0RF atorvastatin [Lipitor] 80 mg tablet 80 mg PO DAILY Qty: 30 0RF Enema 19-7 gram/118 mL enema 118 ml NM DAILY PRN ketoconazole 2 % shampoo 1 applic topical Q2W lidocaine HCl [Aspercreme (lidocaine HCl)] 4 % cream 1 applic topical BID polyethylene glycol 3350 17 gram/dose powder 17 g PO DAILY Rx Instructions: Constipation isosorbide mononitrate 60 mg tablet extended release 24 hr 60 mg PO DAILY tizanidine 2 mg tablet 2 mg PO QID umeclidinium-vilanterol [Anoro Ellipta] 62.5-25 mcg/actuation blister with device 1 inh inhalation DAILY HPI General Date/Time Provider Initiated Documentation: 06/28/25 12:24. HPI Narrative: 69-year-old male with a past medical history of coronary artery disease with, COPD, asthma, insulin-dependent diabetes, hypertension, chronic kidney disease stage IV, high cholesterol, bipolar disorder and chronic back pain presents with 10 out of 10 chest pressure. Patient states that he felt well earlier this morning. He did his normal home exercises. He went to an audiology appointment and then went to PT. While at PT he had significant discomfort in his chest. He states that it felt like an elephant was sitting on his chest. He had pain that radiated to his left arm and his jaw. He states that he then does not really recall everything that happened. He knows that he took an ambulance to the hospital. He was given 3 nitroglycerin and aspirin 324 mg prior to arrival. He states that the pain has diminished only slightly. He is a full code. He does take clopidogrel daily and took his dose this morning. Patient states that this is the 2nd or 3rd time he has had an event like this since being discharged from [facility] [place] where he had his stent placed at the end of May. He has not had a follow-up with cardiology since discharge. He is due to see cardiology here next week in follow-up however it is a first appointment for him as his insurance no longer covers the medical front desk coordinator he had been seeing. Denies any fevers or chills. No recent illness. He does have chronic wounds to his lower extremities. He states that they are healing well and has Unna boots in place. They have been following these at rehab. Related Data Home Medications ?Medication ?Instructions ?Recorded ?Confirmed aspirin 81 mg tablet,delayed 81 mg PO DAILY 07/06/24 06/28/25 release (Adult Aspirin Regimen) ferrous sulfate 325 mg (65 mg 325 mg PO DAILY 07/06/24 06/28/25 iron) tablet gabapentin 300 mg capsule 300 mg PO BID 07/06/24 06/28/25 glucagon 1 mg solution for 1 mg subcut Q20M PRN 07/06/24 06/28/25 injection insulin lispro 100 unit/mL 1 sliding scale dose subcut 07/06/24 06/28/25 subcutaneous pen USEASDIRECTD magnesium hydroxide 400 mg/5 mL 30 ml PO DAILY PRN 07/06/24 06/28/25 oral suspension (Milk of Magnesia) metoprolol succinate 25 mg 25 mg PO BID 09/04/24 08/27/25 tablet,extended release 24 hr naloxone 4 mg/actuation nasal spray 4 mg intranasal Q2M 07/06/24 06/28/25 nitroglycerin 0.4 mg sublingual 0.4 mg sublingual Q5M PRN 07/06/24 06/28/25 tablet pantoprazole 40 mg tablet,delayed 40 mg PO DAILY 07/06/24 06/28/25 release ranolazine 500 mg tablet,extended 500 mg PO BID 07/06/24 06/28/25 release,12 hr risperidone 1 mg tablet 1 mg PO DAILY 07/06/24 06/28/25 risperidone 2 mg tablet 2 mg PO QHS 07/06/24 06/28/25 sennosides 8.6 mg-docusate sodium 1 tab-cap PO BID 07/06/24 06/28/25 50 mg tablet sevelamer HCl 800 mg tablet 800 mg PO TID 07/06/24 06/28/25 isosorbide mononitrate 60 mg 60 mg PO DAILY 03/15/25 06/28/25 tablet,extended release 24 hr tizanidine 2 mg tablet 2 mg PO QID 03/15/25 06/28/25 prazosin 1 mg capsule 3 mg PO QPM 03/31/25 06/28/25 umeclidinium 62.5 mcg-vilanterol 1 inh inhalation DAILY 05/31/25 06/28/25 25 mcg/actuation powdr for inhalation (Anoro Ellipta) amlodipine 5 mg tablet 10 mg (2 x 5 mg) PO DAILY #0 tabs 06/10/25 06/28/25 bisacodyl 10 mg rectal suppository 10 mg NM DAILY PRN #12 ea 06/10/25 06/28/25 (Dulcolax (bisacodyl)) cholecalciferol (vitamin D3) 25 100 mcg (4 x 25 mcg (1,000 unit)) 06/10/25 06/28/25 mcg (1,000 unit) capsule PO DAILY #0 caps dulaglutide 1.5 mg/0.5 mL 1.5 mg (0.5 mL) subcut .weekly #0 06/10/25 06/28/25 subcutaneous pen injector mL (Trulicity) hydrocodone 10 mg-acetaminophen 1 tab PO Q6H PRN #10 tabs 06/10/25 06/28/25 325 mg tablet insulin aspar prt-insulin aspart 45 unit (0.45 mL) subcut HS #10 mL 06/10/25 06/28/25 100 unit/mL (70-30) subcutaneous soln (Novolog Mix 70-30 U-100 Insuln) insulin aspar prt-insulin aspart 50 unit (0.5 mL) subcut DAILY #10 06/10/25 06/28/25 100 unit/mL (70-30) subcutaneous mL soln (Novolog Mix 70-30 U-100 Insuln) magnesium oxide 400 mg PO DAILY #7 caps 06/10/25 06/28/25 menthol 4 % topical gel (Biofreeze 1 applic topical Q6H PRN PRN #237 06/10/25 06/28/25 (menthol)) mL metformin 750 mg tablet 750 mg PO BID #10 tabs 06/10/25 06/28/25 ropinirole 1 mg tablet 1 mg PO BID #0 tabs 06/10/25 06/28/25 torsemide 20 mg tablet 20 mg PO DAILY #0 tabs 06/10/25 06/28/25 acetaminophen 500 mg capsule 650 mg PO Q4H PRN 06/13/25 06/28/25 loperamide 2 mg capsule 2 mg PO Q6H PRN 06/13/25 06/28/25 (Anti-Diarrheal (loperamide)) vilazodone 20 mg tablet (Viibryd) 20 mg PO DAILY 06/13/25 06/28/25 amitriptyline 50 mg tablet 50 mg PO HS 06/14/25 06/28/25 atorvastatin 80 mg tablet (Lipitor) 80 mg PO DAILY #30 tabs 06/14/25 06/28/25 clopidogrel 75 mg tablet (Plavix) 75 mg PO DAILY #20 tabs 06/14/25 06/28/25 ketoconazole 2 % shampoo 1 applic topical Q2W 06/20/25 06/28/25 sodium phosphates 19 gram-7 118 ml NM DAILY PRN 06/20/25 06/28/25 gram/118 mL enema (Enema) lidocaine HCl 4 % topical cream 1 applic topical BID 06/28/25 06/28/25 (Aspercreme (lidocaine HCl)) polyethylene glycol 3350 17 17 g PO DAILY 06/28/25 06/28/25 gram/dose oral powder Previous Rx's ?Medication ?Instructions ?Recorded amlodipine 5 mg tablet 10 mg (2 x 5 mg) PO DAILY #0 tabs 06/10/25 bisacodyl 10 mg rectal suppository 10 mg NM DAILY PRN #12 ea 06/10/25 (Dulcolax (bisacodyl)) cholecalciferol (vitamin D3) 25 100 mcg (4 x 25 mcg (1,000 unit)) 06/10/25 mcg (1,000 unit) capsule PO DAILY #0 caps dulaglutide 1.5 mg/0.5 mL 1.5 mg (0.5 mL) subcut .weekly #0 06/10/25 subcutaneous pen injector mL (Trulicity) hydrocodone 10 mg-acetaminophen 1 tab PO Q6H PRN #10 tabs 06/10/25 325 mg tablet insulin aspar prt-insulin aspart 45 unit (0.45 mL) subcut HS #10 mL 06/10/25 100 unit/mL (70-30) subcutaneous soln (Novolog Mix 70-30 U-100 Insuln) insulin aspar prt-insulin aspart 50 unit (0.5 mL) subcut DAILY #10 06/10/25 100 unit/mL (70-30) subcutaneous mL soln (Novolog Mix 70-30 U-100 Insuln) magnesium oxide 400 mg PO DAILY #7 caps 06/10/25 menthol 4 % topical gel (Biofreeze 1 applic topical Q6H PRN PRN #237 06/10/25 (menthol)) mL metformin 750 mg tablet 750 mg PO BID #10 tabs 06/10/25 ropinirole 1 mg tablet 1 mg PO BID #0 tabs 06/10/25 torsemide 20 mg tablet 20 mg PO DAILY #0 tabs 06/10/25 atorvastatin 80 mg tablet (Lipitor) 80 mg PO DAILY #30 tabs 06/14/25 clopidogrel 75 mg tablet (Plavix) 75 mg PO DAILY #20 tabs 06/14/25 Allergies Allergy/AdvReac Type Severity Reaction Status Date / Time bee venom protein (honey bee) Allergy Intermediate Anaphylaxis Verified 06/28/25 12:16 clonidine Allergy Mild Unknown Verified 06/28/25 12:16 Influenza Virus Vaccines Allergy Mild Unknown Verified 06/28/25 12:16 prednisone Allergy Unknown Other (See Verified 06/28/25 12:16 Comment) tamsulosin (From Flomax) Allergy Unknown Other (See Verified 06/28/25 12:16 Comment) General Stated Complaint: Chest Pain VALERI: 3 Review of Systems Narrative: Remainder of review of systems otherwise negative except for as noted in the HPI x 10. Exam Narrative Exam Narrative: General: non-toxic, no respiratory distress, comfortable HEENT: normocephalic, atraumatic, lids and lashes normal, PERRL, EOMI, anicteric sclera, no conjunctival injection, moist oral mucosa Card: regular rate and rhythm, S1S2, no murmurs, rubs, or gallops Lungs: good air entry, clear to auscultation bilaterally. no wheezes, rales, rhonchi, or retractions Abd: soft, non-tender, non-distended, normal bowel sounds, no rebound or guarding, no peritoneal signs Musculoskeletal: Dressing to lower extremity bilaterally, chronic venous stasis changes, full range of motion of arms and legs, no tenderness to palpation. no clubbing, cyanosis, or edema Neurologic: appropriate for age, strength normal Psych: alert and oriented Skin: Multiple healing bruises to upper extremities bilaterally, as above, otherwise no petechiae, no lesions, warm and dry Course Vital Signs Vital signs: Vital Signs Temperature 36.6 C 06/28/25 12:12 Pulse 66 06/28/25 12:12 Respiratory Rate 18 06/28/25 12:12 Blood Pressure 143/53 H 06/28/25 12:12 Pulse Oximetry 100 06/28/25 12:12 Temperature 36.6 C 06/28/25 12:12 Temperature Source Oral 06/28/25 12:12 Pulse 66 06/28/25 13:02 Pulse Rhythm Regular 06/28/25 12:53 Pulse Strength Normal 06/28/25 12:53 Pulse 82 06/28/25 13:02 Respiratory Rate 13 06/28/25 13:02 Respiratory Effort Normal 06/28/25 12:53 Respiratory Depth Normal 06/28/25 12:53 Respiratory Pattern Normal 06/28/25 12:53 Blood Pressure 142/44 H 06/28/25 13:02 Blood Pressure Mean 79 06/28/25 13:02 Pulse Oximetry 100 06/28/25 13:00 Oxygen Delivery Method Room Air 06/28/25 12:53 Oxygen Flow Rate 0 08/27/25 12:53 Pain Level 10 06/28/25 12:12 Lab/Test Results Lab/Test Results: Laboratory Tests Range/Units 06/28/25 12:30 WBC (4.4-10.8) 10^3/uL 5.95 RBC (4.36-5.78) 10^6/uL 3.72 L Hgb (13.5-17.5) g/dL 11.3 L Hct (40.0-50.0) % 34.8 L MCV (80-95) fL 94 MCH (27.0-33.0) pg 30.4 MCHC (32.0-36.0) % 32.5 RDW (11.8-14.1) % 13.3 Plt Count (130-400) 10^3/uL 178 MPV (8.0-11.0) fL 9.6 Immature Gran % % 0.2 Neutrophils % % 61.1 Lymphocytes % % 25.4 Monocytes % % 8.6 Eosinophils % % 4.2 Basophils % % 0.5 Nucleated RBC % (0.0-0.3) % 0.0 Absolute Neutrophils (1.2-6.7) 10^3/uL 3.64 Absolute Lymphocytes (1.2-3.4) 10^3/uL 1.51 Absolute Monocytes (0.1-0.8) 10^3/uL 0.51 Absolute Eosinophils (0.0-0.7) 10^3/uL 0.25 Absolute Basophils (0.0-0.2) 10^3/uL 0.03 Sodium (136-145) mmol/L 139 Potassium (3.5-5.1) mmol/L 4.6 Chloride (98-107) mmol/L 101 Carbon Dioxide (21.0-32.0) mmol/L 26.9 Anion Gap (3-11) mmol/L 11.1 H BUN (7-18) mg/dL 42 H Creatinine (0.70-1.30) mg/dL 2.2 H Est GFR (CKD-EPI 2020) (mL/min/1.73m2) 32.03 Glucose (74-106) mg/dL 173 H Calcium (8.5-10.1) mg/dL 9.6 Magnesium (1.8-2.4) mg/dL 1.4 L Total Bilirubin (0.2-1.0) mg/dL 0.6 AST (15-37) U/L 25 ALT (16-63) U/L 34 Alkaline Phosphatase (46-116) U/L 58 Troponin I (<or=76) ng/L 369 H* Total Protein (6.4-8.2) g/dL 7.1 Albumin (3.4-5.0) g/dL 4.3 Lipase (<78) U/L 74 Medical Decision Making 69-year-old male with a past medical history of coronary artery disease with, COPD, asthma, insulin-dependent diabetes, hypertension, chronic kidney disease stage IV, high cholesterol, bipolar disorder and chronic back pain presents with 10 out of 10 chest pressure. At time my evaluation he continues to have chest discomfort. EKG does not show any acute ischemic changes. Chest x-ray unremarkable. Laboratory studies concerning for elevated troponin consistent with NSTEMI. Patient started on heparin drip as well as nitro drip. Repeat troponin 360. Repeat EKG shows sinus rhythm without acute ischemic changes. Patient's pain resolved with IV nitro. Case discussed with [facility] cardiology, ISMAEL Alfonso. Patient is accepted under Dr. Moran and listed for a bed 06/29/2025. Case discussed with hospitalist, Dr. Bonilla who will admit to their service. Critical Care Time Critical Care Time Attestation: CRITICAL CARE Total critical care time: 45 minutes Critical care concerns: NSTEMI Critical care interventions: IV nitro, IV heparin, IV magnesium, cardiology consultation, hospitalist consultation Total critical care time included the assessment and discussions as described in the emergency department history, physical, and medical decision making. The critical care time provided excludes separately billable procedures. [facility] All Active Problems (Updated 06/28/25 @ 14:59 by Oma Mcclellan MD) Hypomagnesemia (Acute) Acute non-ST elevation myocardial infarction (NSTEMI) (Acute) Ear pain, left (Acute) Tinnitus of both ears (Acute) Chest pain (Acute) TIA (transient ischemic attack) (Acute) CAD S/P percutaneous coronary angioplasty (Acute) Acute on chronic kidney failure (Acute) Iron deficiency anemia (Acute) Unstable angina (Acute) Chest pain (Acute) Osteoarthritis of hip (Acute) Right hip pain (Acute) PAD (peripheral artery disease) (Acute) Lymphedema (Acute) Venous ulcers of both lower extremities (Acute) Venous (peripheral) insufficiency (Acute) Phantom limb syndrome (Acute) PTSD (post-traumatic stress disorder) (Chronic) Vitamin D deficiency (Acute) Nondisplaced fracture of right scaphoid bone (Acute 02/01/24) Right wrist pain (Acute) GERD (gastroesophageal reflux disease) (Chronic) Hypertension (Chronic) Neuropathy (Acute) History of venous thrombosis and embolism (Acute) Pityriasis versicolor (Acute) Hyperlipidemia (Chronic) Atherosclerotic heart disease of [place] coronary artery without angina pectoris (Acute) CKD stage 4 due to type 2 diabetes mellitus (Chronic) Heart failure (Chronic) Anxiety (Chronic) Morbid obesity (Chronic) Subacute osteomyelitis, left ankle and foot (Acute) Chronic pain (Chronic) COPD (chronic obstructive pulmonary disease) (Chronic) Asthma (Chronic) Type 2 diabetes mellitus (Chronic) Medical History CAD (coronary artery disease), [place] coronary artery Chronic bipolar disorder Chronic back pain greater than 3 months duration Diabetes mellitus type 2, insulin dependent MRSA infection Testicular hypofunction Low back pain Social History Smoking/Tobacco Use Status: Former Tobacco Use Smoking risk assessment performed?: Yes Alcohol Intake: current Alcohol Intake frequency: holidays/special occasions only Drug use: Never Substance use type: does not use Housing: assisted living facility Do you feel safe at home: Yes Do you feel safe in your relationship?: Yes
[2025-06-28] MEDS: fentaNYL 100 MCG/2 ML VIAL 50 MCG IVP (13:39)
[2025-06-28] MEDS: Heparin in 0.45% NaCl 25,000 UNIT/250 ML BAG 10 UNIT IVINF (13:51)
[2025-06-28] MEDS: nitroGLYcerin in D5W 50 MG/250 ML BTL IV (13:53)
[2025-06-28 14:13] LABS: Troponin I 360 ng/L (<or=76)
[2025-06-28] MEDS: MAGNESIUM SULFATE 2 GM/50 ML BAG IV_INF (14:15)
--- NOTE | 2025-06-28 14:15 | RT.EKG_ITS ---
APPROVED REPORT Exam: Resting ECG Reason for Exam: repeat Patient Location: E HR:66 bpm ECG Measurements Heart Rate 66 AXIS NC 184 P 60 QRSd 96 QRS 14 QT 427 T 37 QTc 448 Conclusion Sinus rhythm...normal P axis, V-rate 60- 99 Sinus Rhythm. No change from prior 06/28/25. WD
--- NOTE | 2025-06-28 16:59 | W.PC.ACHO ---
Registration Status: REG ER Primary Language: Preferred Language: ED Information & Data Chief Complaint Chest Pain 06/28/25 13:12 Triage Note stents placed 4 weeks ago, 06/28/25 12:12 had apt here at [facility] this am but when he got back to [facility] hr chest pain started, gave x3 bell w/ no releif. no ASA, cp is reproducible with pressure. SOB, dizzy, pt reports feels disoriented . Medical / Surgical History (Last Reviewed 06/28/25 @ 13:11 by Oma Mcclellan MD) CAD (coronary artery disease), [place] coronary artery Chronic bipolar disorder Chronic back pain greater than 3 months duration Diabetes mellitus type 2, insulin dependent MRSA infection Testicular hypofunction Low back pain Most Recent Vital Signs Temperature 36.9 C 06/28/25 13:59 Temperature Source Oral 06/28/25 13:59 Pulse 73 06/28/25 15:52 Pulse Rhythm Regular 06/28/25 12:53 Pulse Strength Normal 06/28/25 12:53 Pulse 73 06/28/25 15:52 Respiratory Rate 15 06/28/25 15:52 Respiratory Effort Normal 06/28/25 12:53 Respiratory Depth Normal 06/28/25 12:53 Respiratory Pattern Normal 06/28/25 12:53 Blood Pressure 109/49 L 06/28/25 15:52 Blood Pressure Mean 67 06/28/25 15:52 Pulse Oximetry 97 06/28/25 15:52 Oxygen Delivery Method Room Air 06/28/25 12:53 Oxygen Flow Rate 0 06/28/25 12:53 Pain Level 10 06/28/25 12:12 Allergies bee venom protein (honey bee) Allergy (Intermediate, Verified 06/28/25 12:16) Anaphylaxis clonidine Allergy (Mild, Verified 06/28/25 12:16) Unknown Influenza Virus Vaccines Allergy (Mild, Verified 06/28/25 12:16) Unknown prednisone Allergy (Unknown, Verified 06/28/25 12:16) Other (See Comment) tamsulosin (From Flomax) Allergy (Unknown, Verified 06/28/25 12:16) Other (See Comment) Active Medications Generic Name Dose Route Start Last Admin Trade Name Freq PRN Reason Stop Dose Admin Nitroglycerin/Dextrose 50 mg in 250 mls @ 0 mls/hr 06/28/25 13:15 06/28/25 15:05 IV 9 mls/hr INFUSION HANSEL 9 mls/hr Protocol Titration Per Protocol Heparin Sodium/Sodium Chloride 25,000 unit in 250 mls @ 0 mls/hr 06/28/25 13:15 06/28/25 13:51 IVINF 10 mls/hr INFUSION HANSEL 10 mls/hr Protocol Administration Per Protocol IV IV Catheter Type [Left Saline Lock Antecubital] IV Catheter Type [Right Saline Lock Antecubital] IV Catheter Gauge [Left 18 Antecubital] IV Catheter Gauge [Right 18 Antecubital] Diet Orders Category Date Time Status Diabetes Consistent CHO/Heart Healthy [DIET] Nutrition 06/28/25 Dinner Active Diagnostics 06/28/25 06/28/25 06/28/25 Range/Units 15:53 13:33 12:30 WBC 5.95 (4.4-10.8) 10^3/uL RBC 3.72 L (4.36-5.78) 10^6/uL Hgb 11.3 L (13.5-17.5) g/dL Hct 34.8 L (40.0-50.0) % MCV 94 (80-95) fL MCH 30.4 (27.0-33.0) pg MCHC 32.5 (32.0-36.0) % RDW 13.3 (11.8-14.1) % Plt Count 178 (130-400) 10^3/uL MPV 9.6 (8.0-11.0) fL Immature Gran % 0.2 % Neutrophils % 61.1 % Lymphocytes % 25.4 % Monocytes % 8.6 % Eosinophils % 4.2 % Basophils % 0.5 % Nucleated RBC % 0.0 (0.0-0.3) % Absolute Neutrophils 3.64 (1.2-6.7) 10^3/uL Absolute Lymphocytes 1.51 (1.2-3.4) 10^3/uL Absolute Monocytes 0.51 (0.1-0.8) 10^3/uL Absolute Eosinophils 0.25 (0.0-0.7) 10^3/uL Absolute Basophils 0.03 (0.0-0.2) 10^3/uL Sodium 139 (136-145) mmol/L Potassium 4.6 (3.5-5.1) mmol/L Chloride 101 (98-107) mmol/L Carbon Dioxide 26.9 (21.0-32.0) mmol/L Anion Gap 11.1 H (3-11) mmol/L BUN 42 H (7-18) mg/dL Creatinine 2.2 H (0.70-1.30) mg/dL Est GFR (CKD-EPI 2020) 32.03 (mL/min/1.73m2) Glucose 173 H (74-106) mg/dL Calcium 9.6 (8.5-10.1) mg/dL Magnesium 1.4 L (1.8-2.4) mg/dL Total Bilirubin 0.6 (0.2-1.0) mg/dL AST 25 (15-37) U/L ALT 34 (16-63) U/L Alkaline Phosphatase 58 (46-116) U/L Troponin I Pending 360 H* 369 H* (<or=76) ng/L Total Protein 7.1 (6.4-8.2) g/dL Albumin 4.3 (3.4-5.0) g/dL Lipase 74 (<78) U/L MRSA (TEM-PCR) Pending Intake and Output - 24 Hour Total 06/28/25 12:08 thru 06/28/25 16:02 Intake Total 55.925 Balance 55.925 Weight 147.871 kg Intake: IV 55.925 Falls Risk Assessment History of Falls No History 06/28/25 12:53 Contributing Factors No Factors 06/28/25 12:53 Ambulatory Aids Independent 06/28/25 12:53 Tubes/Lines None 06/28/25 12:53 Gait Evaluation No gait disturbance 06/28/25 12:53 Cognition No cognitive impairment 06/28/25 12:53 Fall Total Score 0 06/28/25 12:53 Level of Risk Standard/Low Risk 06/28/25 12:53 Problems (Last Reviewed 06/28/25 @ 13:11 by Oma Mcclellan MD) Hypomagnesemia (Acute) Acute non-ST elevation myocardial infarction (NSTEMI) (Acute) CKD stage 4 due to type 2 diabetes mellitus (Chronic) v v v v v v v v v Sending and/or Receiving Nurses: Please use comment section below to note any information pertinent to the patient hand-off not included above. Information / Comments: Lives in SNF. A/O x3. Usually WC bound. In ED dizzy with standing. Nitro drip at 30 mcg/min -- now free of chest pain/pressure. Heparin bolus given and drip running. Lungs CTA. VSS. All questions answered Report received from: Skye Snow RN
[2025-06-28 17:16] LABS: MRSA PCR Positive (Negative)
--- NOTE | 2025-06-28 17:57 | W.PM.HP.N ---
Date of service: 06/28/25 Time of Service: 17:57 Assessment and Plan Assessment and plan (1) Acute non-ST elevation myocardial infarction (NSTEMI): Status: Acute Assessment and plan: Pain and troponins c/w NSTEMI. Required NTG drip, so monitoring in ICU Case reviewed with cardiology, on heparin drip with transfer pending, accepted by Dr. Nomi Moran pending bed. Continue ASA/clopidogrel/statin as well. (2) Hypertension: Status: Chronic Assessment and plan: BP stable even with NGT drip. Holding isosorbide but continue other meds. (3) Type 2 diabetes mellitus: Status: Chronic Assessment and plan: On mixed insulin with recent A1c 8.2%. His sugars have been lower recently, so dose conservatively with sliding scale as backup. GFR borderline for metformin, possible cath pending, so hold this. (4) CKD stage 4 due to type 2 diabetes mellitus: Status: Chronic Assessment and plan: At recent baseline, follow (5) Iron deficiency anemia: Status: Acute Assessment and plan: Mild, can continue iron QOD. repeat iron levels as if low may benefit from IV iron. (6) COPD (chronic obstructive pulmonary disease): Status: Chronic Assessment and plan: Not active, continue controller inhalers. (7) Chronic pain: Status: Chronic Assessment and plan: Continue chronic therapy other than TCA given active PA (8) Venous ulcers of both lower extremities: Status: Acute Assessment and plan: These do not look infected. Continue compressive therapy and wound/skin care. (9) Hypomagnesemia: Status: Acute Assessment and plan: replaced in ED, follow and redose PRN (10) Anxiety: Status: Chronic Assessment and plan: continue home psychiatric regimen History of Present Illness History of Present Illness Chief Complaint: chest pain Narrative: 69-year-old male past medical history HFpEF, history of PE, bipolar, obesity, GERD, COPD, IDDM, CKD stage 4, hypertension, hyperlipidemia, asthma, TIA, and cardiac catheterization with stenting of mLAD and noted disease of proximal RCA without intervention presents to the emergency department with severe chest pain/pressure while exercising at physical therapy today around noon. The pain started while he was doing seated bicycle exercises with his legs at physical therapy. Pain was 10/10, sharp but also pressure, like he was kicked in the chest, with pain to his left jaw and numbness down his left arm. A/w SOB, mild diaphoresis, lightheadedness. No LOC, no nausea/vomiting. No focal numbness or weakness or vision/voice changes. Similar to previous heart disease. NTG SL didn't help, but the pain did calm after started on a drip here, down to 0/10. Just now when getting up in bed for nursing care with some exertion his pain returned at 7/10, now fading again down to 3-4/10. He was sent to [facility] 05/31 with unstable angina, had LAD stenting as above. Since then he was admitted 06/09- for chest pain and 06/13- for TIA. He states prior to the chest pain today. He was able to do 15 minutes of leg cycling machine this morning without pain and felt good. He states his sugars have been lower recently. He didn't eat breakfast or lunch so he hasn't had insulin all day, but is hungry now. Review of Systems All systems reviewed & are unremarkable except as noted in HPI and below PFSH All Active Problems Hypomagnesemia (Acute) Acute non-ST elevation myocardial infarction (NSTEMI) (Acute) Ear pain, left (Acute) Tinnitus of both ears (Acute) Chest pain (Acute) TIA (transient ischemic attack) (Acute) CAD S/P percutaneous coronary angioplasty (Acute) Acute on chronic kidney failure (Acute) Iron deficiency anemia (Acute) Unstable angina (Acute) Chest pain (Acute) Osteoarthritis of hip (Acute) Right hip pain (Acute) PAD (peripheral artery disease) (Acute) Lymphedema (Acute) Venous ulcers of both lower extremities (Acute) Venous (peripheral) insufficiency (Acute) Nondisplaced fracture of right scaphoid bone (Acute 02/01/24) Right wrist pain (Acute) GERD (gastroesophageal reflux disease) (Chronic) Hypertension (Chronic) Neuropathy (Acute) Phantom limb syndrome (Acute) History of venous thrombosis and embolism (Acute) Vitamin D deficiency (Acute) Pityriasis versicolor (Acute) Hyperlipidemia (Chronic) Atherosclerotic heart disease of [place] coronary artery without angina pectoris (Acute) CKD stage 4 due to type 2 diabetes mellitus (Chronic) Heart failure (Chronic) PTSD (post-traumatic stress disorder) (Chronic) Anxiety (Chronic) Morbid obesity (Chronic) Subacute osteomyelitis, left ankle and foot (Acute) Chronic pain (Chronic) COPD (chronic obstructive pulmonary disease) (Chronic) Asthma (Chronic) Type 2 diabetes mellitus (Chronic) Medical History CAD (coronary artery disease), [place] coronary artery Chronic bipolar disorder Chronic back pain greater than 3 months duration Diabetes mellitus type 2, insulin dependent MRSA infection Testicular hypofunction Low back pain Social History Smoking/Tobacco Use Status: Former Tobacco Use Smoking risk assessment performed?: Yes Alcohol Intake: current Alcohol Intake frequency: holidays/special occasions only Drug use: Never Substance use type: does not use Housing: assisted living facility Do you feel safe at home: Yes Do you feel safe in your relationship?: Yes Meds Allergies and Home Medications Allergies Allergy/AdvReac Type Severity Reaction Status Date / Time bee venom protein (honey bee) Allergy Intermediate Anaphylaxis Verified 06/28/25 12:16 clonidine Allergy Mild Unknown Verified 06/28/25 12:16 Influenza Virus Vaccines Allergy Mild Unknown Verified 06/28/25 12:16 prednisone Allergy Unknown Other (See Verified 06/28/25 12:16 Comment) tamsulosin (From Flomax) Allergy Unknown Other (See Verified 06/28/25 12:16 Comment) Home Medications ?Medication ?Instructions ?Recorded ?Confirmed ?Type aspirin 81 mg tablet,delayed 81 mg PO DAILY 07/06/24 06/28/25 History release (Adult Aspirin Regimen) ferrous sulfate 325 mg (65 mg 325 mg PO DAILY 07/06/24 06/28/25 History iron) tablet gabapentin 300 mg capsule 300 mg PO BID 07/06/24 06/28/25 History glucagon 1 mg solution for 1 mg subcut Q20M PRN 07/06/24 06/28/25 History injection insulin lispro 100 unit/mL 1 sliding scale dose subcut 07/06/24 06/28/25 History subcutaneous pen USEASDIRECTD magnesium hydroxide 400 mg/5 mL 30 ml PO DAILY PRN 07/06/24 06/28/25 History oral suspension (Milk of Magnesia) metoprolol succinate 25 mg 25 mg PO BID 07/06/24 06/28/25 History tablet,extended release 24 hr naloxone 4 mg/actuation nasal spray 4 mg intranasal Q2M 07/06/24 06/28/25 History nitroglycerin 0.4 mg sublingual 0.4 mg sublingual Q5M PRN 07/06/24 06/28/25 History tablet pantoprazole 40 mg tablet,delayed 40 mg PO DAILY 07/06/24 06/28/25 History release ranolazine 500 mg tablet,extended 500 mg PO BID 07/06/24 06/28/25 History release,12 hr risperidone 1 mg tablet 1 mg PO DAILY 07/06/24 06/28/25 History risperidone 2 mg tablet 2 mg PO QHS 07/06/24 06/28/25 History sennosides 8.6 mg-docusate sodium 1 tab-cap PO BID 07/06/24 06/28/25 History 50 mg tablet sevelamer HCl 800 mg tablet 800 mg PO TID 07/06/24 06/28/25 History isosorbide mononitrate 60 mg 60 mg PO DAILY 03/15/25 06/28/25 History tablet,extended release 24 hr tizanidine 2 mg tablet 2 mg PO QID 03/15/25 06/28/25 History prazosin 1 mg capsule 3 mg PO QPM 03/31/25 06/28/25 History umeclidinium 62.5 mcg-vilanterol 1 inh inhalation DAILY 05/31/25 06/28/25 History 25 mcg/actuation powdr for inhalation (Anoro Ellipta) bisacodyl 10 mg rectal suppository 10 mg ID DAILY PRN #12 ea 06/10/25 06/28/25 Rx (Dulcolax (bisacodyl)) cholecalciferol (vitamin D3) 25 100 mcg (4 x 25 mcg (1,000 unit)) 06/10/25 06/28/25 Rx mcg (1,000 unit) capsule PO DAILY #0 caps dulaglutide 1.5 mg/0.5 mL 1.5 mg (0.5 mL) subcut .weekly #0 06/10/25 06/28/25 Rx subcutaneous pen injector mL (Trulicity) hydrocodone 10 mg-acetaminophen 1 tab PO Q6H PRN #10 tabs 06/10/25 06/28/25 Rx 325 mg tablet insulin aspar prt-insulin aspart 45 unit (0.45 mL) subcut HS #10 mL 06/10/25 06/28/25 Rx 100 unit/mL (70-30) subcutaneous soln (Novolog Mix 70-30 U-100 Insuln) insulin aspar prt-insulin aspart 50 unit (0.5 mL) subcut DAILY #10 06/10/25 06/28/25 Rx 100 unit/mL (70-30) subcutaneous mL soln (Novolog Mix 70-30 U-100 Insuln) magnesium oxide 400 mg PO DAILY #7 caps 06/10/25 06/28/25 Rx menthol 4 % topical gel (Biofreeze 1 applic topical Q6H PRN PRN #237 06/10/25 06/28/25 Rx (menthol)) mL ropinirole 1 mg tablet 1 mg PO BID #0 tabs 06/10/25 06/28/25 Rx torsemide 20 mg tablet 20 mg PO DAILY #0 tabs 06/10/25 06/28/25 Rx acetaminophen 500 mg capsule 650 mg PO Q4H PRN 06/13/25 06/28/25 History loperamide 2 mg capsule 2 mg PO Q6H PRN 06/13/25 06/28/25 History (Anti-Diarrheal (loperamide)) vilazodone 20 mg tablet (Viibryd) 20 mg PO DAILY 06/13/25 06/28/25 History amitriptyline 50 mg tablet 50 mg PO HS 06/14/25 06/28/25 History atorvastatin 80 mg tablet (Lipitor) 80 mg PO DAILY #30 tabs 06/14/25 06/28/25 Rx clopidogrel 75 mg tablet (Plavix) 75 mg PO DAILY #20 tabs 06/14/25 06/28/25 Rx ketoconazole 2 % shampoo 1 applic topical Q2W 06/20/25 06/28/25 History sodium phosphates 19 gram-7 118 ml ID DAILY PRN 06/20/25 06/28/25 History gram/118 mL enema (Enema) amlodipine 10 mg tablet 10 mg PO DAILY 06/28/25 06/28/25 History lidocaine HCl 4 % topical cream 1 applic topical BID 06/28/25 06/28/25 History (Aspercreme (lidocaine HCl)) metformin 500 mg tablet 750 mg PO BID 06/28/25 06/28/25 History polyethylene glycol 3350 17 17 g PO DAILY 06/28/25 06/28/25 History gram/dose oral powder Exam Narrative Exam Narrative: GEN: Alert and oriented x 4, pleasant and cooperative, gives linear history. No acute distress at rest lying in bed with head at 30 degrees. Obese habitus. HEENT: Head atraumatic. Conjunctiva clear, no icterus. PEERL, EOMI. no rhinorrhea. MMM, OP benign. Neck is supple with no masses or lymphadenopathy, trachea midline, no elevation JVP notable. LUNGS: CTAB with normal effort CV: RRR with no murmurs, gallops, or rubs. ABD: active bowel sounds, soft, nontender and nondistended. No masses. EXT: no cyanosis, clubbing. 1+ woody bilateral edema to shins MSK: No joint redness or swelling. chest wall not tender NEURO: CN 2-12 grossly intact. Normal movement of 4 extremities. Normal speech and coordination. No tremor SKIN: No rashes or open wounds other than bilateral hyperpigmented and thickened shins, wraped, only slight serous crust on wrap from 06/26. PSYCH: normal mood and affect, nl thought process Results Imaging Chest x-ray: report reviewed (No acute pulmonary findings. ) and image reviewed EKG: report reviewed (2 EKGS, both NSR, no STEMI, no change) and image reviewed Imaging Studies: ECHO 06/13: limited quality, but LVEF 60%, nl wall motion, RV not well visualized, no change from 06/01. Labs 06/28/25 12:30 06/28/25 12:30 Labs: Laboratory Results - last 24 hr 06/28/25 06/28/25 06/28/25 12:30 13:33 15:53 WBC 5.95 RBC 3.72 L Hgb 11.3 L Hct 34.8 L MCV 94 MCH 30.4 MCHC 32.5 RDW 13.3 Plt Count 178 MPV 9.6 Immature Gran % 0.2 Neutrophils % 61.1 Lymphocytes % 25.4 Monocytes % 8.6 Eosinophils % 4.2 Basophils % 0.5 Nucleated RBC % 0.0 Absolute Neutrophils 3.64 Absolute Lymphocytes 1.51 Absolute Monocytes 0.51 Absolute Eosinophils 0.25 Absolute Basophils 0.03 Sodium 139 Potassium 4.6 Chloride 101 Carbon Dioxide 26.9 Anion Gap 11.1 H BUN 42 H Creatinine 2.2 H Est GFR (CKD-EPI 2020) 32.03 Glucose 173 H Calcium 9.6 Magnesium 1.4 L Total Bilirubin 0.6 AST 25 ALT 34 Alkaline Phosphatase 58 Troponin I 369 H* 360 H* Total Protein 7.1 Albumin 4.3 Lipase 74 MRSA (TEM-PCR) Positive A Last Vital Signs Temp 36.9 C 06/28/25 13:59 Pulse 65 06/28/25 17:00 Resp 17 06/28/25 16:50 BP 127/53 L 06/28/25 16:41 Pulse Ox 99 06/28/25 17:00 Time Spent Time spent with Patient: >75 minutes Time was spent: preparing to see the patient(eg.review tests), obtaining and/or reviewing separately otained hiistory, ordering medications,tests, procedures, referring, communicating with other health animal care giver, indepentently interpreting results, counseling the patient and care coordination
[2025-06-28 18:23] LABS: Troponin I 348 ng/L (<or=76)
[2025-06-28] MEDS: rOPINIRole 1 MG TAB PO (20:13)
[2025-06-28] MEDS: risperiDONE 1 MG TAB 2 MG PO (20:13)
[2025-06-28] MEDS: Ranolazine 500 MG TABCR PO (20:13)
[2025-06-28] MEDS: Metoprolol CR 25 MG TABCR PO (20:13)
[2025-06-28] MEDS: Gabapentin 300 MG CAP PO (20:13)
[2025-06-28] MEDS: Sennosides/Docusate Sodium TAB 1 TAB PO (20:13)
[2025-06-28] MEDS: Prazosin 1 MG CAP 3 MG PO (20:15)
[2025-06-28] MEDS: Insulin Asp Prt/Insulin Aspart 70/30 Mix 300 UNITS/3 ML PEN 20 UNITS SC (20:16)
[2025-06-28] MEDS: Normal Saline Flush 10 ML SYR IVP (20:16)
[2025-06-28 21:04] LABS: PTT Activated 37.3 sec (20.6-30.2)
[2025-06-29] VITALS (33 sets, daily range): BP systolic 91–137; BP diastolic 47–111; PULSE 45–83; RESP 10–23; TEMP 36.8; O2SAT 94–98
[2025-06-29 03:52] LABS: PTT Activated 32.6 sec (20.6-30.2)
[2025-06-29 03:59] LABS: Iron 85 ug/dL (65-175); Total Iron Binding Capacity 258 ug/dL (250-450); Transferrin Sat 33 % (20-55)
[2025-06-29 04:04] LABS: Anion Gap 7.0 mmol/L (3-11); BUN 40 mg/dL (7-18); CO2 30.0 mmol/L (21.0-32.0); Calcium 8.9 mg/dL (8.5-10.1); Chloride 104 mmol/L (98-107); Estimated GFR 38.19 (mL/min/1.73m2); Glucose 123 mg/dL (74-106); Magnesium 1.7 mg/dL (1.8-2.4); Potassium 4.5 mmol/L (3.5-5.1); Sodium 141 mmol/L (136-145)
[2025-06-29 04:06] LABS: Troponin I 320 ng/L (<or=76)
[2025-06-29] MEDS: Heparin in 0.45% NaCl 25,000 UNIT/250 ML BAG 17 UNIT IVINF (04:09)
[2025-06-29] MEDS: MAGNESIUM SULFATE 2 GM/50 ML BAG IV_INF ×2 (04:43→10:14)
[2025-06-29] MEDS: Vilazodone 20 MG TAB PO (07:52)
[2025-06-29] MEDS: amLODIPine 5 MG TAB 10 MG PO (07:52)
[2025-06-29] MEDS: risperiDONE 1 MG TAB PO (07:52)
[2025-06-29] MEDS: Gabapentin 300 MG CAP PO (07:52)
[2025-06-29] MEDS: Metoprolol CR 25 MG TABCR PO (07:52)
[2025-06-29] MEDS: Magnesium Oxide 400 MG TAB PO (07:52)
[2025-06-29] MEDS: Torsemide 20 MG TAB PO (07:52)
[2025-06-29] MEDS: Ranolazine 500 MG TABCR PO (07:52)
[2025-06-29] MEDS: Pantoprazole 40 MG TABCR PO (07:53)
[2025-06-29] MEDS: Aspirin E.C. 81 MG TABEC PO (07:53)
[2025-06-29] MEDS: rOPINIRole 1 MG TAB PO (07:53)
[2025-06-29] MEDS: Sennosides/Docusate Sodium TAB 1 TAB PO (07:53)
[2025-06-29] MEDS: Atorvastatin 40 MG TAB 80 MG PO (07:53)
[2025-06-29] MEDS: Clopidogrel 75 MG TAB PO (07:53)
[2025-06-29] MEDS: Cholecalciferol (Vitamin D3) 1,000 UNIT TAB 4000 UNITS PO (07:54)
[2025-06-29] MEDS: Tiotropium/Olodaterol 10 PUFF INHALER 2 PUFF IH (08:03)
[2025-06-29] MEDS: Insulin Aspart 300 UNITS/3 ML PEN SC ×2 (08:07→11:59)
[2025-06-29] MEDS: Normal Saline Flush 10 ML SYR IVP (08:28)
--- NOTE | 2025-06-29 08:50 | PDOC.CMIN ---
Date of service: 06/29/25 Time of Service: 08:51 Care Management Initial Assmt Initial Assessment Reason for Hospitalization: NSTEMI Functional Status/Living Situation Patient Presentation: Mike is currently admitted to the ICU for close monitoring and medical management of an Acute NSTEMI. [place] [facility] [place], which per RN is likely to occur this afternoon. When CM attempted to meet with him, he appeared to be sleeping comfortably; therefor, CM opted not to wake him. CM was present during interdiscipliary rounds and received updates from the care team. CM notified Alexis at [facility] regarding his anticipated transfer. CM will continue to follow. Town of Residence: [facility] Significant Other/Family: Out of area (no significant family. He has not spoken with his daughter in 13 years.) Caregiver/Guardian: Resides at [facility] Employment Status: Disabled Instrumental Activities of Daily Living (ADLs): Requires support Medications Medication Management: No Issues/Barriers identified Physical Functioning/Mobility Assistive Device: Wheelchair, walker Advance Directives Advance Directives: Do you have an Advance Directive: N 10/28/24, 13:12 AD On File at [facility]: N 03/15/24, 13:49 Date Asked 06/28/25 06/28/25, 12:14 AD Date Reviewed COLST On File at [facility] No 06/09/25, 19:18 COLST Date Scanned Code Status Resuscitation Status Full Code Insurance Coverage/Financial Issues Insurance: Medicare Part A & B - [id number] Medicaid of [place] - [id number] Care Team Visit Care Team Role Provider Type Nica Carrasco Primary Care Provider NON-[facility] STAFF PHYSICIAN Oma Mcclellan MD Emergency Provider [facility] STAFF PHYSICIAN Alexei Newell Admit Provider [facility] STAFF PHYSICIAN Attending Provider Discharge Anticipated Barriers to Discharge: None Identified and Medical Status Patient/Family Education Needs: Review discharge instructions, discuss Ask Me Three Transportation: EMS Plan: Anticipate that Mike will [place] [facility] [place]. He is currently accepted pending bed availabilty. He will transport via EMS and continue with his care. CM will continue to follow. Social Determinants of Health Screening Social Determinants of health last assessed in clinic: 06/29/25 Will the Patient Participate in the Screening?: Yes Do you worry about having a steady place to live?: no Problems where you live: no known problems In the past 12 months, have you had to go without electric, gas, oil or water in your home?: no 1. Within the past 12 months, we worried whether our food would run out before we got money to buy more.: Never true 2. Within the past 12 months, the food we bought just didn't last and we didn't have money to get more.: Never true Has lack of transportation kept you from medical appointments or from doing things needed for daily living?: no Has anyone in your life made you feel unsafe or unsupported?: no How hard is it for you to pay for the very basics like food, housing, medical care, and heating? Would you say it is:: Not hard at all Do you want help finding or keeping work or a job?: I do not need or want help If for any reason you need help with day-to-day activities such as bathing, preparing meals, shopping, managing finances, etc., do you get the help you need?: I don?t need any help How often do you feel lonely or isolated from those around you?: Never Do you speak a language other than [place] at home?: No Does the patient want assistance with any of the above?: No PFSH All Active Problems Hypomagnesemia (Acute) Acute non-ST elevation myocardial infarction (NSTEMI) (Acute) Ear pain, left (Acute) Tinnitus of both ears (Acute) Chest pain (Acute) TIA (transient ischemic attack) (Acute) CAD S/P percutaneous coronary angioplasty (Acute) Acute on chronic kidney failure (Acute) Iron deficiency anemia (Acute) Unstable angina (Acute) Chest pain (Acute) Osteoarthritis of hip (Acute) Right hip pain (Acute) PAD (peripheral artery disease) (Acute) Lymphedema (Acute) Venous ulcers of both lower extremities (Acute) Venous (peripheral) insufficiency (Acute) Phantom limb syndrome (Acute) PTSD (post-traumatic stress disorder) (Chronic) Vitamin D deficiency (Acute) Nondisplaced fracture of right scaphoid bone (Acute 02/01/24) Right wrist pain (Acute) GERD (gastroesophageal reflux disease) (Chronic) Hypertension (Chronic) Neuropathy (Acute) History of venous thrombosis and embolism (Acute) Pityriasis versicolor (Acute) Hyperlipidemia (Chronic) Atherosclerotic heart disease of [place] coronary artery without angina pectoris (Acute) CKD stage 4 due to type 2 diabetes mellitus (Chronic) Heart failure (Chronic) Anxiety (Chronic) Morbid obesity (Chronic) Subacute osteomyelitis, left ankle and foot (Acute) Chronic pain (Chronic) COPD (chronic obstructive pulmonary disease) (Chronic) Asthma (Chronic) Type 2 diabetes mellitus (Chronic) Medical History CAD (coronary artery disease), [place] coronary artery Chronic bipolar disorder Chronic back pain greater than 3 months duration Diabetes mellitus type 2, insulin dependent MRSA infection Testicular hypofunction Low back pain Social History Smoking/Tobacco Use Status: Former Tobacco Use Smoking risk assessment performed?: Yes Alcohol Intake: current Alcohol Intake frequency: holidays/special occasions only Drug use: Never Substance use type: does not use Housing: assisted living facility Do you feel safe at home: Yes Do you feel safe in your relationship?: Yes
[2025-06-29 10:40] LABS: PTT Activated 98.6 sec (20.6-30.2)
[2025-06-29] MEDS: nitroGLYcerin in D5W 50 MG/250 ML BTL 9.5 MG IV (15:40)
--- NOTE | 2025-06-29 15:47 | W.PM.DS.N ---
Date of service: 06/29/25 Time of Service: 15:47 DS: Diagnosis Discharge Diagnosis (1) Acute non-ST elevation myocardial infarction (NSTEMI): Status: Acute (2) Hypertension: Status: Chronic (3) Type 2 diabetes mellitus: Status: Chronic (4) CKD stage 4 due to type 2 diabetes mellitus: Status: Chronic (5) Iron deficiency anemia: Status: Acute (6) COPD (chronic obstructive pulmonary disease): Status: Chronic (7) Chronic pain: Status: Chronic (8) Venous ulcers of both lower extremities: Status: Acute (9) Hypomagnesemia: Status: Acute (10) Anxiety: Status: Chronic Discharge Plan Disposition Patient Disposition: Transfer-Acute Inpatient Care Specific Acute Inpt Facility: [facility] Condition: Fair Discharge Details Reason For Visit: NSTEMI Admit Date/Time: 06/28/25 16:02 Admit Provider: Alexei Newell Attending Provider: Alexei Newell Primary Care Provider: Nica Carrasco Hospital Course Hospital Course: 69-year-old male past medical history HFpEF, history of PE, bipolar, obesity, GERD, COPD, IDDM, CKD stage 4, hypertension, hyperlipidemia, asthma, TIA, and cardiac catheterization with stenting of mLAD and noted disease of proximal RCA without intervention presents to the emergency department with severe chest pain/pressure while exercising at physical therapy. Pain was typical anginal a/w SOB and lightheadedness and radiating to jaw and left arm. It did not resolve with NTG sublingual but did resolve with the NTG drip as well as heparin drip. EKG did not show acute changes but his troponins were elevated at 369. Case was reviewed with cardiology and he was accepted for transfer under the care of Dr. Moran pending a bed. He continued to require nitroglycerin overnight with return of less severe chest pain/pressure when this was titrated down or with normal exertion. His troponins slowly trended down to 320 on the morning of transfer. Aspirin and clopidogrel were continued. His amitriptyline was held given his ACS, but other pain and psychiatric medications were continued with a dose adjustment of his gabapentin based on his GFR. His last A1c was noted to be 8.2% on 05/18/25. At home he was on mixed insulins and reported low sugars down to 60s recently. With decreased po his doses were decreased. Metformin was held pending possible catheterization. His GLP-1 is due 06/30 with plan to hold pending procedure. His magnesium was low and was supplemented a total of 6grams IV. His iron/tibc was 33%, so his iron supplement was stopped just to limit pill burden and GI side effects. Home Meds and New Rx's Prescriptions: No Action aspirin [Adult Aspirin Regimen] 81 mg tablet,delayed release (DR/EC) 81 mg PO DAILY ferrous sulfate 325 mg (65 mg iron) tablet 325 mg PO DAILY Patient Comments: Take every Mon, Thu, Thu gabapentin 300 mg capsule 300 mg PO BID glucagon 1 mg recon soln 1 mg subcut Q20M PRN Rx Instructions: until target blood sugar attained insulin lispro 100 unit/mL insulin pen 1 sliding scale dose subcut USEASDIRECTD metoprolol succinate 25 mg tablet extended release 24 hr 25 mg PO BID magnesium hydroxide [Milk of Magnesia] 400 mg/5 mL suspension 30 ml PO DAILY PRN naloxone 4 mg/actuation spray,non-aerosol 4 mg intranasal Q2M Rx Instructions: spray 1 dose into ONE nostril; alternate nostrils w each dose until help arrives nitroglycerin 0.4 mg tablet, sublingual 0.4 mg sublingual Q5M PRN Rx Instructions: do not exceed 3 doses per episode pantoprazole 40 mg tablet,delayed release (DR/EC) 40 mg PO DAILY ranolazine 500 mg tablet extended release 12 hr 500 mg PO BID sevelamer HCl 800 mg tablet 800 mg PO TID Rx Instructions: must administer with a meal/food risperidone 1 mg tablet 1 mg PO DAILY risperidone 2 mg tablet 2 mg PO QHS sennosides-docusate sodium 8.6-50 mg tablet 1 tab-cap PO BID prazosin 1 mg capsule 3 mg PO QPM torsemide 20 mg tablet 20 mg PO DAILY Qty: 0 0RF Rx Instructions: Hold until 06/11/25 hydrocodone-acetaminophen 10-325 mg tablet 1 tab PO Q6H PRNQty: 10 0RF insulin asp prt-insulin aspart [Novolog Mix 70-30 U-100 Insuln] 100 unit/mL (70-30) solution 50 unit subcut DAILY Qty: 10 0RF Rx Instructions: In AM insulin asp prt-insulin aspart [Novolog Mix 70-30 U-100 Insuln] 100 unit/mL (70-30) solution 45 unit subcut HS Qty: 10 0RF Rx Instructions: hold if BS < 140 cholecalciferol (vitamin D3) 25 mcg (1,000 unit) capsule 100 mcg PO DAILY Qty: 0 0RF magnesium oxide 400 mg magnesium capsule 400 mg PO DAILY Qty: 7 0RF bisacodyl [Dulcolax (bisacodyl)] 10 mg suppository 10 mg [place] DAILY PRNQty: 12 0RF Biofreeze (menthol) 4 % gel 1 applic topical Q6H PRN PRNQty: 237 0RF ropinirole 1 mg tablet 1 mg PO BID Qty: 0 0RF Trulicity 1.5 mg/0.5 mL pen injector 1.5 mg SUBCUT .weekly Qty: 0 0RF Patient Comments: Per [facility], dosage is 3Mg/0.5Ml Q Thursday. Rx Instructions: On Thursday loperamide [Anti-Diarrheal (loperamide)] 2 mg capsule 2 mg PO Q6H PRN vilazodone [Viibryd] 20 mg tablet 20 mg PO DAILY Rx Instructions: must administer with a meal/food acetaminophen 500 mg capsule 650 mg PO Q4H PRN amitriptyline 50 mg tablet 50 mg PO HS clopidogrel [Plavix] 75 mg tablet 75 mg PO DAILY Qty: 20 0RF atorvastatin [Lipitor] 80 mg tablet 80 mg PO DAILY Qty: 30 0RF Enema 19-7 gram/118 mL enema 118 ml [place] DAILY PRN ketoconazole 2 % shampoo 1 applic topical Q2W lidocaine HCl [Aspercreme (lidocaine HCl)] 4 % cream 1 applic topical BID polyethylene glycol 3350 17 gram/dose powder 17 g PO DAILY Rx Instructions: Constipation amlodipine 10 mg tablet 10 mg PO DAILY metformin 500 mg tablet 750 mg PO BID isosorbide mononitrate 60 mg tablet extended release 24 hr 60 mg PO DAILY tizanidine 2 mg tablet 2 mg PO QID umeclidinium-vilanterol [Anoro Ellipta] 62.5-25 mcg/actuation blister with device 1 inh inhalation DAILY Discharge Instructions Activity:: bedrest Equipment/Supplies:: No Equipment Needed Diet:: Carb Counting Discharge Orders Discharge Orders: Discharge Order (Routine); Ordered 06/29/25 Ordered By: Alexei Newell DS: Summary Time Spent with Patient providing and/or coordinating discharge services: Greater than 30 minutes Status at Discharge Functional status at discharge: bed bound (due to chest pain with movement) Overall status at discharge: patient is not back to baseline Mental Status: mental status grossly normal Speech and Movement: speech and movement normal Mood: congruent mood Affect: normal affect Exam Narrative Exam Narrative: GEN: Alert and oriented, no acute distress at rest lying in bed with head at 30 degrees. Obese habitus. HEENT: trachea midline, no elevation JVP notable. LUNGS: CTAB with normal effort CV: RRR with no murmurs, gallops, or rubs. ABD: active bowel sounds, soft, nontender and nondistended. No masses. EXT: no cyanosis, clubbing. 1+ woody bilateral edema to shins PSYCH: normal mood and affect, nl thought process Psych Mental Status: mental status grossly normal Speech and Movement: speech and movement normal Mood: congruent mood Affect: normal affect DS: Data Vitals/I&O Vitals and I&O: Vital Signs Temperature 36.8 C 06/29/25 03:27 Temperature Source Temporal Artery Scan 06/29/25 03:27 Pulse 78 06/29/25 15:02 Pulse Rhythm Regular 06/28/25 12:53 Pulse Strength Normal 06/28/25 12:53 Pulse 73 06/29/25 15:02 Respiratory Rate 15 06/29/25 15:02 Respiratory Effort Normal 06/28/25 12:53 Respiratory Depth Normal 06/28/25 12:53 Respiratory Pattern Normal 06/28/25 12:53 Blood Pressure 137/68 06/29/25 15:02 Blood Pressure Mean 87 06/29/25 15:02 Pulse Oximetry 97 06/29/25 15:02 Oxygen Delivery Method Room Air 06/29/25 03:27 Oxygen Flow Rate 0 06/29/25 03:27 Pain Level 0 06/29/25 03:27 Intake & Output 06/28/25 06/29/25 06/29/25 23:59 11:59 23:59 Intake Total 436.408 / 436.408 813.341 / 897.733 84.392 / 897.733 Output Total 800 / 800 1500 / 1500 Balance -363.592 / -363.592 -686.659 / -602.267 84.392 / -602.267 Weight 147.6 kg 152.5 kg Intake: IV 196.408 / 196.408 333.341 / 417.733 84.392 / 417.733 Oral 240 / 240 480 / 480 Output: Urine 800 / 800 1500 / 1500 Other: Urine Color Yellow Pale Urine Appearance Clear Clear Urine Odor Normal Comment Patient used the urinal independently in bed. Data Completed and Pending Labs on day of discharge: Labs from last 24 hours 06/29/25 06/29/25 06/28/25 10:10 03:30 20:37 APTT 98.6 H* 32.6 H 37.3 H Sodium 141 Potassium 4.5 Chloride 104 Carbon Dioxide 30.0 Anion Gap 7.0 BUN 40 H Creatinine 1.9 H Est GFR (CKD-EPI 2020) 38.19 Glucose 123 H Calcium 8.9 Magnesium 1.7 L Iron 85 TIBC 258 Transferrin % Sat 33 Troponin I 320 H* MRSA (TEM-PCR) 06/28/25 15:53 APTT Sodium Potassium Chloride Carbon Dioxide Anion Gap BUN Creatinine Est GFR (CKD-EPI 2020) Glucose Calcium Magnesium Iron TIBC Transferrin % Sat Troponin I 348 H* MRSA (TEM-PCR) Positive A [facility] All Active Problems Hypomagnesemia (Acute) Acute non-ST elevation myocardial infarction (NSTEMI) (Acute) Ear pain, left (Acute) Tinnitus of both ears (Acute) Chest pain (Acute) TIA (transient ischemic attack) (Acute) CAD S/P percutaneous coronary angioplasty (Acute) Acute on chronic kidney failure (Acute) Iron deficiency anemia (Acute) Unstable angina (Acute) Chest pain (Acute) Osteoarthritis of hip (Acute) Right hip pain (Acute) PAD (peripheral artery disease) (Acute) Lymphedema (Acute) Venous ulcers of both lower extremities (Acute) Venous (peripheral) insufficiency (Acute) Nondisplaced fracture of right scaphoid bone (Acute 02/01/24) Right wrist pain (Acute) GERD (gastroesophageal reflux disease) (Chronic) Hypertension (Chronic) Neuropathy (Acute) Phantom limb syndrome (Acute) History of venous thrombosis and embolism (Acute) Vitamin D deficiency (Acute) Pityriasis versicolor (Acute) Hyperlipidemia (Chronic) Atherosclerotic heart disease of [place] coronary artery without angina pectoris (Acute) CKD stage 4 due to type 2 diabetes mellitus (Chronic) Heart failure (Chronic) PTSD (post-traumatic stress disorder) (Chronic) Anxiety (Chronic) Morbid obesity (Chronic) Subacute osteomyelitis, left ankle and foot (Acute) Chronic pain (Chronic) COPD (chronic obstructive pulmonary disease) (Chronic) Asthma (Chronic) Type 2 diabetes mellitus (Chronic) Medical History CAD (coronary artery disease), [place] coronary artery Chronic bipolar disorder Chronic back pain greater than 3 months duration Diabetes mellitus type 2, insulin dependent MRSA infection Testicular hypofunction Low back pain Social History Smoking/Tobacco Use Status: Former Tobacco Use Smoking risk assessment performed?: Yes Alcohol Intake: current Alcohol Intake frequency: holidays/special occasions only Drug use: Never Substance use type: does not use Housing: assisted living facility Do you feel safe at home: Yes Do you feel safe in your relationship?: Yes Time Spent with Patient Time Spent with Patient: 45-69 minutes Time was spent: preparing to see the patient(eg.review tests), obtaining and/or reviewing separately otained hiistory, ordering medications,tests, procedures, referring, communicating with other health outdoor emergency care technician, indepentently interpreting results, counseling the patient and care coordination
[2025-06-29] MEDS: Heparin in 0.45% NaCl 25,000 UNIT/250 ML BAG 14.5 UNIT IVINF (16:00)
== END 2025-06-29 16:10 | disposition short-term general hospital (02) | DRG 281 ==
LOC: ER 15:55 → ICU 17:12
PROVIDERS: Family Medicine; Admitting Provider Family Medicine; Emergency Provider Emergency Medicine Emergency Medical Services; PCP Family Medicine; Responsible Provider Family Medicine; Visit Provider Family Medicine
DX: I21.4 Non-ST elevation (NSTEMI) myocardial infarction (principal); N18.4 Chronic kidney disease, stage 4 (severe); E11.22 Type 2 diabetes mellitus with diabetic chronic kidney disease; Z79.4 Long term (current) use of insulin; D50.9 Iron deficiency anemia, unspecified; G89.29 Other chronic pain; Z79.84 Long term (current) use of oral hypoglycemic drugs; I25.10 Atherosclerotic heart disease of native coronary artery without angina pectoris; J44.9 Chronic obstructive pulmonary disease, unspecified; I83.019 Varicose veins of right lower extremity with ulcer of unspecified site; I83.029 Varicose veins of left lower extremity with ulcer of unspecified site; L97.919 Non-pressure chronic ulcer of unspecified part of right lower leg with unspecified severity; L97.929 Non-pressure chronic ulcer of unspecified part of left lower leg with unspecified severity; E83.42 Hypomagnesemia; F41.9 Anxiety disorder, unspecified; E78.00 Pure hypercholesterolemia, unspecified; F31.9 Bipolar disorder, unspecified; Z86.73 Personal history of transient ischemic attack (TIA), and cerebral infarction without residual deficits; I89.0 Lymphedema, not elsewhere classified; F43.10 Post-traumatic stress disorder, unspecified; K21.9 Gastro-esophageal reflux disease without esophagitis; E11.40 Type 2 diabetes mellitus with diabetic neuropathy, unspecified; Z86.718 Personal history of other venous thrombosis and embolism; I13.0 Hypertensive heart and chronic kidney disease with heart failure and stage 1 through stage 4 chronic kidney disease, or unspecified chronic kidney disease; I50.30 Unspecified diastolic (congestive) heart failure; Z68.41 Body mass index [BMI] 40.0-44.9, adult; Z95.5 Presence of coronary angioplasty implant and graft; Z79.85 Long-term (current) use of injectable non-insulin antidiabetic drugs; E66.9 Obesity, unspecified
CPT/HCPCS: 00123; 36415; 80048; 80053; 83690; 87641; 93005; 94640; 96365; 96366; 96367; 96375; 99291; 71045; 83540; 83550; 83735; 84484; 85025; 85730; 93010; 94664; 99223; 99239; J1644; J1815; J2305; J3010; J3475; J3490

== ENCOUNTER 2025-07-06 22:27 | Emergency (ER) | payer MEDICARE, MEDICAID, SELFPAY ==
[2025-07-06] VITALS (16 sets, daily range): BP systolic 132–201; BP diastolic 47–73; PULSE 69–101; RESP 12–23; TEMP 36.2; O2SAT 98–100
--- NOTE | 2025-07-06 22:30 | RT.EKG_ITS ---
APPROVED REPORT Exam: Resting ECG Reason for Exam: chest pain Patient Location: E HR:69 bpm ECG Measurements Heart Rate 69 AXIS WA 197 P 67 QRSd 100 QRS 25 QT 398 T 37 QTc 427 Conclusion Sinus rhythm...normal P axis, V-rate 60- 99 Physician: no stemi
--- NOTE | 2025-07-06 22:57 | W.ED.GENAD ---
Discharge Plan Disposition Patient Disposition: Home Condition: Good Discharge Details Clinical Impression: Chest pain, Cough Primary Care Provider: Nica Carrasco ED Provider: Andres Cortez Home Meds and New Rx's Prescriptions: No Action aspirin [Adult Aspirin Regimen] 81 mg tablet,delayed release (DR/EC) 81 mg PO DAILY gabapentin 300 mg capsule 300 mg PO BID glucagon 1 mg recon soln 1 mg subcut Q20M PRN Rx Instructions: until target blood sugar attained metoprolol succinate 25 mg tablet extended release 24 hr 50 mg PO BID naloxone 4 mg/actuation spray,non-aerosol 4 mg intranasal Q2M Rx Instructions: spray 1 dose into ONE nostril; alternate nostrils w each dose until help arrives nitroglycerin 0.4 mg tablet, sublingual 0.4 mg sublingual Q5M PRN Rx Instructions: do not exceed 3 doses per episode ranolazine 500 mg tablet extended release 12 hr 500 mg PO BID sevelamer HCl 800 mg tablet 800 mg PO TID Rx Instructions: must administer with a meal/food risperidone 1 mg tablet 1 mg PO BID sennosides-docusate sodium 8.6-50 mg tablet 1 tab-cap PO BID prazosin 1 mg capsule 1 mg PO QPM torsemide 20 mg tablet 20 mg PO DAILY Qty: 0 0RF Rx Instructions: Hold until 06/11/25 hydrocodone-acetaminophen 10-325 mg tablet 1 tab PO Q6H PRNQty: 10 0RF magnesium oxide 400 mg magnesium capsule 400 mg PO DAILY Qty: 7 0RF bisacodyl [Dulcolax (bisacodyl)] 10 mg suppository 10 mg AK DAILY PRNQty: 12 0RF Biofreeze (menthol) 4 % gel 1 applic topical Q6H PRN PRNQty: 237 0RF ropinirole 1 mg tablet 1 mg PO BID Qty: 0 0RF loperamide [Anti-Diarrheal (loperamide)] 2 mg capsule 2 mg PO Q6H PRN vilazodone [Viibryd] 20 mg tablet 20 mg PO DAILY Rx Instructions: must administer with a meal/food acetaminophen 500 mg capsule 650 mg PO Q4H PRN amitriptyline 50 mg tablet 50 mg PO HS PRN clopidogrel [Plavix] 75 mg tablet 75 mg PO DAILY Qty: 20 0RF Enema 19-7 gram/118 mL enema 118 ml AK DAILY PRN ketoconazole 2 % shampoo 1 applic topical Q2W polyethylene glycol 3350 17 gram/dose powder 17 g PO DAILY Rx Instructions: Constipation amlodipine 10 mg tablet 5 mg PO DAILY metformin 500 mg tablet 1,000 mg PO BID rosuvastatin 20 mg tablet 40 mg PO HS multivitamin [Daily Multi-Vitamin] Tablet 1 tab PO DAILY diazepam 5 mg tablet 5 mg PO ONCE PRN albuterol sulfate 2.5 mg /3 mL (0.083 %) solution for nebulization 2.5 mg inhalation Q6H PRN fluticasone propion-salmeterol [Advair Diskus] 500-50 mcg/dose blister with device 1 inh inhalation BID insulin asp prt-insulin aspart [Novolog Mix 70-30 U-100 Insuln] 100 unit/mL (70-30) solution 45 unit subcut DAILY Rx Instructions: In AM insulin asp prt-insulin aspart [Novolog Mix 70-30 U-100 Insuln] 100 unit/mL (70-30) solution See Rx Instructions subcut .COMPLEX Rx Instructions: subcutaneously with meals with sliding scale isosorbide mononitrate 60 mg tablet extended release 24 hr 60 mg PO DAILY Discharge Instructions Instructions: Chest pain Additional Instructions: At this time your workup has returned reassuring. Your blood work for your heart has returned normal. There is no evidence of blood clot. Your chest x-ray shows no signs of pneumonia. If you notice any worsening of your symptoms, or any new symptoms such as vomiting, diarrhea, fever, chills, shortness of breath, chest pain, numbness, weakness, or fainting , please return immediately to the emergency department for reevaluation. Please follow up with your primary care provider as soon as possible for reassessment and reevaluation. As always, it was a pleasure participating in your medical care today. Referrals: Nica Carrasco [Primary Care Provider, Medicine] HPI General Date/Time Provider Initiated Documentation: 07/06/25 22:32. HPI Narrative: This is a 69-year-old male with a past medical history of previous DVT and pulmonary emboli previously on Eliquis, cardiac catheterization in the past in 2021 demonstrating known disease, and then subsequent NSTEMI 1 week ago with subsequent stenting, COPD, chronic kidney disease, previous TIA, hypertension, diabetes, obesity, bipolar who resides at [facility] who presents today for evaluation of chest discomfort. Patient states that after his stenting he felt like a 22-year-old again, up until today when he developed a mild cough. Cough was persistent and then this evening he had a notable coughing fit and then developed stabbing chest pain in his left chest which has been persistent. He is come to the ER for further assessment via EMS. Stabbing pain has been going on for 30 minutes. Cough is nonproductive in nature. He denies any hemoptysis. No other complaints at this time. No other modifying factors. Related Data Home Medications ?Medication ?Instructions ?Recorded ?Confirmed aspirin 81 mg tablet,delayed 81 mg PO DAILY 07/06/24 07/07/25 release (Adult Aspirin Regimen) gabapentin 300 mg capsule 300 mg PO BID 07/06/24 07/07/25 glucagon 1 mg solution for 1 mg subcut Q20M PRN 07/06/24 07/07/25 injection metoprolol succinate 25 mg 50 mg PO BID 07/06/24 07/07/25 tablet,extended release 24 hr naloxone 4 mg/actuation nasal spray 4 mg intranasal Q2M 07/06/24 07/07/25 nitroglycerin 0.4 mg sublingual 0.4 mg sublingual Q5M PRN 07/06/24 07/07/25 tablet ranolazine 500 mg tablet,extended 500 mg PO BID 07/06/24 07/07/25 release,12 hr risperidone 1 mg tablet 1 mg PO BID 07/06/24 07/07/25 sennosides 8.6 mg-docusate sodium 1 tab-cap PO BID 07/06/24 06/28/25 50 mg tablet sevelamer HCl 800 mg tablet 800 mg PO TID 07/06/24 07/07/25 isosorbide mononitrate 60 mg 60 mg PO DAILY 03/15/25 07/07/25 tablet,extended release 24 hr prazosin 1 mg capsule 1 mg PO QPM 03/31/25 07/07/25 bisacodyl 10 mg rectal suppository 10 mg AK DAILY PRN #12 ea 06/10/25 07/07/25 (Dulcolax (bisacodyl)) hydrocodone 10 mg-acetaminophen 1 tab PO Q6H PRN #10 tabs 06/10/25 07/07/25 325 mg tablet magnesium oxide 400 mg PO DAILY #7 caps 06/10/25 07/07/25 menthol 4 % topical gel (Biofreeze 1 applic topical Q6H PRN PRN #237 06/10/25 07/07/25 (menthol)) mL ropinirole 1 mg tablet 1 mg PO BID #0 tabs 06/10/25 07/07/25 torsemide 20 mg tablet 20 mg PO DAILY #0 tabs 06/10/25 07/07/25 acetaminophen 500 mg capsule 650 mg PO Q4H PRN 06/13/25 07/07/25 loperamide 2 mg capsule 2 mg PO Q6H PRN 06/13/25 07/07/25 (Anti-Diarrheal (loperamide)) vilazodone 20 mg tablet (Viibryd) 20 mg PO DAILY 06/13/25 07/07/25 amitriptyline 50 mg tablet 50 mg PO HS PRN 06/14/25 07/07/25 clopidogrel 75 mg tablet (Plavix) 75 mg PO DAILY #20 tabs 06/14/25 07/07/25 ketoconazole 2 % shampoo 1 applic topical Q2W 06/20/25 07/07/25 sodium phosphates 19 gram-7 118 ml AK DAILY PRN 06/20/25 07/07/25 gram/118 mL enema (Enema) amlodipine 10 mg tablet 5 mg PO DAILY 06/28/25 07/07/25 metformin 500 mg tablet 1,000 mg PO BID 06/28/25 07/07/25 polyethylene glycol 3350 17 17 g PO DAILY 06/28/25 07/07/25 gram/dose oral powder albuterol sulfate 2.5 mg/3 mL 2.5 mg inhalation Q6H PRN 07/07/25 07/07/25 (0.083 %) solution for nebulization diazepam 5 mg tablet 5 mg PO ONCE PRN 07/07/25 07/07/25 fluticasone 500 mcg-salmeterol 50 1 inh inhalation BID 07/07/25 07/07/25 mcg/dose blistr powdr for inhalation (Advair Diskus) insulin aspar prt-insulin aspart 45 unit subcut DAILY 07/07/25 07/07/25 100 unit/mL (70-30) subcutaneous soln (Novolog Mix 70-30 U-100 Insuln) insulin aspar prt-insulin aspart See Rx Instructions subcut .COMPLEX 07/07/25 07/07/25 100 unit/mL (70-30) subcutaneous soln (Novolog Mix 70-30 U-100 Insuln) multivitamin (Daily Multi-Vitamin 1 tab PO DAILY 07/07/25 07/07/25 tablet) rosuvastatin 20 mg tablet 40 mg PO HS 07/07/25 07/07/25 Previous Rx's ?Medication ?Instructions ?Recorded bisacodyl 10 mg rectal suppository 10 mg AK DAILY PRN #12 ea 06/10/25 (Dulcolax (bisacodyl)) hydrocodone 10 mg-acetaminophen 1 tab PO Q6H PRN #10 tabs 06/10/25 325 mg tablet magnesium oxide 400 mg PO DAILY #7 caps 06/10/25 menthol 4 % topical gel (Biofreeze 1 applic topical Q6H PRN PRN #237 06/10/25 (menthol)) mL ropinirole 1 mg tablet 1 mg PO BID #0 tabs 06/10/25 torsemide 20 mg tablet 20 mg PO DAILY #0 tabs 06/10/25 clopidogrel 75 mg tablet (Plavix) 75 mg PO DAILY #20 tabs 06/14/25 Allergies Allergy/AdvReac Type Severity Reaction Status Date / Time bee venom protein (honey bee) Allergy Intermediate Anaphylaxis Verified 07/07/25 00:36 clonidine Allergy Mild Unknown Verified 07/07/25 00:36 Influenza Virus Vaccines Allergy Mild Unknown Verified 07/07/25 00:36 prednisone Allergy Unknown Other (See Verified 07/07/25 00:36 Comment) tamsulosin (From Flomax) Allergy Unknown Other (See Verified 07/07/25 00:36 Comment) General Stated Complaint: Chest Pain VALERI: 3 Exam Narrative Exam Narrative: 1.Const: Well-nourished, Well-developed, appearing stated age 2.Eyes: PERRL, no conjunctival injection, and symmetrical lids. 3.ENT: Atraumatic external nose and ears. Moist MM. Neck: Symmetric, trachea midline, No thyromegaly. 4.CVS: +S1/S2, Peripheral pulses 2+ and equal in all extremities. Brisk capillary refill in all extremities. 5.RESP: Unlabored respiratory effort. Clear to auscultation bilaterally. No wheezes rales or rhonchi 6.GI: Soft, Nontender/Nondistended, No hepatosplenomegaly. No guarding or rebound. 7.MSK: Normocephalic/Atraumatic, Extremities w/o deformity or ttp No cyanosis or clubbing, Normal movement of all extremities. Chronic edema of the lower extremities with +1 pitting edema bilaterally. 8.Skin: Warm, Dry. No rashes or lesions. 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 Sensation grossly intact, no focal neurologic deficits. 10.Psych: (AAO) x3. Appropriate mood and affect Course Vital Signs Vital signs: Vital Signs Temperature 36.2 C L 07/06/25 22:28 Pulse 101 H 07/06/25 22:28 Respiratory Rate 22 07/06/25 22:28 Blood Pressure 201/73 H 07/06/25 22:28 Pulse Oximetry 98 07/06/25 22:28 Temperature 36.2 C L 07/06/25 22:28 Temperature Source Tympanic 07/06/25 22:28 Pulse 101 H 07/06/25 22:28 Respiratory Rate 22 07/06/25 22:28 Blood Pressure 201/73 H 07/06/25 22:28 Pulse Oximetry 98 07/06/25 22:28 Oxygen Delivery Method Room Air 07/06/25 22:28 Oxygen Flow Rate 0 07/06/25 22:28 Pain Level 9 07/06/25 22:28 Medical Decision Making This is a 69-year-old male with a past medical history of previous DVT and pulmonary emboli previously on Eliquis, cardiac catheterization in the past in 2021 demonstrating known disease, and then subsequent NSTEMI 1 week ago with subsequent stenting, COPD, chronic kidney disease, previous TIA, hypertension, diabetes, obesity, bipolar who [facility] at [facility] who presents today for evaluation of chest discomfort. Patient states that after his stenting he felt like a 22-year-old again, up until today when he developed a mild cough. Cough was persistent and then this evening he had a notable coughing fit and then developed stabbing chest pain in his left chest which has been persistent. He is come to the ER for further assessment via EMS. Stabbing pain has been going on for 30 minutes. Cough is nonproductive in nature. He denies any hemoptysis. No other complaints at this time. No other modifying factors. Exam demonstrates well-appearing male, stable vital signs, EKG shows no evidence of STEMI. Differential for his pleuritic chest pain post cough includes pneumothorax, cardiac etiology or ACS, muscle strain, less likely PE considering his Eliquis use. Will evaluate for these concerning etiologies, we will monitor closely and reassess. 11:04 PM Review of [facility] records revealed that he had 2 stents in the ostial and proximal right coronary artery, they recommended he continue dual antiplatelet therapy. It appears after the review of the MAR that he is no longer on Eliquis or an anticoagulant and instead just on the dual antiplatelet therapy. This certainly increases our concern and differential for potential pulmonary embolism. 2:56 AM Laboratory workup has returned, vital signs remained stable, no white count or bandemia. D-dimer is normal at 230. No evidence to suggest PE. Electrolytes normal, renal function 2.7 for creatinine with a GFR of 25 which is at baseline for patient. Initial, 1 hour and 3-hour troponin all within the limits of normal and plateaued at 32. proBNP is 538 with no evidence of severe CHF. Chest x-ray negative for acute process. After 1 g of Tylenol and a single Tessalon Perle patient has complete resolution of his symptoms. Patient feels well and is requesting discharge back to [facility]. Symptoms appear clinically inconsistent with ACS, PE, dissection, pneumonia or pneumothorax. Patient stable for discharge. Discussed red flags for which to return. We did contact [facility] but they refused to provide transport for the patient. EMS was contacted to facilitate transport. I have extensively reviewed the treatment plan and discharge instructions with the patient. I have addressed all patient concerns at this time. The patient was made aware of what symptoms to monitor for that would warrant a return to the emergency department. Discussed the plan with the patient, they demonstrate verbal understanding and agreement with our assessment and plan at this time. The documentation in this chart was dictated using [email or web address] dictation software. Please excuse any dictation errors. FINDINGS: Lungs: No consolidation. Pleural spaces: No pleural effusion. No pneumothorax. Heart/Mediastinum: No cardiomegaly. Bones/joints: Cervical and upper thoracic fixation hardware, probable associated laminectomies, similar to prior. Chronic bony changes with no acute fracture. IMPRESSION: Negative portable chest. Thank you for allowing us to participate in the care of your patient. Dictated and Authenticated by: Lindy Post MD 07/07/2025 12:17 AM Eastern Time ([place] & [place]) PFSH All Active Problems (Updated 07/07/25 @ 02:30 by Andres Cortez DO) Cough (Acute) Chest pain (Acute) Hypomagnesemia (Acute) Acute non-ST elevation myocardial infarction (NSTEMI) (Acute) Ear pain, left (Acute) Tinnitus of both ears (Acute) Chest pain (Acute) TIA (transient ischemic attack) (Acute) CAD S/P percutaneous coronary angioplasty (Acute) Acute on chronic kidney failure (Acute) Unstable angina (Acute) Osteoarthritis of hip (Acute) Right hip pain (Acute) PAD (peripheral artery disease) (Acute) Lymphedema (Acute) Venous ulcers of both lower extremities (Acute) Venous (peripheral) insufficiency (Acute) Phantom limb syndrome (Acute) PTSD (post-traumatic stress disorder) (Chronic) Vitamin D deficiency (Acute) Nondisplaced fracture of right scaphoid bone (Acute 02/01/24) Right wrist pain (Acute) GERD (gastroesophageal reflux disease) (Chronic) Hypertension (Chronic) Neuropathy (Acute) History of venous thrombosis and embolism (Acute) Pityriasis versicolor (Acute) Hyperlipidemia (Chronic) Atherosclerotic heart disease of redding coronary artery without angina pectoris (Acute) CKD stage 4 due to type 2 diabetes mellitus (Chronic) Heart failure (Chronic) Anxiety (Chronic) Morbid obesity (Chronic) Subacute osteomyelitis, left ankle and foot (Acute) Chronic pain (Chronic) COPD (chronic obstructive pulmonary disease) (Chronic) Asthma (Chronic) Type 2 diabetes mellitus (Chronic) Medical History CAD (coronary artery disease), redding coronary artery Chronic bipolar disorder Chronic back pain greater than 3 months duration Diabetes mellitus type 2, insulin dependent MRSA infection Testicular hypofunction Low back pain Social History Smoking/Tobacco Use Status: Former Tobacco Use Smoking risk assessment performed?: Yes Alcohol Intake: current Alcohol Intake frequency: holidays/special occasions only Drug use: Never Substance use type: does not use Housing: assisted living facility Do you feel safe at home: Yes Do you feel safe in your relationship?: Yes
[2025-07-06 23:07] LABS: Abs Immature Grans 0.02 10^3/uL (0.0-0.06); HCT 32.3 % (40.0-50.0); HGB 10.8 g/dL (13.5-17.5); Immature Grans % 0.3 %; MCH 30.9 pg (27.0-33.0); MCHC 33.4 % (32.0-36.0); MCV 92 fL (80-95); MPV 9.3 fL (8.0-11.0); Platelet Count 198 10^3/uL (130-400); RBC 3.50 10^6/uL (4.36-5.78); RDW 13.1 % (11.8-14.1); RDW-SD 43.8 fL; WBC 6.23 10^3/uL (4.4-10.8)
[2025-07-06 23:19] LABS: INR 1.1 (0.9-1.1); PTT Activated 22.6 sec (20.6-30.2); Prothrombin Time 10.6 sec (9.1-11.1)
[2025-07-06 23:27] LABS: ALT 47 U/L (16-63); AST 18 U/L (15-37); Albumin 4.1 g/dL (3.4-5.0); Alkaline Phosphatase 69 U/L (46-116); Anion Gap 10.8 mmol/L (3-11); BUN 61 mg/dL (7-18); Bilirubin, Total 0.3 mg/dL (0.2-1.0); CO2 27.2 mmol/L (21.0-32.0); Calcium 9.1 mg/dL (8.5-10.1); Chloride 102 mmol/L (98-107); Estimated GFR 25.05 (mL/min/1.73m2); Glucose 164 mg/dL (74-106); NT-proBNP 538 pg/mL (<300); Potassium 4.4 mmol/L (3.5-5.1); Sodium 140 mmol/L (136-145); Total Protein 6.8 g/dL (6.4-8.2); Troponin I 33 ng/L (<or=76)
[2025-07-06 23:43] LABS: D-Dimer 230 ng/mlFEU (<500)
--- NOTE | 2025-07-06 23:45 | DI.RAD_ITS ---
Exam(s) XR PORTABLE CHEST AP EXAM: XR PORTABLE CHEST AP CLINICAL HISTORY: SOB, chest pain TECHNIQUE: 2D digital imaging was performed. COMPARISON: CR XR PORTABLE CHEST AP from 06/28/2025 FINDINGS: LUNGS: Clear. No pleural abnormality seen. HEART: Normal size. AORTA: Normal diameter. BONES: Hardware at the cervical thoracic junction. Soft tissues: Unremarkable. IMPRESSION: No acute findings. The preliminary [facility] report was reviewed. DATA REPOSITORY: RADIATION DOSE DELIVERED:
[2025-07-07] VITALS (30 sets, daily range): BP systolic 116–147; BP diastolic 45–64; PULSE 65–76; RESP 10–18; O2SAT 98–100
--- NOTE | 2025-07-07 00:17 | DI.[facility]_ITS ---
PROCEDURE INFORMATION: Exam: XR Chest Exam date and time: 07/06/2025 23:44 Age: 69 years old Clinical indication: Shortness of breath; Chest pressure; SOB, chest pain TECHNIQUE: Imaging protocol: Radiologic exam of the chest. Views: 1 view. COMPARISON: CR XR PORTABLE CHEST AP 06/28/2025 12:40 FINDINGS: Lungs: No consolidation. Pleural spaces: No pleural effusion. No pneumothorax. Heart/Mediastinum: No cardiomegaly. Bones/joints: Cervical and upper thoracic fixation hardware, probable associated laminectomies, similar to prior. Chronic bony changes with no acute fracture. IMPRESSION: Negative portable chest. Dictated and Authenticated by: Lindy Post MD. Orderin Diego Campos MD
[2025-07-07] MEDS: Acetaminophen 500 MG TAB 1000 MG PO (00:30)
[2025-07-07] MEDS: Benzonatate 100 MG CAP PO (00:37)
[2025-07-07 00:48] LABS: Troponin I 32 ng/L (<or=76)
[2025-07-07 02:18] LABS: Troponin I 32 ng/L (<or=76)
== END 2025-07-07 02:51 | disposition home or self-care (01) ==
PROVIDERS: Emergency Provider Student in an Organized Health Care Education/Training Program; PCP Family Medicine
DX: R07.9 Chest pain, unspecified (principal); I10 Essential (primary) hypertension; R05.9 Cough, unspecified; Z86.79 Personal history of other diseases of the circulatory system
CPT/HCPCS: 99284 ×2; 36415; 80053; 93005; 71045; 83880; 84484; 85025; 85379; 85610; 85730; 93010

== ENCOUNTER 2025-07-17 08:01 | Outpatient (CLI) | payer MEDICARE, MEDICAID, SELFPAY | END 2025-07-17 08:02 | disposition home or self-care (01) | PROVIDERS: PCP Family Medicine; Visit Provider Registered Nurse | CPT/HCPCS: 93010 ==

== ENCOUNTER → 2025-07-17 10:49 | Outpatient (BNVA) | payer MEDICARE, MEDICAID, SELFPAY | PROVIDERS: PCP Family Medicine; Referring Provider Family Medicine; Visit Provider Registered Nurse | DX: I25.10 Atherosclerotic heart disease of native coronary artery without angina pectoris (principal); I12.9 Hypertensive chronic kidney disease with stage 1 through stage 4 chronic kidney disease, or unspecified chronic kidney disease; N18.9 Chronic kidney disease, unspecified; J44.9 Chronic obstructive pulmonary disease, unspecified; E11.59 Type 2 diabetes mellitus with other circulatory complications; I10 Essential (primary) hypertension; Z98.61 Coronary angioplasty status; Z79.02 Long term (current) use of antithrombotics/antiplatelets | CPT/HCPCS: 99214 ==

== ENCOUNTER 2025-07-17 11:27 | Emergency (ER) | payer MEDICARE, MEDICAID, SELFPAY ==
--- NOTE | 2025-07-17 11:15 | RT.EKG_ITS ---
APPROVED REPORT Exam: Resting ECG Reason for Exam: Chest Pain Patient Location: E HR:68 bpm ECG Measurements Heart Rate 68 AXIS [place] 82 P 0 QRSd 102 QRS 1 QT 427 T 3 QTc 442 Conclusion Sinus rhythm...normal P axis, V-rate 60- 99 Multiform ventricular premature complexes...short R-R, variable morphology Physician: No STEMI
[2025-07-17 11:32] VITALS: PULSE 61; RESP 18; TEMP 36.6; O2SAT 97
[2025-07-17 11:37] VITALS: BP 139/67
--- NOTE | 2025-07-17 11:45 | DI.RAD_ITS ---
Exam(s) XR PORTABLE CHEST AP EXAM: XR PORTABLE CHEST AP CLINICAL HISTORY: central chest pain TECHNIQUE: 2D digital imaging was performed of the chest. One image was obtained. An AP view was obtained. COMPARISON: CR,XR XR PORTABLE CHEST AP from 07/06/2025 FINDINGS: MEDIASTINUM: Normal. HEART: Normal. PULMONARY VASCULATURE: Normal. LUNGS: Clear. PLEURAL SPACE: No pleural effusion or pneumothorax. BONE:Within normal limits for the patient's age. There is again seen posterior spinal surgery at the cervical thoracic junction. OTHER FINDINGS:Normal. IMPRESSION: No acute pulmonary findings. DATA REPOSITORY: RADIATION DOSE DELIVERED:
[2025-07-17 12:24] LABS: Abs Immature Grans 0.04 10^3/uL (0.0-0.06); HCT 32.5 % (40.0-50.0); HGB 10.9 g/dL (13.5-17.5); Immature Grans % 0.5 %; MCH 31.3 pg (27.0-33.0); MCHC 33.5 % (32.0-36.0); MCV 93 fL (80-95); MPV 9.4 fL (8.0-11.0); Platelet Count 184 10^3/uL (130-400); RBC 3.48 10^6/uL (4.36-5.78); RDW 12.6 % (11.8-14.1); RDW-SD 42.7 fL; WBC 8.46 10^3/uL (4.4-10.8)
[2025-07-17 12:36] LABS: INR 1.0 (0.9-1.1); PTT Activated 23.4 sec (20.6-30.2); Prothrombin Time 10.4 sec (9.1-11.1)
[2025-07-17 12:47] LABS: ALT 26 U/L (16-63); AST 17 U/L (15-37); Albumin 4.1 g/dL (3.4-5.0); Alkaline Phosphatase 66 U/L (46-116); Anion Gap 9.5 mmol/L (3-11); BUN 48 mg/dL (7-18); Bilirubin, Total 0.4 mg/dL (0.2-1.0); CO2 28.5 mmol/L (21.0-32.0); Calcium 9.3 mg/dL (8.5-10.1); Chloride 100 mmol/L (98-107); Estimated GFR 30.36 (mL/min/1.73m2); Glucose 171 mg/dL (74-106); Lipase 37 U/L (<78); NT-proBNP 769 pg/mL (<300); Potassium 4.1 mmol/L (3.5-5.1); Sodium 138 mmol/L (136-145); Total Protein 7.0 g/dL (6.4-8.2); Troponin I 8 ng/L (<or=76)
[2025-07-17 14:13] LABS: Troponin I 8 ng/L (<or=76)
[2025-07-17 15:03] VITALS: BP 103/51; PULSE 61; RESP 14
--- NOTE | 2025-07-17 15:14 | W.ED.GENAD ---
Discharge Plan Disposition Patient Disposition: Home Condition: Good Discharge Details Clinical Impression: Chest discomfort Primary Care Provider: Nica Carrasco ED Provider: Andres Cortez Home Meds and New Rx's Prescriptions: No Action aspirin [Adult Aspirin Regimen] 81 mg tablet,delayed release (DR/EC) 81 mg PO DAILY gabapentin 300 mg capsule 300 mg PO BID glucagon 1 mg recon soln 1 mg subcut Q20M PRN Rx Instructions: until target blood sugar attained naloxone 4 mg/actuation spray,non-aerosol 4 mg intranasal Q2M Rx Instructions: spray 1 dose into ONE nostril; alternate nostrils w each dose until help arrives nitroglycerin 0.4 mg tablet, sublingual 0.4 mg sublingual Q5M PRN Rx Instructions: do not exceed 3 doses per episode ranolazine 500 mg tablet extended release 12 hr 500 mg PO BID sevelamer HCl 800 mg tablet 800 mg PO TID Rx Instructions: must administer with a meal/food risperidone 1 mg tablet 1 mg PO BID sennosides-docusate sodium 8.6-50 mg tablet 1 tab-cap PO BID metoprolol succinate 25 mg tablet extended release 24 hr 50 mg PO DAILY epinephrine [EpiPen] 0.3 mg/0.3 mL auto-injector 0.3 mg IM ONCE PRN Rx Instructions: as a single dose; may repeat once amoxicillin-pot clavulanate 875-125 mg tablet 1 tab PO BID Rx Instructions: for 10 d rx done 07/11/25 ipratropium-albuterol 0.5 mg-3 mg(2.5 mg base)/3 mL solution for nebulization 3 ml inhalation QID PRN metformin 1,000 mg tablet 1,000 mg PO BID [id number] Liquid PO PRN B complex-vitamin C-folic acid 0.8 mg tablet 1 tab PO DAILY amitriptyline 10 mg tablet 10 mg PO QHS PRN prazosin 1 mg capsule 1 mg PO QPM torsemide 20 mg tablet 20 mg PO DAILY Qty: 0 0RF Rx Instructions: Hold until 06/11/25 hydrocodone-acetaminophen 10-325 mg tablet 1 tab PO Q6H PRNQty: 10 0RF magnesium oxide 400 mg magnesium capsule 400 mg PO DAILY Qty: 7 0RF bisacodyl [Dulcolax (bisacodyl)] 10 mg suppository 10 mg AL DAILY PRNQty: 12 0RF Biofreeze (menthol) 4 % gel 1 applic topical Q6H PRN PRNQty: 237 0RF ropinirole 1 mg tablet 1 mg PO BID Qty: 0 0RF loperamide [Anti-Diarrheal (loperamide)] 2 mg capsule 2 mg PO Q6H PRN vilazodone [Viibryd] 20 mg tablet 20 mg PO DAILY Rx Instructions: must administer with a meal/food acetaminophen 500 mg capsule 650 mg PO Q4H PRN clopidogrel [Plavix] 75 mg tablet 75 mg PO DAILY Qty: 20 0RF Enema 19-7 gram/118 mL enema 118 ml AL DAILY PRN ketoconazole 2 % shampoo 1 applic topical Q2W polyethylene glycol 3350 17 gram/dose powder 17 g PO DAILY Rx Instructions: Constipation amlodipine 10 mg tablet 5 mg PO DAILY rosuvastatin 20 mg tablet 40 mg PO HS multivitamin [Daily Multi-Vitamin] Tablet 1 tab PO DAILY diazepam 5 mg tablet 5 mg PO ONCE PRN albuterol sulfate 2.5 mg /3 mL (0.083 %) solution for nebulization 2.5 mg inhalation Q6H PRN fluticasone propion-salmeterol [Advair Diskus] 500-50 mcg/dose blister with device 1 inh inhalation BID insulin asp prt-insulin aspart [Novolog Mix 70-30 U-100 Insuln] 100 unit/mL (70-30) solution 45 unit subcut DAILY Rx Instructions: In AM insulin asp prt-insulin aspart [Novolog Mix 70-30 U-100 Insuln] 100 unit/mL (70-30) solution See Rx Instructions subcut .COMPLEX Rx Instructions: subcutaneously with meals with sliding scale isosorbide mononitrate 60 mg tablet extended release 24 hr 60 mg PO DAILY Discharge Instructions Instructions: Chest pain Additional Instructions: At this time your workup has returned reassuring. There is no evidence of heart attack, pneumonia, popped lung or other abnormality. Please take your medication at home as prescribed. Take the nitroglycerin when your chest pain occurs or blood pressure gets too high. If you notice any worsening of your symptoms, or any new symptoms such as vomiting, diarrhea, fever, chills, shortness of breath, chest pain, numbness, weakness, or fainting , please return immediately to the emergency department for reevaluation. Please follow up with your primary care provider as soon as possible for reassessment and reevaluation. As always, it was a pleasure participating in your medical care today. Referrals: Nica Carrasco [Primary Care Provider, Medicine] [facility] General Date/Time Provider Initiated Documentation: 07/17/25 11:49. HPI Narrative: This is a 69-year-old male with a past medical history of previous DVT and pulmonary emboli previously on Eliquis, cardiac catheterization in the past in 2021 demonstrating known disease, and then subsequent NSTEMI on 06/2025 with subsequent stenting, COPD, chronic kidney disease, previous TIA, hypertension, diabetes, obesity, bipolar who [facility] who presents today for evaluation of chest pain. The patient was actually upstairs seeing his a and p technician when he had some symptoms of hypertension and chest discomfort. He was sent down to the ER for further assessment. Patient states that since his cardiac catheterization he has had intermittent nonexertional episodes of chest discomfort which she describes as a pressure-like sensation in the center of his chest. It occurs while at rest. There is no pleuritic component. He denies any falls or trauma. He states that when he walks on his little walking machine he does not develop any chest pain chest pressure or chest discomfort whatsoever. He denies any vomiting. No other complaints at this time. No other modifying factors. Related Data Home Medications ?Medication ?Instructions ?Recorded ?Confirmed aspirin 81 mg tablet,delayed 81 mg PO DAILY 07/06/24 07/17/25 release (Adult Aspirin Regimen) gabapentin 300 mg capsule 300 mg PO BID 07/06/24 07/17/25 glucagon 1 mg solution for 1 mg subcut Q20M PRN 07/06/24 07/17/25 injection naloxone 4 mg/actuation nasal spray 4 mg intranasal Q2M 07/06/24 07/17/25 nitroglycerin 0.4 mg sublingual 0.4 mg sublingual Q5M PRN 07/06/24 07/17/25 tablet ranolazine 500 mg tablet,extended 500 mg PO BID 07/06/24 07/17/25 release,12 hr risperidone 1 mg tablet 1 mg PO BID 07/06/24 07/17/25 sennosides 8.6 mg-docusate sodium 1 tab-cap PO BID 07/06/24 07/17/25 50 mg tablet sevelamer HCl 800 mg tablet 800 mg PO TID 07/06/24 07/17/25 isosorbide mononitrate 60 mg 60 mg PO DAILY 03/15/25 07/17/25 tablet,extended release 24 hr prazosin 1 mg capsule 1 mg PO QPM 03/31/25 07/17/25 bisacodyl 10 mg rectal suppository 10 mg AL DAILY PRN #12 ea 06/10/25 07/17/25 (Dulcolax (bisacodyl)) hydrocodone 10 mg-acetaminophen 1 tab PO Q6H PRN #10 tabs 06/10/25 07/17/25 325 mg tablet magnesium oxide 400 mg PO DAILY #7 caps 06/10/25 07/17/25 menthol 4 % topical gel (Biofreeze 1 applic topical Q6H PRN PRN #237 06/10/25 07/17/25 (menthol)) mL ropinirole 1 mg tablet 1 mg PO BID #0 tabs 06/10/25 07/17/25 torsemide 20 mg tablet 20 mg PO DAILY #0 tabs 06/10/25 07/17/25 acetaminophen 500 mg capsule 650 mg PO Q4H PRN 06/13/25 07/17/25 loperamide 2 mg capsule 2 mg PO Q6H PRN 06/13/25 07/17/25 (Anti-Diarrheal (loperamide)) vilazodone 20 mg tablet (Viibryd) 20 mg PO DAILY 06/13/25 07/17/25 clopidogrel 75 mg tablet (Plavix) 75 mg PO DAILY #20 tabs 06/14/25 07/17/25 ketoconazole 2 % shampoo 1 applic topical Q2W 06/20/25 07/17/25 sodium phosphates 19 gram-7 118 ml AL DAILY PRN 06/20/25 07/17/25 gram/118 mL enema (Enema) amlodipine 10 mg tablet 5 mg PO DAILY 06/28/25 07/17/25 polyethylene glycol 3350 17 17 g PO DAILY 06/28/25 07/17/25 gram/dose oral powder albuterol sulfate 2.5 mg/3 mL 2.5 mg inhalation Q6H PRN 07/07/25 07/17/25 (0.083 %) solution for nebulization diazepam 5 mg tablet 5 mg PO ONCE PRN 07/07/25 07/17/25 fluticasone 500 mcg-salmeterol 50 1 inh inhalation BID 07/07/25 07/17/25 mcg/dose blistr powdr for inhalation (Advair Diskus) insulin aspar prt-insulin aspart 45 unit subcut DAILY 07/07/25 07/17/25 100 unit/mL (70-30) subcutaneous soln (Novolog Mix 70-30 U-100 Insuln) insulin aspar prt-insulin aspart See Rx Instructions subcut .COMPLEX 07/07/25 07/17/25 100 unit/mL (70-30) subcutaneous soln (Novolog Mix 70-30 U-100 Insuln) multivitamin (Daily Multi-Vitamin 1 tab PO DAILY 07/07/25 07/17/25 tablet) rosuvastatin 20 mg tablet 40 mg PO HS 07/07/25 07/17/25 TU-[id number]-XH oral liquid ml PO PRN 07/12/25 07/17/25 amoxicillin 875 mg-potassium 1 tab PO BID 07/12/25 07/17/25 clavulanate 125 mg tablet epinephrine 0.3 mg/0.3 mL 0.3 mg IM ONCE PRN 07/12/25 07/17/25 injection, auto-injector (EpiPen) ipratropium 0.5 mg-albuterol 3 mg 3 ml inhalation QID PRN 07/12/25 07/17/25 (2.5 mg base)/3 mL nebulization soln metformin 1,000 mg tablet 1,000 mg PO BID 07/12/25 07/17/25 vitamin B complex-vitamin C-folic 1 tab PO DAILY 07/12/25 07/17/25 acid 0.8 mg tablet amitriptyline 10 mg tablet 10 mg PO QHS PRN 07/17/25 07/17/25 metoprolol succinate 25 mg 50 mg PO DAILY 07/17/25 07/17/25 tablet,extended release 24 hr Previous Rx's ?Medication ?Instructions ?Recorded bisacodyl 10 mg rectal suppository 10 mg AL DAILY PRN #12 ea 06/10/25 (Dulcolax (bisacodyl)) hydrocodone 10 mg-acetaminophen 1 tab PO Q6H PRN #10 tabs 06/10/25 325 mg tablet magnesium oxide 400 mg PO DAILY #7 caps 06/10/25 menthol 4 % topical gel (Biofreeze 1 applic topical Q6H PRN PRN #237 06/10/25 (menthol)) mL ropinirole 1 mg tablet 1 mg PO BID #0 tabs 06/10/25 torsemide 20 mg tablet 20 mg PO DAILY #0 tabs 06/10/25 clopidogrel 75 mg tablet (Plavix) 75 mg PO DAILY #20 tabs 06/14/25 Allergies Allergy/AdvReac Type Severity Reaction Status Date / Time bee venom protein (honey bee) Allergy Intermediate Anaphylaxis Verified 07/17/25 11:37 clonidine Allergy Mild Unknown Verified 07/17/25 11:37 Influenza Virus Vaccines Allergy Mild Unknown Verified 07/17/25 11:37 prednisone Allergy Unknown Other (See Verified 07/17/25 11:37 Comment) tamsulosin (From Flomax) Allergy Unknown Other (See Verified 07/17/25 11:37 Comment) General Stated Complaint: Chest Pain VALERI: 3 Exam Narrative Exam Narrative: 1.Const: Well-nourished, Well-developed, appearing stated age 2.Eyes: PERRL, no conjunctival injection, and symmetrical lids. 3.ENT: Atraumatic external nose and ears. Moist MM. Neck: Symmetric, trachea midline, No thyromegaly. 4.CVS: +S1/S2, Peripheral pulses 2+ and equal in all extremities. Brisk capillary refill in all extremities. 5.RESP: Unlabored respiratory effort. Clear to auscultation bilaterally. No wheezes rales or rhonchi 6.GI: Soft, Nontender/Nondistended, No hepatosplenomegaly. No guarding or rebound. 7.MSK: Normocephalic/Atraumatic, Extremities w/o deformity or ttp No cyanosis or clubbing, Normal movement of all extremities 8.Skin: Warm, Dry. No rashes or lesions. 9.Neuro: brine well operator II-XII grossly intact. Sensation grossly intact, no focal neurologic deficits. 10.Psych: (AAO) x3. Appropriate mood and affect Course Vital Signs Vital signs: Vital Signs Temperature 36.6 C 07/17/25 11:32 Pulse 61 07/17/25 11:32 Respiratory Rate 18 07/17/25 11:32 Pulse Oximetry 97 07/17/25 11:32 Temperature 36.6 C 07/17/25 11:32 Pulse 61 07/17/25 15:03 Pulse Rhythm Regular 07/17/25 15:03 Respiratory Rate 14 07/17/25 15:03 Respiratory Effort Normal 07/17/25 15:03 Respiratory Depth Normal 07/17/25 15:03 Respiratory Pattern Normal 07/17/25 12:03 Blood Pressure 103/51 L 07/17/25 15:03 Blood Pressure Mean 68 07/17/25 15:03 Pulse Oximetry 97 07/17/25 11:32 Oxygen Delivery Method Room Air 07/17/25 15:03 Oxygen Flow Rate 0 07/17/25 15:03 Pain Level 0 07/17/25 15:03 Lab/Test Results Lab/Test Results: Laboratory Tests Range/Units 07/17/25 07/17/25 07/17/25 12:13 12:15 13:48 WBC (4.4-10.8) 10^3/uL 8.46 RBC (4.36-5.78) 10^6/uL 3.48 L Hgb (13.5-17.5) g/dL 10.9 L Hct (40.0-50.0) % 32.5 L MCV (80-95) fL 93 MCH (27.0-33.0) pg 31.3 MCHC (32.0-36.0) % 33.5 RDW (11.8-14.1) % 12.6 Plt Count (130-400) 10^3/uL 184 MPV (8.0-11.0) fL 9.4 Immature Gran % % 0.5 Neutrophils % % 71.5 Lymphocytes % % 18.4 Monocytes % % 6.6 Eosinophils % % 2.4 Basophils % % 0.6 Nucleated RBC % (0.0-0.3) % 0.0 Absolute Neutrophils (1.2-6.7) 10^3/uL 6.05 Absolute Lymphocytes (1.2-3.4) 10^3/uL 1.56 Absolute Monocytes (0.1-0.8) 10^3/uL 0.56 Absolute Eosinophils (0.0-0.7) 10^3/uL 0.20 Absolute Basophils (0.0-0.2) 10^3/uL 0.05 PT (9.1-11.1) sec 10.4 INR (0.9-1.1) 1.0 APTT (20.6-30.2) sec 23.4 Sodium (136-145) mmol/L 138 Potassium (3.5-5.1) mmol/L 4.1 Chloride (98-107) mmol/L 100 Carbon Dioxide (21.0-32.0) mmol/L 28.5 Anion Gap (3-11) mmol/L 9.5 BUN (7-18) mg/dL 48 H Creatinine (0.70-1.30) mg/dL 2.3 H Est GFR (CKD-EPI 2020) (mL/min/1.73m2) 30.36 Glucose (74-106) mg/dL 171 H Calcium (8.5-10.1) mg/dL 9.3 Total Bilirubin (0.2-1.0) mg/dL 0.4 AST (15-37) U/L 17 ALT (16-63) U/L 26 Alkaline Phosphatase (46-116) U/L 66 Troponin I (<or=76) ng/L 8 8 NT-Pro-B Natriuret Pep (<300) pg/mL 769 H Total Protein (6.4-8.2) g/dL 7.0 Albumin (3.4-5.0) g/dL 4.1 Lipase (<78) U/L 37 Medical Decision Making This is a 69-year-old male with a past medical history of previous DVT and pulmonary emboli previously on Eliquis, cardiac catheterization in the past in 2021 demonstrating known disease, and then subsequent NSTEMI on 06/2025 with subsequent stenting, COPD, chronic kidney disease, previous TIA, hypertension, diabetes, obesity, bipolar who [facility] who presents today for evaluation of chest pain. The patient was actually upstairs seeing his a and p technician when he had some symptoms of hypertension and chest discomfort. He was sent down to the ER for further assessment. Patient states that since his cardiac catheterization he has had intermittent nonexertional episodes of chest discomfort which she describes as a pressure-like sensation in the center of his chest. It occurs while at rest. There is no pleuritic component. He denies any falls or trauma. He states that when he walks on his little walking machine he does not develop any chest pain chest pressure or chest discomfort whatsoever. He denies any vomiting. No other complaints at this time. No other modifying factors. Exam demonstrates a stable appearing male, vital signs demonstrate no hypertension, tachycardia or hypoxemia. Patient denies any significant chest pain at this time. He states that he is feeling much better. Symptoms appear inconsistent with ACS as there is no exertional component. No pleuritic component to suggest PE. No trauma to suggest rib fracture. Symptoms could be because of vascular spasm, esophageal spasm, or other sev-[id number]-[id number] etiology. However because of the patient significant past medical history of cardiac disease including the known coronary artery disease that is present that was not amendable to stenting, I do feel that further workup is indicated. Will get troponins, chest x-ray, monitor closely and reassess. 4:17 PM Laboratory workup has returned, serial troponins are normal at 8 and 8. Renal function stable, no white count or bandemia. Chest x-ray negative. proBNP slightly elevated at 769, but no evidence of fluid overload clinically or on chest x-ray. Lipase normal. Patient continues to feel well. I did contact patient's a and p technician here at [facility], discussed the case with them. They state that they do not need to see him again today. They recommend continued outpatient medications with his nitro as needed for pain. Patient otherwise feels well and is stable for discharge. Discussed red flags which to return. I have extensively reviewed the treatment plan and discharge instructions with the patient. I have addressed all patient concerns at this time. The patient was made aware of what symptoms to monitor for that would warrant a return to the emergency department. Discussed the plan with the patient, they demonstrate verbal understanding and agreement with our assessment and plan at this time. The documentation in this chart was dictated using [employer] dictation software. Please excuse any dictation errors. FINDINGS: MEDIASTINUM: Normal. HEART: Normal. PULMONARY VASCULATURE: Normal. LUNGS: Clear. PLEURAL SPACE: No pleural effusion or pneumothorax. BONE:Within normal limits for the patient's age. There is again seen posterior spinal surgery at the cervical thoracic junction. OTHER FINDINGS:Normal. IMPRESSION: No acute pulmonary findings. PFSH All Active Problems (Updated 07/17/25 @ 15:16 by Andres Cortez DO) Chest discomfort (Acute) Cough (Acute) Chest pain (Acute) Hypomagnesemia (Acute) Acute non-ST elevation myocardial infarction (NSTEMI) (Acute) Ear pain, left (Acute) Tinnitus of both ears (Acute) Chest pain (Acute) TIA (transient ischemic attack) (Acute) CAD S/P percutaneous coronary angioplasty (Acute) Acute on chronic kidney failure (Acute) Unstable angina (Acute) Osteoarthritis of hip (Acute) Right hip pain (Acute) PAD (peripheral artery disease) (Acute) Lymphedema (Acute) Venous ulcers of both lower extremities (Acute) Venous (peripheral) insufficiency (Acute) Phantom limb syndrome (Acute) PTSD (post-traumatic stress disorder) (Chronic) Vitamin D deficiency (Acute) Nondisplaced fracture of right scaphoid bone (Acute 02/01/24) Right wrist pain (Acute) GERD (gastroesophageal reflux disease) (Chronic) Hypertension (Chronic) Neuropathy (Acute) History of venous thrombosis and embolism (Acute) Pityriasis versicolor (Acute) Hyperlipidemia (Chronic) Atherosclerotic heart disease of [place] coronary artery without angina pectoris (Acute) CKD stage 4 due to type 2 diabetes mellitus (Chronic) Heart failure (Chronic) Anxiety (Chronic) Morbid obesity (Chronic) Subacute osteomyelitis, left ankle and foot (Acute) Chronic pain (Chronic) COPD (chronic obstructive pulmonary disease) (Chronic) Asthma (Chronic) Type 2 diabetes mellitus (Chronic) Medical History (Updated 07/17/25 @ 15:16 by Andres Coretz DO) Iron deficiency anemia CAD (coronary artery disease), [place] coronary artery Chronic bipolar disorder Chronic back pain greater than 3 months duration Diabetes mellitus type 2, insulin dependent MRSA infection Testicular hypofunction Low back pain Surgical History (Updated 07/10/25 @ 08:26 by Bre Molina RN, RN) S/P spinal surgery S/P hip hemiarthroplasty S/P cardiac cath Stent to LAD Social History Smoking/Tobacco Use Status: Former Tobacco Use Smoking risk assessment performed?: Yes Alcohol Intake: current Alcohol Intake frequency: holidays/special occasions only Drug use: Never Substance use type: does not use Housing: assisted living facility Do you feel safe at home: Yes Do you feel safe in your relationship?: Yes
[2025-07-17 16:39] VITALS: BP 118/71; PULSE 61; RESP 16; TEMP 36.7; O2SAT 99
== END 2025-07-17 17:03 | disposition home or self-care (01) ==
PROVIDERS: Emergency Provider Student in an Organized Health Care Education/Training Program; PCP Family Medicine
DX: R07.9 Chest pain, unspecified (principal); E11.22 Type 2 diabetes mellitus with diabetic chronic kidney disease; I12.9 Hypertensive chronic kidney disease with stage 1 through stage 4 chronic kidney disease, or unspecified chronic kidney disease; N18.4 Chronic kidney disease, stage 4 (severe); I25.10 Atherosclerotic heart disease of native coronary artery without angina pectoris; I25.2 Old myocardial infarction; J44.9 Chronic obstructive pulmonary disease, unspecified; Z86.711 Personal history of pulmonary embolism; Z86.718 Personal history of other venous thrombosis and embolism; Z95.5 Presence of coronary angioplasty implant and graft; Z86.73 Personal history of transient ischemic attack (TIA), and cerebral infarction without residual deficits; Z79.4 Long term (current) use of insulin; Z79.82 Long term (current) use of aspirin; Z87.891 Personal history of nicotine dependence
CPT/HCPCS: 36415; 80053; 83690; 93005; 99214; 99284; 71045; 83880; 84484; 85025; 85610; 85730; 93010

== ENCOUNTER 2025-07-21 17:33 | Emergency (ER) | payer MEDICARE, MEDICAID, SELFPAY ==
[2025-07-21] VITALS (16 sets, daily range): BP systolic 101–125; BP diastolic 46–70; PULSE 64–79; RESP 16–20; TEMP 36.2–36.9; O2SAT 96–99
--- NOTE | 2025-07-21 17:30 | DI.RAD_ITS ---
Exam(s) XR PELVIS AP EXAM: XR PELVIS AP CLINICAL HISTORY: fall, R. hip pain. TECHNIQUE: 2D digital imaging was performed. COMPARISON: CR,XR XR HIP RT COMPLETE AP PELVIS from 03/15/2025 FINDINGS: There are bilateral hip prostheses again noted. No evidence of acute fracture. Lucency in the lesser trochanter of the right hip is unchanged from the previous study as is some dystrophic calcification between the greater trochanter of the right hip and the superolateral acetabulum. There are no pubic rami fractures evident. IMPRESSION: As above but no acute fractures evident on this single view. DATA REPOSITORY: RADIATION DOSE DELIVERED:
--- NOTE | 2025-07-21 17:30 | DI.RAD_ITS ---
Exam(s) XR FEMUR RT EXAM: XR FEMUR RT CLINICAL HISTORY: fall, R. hip pain. TECHNIQUE: 2D digital imaging was performed. COMPARISON: CR,XR XR HIP RT COMPLETE AP PELVIS from 03/15/2025 FINDINGS: Five views There is a right hip prosthesis and a right knee prosthesis. There are no obvious acute fractures. The appearance of the right hip prosthesis is stable when compared to images of March 2025. No fracture or evidence of loosening. With respect to the ipsilateral knee prosthesis, it also exhibits no evidence of obvious fracture or loosening. No incidental osseous lesions and no evidence of osteomyelitis. IMPRESSION: No fractures evident in the right femur. No obvious loosening of the right hip and right knee prostheses. DATA REPOSITORY: RADIATION DOSE DELIVERED:
--- NOTE | 2025-07-21 17:47 | W.ED.GENAD ---
Discharge Plan Disposition Patient Disposition: Home Condition: Stable Discharge Details Clinical Impression: Contusion of hip, right, CKD stage 4 due to type 2 diabetes mellitus, Chronic pain Primary Care Provider: Nica Carrasco ED Provider: Salima Chawla Recommendations for Follow Up Recommended tests to be ordered by follow up provider: Magnesium, kidney function panel 1 to 2 weeks Home Meds and New Rx's Prescriptions: No Action aspirin [Adult Aspirin Regimen] 81 mg tablet,delayed release (DR/EC) 81 mg PO DAILY gabapentin 300 mg capsule 300 mg PO BID glucagon 1 mg recon soln 1 mg subcut Q20M PRN Rx Instructions: until target blood sugar attained naloxone 4 mg/actuation spray,non-aerosol 4 mg intranasal Q2M Rx Instructions: spray 1 dose into ONE nostril; alternate nostrils w each dose until help arrives nitroglycerin 0.4 mg tablet, sublingual 0.4 mg sublingual Q5M PRN Rx Instructions: do not exceed 3 doses per episode ranolazine 500 mg tablet extended release 12 hr 500 mg PO BID sevelamer HCl 800 mg tablet 800 mg PO TID Rx Instructions: must administer with a meal/food risperidone 1 mg tablet 1 mg PO BID sennosides-docusate sodium 8.6-50 mg tablet 1 tab-cap PO BID metoprolol succinate 25 mg tablet extended release 24 hr 50 mg PO DAILY epinephrine [EpiPen] 0.3 mg/0.3 mL auto-injector 0.3 mg IM ONCE PRN Rx Instructions: as a single dose; may repeat once amoxicillin-pot clavulanate 875-125 mg tablet 1 tab PO BID Rx Instructions: for 10 d rx done 07/11/25 ipratropium-albuterol 0.5 mg-3 mg(2.5 mg base)/3 mL solution for nebulization 3 ml inhalation QID PRN metformin 1,000 mg tablet 1,000 mg PO BID [id number] Liquid PO PRN B complex-vitamin C-folic acid 0.8 mg tablet 1 tab PO DAILY amitriptyline 10 mg tablet 10 mg PO QHS PRN prazosin 1 mg capsule 1 mg PO QPM torsemide 20 mg tablet 20 mg PO DAILY Qty: 0 0RF Rx Instructions: Hold until 06/11/25 hydrocodone-acetaminophen 10-325 mg tablet 1 tab PO Q6H PRNQty: 10 0RF magnesium oxide 400 mg magnesium capsule 400 mg PO DAILY Qty: 7 0RF bisacodyl [Dulcolax (bisacodyl)] 10 mg suppository 10 mg VA DAILY PRNQty: 12 0RF Biofreeze (menthol) 4 % gel 1 applic topical Q6H PRN PRNQty: 237 0RF ropinirole 1 mg tablet 1 mg PO BID Qty: 0 0RF loperamide [Anti-Diarrheal (loperamide)] 2 mg capsule 2 mg PO Q6H PRN vilazodone [Viibryd] 20 mg tablet 20 mg PO DAILY Rx Instructions: must administer with a meal/food acetaminophen 500 mg capsule 650 mg PO Q4H PRN clopidogrel [Plavix] 75 mg tablet 75 mg PO DAILY Qty: 20 0RF Enema 19-7 gram/118 mL enema 118 ml VA DAILY PRN ketoconazole 2 % shampoo 1 applic topical Q2W polyethylene glycol 3350 17 gram/dose powder 17 g PO DAILY Rx Instructions: Constipation amlodipine 10 mg tablet 5 mg PO DAILY rosuvastatin 20 mg tablet 40 mg PO HS multivitamin [Daily Multi-Vitamin] Tablet 1 tab PO DAILY diazepam 5 mg tablet 5 mg PO ONCE PRN albuterol sulfate 2.5 mg /3 mL (0.083 %) solution for nebulization 2.5 mg inhalation Q6H PRN fluticasone propion-salmeterol [Advair Diskus] 500-50 mcg/dose blister with device 1 inh inhalation BID insulin asp prt-insulin aspart [Novolog Mix 70-30 U-100 Insuln] 100 unit/mL (70-30) solution 45 unit subcut DAILY Rx Instructions: In AM insulin asp prt-insulin aspart [Novolog Mix 70-30 U-100 Insuln] 100 unit/mL (70-30) solution See Rx Instructions subcut .COMPLEX Rx Instructions: subcutaneously with meals with sliding scale isosorbide mononitrate 60 mg tablet extended release 24 hr 60 mg PO DAILY Discharge Instructions Instructions: Minor Contusion ED Additional Instructions: You were seen in the emergency department today for evaluation after a fall during which time you struck your hip on the bed frame. In our department you had a full physical examination performed, had reassuring laboratory studies though your magnesium was noted to be slightly low. This was repleted through the IV. Your kidney function is slightly worse today than it was on last check, and your primary care provider should recheck your levels in the next week or so. You had x-rays that did not show any broken bones nor displacement of your hardware, and you were able to bear weight on your hip after these studies. I am concerned for a contusion or bad bruise, as well as sprain/strain. You should continue to use your home Tylenol and hydrocodone to manage pain, and please follow-up with your primary care provider in the next few days to discuss this visit and any symptoms that change, worsen, or persist. Thank you for allowing us to be part of your care. HPI General Mode of arrival: EMS. Date/Time Provider Initiated Documentation: 07/21/25 17:42. Limitations to Documentation: no limitations. Information obtained by: patient, EMS and old records reviewed. HPI Narrative: This is a 69-year-old male patient with a past medical history significant for NSTEMI, CKD, GERD, thromboembolic disease on dual antiplatelet therapy but not anticoagulants, history of diabetes, CHF, hypertension, and COPD, brought in by EMS for evaluation after a fall. The patient reports that he was transferring from his chair to his bed, which she does every day. He reports that he was in his normal state of health, and his right knee, which he has a history of replacement of, buckled under him and caused him to fall. He struck the bed frame with his right hip. He did not strike his head, lose consciousness, or injure any other part of his body. He states that this fall was not preceded by any dizziness, loss of consciousness, or chest pain. The patient reports that his right hip is quite tender and he has not been able to bear weight on it. His right knee does not hurt him at this time. He has no numbness, tingling, or weakness distal to this injury. Received intramuscular fentanyl by EMS prior to arrival. Denies headache, neck pain, vision changes, etc. Related Data Home Medications ?Medication ?Instructions ?Recorded ?Confirmed aspirin 81 mg tablet,delayed 81 mg PO DAILY 07/06/24 07/17/25 release (Adult Aspirin Regimen) gabapentin 300 mg capsule 300 mg PO BID 07/06/24 07/17/25 glucagon 1 mg solution for 1 mg subcut Q20M PRN 07/06/24 07/17/25 injection naloxone 4 mg/actuation nasal spray 4 mg intranasal Q2M 07/06/24 07/17/25 nitroglycerin 0.4 mg sublingual 0.4 mg sublingual Q5M PRN 07/06/24 07/17/25 tablet ranolazine 500 mg tablet,extended 500 mg PO BID 07/06/24 07/17/25 release,12 hr risperidone 1 mg tablet 1 mg PO BID 07/06/24 07/17/25 sennosides 8.6 mg-docusate sodium 1 tab-cap PO BID 07/06/24 07/17/25 50 mg tablet sevelamer HCl 800 mg tablet 800 mg PO TID 07/06/24 07/17/25 isosorbide mononitrate 60 mg 60 mg PO DAILY 03/15/25 07/17/25 tablet,extended release 24 hr prazosin 1 mg capsule 1 mg PO QPM 03/31/25 07/17/25 bisacodyl 10 mg rectal suppository 10 mg VA DAILY PRN #12 ea 06/10/25 07/17/25 (Dulcolax (bisacodyl)) hydrocodone 10 mg-acetaminophen 1 tab PO Q6H PRN #10 tabs 06/10/25 07/17/25 325 mg tablet magnesium oxide 400 mg PO DAILY #7 caps 06/10/25 07/17/25 menthol 4 % topical gel (Biofreeze 1 applic topical Q6H PRN PRN #237 06/10/25 07/17/25 (menthol)) mL ropinirole 1 mg tablet 1 mg PO BID #0 tabs 06/10/25 07/17/25 torsemide 20 mg tablet 20 mg PO DAILY #0 tabs 06/10/25 07/17/25 acetaminophen 500 mg capsule 650 mg PO Q4H PRN 06/13/25 07/17/25 loperamide 2 mg capsule 2 mg PO Q6H PRN 06/13/25 07/17/25 (Anti-Diarrheal (loperamide)) vilazodone 20 mg tablet (Viibryd) 20 mg PO DAILY 06/13/25 07/17/25 clopidogrel 75 mg tablet (Plavix) 75 mg PO DAILY #20 tabs 06/14/25 07/17/25 ketoconazole 2 % shampoo 1 applic topical Q2W 06/20/25 07/17/25 sodium phosphates 19 gram-7 118 ml VA DAILY PRN 06/20/25 07/17/25 gram/118 mL enema (Enema) amlodipine 10 mg tablet 5 mg PO DAILY 06/28/25 07/17/25 polyethylene glycol 3350 17 17 g PO DAILY 06/28/25 07/17/25 gram/dose oral powder albuterol sulfate 2.5 mg/3 mL 2.5 mg inhalation Q6H PRN 07/07/25 07/17/25 (0.083 %) solution for nebulization diazepam 5 mg tablet 5 mg PO ONCE PRN 07/07/25 07/17/25 fluticasone 500 mcg-salmeterol 50 1 inh inhalation BID 07/07/25 07/17/25 mcg/dose blistr powdr for inhalation (Advair Diskus) insulin aspar prt-insulin aspart 45 unit subcut DAILY 07/07/25 07/17/25 100 unit/mL (70-30) subcutaneous soln (Novolog Mix 70-30 U-100 Insuln) insulin aspar prt-insulin aspart See Rx Instructions subcut .COMPLEX 07/07/25 07/17/25 100 unit/mL (70-30) subcutaneous soln (Novolog Mix 70-30 U-100 Insuln) multivitamin (Daily Multi-Vitamin 1 tab PO DAILY 07/07/25 07/17/25 tablet) rosuvastatin 20 mg tablet 40 mg PO HS 07/07/25 07/17/25 [id number]-[id number]-BT oral liquid ml PO PRN 07/12/25 07/17/25 amoxicillin 875 mg-potassium 1 tab PO BID 07/12/25 07/17/25 clavulanate 125 mg tablet epinephrine 0.3 mg/0.3 mL 0.3 mg IM ONCE PRN 07/12/25 07/17/25 injection, auto-injector (EpiPen) ipratropium 0.5 mg-albuterol 3 mg 3 ml inhalation QID PRN 07/12/25 07/17/25 (2.5 mg base)/3 mL nebulization soln metformin 1,000 mg tablet 1,000 mg PO BID 07/12/25 07/17/25 vitamin B complex-vitamin C-folic 1 tab PO DAILY 07/12/25 07/17/25 acid 0.8 mg tablet amitriptyline 10 mg tablet 10 mg PO QHS PRN 07/17/25 07/17/25 metoprolol succinate 25 mg 50 mg PO DAILY 07/17/25 07/17/25 tablet,extended release 24 hr Previous Rx's ?Medication ?Instructions ?Recorded bisacodyl 10 mg rectal suppository 10 mg VA DAILY PRN #12 ea 06/10/25 (Dulcolax (bisacodyl)) hydrocodone 10 mg-acetaminophen 1 tab PO Q6H PRN #10 tabs 06/10/25 325 mg tablet magnesium oxide 400 mg PO DAILY #7 caps 06/10/25 menthol 4 % topical gel (Biofreeze 1 applic topical Q6H PRN PRN #237 06/10/25 (menthol)) mL ropinirole 1 mg tablet 1 mg PO BID #0 tabs 06/10/25 torsemide 20 mg tablet 20 mg PO DAILY #0 tabs 06/10/25 clopidogrel 75 mg tablet (Plavix) 75 mg PO DAILY #20 tabs 06/14/25 Allergies Allergy/AdvReac Type Severity Reaction Status Date / Time bee venom protein (honey bee) Allergy Intermediate Anaphylaxis Verified 07/21/25 17:39 clonidine Allergy Mild Unknown Verified 07/21/25 17:39 Influenza Virus Vaccines Allergy Mild Unknown Verified 07/21/25 17:39 prednisone Allergy Unknown Other (See Verified 07/21/25 17:39 Comment) tamsulosin (From Flomax) Allergy Unknown Other (See Verified 07/21/25 17:39 Comment) General Stated Complaint: Fall/Non TraumaCriteria VALERI: 3 Exam Narrative Exam Narrative: Gen: Awake and alert, in no apparent distress HEENT: Non-icteric sclera, scalp atraumatic, PERRL, midface stable Neck: Supple, full range of motion, no cervical spine tenderness or step-offs Lungs: No apparent respiratory distress, normal respiratory effort. CV: Appears well perfused, heart with regular rate and rhythm, chest wall stable without crepitus or tenderness to palpation Abdomen: Non-distended, soft, nontender to palpation without rigidity, rebound, or guarding. I do note bruising to the right lower quadrant that appears old with yellow discoloration. Nontender over this area. MSK: Moves 4 extremities without apparent limitation in ROM with the exception of the right lower extremity. The patient has significant tenderness to palpation over the lateral aspect of the right hip, less so within the groin and inguinal crease region, no shortening or rotation of the affected right lower extremity. The patient's right knee is nontender with no palpable joint effusion, full CSM's distal to this injury. The patient has dressings to the bilateral lower extremities for cellulitis, unchanged from prior per patient and able to be corroborated on [facility] discharge summary from 2-11/03 to 3 weeks ago. Skin: Visualized skin without rashes, cyanosis. Neuro: No obvious focal deficits or facial asymmetry. Speaks in full, clear sentences. Psych: Appropriate for situation. Course Vital Signs Vital signs: Vital Signs Temperature 36.9 C 07/21/25 17:39 Pulse 75 07/21/25 17:39 Respiratory Rate 20 07/21/25 17:39 Blood Pressure 119/70 07/21/25 17:39 Pulse Oximetry 99 07/21/25 17:39 Temperature 36.9 C 07/21/25 17:39 Temperature Source Oral 07/21/25 17:39 Pulse 75 07/21/25 17:39 Respiratory Rate 20 07/21/25 17:39 Blood Pressure 119/70 07/21/25 17:39 Blood Pressure Position Supine 07/21/25 17:39 Pulse Oximetry 99 07/21/25 17:39 Oxygen Delivery Method Room Air 07/21/25 17:39 Oxygen Flow Rate 0 07/21/25 17:39 Pain Level 7 07/21/25 17:39 Medical Decision Making This is a 69-year-old male patient presenting for evaluation of right hip pain sustained after a fall. Differential includes but is not limited to fracture, dislocation, contusion, of note patient does have a prior replacement of that hip. Reassuringly, the patient has no back or knee pain suggestive of comorbid injury to the structures. He did not strike his head and is not anticoagulated and I have a low concern for intracranial hemorrhage. No neurodeficits to suggest neurovascular injury. Prior to this fall the patient was in his normal state of health and it was mechanical in nature, decreasing my concern for medical abnormality such as orthostasis, vasovagal syndrome, ACS or arrhythmia, anemia, dehydration and metabolic derangement. The bruising on his abdomen is quite old appearing, and in the setting of recent anticoagulation for NSTEMI at [facility] at the end of June, as well as the lack of pain on my examination right now, I feel that this is less likely to represent acute intra-abdominal pathology or injury. We will obtain labs to include CBC, CMP, magnesium, and INR. I will obtain an x-ray of the affected pelvis and right femur per protocol. I will provide the patient with Tylenol and Dilaudid for ongoing pain management. -I reviewed the patient's laboratory studies, which shows no leukocytosis, demonstrates a stable anemia, and no thrombocytopenia. Chemistry panel is without electrolyte derangement other than a mild hypomagnesemia to 1.5, which was repleted intravenously. BUN and creatinine slightly elevated from the patient's baseline today, no evidence of liver dysfunction. INR 1.0. X-ray imaging reviewed by myself and shows no evidence of fracture, dislocation, hardware loosening or disruption, or other acute abnormalities. I shared these findings with the patient, and he was able to bear weight on the right leg with his walker and 2 person assist to go from sitting to standing. I counseled him on ongoing pain management with his home Tylenol and hydrocodone, and the patient will be given a dose of oxycodone for pain management prior to transfer back to his facility. I do not feel that this patient could appropriately navigate a wheelchair van or the bus system given his significant ongoing pain, and for this reason he will be transported by EMS back to that facility. At this time, the patient has had a full medical evaluation and is safe for discharge to home. They are hemodynamically stable, ambulatory, and tolerating PO. They are understanding of the follow-up plan and return precautions. They left our facility without incident. Salima Chawla MD [facility] All Active Problems (Updated 07/21/25 @ 20:46 by Salima Chawla MD) Contusion of hip, right (Acute) Chest discomfort (Acute) Cough (Acute) Chest pain (Acute) Hypomagnesemia (Acute) Acute non-ST elevation myocardial infarction (NSTEMI) (Acute) Ear pain, left (Acute) Tinnitus of both ears (Acute) Chest pain (Acute) TIA (transient ischemic attack) (Acute) CAD S/P percutaneous coronary angioplasty (Acute) Acute on chronic kidney failure (Acute) Unstable angina (Acute) Osteoarthritis of hip (Acute) Right hip pain (Acute) PAD (peripheral artery disease) (Acute) Lymphedema (Acute) Venous ulcers of both lower extremities (Acute) Venous (peripheral) insufficiency (Acute) Phantom limb syndrome (Acute) PTSD (post-traumatic stress disorder) (Chronic) Vitamin D deficiency (Acute) Nondisplaced fracture of right scaphoid bone (Acute 02/01/24) Right wrist pain (Acute) GERD (gastroesophageal reflux disease) (Chronic) Hypertension (Chronic) Neuropathy (Acute) History of venous thrombosis and embolism (Acute) Pityriasis versicolor (Acute) Hyperlipidemia (Chronic) Atherosclerotic heart disease of [place] coronary artery without angina pectoris (Acute) CKD stage 4 due to type 2 diabetes mellitus (Chronic) Heart failure (Chronic) Anxiety (Chronic) Morbid obesity (Chronic) Subacute osteomyelitis, left ankle and foot (Acute) Chronic pain (Chronic) COPD (chronic obstructive pulmonary disease) (Chronic) Asthma (Chronic) Type 2 diabetes mellitus (Chronic) Medical History (Updated 07/21/25 @ 20:46 by Salima Chawla MD) Iron deficiency anemia CAD (coronary artery disease), [place] coronary artery Chronic bipolar disorder Chronic back pain greater than 3 months duration Diabetes mellitus type 2, insulin dependent MRSA infection Testicular hypofunction Low back pain Surgical History (Updated 07/10/25 @ 08:26 by Bre Molina RN, RN) S/P spinal surgery S/P hip hemiarthroplasty S/P cardiac cath Stent to LAD Social History Smoking/Tobacco Use Status: Former Tobacco Use Smoking risk assessment performed?: Yes Alcohol Intake: current Alcohol Intake frequency: holidays/special occasions only Drug use: Never Substance use type: does not use Housing: assisted living facility Do you feel safe at home: Yes Do you feel safe in your relationship?: Yes
[2025-07-21 18:10] LABS: Abs Immature Grans 0.03 10^3/uL (0.0-0.06); HCT 32.8 % (40.0-50.0); HGB 11.0 g/dL (13.5-17.5); Immature Grans % 0.3 %; MCH 31.1 pg (27.0-33.0); MCHC 33.5 % (32.0-36.0); MCV 93 fL (80-95); MPV 9.5 fL (8.0-11.0); Platelet Count 176 10^3/uL (130-400); RBC 3.54 10^6/uL (4.36-5.78); RDW 12.5 % (11.8-14.1); RDW-SD 42.6 fL; WBC 9.27 10^3/uL (4.4-10.8)
[2025-07-21] MEDS: HYDROmorphone 2 MG/ML SYR 0.5 MG IVP (18:29)
[2025-07-21] MEDS: Acetaminophen 500 MG TAB 1000 MG PO (18:30)
[2025-07-21 18:31] LABS: INR 1.0 (0.9-1.1); Prothrombin Time 10.4 sec (9.1-11.1)
[2025-07-21 18:35] LABS: ALT 27 U/L (16-63); AST 18 U/L (15-37); Albumin 4.1 g/dL (3.4-5.0); Alkaline Phosphatase 67 U/L (46-116); Anion Gap 9.5 mmol/L (3-11); BUN 55 mg/dL (7-18); Bilirubin, Total 0.4 mg/dL (0.2-1.0); CO2 29.5 mmol/L (21.0-32.0); Calcium 9.3 mg/dL (8.5-10.1); Chloride 100 mmol/L (98-107); Estimated GFR 19.00 (mL/min/1.73m2); Glucose 168 mg/dL (74-106); Magnesium 1.5 mg/dL (1.8-2.4); Potassium 4.2 mmol/L (3.5-5.1); Sodium 139 mmol/L (136-145); Total Protein 7.0 g/dL (6.4-8.2)
[2025-07-21] MEDS: MAGNESIUM SULFATE 2 GM/50 ML BAG IV_INF (19:18)
[2025-07-21] MEDS: oxyCODONE 5 MG TAB PO (20:49)
== END 2025-07-21 21:27 | disposition home or self-care (01) ==
PROVIDERS: Emergency Provider Emergency Medicine; PCP Family Medicine
DX: S70.01XA Contusion of right hip, initial encounter (principal); E11.22 Type 2 diabetes mellitus with diabetic chronic kidney disease; I13.0 Hypertensive heart and chronic kidney disease with heart failure and stage 1 through stage 4 chronic kidney disease, or unspecified chronic kidney disease; N18.4 Chronic kidney disease, stage 4 (severe); I50.9 Heart failure, unspecified; I25.10 Atherosclerotic heart disease of native coronary artery without angina pectoris; Z86.73 Personal history of transient ischemic attack (TIA), and cerebral infarction without residual deficits; Z79.82 Long term (current) use of aspirin; Z79.4 Long term (current) use of insulin; Z87.891 Personal history of nicotine dependence; W18.09XA Striking against other object with subsequent fall, initial encounter; Y92.092 Bedroom in other non-institutional residence as the place of occurrence of the external cause
CPT/HCPCS: 73552; 80053; 96365; 96375; 99284; 72170; 83735; 85025; 85610; J1171; J3475

== ENCOUNTER 2025-08-14 15:03 | Outpatient (REF) | payer MEDICARE, MEDICAID, SELFPAY ==
[2025-08-14 15:48] LABS: Abs Immature Grans 0.03 10^3/uL (0.0-0.06); HCT 32.2 % (40.0-50.0); HGB 11.0 g/dL (13.5-17.5); Immature Grans % 0.3 %; MCH 31.3 pg (27.0-33.0); MCHC 34.2 % (32.0-36.0); MCV 92 fL (80-95); MPV 10.3 fL (8.0-11.0); Platelet Count 235 10^3/uL (130-400); RBC 3.51 10^6/uL (4.36-5.78); RDW 12.3 % (11.8-14.1); RDW-SD 41.2 fL; WBC 8.65 10^3/uL (4.4-10.8)
[2025-08-14 17:08] LABS: ALT 34 U/L (16-63); AST 18 U/L (15-37); Albumin 4.3 g/dL (3.4-5.0); Alkaline Phosphatase 61 U/L (46-116); Anion Gap 13.5 mmol/L (3-11); BUN 34 mg/dL (7-18); Bilirubin, Total 0.6 mg/dL (0.2-1.0); CO2 26.5 mmol/L (21.0-32.0); Calcium 9.7 mg/dL (8.5-10.1); Chloride 101 mmol/L (98-107); Estimated GFR 31.83 (mL/min/1.73m2); Glucose 140 mg/dL (74-106); Potassium 4.5 mmol/L (3.5-5.1); Sodium 141 mmol/L (136-145); TSH (W/Ref FT4) 0.62 uIU/mL (0.36-3.74); Total Protein 7.0 g/dL (6.4-8.2); Vitamin B12 487 pg/mL (193-986); Vitamin D 25 Total 33 ng/mL (30-100)
== END 2025-08-14 15:04 | disposition home or self-care (01) ==
LOC: LBN 15:03
PROVIDERS: PCP Family Medicine; Visit Provider Nurse Practitioner Adult Health
DX: I25.118 Atherosclerotic heart disease of native coronary artery with other forms of angina pectoris (principal)
CPT/HCPCS: 80053; 82306; 82607; 84443; 85025

== ENCOUNTER 2025-08-15 18:13 | Outpatient (REF) | payer MEDICARE, MEDICAID, SELFPAY ==
[2025-08-15 20:12] LABS: Glucose Negative (Negative)
== END 2025-08-15 18:14 | disposition home or self-care (01) ==
LOC: LBN 18:13
PROVIDERS: PCP Family Medicine; Visit Provider Family Medicine
DX: N39.0 Urinary tract infection, site not specified (principal)
CPT/HCPCS: 81003; 87086

== ENCOUNTER 2025-08-17 18:11 | Outpatient (REF) | payer MEDICARE, MEDICAID, SELFPAY ==
[2025-08-17 17:17] LABS: Glucose Negative (Negative)
[2025-08-17 17:28] LABS: C & S Indicated? Yes; RBC >50 HPF (0-2)
== END 2025-08-17 18:12 | disposition home or self-care (01) ==
LOC: LBN 18:11
PROVIDERS: PCP Family Medicine; Visit Provider Nurse Practitioner Adult Health
DX: N39.0 Urinary tract infection, site not specified (principal)
CPT/HCPCS: 81003; 81015; 87086

== ENCOUNTER 2025-08-20 17:18 | Emergency (ER) | payer MEDICARE, MEDICAID, SELFPAY ==
[2025-08-20 17:25] VITALS: BP 139/69; PULSE 78; RESP 20; TEMP 35.5; O2SAT 97
--- NOTE | 2025-08-20 17:45 | RT.EKG_ITS ---
APPROVED REPORT Exam: Resting ECG Reason for Exam: weakness Patient Location: E HR:71 bpm ECG Measurements Heart Rate 71 AXIS AL 196 P 67 QRSd 96 QRS 29 QT 399 T 52 QTc 433 Conclusion Sinus rhythm, rate 71 No interval abnormalities No STEMI No significant changes from priors
[2025-08-20 18:46] LABS: Abs Immature Grans 0.02 10^3/uL (0.0-0.06); HCT 32.1 % (40.0-50.0); HGB 11.0 g/dL (13.5-17.5); Immature Grans % 0.3 %; MCH 30.8 pg (27.0-33.0); MCHC 34.3 % (32.0-36.0); MCV 90 fL (80-95); MPV 8.9 fL (8.0-11.0); Platelet Count 189 10^3/uL (130-400); RBC 3.57 10^6/uL (4.36-5.78); RDW 11.9 % (11.8-14.1); RDW-SD 38.8 fL; WBC 7.42 10^3/uL (4.4-10.8)
--- NOTE | 2025-08-20 18:56 | NUR.NOTE ---
Nursing Note: Patient arrived to the Emergency Department due to suicide attempt at the [facility]. He cut wrists with a knife, has superficial lacs to bilat wrists. 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 He said she told him she loved him and asked him for money starting approx 1 month ago. He said she has ?borrowed? approx $650 dollars for spark plugs for her car, another time she needed money for [place] [facility] He said when he told her he didn't have money, she ignored him and stayed away from him. He said her name was Adalberto but her does not know her last name.?
[2025-08-20 19:04] LABS: ALT 36 U/L (16-63); AST 19 U/L (15-37); Albumin 4.0 g/dL (3.4-5.0); Alkaline Phosphatase 62 U/L (46-116); Anion Gap 12.1 mmol/L (3-11); BUN 40 mg/dL (7-18); Bilirubin, Total 0.5 mg/dL (0.2-1.0); CO2 29.9 mmol/L (21.0-32.0); Calcium 9.0 mg/dL (8.5-10.1); Chloride 98 mmol/L (98-107); Estimated GFR 35.68 (mL/min/1.73m2); Glucose 146 mg/dL (74-106); Potassium 4.4 mmol/L (3.5-5.1); Sodium 140 mmol/L (136-145); Total Protein 7.1 g/dL (6.4-8.2); Troponin I 6 ng/L (<or=76)
[2025-08-20 19:20] LABS: Salicylate < 2.8 mg/dL (<2.8)
[2025-08-20 19:23] LABS: Acetaminophen < 2 ug/mL (10-30)
[2025-08-20 19:30] LABS: TSH (W/Ref FT4) 0.75 uIU/mL (0.36-3.74)
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
[2025-08-20 23:36] VITALS: PULSE 76; RESP 18
--- NOTE | 2025-08-20 23:38 | NUR.NOTE ---
Nursing Note: This nurse spoke with ANJU Langston at [facility] about Mike's Safety plan in it's entirety. When speaking about frequent check-in by staff for emotional recovery, ANJU Langston requested clarification of need for [id number] checks. This nurse informed ANJU Langston that Q15 minute checks were not deemed necessary. Anju Langston asked if their once a day check-in was sufficient. This nurse recommended Q1hour check-ins. ANJU Langston verbalized understanding of the rounds as well as the safety plan as a whole.
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
--- NOTE | 2025-08-21 11:56 | NUR.NOTE ---
Nursing Note: This RTN in chart D/T CMS calling having questions on care pt is receiving after D/C
== END 2025-08-20 23:59 | disposition home or self-care (01) ==
PROVIDERS: Emergency Provider Physician Assistant; PCP Family Medicine
DX: S61.512A Laceration without foreign body of left wrist, initial encounter (principal); T14.91XA Suicide attempt, initial encounter
CPT/HCPCS: 99284; 99283; 36415; 00123; 80053; 93005; 80329; 84443; 84484; 85025; 93010

== ENCOUNTER 2025-08-24 20:06 | Outpatient (REF) | payer MEDICARE, MEDICAID, SELFPAY | END 2025-08-24 20:07 | disposition home or self-care (01) | LOC: LBN 20:06 | PROVIDERS: PCP Family Medicine; Visit Provider Nurse Practitioner Adult Health | DX: L89.622 Pressure ulcer of left heel, stage 2 (principal) | CPT/HCPCS: 87070; 87205 ==

== ENCOUNTER 2025-09-16 03:56 | Emergency (ER) | payer MEDICARE, MEDICAID, SELFPAY ==
[2025-09-16] VITALS (16 sets, daily range): BP systolic 102–152; BP diastolic 45–91; PULSE 70–88; RESP 12–20; TEMP 36.6; O2SAT 83–97
--- NOTE | 2025-09-16 04:08 | W.ED.GENAD ---
Discharge Plan Disposition Patient Disposition: Home Condition: Good Discharge Details Clinical Impression: Hypoglycemia, Transient confusion Primary Care Provider: Nica Carrasco ED Provider: Andres Cortez Home Meds and New Rx's Prescriptions: No Action aspirin [Adult Aspirin Regimen] 81 mg tablet,delayed release (DR/EC) 81 mg PO DAILY gabapentin 300 mg capsule 300 mg PO TID glucagon 1 mg recon soln 1 mg subcut Q20M PRN Rx Instructions: until target blood sugar attained naloxone 4 mg/actuation spray,non-aerosol 4 mg intranasal Q2M Rx Instructions: spray 1 dose into ONE nostril; alternate nostrils w each dose until help arrives nitroglycerin 0.4 mg tablet, sublingual 0.4 mg sublingual Q5M PRN Rx Instructions: do not exceed 3 doses per episode ranolazine 500 mg tablet extended release 12 hr 500 mg PO BID sevelamer HCl 800 mg tablet 800 mg PO TID Rx Instructions: must administer with a meal/food risperidone 1 mg tablet 1 mg PO BID metoprolol succinate 25 mg tablet extended release 24 hr 50 mg PO DAILY epinephrine [EpiPen] 0.3 mg/0.3 mL auto-injector 0.3 mg IM ONCE PRN Rx Instructions: as a single dose; may repeat once ipratropium-albuterol 0.5 mg-3 mg(2.5 mg base)/3 mL solution for nebulization 3 ml inhalation QID PRN B complex-vitamin C-folic acid 0.8 mg tablet 1 tab PO DAILY torsemide 20 mg tablet 20 mg PO DAILY Qty: 0 0RF Rx Instructions: Hold until 06/11/25 magnesium oxide 400 mg magnesium capsule 400 mg PO DAILY Qty: 7 0RF Biofreeze (menthol) 4 % gel 1 applic topical Q6H PRN PRNQty: 237 0RF ropinirole 1 mg tablet 1 mg PO BID Qty: 0 0RF vilazodone [Viibryd] 20 mg tablet 20 mg PO DAILY Patient Comments: takes with a 10mg tablet for total dose of 30mg Rx Instructions: must administer with a meal/food acetaminophen 500 mg capsule 650 mg PO Q4H PRN clopidogrel [Plavix] 75 mg tablet 75 mg PO DAILY Qty: 20 0RF ketoconazole 2 % shampoo 1 applic topical Q2W polyethylene glycol 3350 17 gram/dose powder 17 g PO DAILY PRN Rx Instructions: Constipation amlodipine 10 mg tablet 5 mg PO DAILY rosuvastatin 20 mg tablet 40 mg PO HS diazepam 5 mg tablet 5 mg PO BID PRN albuterol sulfate 2.5 mg /3 mL (0.083 %) solution for nebulization 2.5 mg inhalation Q6H PRN insulin asp prt-insulin aspart [Novolog Mix 70-30 U-100 Insuln] 100 unit/mL (70-30) solution 45 unit subcut DAILY Rx Instructions: In AM insulin asp prt-insulin aspart [Novolog Mix 70-30 U-100 Insuln] 100 unit/mL (70-30) solution See Rx Instructions subcut .COMPLEX Rx Instructions: subcutaneously with meals with sliding scale isosorbide mononitrate 60 mg tablet extended release 24 hr 60 mg PO DAILY Patient Comments: takes w/30mg tablet for total dose of 90mg isosorbide mononitrate 30 mg tablet extended release 24 hr 30 mg PO DAILY Trulicity 3 mg/0.5 mL pen injector 0.75 mg subcut QWEEK Rx Instructions: takes on Mondays vilazodone [Viibryd] 10 mg tablet 10 mg PO DAILY Rx Instructions: must administer with a meal/food (DME) 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 Your blood sugar is stable, your CAT scan of your head shows no evidence of bleed or stroke. Your urinalysis shows no evidence of infection. Your renal function is stable. Your blood work is returned reassuring. If you notice any worsening of your symptoms, or any new symptoms such as vomiting, diarrhea, fever, chills, shortness of breath, chest pain, numbness, weakness, or fainting , please return immediately to the emergency department for reevaluation. Please follow up with your primary care provider as soon as possible for reassessment and reevaluation. As always, it was a pleasure participating in your medical care today. Stand Alone Forms: Portal Information Referrals: Nica Carrasco [Primary Care Provider, Medicine] HPI General Date/Time Provider Initiated Documentation: 09/16/25 04:00. HPI Narrative: This is a 70-year-old male with a past medical history of previous DVT and pulmonary emboli, cardiac catheterization in 2021 with known disease and subsequent NSTEMI on 06/2025 with stenting, COPD, CKD, previous TIA, hypertension, diabetes, obesity, bipolar who [facility], who presents today for altered mental status. Per her [facility] staff they went in to do a blood sugar test this evening and notices blood sugar to be 64. He was given glucagon, his mental status was altered at that time, but after glucagon he still had altered mental status as his blood sugar improved to the 120s. EMS was called, and the patient was brought to the ER for further assessment. On EMSs assessment the patient had potential left-sided deficits, and confusion. But no other complaints were otherwise made. On arrival the patient woke up as he was transition to the bed, and he is quite talkative. He shows no deficits, he states that his only complaint is that his buttock hurts. He denies any other complaints or modifying factors at this time. Related Data Home Medications Medication Instructions Recorded Confirmed aspirin 81 mg tablet,delayed 81 mg PO DAILY 07/06/24 08/20/25 release (Adult Aspirin Regimen) gabapentin 300 mg capsule 300 mg PO TID 07/06/24 08/20/25 glucagon 1 mg solution for 1 mg subcut Q20M PRN 07/06/24 08/20/25 injection naloxone 4 mg/actuation nasal spray 4 mg intranasal Q2M 07/06/24 08/20/25 nitroglycerin 0.4 mg sublingual 0.4 mg sublingual Q5M PRN 07/06/24 08/20/25 tablet ranolazine 500 mg tablet,extended 500 mg PO BID 07/06/24 08/20/25 release,12 hr risperidone 1 mg tablet 1 mg PO BID 07/06/24 08/20/25 sevelamer HCl 800 mg tablet 800 mg PO TID 07/06/24 08/20/25 isosorbide mononitrate 60 mg 60 mg PO DAILY 03/15/25 08/20/25 tablet,extended release 24 hr magnesium oxide 400 mg PO DAILY #7 caps 06/10/25 08/20/25 menthol 4 % topical gel (Biofreeze 1 applic topical Q6H PRN PRN #237 06/10/25 08/20/25 (menthol)) mL ropinirole 1 mg tablet 1 mg PO BID #0 tabs 06/10/25 08/20/25 torsemide 20 mg tablet 20 mg PO DAILY #0 tabs 06/10/25 08/20/25 acetaminophen 500 mg capsule 650 mg PO Q4H PRN 06/13/25 08/20/25 vilazodone 20 mg tablet (Viibryd) 20 mg PO DAILY 06/13/25 08/20/25 clopidogrel 75 mg tablet (Plavix) 75 mg PO DAILY #20 tabs 06/14/25 08/20/25 ketoconazole 2 % shampoo 1 applic topical Q2W 06/20/25 08/20/25 amlodipine 10 mg tablet 5 mg PO DAILY 06/28/25 08/20/25 polyethylene glycol 3350 17 17 g PO DAILY PRN 06/28/25 08/20/25 gram/dose oral powder albuterol sulfate 2.5 mg/3 mL 2.5 mg inhalation Q6H PRN 07/07/25 08/20/25 (0.083 %) solution for nebulization diazepam 5 mg tablet 5 mg PO BID PRN 07/07/25 08/20/25 insulin aspar prt-insulin aspart 45 unit subcut DAILY 07/07/25 08/20/25 100 unit/mL (70-30) subcutaneous soln (Novolog Mix 70-30 U-100 Insuln) insulin aspar prt-insulin aspart See Rx Instructions subcut .COMPLEX 07/07/25 08/20/25 100 unit/mL (70-30) subcutaneous soln (Novolog Mix 70-30 U-100 Insuln) rosuvastatin 20 mg tablet 40 mg PO HS 07/07/25 08/20/25 epinephrine 0.3 mg/0.3 mL 0.3 mg IM ONCE PRN 07/12/25 08/20/25 injection, auto-injector (EpiPen) ipratropium 0.5 mg-albuterol 3 mg 3 ml inhalation QID PRN 07/12/25 08/20/25 (2.5 mg base)/3 mL nebulization soln vitamin B complex-vitamin C-folic 1 tab PO DAILY 07/12/25 08/20/25 acid 0.8 mg tablet metoprolol succinate 25 mg 50 mg PO DAILY 07/17/25 08/20/25 tablet,extended release 24 hr blood-glucose,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 hydrant mechanic,cont 08/20/25 08/20/25 (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 G7 Heel 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 Machine Operator) dulaglutide 3 mg/0.5 mL 0.75 mg subcut QWEEK 08/20/25 08/20/25 subcutaneous pen injector (Trulicity) hydrocodone 10 mg-acetaminophen 1 tab PO Q4H PRN 08/20/25 08/20/25 325 mg tablet isosorbide mononitrate 30 mg 30 mg PO DAILY 08/20/25 08/20/25 tablet,extended release 24 hr vilazodone 10 mg tablet (Viibryd) 10 mg PO DAILY 08/20/25 08/20/25 Previous Rx's Medication Instructions Recorded magnesium oxide 400 mg PO DAILY #7 caps 06/10/25 menthol 4 % topical gel (Biofreeze 1 applic topical Q6H PRN PRN #237 06/10/25 (menthol)) mL ropinirole 1 mg tablet 1 mg PO BID #0 tabs 06/10/25 torsemide 20 mg tablet 20 mg PO DAILY #0 tabs 06/10/25 clopidogrel 75 mg tablet (Plavix) 75 mg PO DAILY #20 tabs 06/14/25 Allergies Allergy/AdvReac Type Severity Reaction Status Date / Time bee venom protein (honey bee) Allergy Intermediate Anaphylaxis Verified 08/20/25 17:41 clonidine Allergy Mild Unknown Verified 08/20/25 17:41 Influenza Virus Vaccines Allergy Mild Unknown Verified 08/20/25 17:41 prednisone Allergy Unknown Other (See Verified 08/20/25 17:41 Comment) tamsulosin (From Flomax) Allergy Unknown Other (See Verified 08/20/25 17:41 Comment) General Stated Complaint: AMS/LOC VALERI: 3 Exam Narrative Exam Narrative: 1.Const: Well-nourished, Well-developed, appearing stated age 2.Eyes: PERRL, no conjunctival injection, and symmetrical lids. 3.ENT: Atraumatic external nose and ears. Moist MM. Neck: Symmetric, trachea midline, No thyromegaly. 4.CVS: +S1/S2, Peripheral pulses 2+ and equal in all extremities. Brisk capillary refill in all extremities. 5.RESP: Unlabored respiratory effort. Clear to auscultation bilaterally. No wheezes rales or rhonchi 6.GI: Soft, Nontender/Nondistended, No hepatosplenomegaly. No guarding or rebound. 7.MSK: Normocephalic/Atraumatic, Extremities w/o deformity or ttp No cyanosis or clubbing, Normal movement of all extremities 8.Skin: Warm, Dry. No rashes or lesions. No evidence of decubitus ulcer on his back or buttock. 9.Neuro: customs agent II-XII grossly intact. Sensation grossly intact, no focal neurologic deficits. CN 2-12 tested and intact, patient is able to hold bilateral arms up for 5 seconds and there is no pronator drift, patient also holds legs up for 10 seconds bilaterally without any drop, sensation intact to light touch in hands and feet bilaterally. Cerebellar exam normal as tested by ffine finger movements. Visual stewart intact peripherally. Normal speech pattern and verbal understanding. 10.Psych: (AAO) x3. Appropriate mood and affect Course Vital Signs Vital signs: Vital Signs Temperature 36.6 C 09/16/25 03:56 Pulse 18 L 09/16/25 03:56 Respiratory Rate 20 09/16/25 03:56 Blood Pressure 152/60 H 09/16/25 03:56 Pulse Oximetry 97 09/16/25 03:56 Temperature 36.6 C 09/16/25 03:56 Temperature Source Oral 09/16/25 03:56 Pulse 18 L 09/16/25 03:56 Respiratory Rate 20 09/16/25 03:56 Blood Pressure 152/60 H 09/16/25 03:56 Pulse Oximetry 97 09/16/25 03:56 Pain Level 10 09/16/25 03:56 Medical Decision Making This is a 70-year-old male with a past medical history of previous DVT and pulmonary emboli, cardiac catheterization in 2021 with known disease and subsequent NSTEMI on 06/2025 with stenting, COPD, CKD, previous TIA, hypertension, diabetes, obesity, bipolar who resides at [facility], who presents today for altered mental status. Per her health and rehab staff they went in to do a blood sugar test this evening and notices blood sugar to be 64. He was given glucagon, his mental status was altered at that time, but after glucagon he still had altered mental status as his blood sugar improved to the 120s. EMS was called, and the patient was brought to the ER for further assessment. On EMSs assessment the patient had potential left-sided deficits, and confusion. But no other complaints were otherwise made. On arrival the patient woke up as he was transition to the bed, and he is quite talkative. He shows no deficits, he states that his only complaint is that his buttock hurts. He denies any other complaints or modifying factors at this time. Exam demonstrates well-appearing male, normal movement of the upper and lower extremities with no asymmetry. Speech is appropriate. No signs of trauma. Patient does smell of urine. Concern for potential UTI. Vital signs otherwise stable. Will get CT scan to evaluate for bleed or stroke, will check electrolytes, monitor closely and reassess. Otherwise patient seems to be at baseline at this time. 6:30 AM Laboratory workup is returned, no white count or bandemia or other significant abnormality. ABG stable with no hypercarbia, electrolytes normal, renal function improved compared to baseline, thyroid function normal, urinalysis negative for any evidence of infection. On reassessment the patient has had complete return to baseline. For that matter he appeared to have been at baseline on his arrival here when he woke up. CT scan shows no evidence of bleed or stroke. Patient feels well. Urinalysis negative for infection. No other concerning sources of infection at this time. Additionally he has no fever, tachycardia or other vital sign abnormality. Patient stable for discharge. He will be returned to [facility]. I have extensively reviewed the treatment plan and discharge instructions with the patient. I have addressed all patient concerns at this time. The patient was made aware of what symptoms to monitor for that would warrant a return to the emergency department. Discussed the plan with the patient, they demonstrate verbal understanding and agreement with our assessment and plan at this time. The documentation in this chart was dictated using Dogi dictation software. Please excuse any dictation errors. FINDINGS: Generalized volume loss and periventricular white matter hypodensity consistent with chronic small vessel ischemic change. There is no evidence of intraparenchymal hemorrhage, mass effect or extra-axial collection. Ventricular size is concordant with degree of volume loss. Visualized intraorbital soft tissues are normal. Fluid is seen in the left mastoid sinus. IMPRESSION: No acute intracranial process. Left mastoid sinusitis PFSH All Active Problems (Updated 09/16/25 @ 06:29 by Andres Cortez DO) Transient confusion (Acute) Hypoglycemia (Acute) Laceration of left wrist (Acute) Suicidal ideation (Acute) Acute non-ST elevation myocardial infarction (NSTEMI) (Acute) Ear pain, left (Acute) Tinnitus of both ears (Acute) Chest pain (Acute) TIA (transient ischemic attack) (Acute) CAD S/P percutaneous coronary angioplasty (Acute) Acute on chronic kidney failure (Acute) Unstable angina (Acute) Osteoarthritis of hip (Acute) Right hip pain (Acute) PAD (peripheral artery disease) (Acute) Lymphedema (Acute) Venous ulcers of both lower extremities (Acute) Venous (peripheral) insufficiency (Acute) Phantom limb syndrome (Acute) PTSD (post-traumatic stress disorder) (Chronic) Vitamin D deficiency (Acute) Nondisplaced fracture of right scaphoid bone (Acute 02/01/24) Right wrist pain (Acute) GERD (gastroesophageal reflux disease) (Chronic) Hypertension (Chronic) Neuropathy (Acute) History of venous thrombosis and embolism (Acute) Pityriasis versicolor (Acute) Hyperlipidemia (Chronic) Atherosclerotic heart disease of [place] coronary artery without angina pectoris (Acute) CKD stage 4 due to type 2 diabetes mellitus (Chronic) Heart failure (Chronic) Anxiety (Chronic) Morbid obesity (Chronic) Subacute osteomyelitis, left ankle and foot (Acute) Chronic pain (Chronic) COPD (chronic obstructive pulmonary disease) (Chronic) Asthma (Chronic) Type 2 diabetes mellitus (Chronic) Medical History (Updated 09/16/25 @ 06:29 by Andres Cortez DO) Iron deficiency anemia CAD (coronary artery disease), [place] coronary artery Chronic bipolar disorder Chronic back pain greater than 3 months duration Diabetes mellitus type 2, insulin dependent MRSA infection Testicular hypofunction Low back pain Surgical History (Updated 07/10/25 @ 08:26 by Bre Molina RN, RN) S/P spinal surgery S/P hip hemiarthroplasty S/P cardiac cath Stent to LAD Social History Smoking/Tobacco Use Status: Former Tobacco Use Smoking risk assessment performed?: Yes Alcohol Intake: current Alcohol Intake frequency: holidays/special occasions only Drug use: Never Substance use type: does not use Housing: assisted living facility Do you feel safe at home: Yes Do you feel safe in your relationship?: Yes
[2025-09-16 04:37] LABS: BE (Venous) 6 mmol/L (-2-3); HCO3 (Venous) 30 mmol/L (23-28); O2 Sat (Venous) 76 %; TCO2 (Venous) 28 mmol/L (24-29); pCO2 (Venous) 49 mmHg (41-51); pO2 (Venous) 41 mmHg
[2025-09-16 04:38] LABS: Abs Immature Grans 0.03 10^3/uL (0.0-0.06); HCT 35.9 % (40.0-50.0); HGB 11.8 g/dL (13.5-17.5); Immature Grans % 0.3 %; MCH 30.3 pg (27.0-33.0); MCHC 32.9 % (32.0-36.0); MCV 92 fL (80-95); MPV 10.3 fL (8.0-11.0); Platelet Count 175 10^3/uL (130-400); RBC 3.89 10^6/uL (4.36-5.78); RDW 12.2 % (11.8-14.1); RDW-SD 40.7 fL; WBC 10.58 10^3/uL (4.4-10.8)
[2025-09-16 04:53] LABS: INR 1.0 (0.9-1.1); PTT Activated 20.6 sec (20.6-30.2); Prothrombin Time 10.4 sec (9.1-11.1)
--- NOTE | 2025-09-16 05:10 | DI.VRAD_ITS ---
PROCEDURE INFORMATION: Exam: CT Head Without Contrast Exam date and time: 09/16/2025 4:56 AM Age: 70 years old Clinical indication: Stroke-like symptoms; Altered mental status/memory loss and other: Confusion TECHNIQUE: Imaging protocol: Computed tomography of the head without contrast. Radiation optimization: All CT scans at this facility use at least one of these dose optimization techniques: automated exposure control; mA and/or kV adjustment per patient size (includes targeted exams where dose is matched to clinical indication); or iterative reconstruction. Other technique: STROKE PROTOCOL was implemented. COMPARISON: CT HEAD WO 06/13/2025 4:26 PM FINDINGS: Generalized volume loss and periventricular white matter hypodensity consistent with chronic small vessel ischemic change. There is no evidence of intraparenchymal hemorrhage, mass effect or extra-axial collection. Ventricular size is concordant with degree of volume loss. Visualized intraorbital soft tissues are normal. Fluid is seen in the left mastoid sinus. IMPRESSION: No acute intracranial process. Left mastoid sinusitis ASSESSMENT: ASPECTS ([place] Stroke Program Early CT Score) is 10. Dictated and Authenticated by: Edith Hughes MD. Orderin Diego Campos MD
--- NOTE | 2025-09-16 05:12 | DI.CT_ITS ---
Exam(s) CT HEAD WO EXAM: CT HEAD WO CLINICAL HISTORY: confusion, AMS. TECHNIQUE: Imaging Protocol: Axial computed tomography images with coronal and sagittal reformatted images were created and reviewed COMPARISON: CT CT HEAD WO from 06/13/2025 FINDINGS: There are no skull fractures. There is mild mucosal thickening in the posterior wall of the sphenoid sinus. The maxillary sinuses are clear as are the frontal sinuses and ethmoidal air cells. Small bilateral mastoid effusions noted. There is no evidence of intracranial hemorrhage, mass effect, or shift of midline structures. There are no extra-axial fluid collections. The ventricles are not enlarged or shifted and there is no blood within the ventricular system nor within the basal cisterns. IMPRESSION: No acute intracranial findings on this noninfused CT scan of the brain. There are fusions in the mastoid air cells, slightly more so on the left side. Preliminary view right report was reviewed RADIATION DOSE DELIVERED: 832.58mGy.cm Total DLP DATA REPOSITORY: All CT scans at this facility are submitted to the National Radiology Data Registry (NRDR) Dose Index Registry (DIR) with the [employer] (A[employer]). RADIATION OPTIMIZATION: All CT scans at this facility use at least one of these dose optimization techniques: automated exposure control; mA and/or kV adjustment per patient size (includes targeted exams where dose is matched to clinical indication); or iterative reconstruction.
[2025-09-16 05:13] LABS: ALT 25 U/L (10-49); AST 25 U/L (<34); Albumin 4.5 g/dL (3.4-5.0); Alkaline Phosphatase 60 U/L (46-116); Anion Gap 10.3 mmol/L (3-11); BUN 38 mg/dL (9-23); Bilirubin, Total 0.50 mg/dL (0.2-1.2); CO2 27.7 mmol/L (20.0-31.0); Calcium 9.6 mg/dL (8.3-10.6); Chloride 106 mmol/L (98-107); Glucose 149 mg/dL (74-106); Potassium 3.8 mmol/L (3.5-5.1); Sodium 144 mmol/L (136-145); Total Protein 7.1 g/dL (5.7-8.2)
[2025-09-16 05:17] LABS: TSH (W/Ref FT4) 1.39 uIU/mL (0.55-4.78)
[2025-09-16 05:31] LABS: Ammonia 20 umol/L (11-32)
[2025-09-16 05:39] LABS: Glucose Negative (Negative)
[2025-09-16 05:47] LABS: Procalcitonin 0.12 ng/mL
== END 2025-09-16 07:33 | disposition home or self-care (01) ==
PROVIDERS: Emergency Provider Student in an Organized Health Care Education/Training Program; PCP Family Medicine
DX: E16.2 Hypoglycemia, unspecified (principal); R41.82 Altered mental status, unspecified
CPT/HCPCS: 99284 ×2; 80053; 82805; 84145; 87040; 70450; 81003; 82140; 84443; 85025; 85610; 85730

== ENCOUNTER 2025-09-16 15:57 | Outpatient (REF) | payer MEDICARE, MEDICAID, SELFPAY ==
[2025-09-16 17:31] LABS: COVID-19 PCR Negative (Negative); RSV PCR Negative (Negative)
== END 2025-09-16 15:58 | disposition home or self-care (01) ==
LOC: LBN 15:57
PROVIDERS: PCP Family Medicine; Visit Provider Nurse Practitioner Adult Health
DX: J06.9 Acute upper respiratory infection, unspecified (principal)
CPT/HCPCS: 87637

== ENCOUNTER 2025-09-19 14:50 | Outpatient (REF) | payer MEDICARE, MEDICAID, SELFPAY ==
[2025-09-19 15:19] LABS: Glucose Negative (Negative)
[2025-09-19 15:26] LABS: RBC >50 HPF (0-2)
== END 2025-09-19 14:51 | disposition home or self-care (01) ==
LOC: LBN 14:50
PROVIDERS: PCP Family Medicine; Visit Provider Nurse Practitioner Adult Health
DX: N39.0 Urinary tract infection, site not specified (principal)
CPT/HCPCS: 87077; 81003; 81015; 87086; 87186

== ENCOUNTER 2025-09-20 16:49 | Emergency (ER) | payer MEDICARE, MEDICAID, SELFPAY ==
[2025-09-20] VITALS (48 sets, daily range): BP systolic 122–150; BP diastolic 51–75; PULSE 55–71; RESP 9–16; TEMP 35.4; O2SAT 82–98
--- NOTE | 2025-09-20 16:30 | DI.CT_ITS ---
Exam(s) CT ABDOMEN PELVIS WO EXAM: CT ABDOMEN PELVIS WO CLINICAL HISTORY: periumbilical abd pain, dysuria/UTI. TECHNIQUE: Imaging Protocol: Axial computed tomography images with coronal and sagittal reformatted images were created and reviewed. Oral: no COMPARISON: CT CT ABDOMEN PELVIS WO from 03/15/2025 FINDINGS: Lung Bases: No acute findings. Liver: Normal density. No suspicious mass. Gallbladder and biliary tract: No radiodense calculus or biliary dilation. Pancreas: Normal density. No abnormal calcifications or inflammatory process. Spleen: Normal. Kidneys: Normal size, contour and axis. Left upper pole stone 2cm. Two stones noted upper pole of right kidney, 11 and 8 millimeters. No obstructive uropathy. No suspicious masses seen. Adrenal glands: No masses seen. Lymph nodes: Within normal limits. Vasculature: Abdominal aorta non-dilated. Atherosclerotic changes. Soft tissues: Some dehiscence of the anterior abdominal wall but no hernia. Bladder: Partially obscured by hip prostheses. Bowel: No obstruction or bowel wall thickening. Peritoneal cavity: No ascites. No focal collection. No mesenteric inflammatory response. Reproductive organs: Prostate is obscured by artifact from hip prostheses. Bones: Advanced degenerative changes in the spine. Bilateral hip prostheses. IMPRESSION: Bilateral renal calculi, not significantly changed from prior. No acute abnormality in the abdomen or pelvis. RADIATION DOSE DELIVERED: Total DLP DATA REPOSITORY: All CT scans at this facility are submitted to the National Radiology Data Registry (NRDR) Dose Index Registry (DIR) with the [employer] (ACR). RADIATION OPTIMIZATION: All CT scans at this facility use at least one of these dose optimization techniques: automated exposure control; mA and/or kV adjustment per patient size (includes targeted exams where dose is matched to clinical indication); or iterative reconstruction.
--- NOTE | 2025-09-20 16:36 | W.ED.GENAD ---
Discharge Plan Disposition Patient Disposition: Home Condition: Stable Discharge Details Clinical Impression: Urinary tract infection, Elevated lactic acid level, CKD stage 4 due to type 2 diabetes mellitus Primary Care Provider: Nica Carrasco ED Provider: Salima Chawla Home Meds and New Rx's Prescriptions: New cefpodoxime 200 mg tablet 200 mg PO BID 10 Days Qty: 20 0RF Rx Instructions: must administer with a meal/food No Action aspirin [Adult Aspirin Regimen] 81 mg tablet,delayed release (DR/EC) 81 mg PO DAILY gabapentin 300 mg capsule 300 mg PO TID glucagon 1 mg recon soln 1 mg subcut Q20M PRN Rx Instructions: until target blood sugar attained naloxone 4 mg/actuation spray,non-aerosol 4 mg intranasal Q2M Rx Instructions: spray 1 dose into ONE nostril; alternate nostrils w each dose until help arrives nitroglycerin 0.4 mg tablet, sublingual 0.4 mg sublingual Q5M PRN Rx Instructions: do not exceed 3 doses per episode ranolazine 500 mg tablet extended release 12 hr 500 mg PO BID sevelamer HCl 800 mg tablet 800 mg PO TID Rx Instructions: must administer with a meal/food risperidone 1 mg tablet 1 mg PO BID metoprolol succinate 25 mg tablet extended release 24 hr 50 mg PO DAILY epinephrine [EpiPen] 0.3 mg/0.3 mL auto-injector 0.3 mg IM ONCE PRN Rx Instructions: as a single dose; may repeat once ipratropium-albuterol 0.5 mg-3 mg(2.5 mg base)/3 mL solution for nebulization 3 ml inhalation QID PRN B complex-vitamin C-folic acid 0.8 mg tablet 1 tab PO DAILY torsemide 20 mg tablet 20 mg PO DAILY Qty: 0 0RF Rx Instructions: Hold until 06/11/25 magnesium oxide 400 mg magnesium capsule 400 mg PO DAILY Qty: 7 0RF Biofreeze (menthol) 4 % gel 1 applic topical Q6H PRN PRNQty: 237 0RF ropinirole 1 mg tablet 1 mg PO BID Qty: 0 0RF vilazodone [Viibryd] 20 mg tablet 20 mg PO DAILY Patient Comments: takes with a 10mg tablet for total dose of 30mg Rx Instructions: must administer with a meal/food acetaminophen 500 mg capsule 650 mg PO Q4H PRN clopidogrel [Plavix] 75 mg tablet 75 mg PO DAILY Qty: 20 0RF ketoconazole 2 % shampoo 1 applic topical Q2W polyethylene glycol 3350 17 gram/dose powder 17 g PO DAILY PRN Rx Instructions: Constipation amlodipine 10 mg tablet 5 mg PO DAILY rosuvastatin 20 mg tablet 40 mg PO HS diazepam 5 mg tablet 5 mg PO BID PRN albuterol sulfate 2.5 mg /3 mL (0.083 %) solution for nebulization 2.5 mg inhalation Q6H PRN insulin asp prt-insulin aspart [Novolog Mix 70-30 U-100 Insuln] 100 unit/mL (70-30) solution 45 unit subcut DAILY Rx Instructions: In AM insulin asp prt-insulin aspart [Novolog Mix 70-30 U-100 Insuln] 100 unit/mL (70-30) solution See Rx Instructions subcut .COMPLEX Rx Instructions: subcutaneously with meals with sliding scale isosorbide mononitrate 60 mg tablet extended release 24 hr 60 mg PO DAILY Patient Comments: takes w/30mg tablet for total dose of 90mg isosorbide mononitrate 30 mg tablet extended release 24 hr 30 mg PO DAILY Trulicity 3 mg/0.5 mL pen injector 0.75 mg subcut QWEEK Rx Instructions: takes on Mondays vilazodone [Viibryd] 10 mg tablet 10 mg PO DAILY Rx Instructions: must administer with a meal/food (DME) Dexcom G7 Training Intern Misc See Rx Instructions .ROUTE Rx Instructions: As directed hydrocodone-acetaminophen 10-325 mg tablet 1 tab PO Q4H PRN Discharge Instructions Instructions: Urinary Tract Infection, Adult ED Additional Instructions: You were seen in the emergency department today for evaluation of pain when you pee and abdominal discomfort, likely due to a urinary tract infection. In our department you do full physical examination performed, had reassuring laboratory studies, and had a CT scan that did not show any blockage of your ureters by your known renal stones. You were noted to be quite dehydrated with an elevation in your lactate level, you received IV fluids to help improve this value and were able to drink water. Please continue to increase your hydration when you are at home. You received your first dose of antibiotics today, as well as some magnesium for a slightly low electrolyte level. A prescription for antibiotics was provided to the care facility, and you should complete all of this medication until it is gone, even if you start to feel better. Please follow-up with your primary care provider in the next few days to discuss this visit and any symptoms that change, worsen, or persist. Thank you for allowing us to be part of your care. Stand Alone Forms: Portal Information HPI General Mode of arrival: EMS. Date/Time Provider Initiated Documentation: 09/20/25 17:20. Limitations to Documentation: no limitations. Information obtained by: patient, EMS and old records reviewed. HPI Narrative: This is a 70-year-old male patient with a past medical history significant for TIA, CAD, hypertension, CKD, COPD, and diabetes who is brought in by EMS for evaluation of abdominal discomfort and UTI. The patient started to develop left-sided abdominal and periumbilical pain yesterday, had a urinalysis that showed large blood and pyuria. He reports that he feels like his bladder is going to burst, had a bladder scan performed at the [facility] that was 49 mL. States that he is experiencing dysuria, feels like denies when I pee and he is not sure if he is emptying his bladder fully. Is not sure if he has been started on antibiotics or not, none are noted on his group home med list. The patient denies fevers, nausea or vomiting, or other changes to his health. Related Data Home Medications Medication Instructions Recorded Confirmed aspirin 81 mg tablet,delayed 81 mg PO DAILY 07/06/24 08/20/25 release (Adult Aspirin Regimen) gabapentin 300 mg capsule 300 mg PO TID 07/06/24 08/20/25 glucagon 1 mg solution for 1 mg subcut Q20M PRN 07/06/24 08/20/25 injection naloxone 4 mg/actuation nasal spray 4 mg intranasal Q2M 07/06/24 08/20/25 nitroglycerin 0.4 mg sublingual 0.4 mg sublingual Q5M PRN 07/06/24 08/20/25 tablet ranolazine 500 mg tablet,extended 500 mg PO BID 07/06/24 08/20/25 release,12 hr risperidone 1 mg tablet 1 mg PO BID 07/06/24 08/20/25 sevelamer HCl 800 mg tablet 800 mg PO TID 07/06/24 08/20/25 isosorbide mononitrate 60 mg 60 mg PO DAILY 03/15/25 08/20/25 tablet,extended release 24 hr magnesium oxide 400 mg PO DAILY #7 caps 06/10/25 08/20/25 menthol 4 % topical gel (Biofreeze 1 applic topical Q6H PRN PRN #237 06/10/25 08/20/25 (menthol)) mL ropinirole 1 mg tablet 1 mg PO BID #0 tabs 06/10/25 08/20/25 torsemide 20 mg tablet 20 mg PO DAILY #0 tabs 06/10/25 08/20/25 acetaminophen 500 mg capsule 650 mg PO Q4H PRN 06/13/25 08/20/25 vilazodone 20 mg tablet (Viibryd) 20 mg PO DAILY 06/13/25 08/20/25 clopidogrel 75 mg tablet (Plavix) 75 mg PO DAILY #20 tabs 06/14/25 08/20/25 ketoconazole 2 % shampoo 1 applic topical Q2W 06/20/25 08/20/25 amlodipine 10 mg tablet 5 mg PO DAILY 06/28/25 08/20/25 polyethylene glycol 3350 17 17 g PO DAILY PRN 06/28/25 08/20/25 gram/dose oral powder albuterol sulfate 2.5 mg/3 mL 2.5 mg inhalation Q6H PRN 07/07/25 08/20/25 (0.083 %) solution for nebulization diazepam 5 mg tablet 5 mg PO BID PRN 07/07/25 08/20/25 insulin aspar prt-insulin aspart 45 unit subcut DAILY 07/07/25 08/20/25 100 unit/mL (70-30) subcutaneous soln (Novolog Mix 70-30 U-100 Insuln) insulin aspar prt-insulin aspart See Rx Instructions subcut .COMPLEX 07/07/25 08/20/25 100 unit/mL (70-30) subcutaneous soln (Novolog Mix 70-30 U-100 Insuln) rosuvastatin 20 mg tablet 40 mg PO HS 07/07/25 08/20/25 epinephrine 0.3 mg/0.3 mL 0.3 mg IM ONCE PRN 07/12/25 08/20/25 injection, auto-injector (EpiPen) ipratropium 0.5 mg-albuterol 3 mg 3 ml inhalation QID PRN 07/12/25 08/20/25 (2.5 mg base)/3 mL nebulization soln vitamin B complex-vitamin C-folic 1 tab PO DAILY 07/12/25 08/20/25 acid 0.8 mg tablet metoprolol succinate 25 mg 50 mg PO DAILY 07/17/25 08/20/25 tablet,extended release 24 hr blood-glucose,memorial designer,cont 08/20/25 08/20/25 (Dexcom G7 Training Intern) dulaglutide 3 mg/0.5 mL 0.75 mg subcut QWEEK 08/20/25 08/20/25 subcutaneous pen injector (Trulicity) hydrocodone 10 mg-acetaminophen 1 tab PO Q4H PRN 08/20/25 08/20/25 325 mg tablet isosorbide mononitrate 30 mg 30 mg PO DAILY 08/20/25 08/20/25 tablet,extended release 24 hr vilazodone 10 mg tablet (Viibryd) 10 mg PO DAILY 08/20/25 08/20/25 cefpodoxime 200 mg tablet 200 mg PO BID 10 days #20 tabs 09/20/25 Previous Rx's Medication Instructions Recorded magnesium oxide 400 mg PO DAILY #7 caps 06/10/25 menthol 4 % topical gel (Biofreeze 1 applic topical Q6H PRN PRN #237 06/10/25 (menthol)) mL ropinirole 1 mg tablet 1 mg PO BID #0 tabs 06/10/25 torsemide 20 mg tablet 20 mg PO DAILY #0 tabs 06/10/25 clopidogrel 75 mg tablet (Plavix) 75 mg PO DAILY #20 tabs 06/14/25 cefpodoxime 200 mg tablet 200 mg PO BID 10 days #20 tabs 09/20/25 Allergies Allergy/AdvReac Type Severity Reaction Status Date / Time bee venom protein (honey bee) Allergy Intermediate Anaphylaxis Verified 09/20/25 16:36 clonidine Allergy Mild Unknown Verified 09/20/25 16:36 Influenza Virus Vaccines Allergy Mild Unknown Verified 09/20/25 16:36 prednisone Allergy Unknown Other (See Verified 09/20/25 16:36 Comment) tamsulosin (From Flomax) Allergy Unknown Other (See Verified 09/20/25 16:36 Comment) General VALERI: 3 Exam Narrative Exam Narrative: Gen: Awake and alert, in no apparent distress HEENT: Non-icteric sclera Neck: Supple Lungs: No apparent respiratory distress, normal respiratory effort. CV: Appears well perfused, heart with regular rate and rhythm, strong distal pulses Abdomen: Non-distended, soft, tender to palpation in the periumbilical region and left side without rigidity, rebound, or guarding MSK: Moves 4 extremities without apparent limitation in ROM. Baseline peripheral edema per patient report, symmetrical bilaterally Skin: Visualized skin without rashes, cyanosis. Neuro: No obvious focal deficits or facial asymmetry. Speaks in full, clear sentences. Psych: Appropriate for situation. Medical Decision Making This is a 70-year-old male patient presents for evaluation of abdominal pain and dysuria, in the setting of a recently diagnosed UTI. Differential includes but is not limited to urinary tract infection, pyelonephritis, renal stone, considered renal abscess and infected stone. I also considered in my differential etiologies such as gastritis/PUD, gastroenteritis, pancreatitis, cholecystitis and gallbladder pathology, hepatitis, appendicitis, diverticulitis, small bowel obstruction. Considered mesenteric ischemia, aortic pathology, though this is less concerning based on the patient's history and physical exam. I will provide the patient with a dose of Tylenol for initial pain management, and obtain labs to include CBC, CMP, magnesium, lipase, lactate, and repeat urinalysis. I will obtain a CT abdomen pelvis without contrast given history of stage IV CKD. - I reviewed the patient's laboratory studies, which show no leukocytosis, a stable and mild anemia at 11.0, and no thrombocytopenia. Lactate was initially elevated at 4.5, chemistry panel demonstrates elevation in the BUN and creatinine consistent with his history of CKD. No evidence of liver enzyme abnormalities, magnesium is slightly low at 1.6 and was repleted intravenously. I did provide the patient with a liter of IV fluids, lactate noted to improved to 3.2 after the first liter, a second was provided for his presumed dehydration in the setting of his known urinary tract infection. CT scan was reviewed by myself, does show small stones in the bilateral kidneys but no obstructive renal stones to suggest infected stone, no other acute abnormalities to explain the patient's symptoms beyond his known UTI. The patient received ceftriaxone, and tolerated oral fluids appropriately. He had improvement in his symptoms though he did require an additional dose of Dilaudid for pain management. We discussed the diagnosis, and a prescription for cefpodoxime was printed and sent with him back to his facility. At this time, the patient has had a full medical evaluation and is safe for discharge to home. They are hemodynamically stable and tolerating PO. They are understanding of the follow-up plan and return precautions. They left our facility without incident in the care of EMS for transfer back to his health and rehab facility. Salima Chawla MD [facility] All Active Problems (Updated 09/20/25 @ 22:02 by Salima Chawla MD) Elevated lactic acid level (Acute) Urinary tract infection (Acute) Transient confusion (Acute) Hypoglycemia (Acute) Acute non-ST elevation myocardial infarction (NSTEMI) (Acute) Ear pain, left (Acute) Tinnitus of both ears (Acute) Chest pain (Acute) TIA (transient ischemic attack) (Acute) CAD S/P percutaneous coronary angioplasty (Acute) Acute on chronic kidney failure (Acute) Unstable angina (Acute) Osteoarthritis of hip (Acute) Right hip pain (Acute) PAD (peripheral artery disease) (Acute) Lymphedema (Acute) Venous ulcers of both lower extremities (Acute) Venous (peripheral) insufficiency (Acute) Phantom limb syndrome (Acute) PTSD (post-traumatic stress disorder) (Chronic) Vitamin D deficiency (Acute) Nondisplaced fracture of right scaphoid bone (Acute 02/01/24) Right wrist pain (Acute) GERD (gastroesophageal reflux disease) (Chronic) Hypertension (Chronic) Neuropathy (Acute) History of venous thrombosis and embolism (Acute) Pityriasis versicolor (Acute) Hyperlipidemia (Chronic) Atherosclerotic heart disease of [place] coronary artery without angina pectoris (Acute) CKD stage 4 due to type 2 diabetes mellitus (Chronic) Heart failure (Chronic) Anxiety (Chronic) Morbid obesity (Chronic) Subacute osteomyelitis, left ankle and foot (Acute) Chronic pain (Chronic) COPD (chronic obstructive pulmonary disease) (Chronic) Asthma (Chronic) Type 2 diabetes mellitus (Chronic) Medical History (Updated 09/20/25 @ 22:02 by Salima Chawla MD) Iron deficiency anemia CAD (coronary artery disease), [place] coronary artery Chronic bipolar disorder Chronic back pain greater than 3 months duration Diabetes mellitus type 2, insulin dependent MRSA infection Testicular hypofunction Low back pain Surgical History (Updated 07/10/25 @ 08:26 by Bre Molina RN, RN) S/P spinal surgery S/P hip hemiarthroplasty S/P cardiac cath Stent to LAD Social History Smoking/Tobacco Use Status: Former Tobacco Use Smoking risk assessment performed?: Yes Alcohol Intake: current Alcohol Intake frequency: holidays/special occasions only Drug use: Never Substance use type: does not use Housing: assisted living facility Do you feel safe at home: Yes Do you feel safe in your relationship?: Yes
[2025-09-20] MEDS: ACETAMINOPHEN 1,000 MG/100 ML BAG 400 MG IVPB (17:18)
[2025-09-20 17:19] LABS: Abs Immature Grans 0.03 10^3/uL (0.0-0.06); HCT 33.3 % (40.0-50.0); HGB 11.0 g/dL (13.5-17.5); Immature Grans % 0.3 %; MCH 31.1 pg (27.0-33.0); MCHC 33.0 % (32.0-36.0); MCV 94 fL (80-95); MPV 10.5 fL (8.0-11.0); Platelet Count 191 10^3/uL (130-400); RBC 3.54 10^6/uL (4.36-5.78); RDW 11.9 % (11.8-14.1); RDW-SD 40.6 fL; WBC 9.47 10^3/uL (4.4-10.8)
[2025-09-20] MEDS: Lactated Ringers 1,000 ML 1000 ML IV ×2 (17:34→20:48)
[2025-09-20 17:42] LABS: Magnesium 1.6 mg/dL (1.6-2.6)
[2025-09-20 17:43] LABS: Lipase 66 U/L (<53)
[2025-09-20 17:51] LABS: ALT 21 U/L (10-49); AST 24 U/L (<34); Albumin 4.0 g/dL (3.4-5.0); Alkaline Phosphatase 58 U/L (46-116); Anion Gap 11.8 mmol/L (3-11); BUN 39 mg/dL (9-23); Bilirubin, Total 0.40 mg/dL (0.2-1.2); CO2 28.2 mmol/L (20.0-31.0); Calcium 9.4 mg/dL (8.3-10.6); Chloride 104 mmol/L (98-107); Glucose 116 mg/dL (74-106); Sodium 144 mmol/L (136-145); Total Protein 6.3 g/dL (5.7-8.2)
[2025-09-20 17:54] LABS: Potassium 5.1 mmol/L (3.5-5.1)
[2025-09-20] MEDS: cefTRIAXone 1 GM/50 ML BAG IVPB (19:10)
[2025-09-20] MEDS: MAGNESIUM SULFATE 2 GM/50 ML BAG IV_INF (19:11)
[2025-09-20] MEDS: HYDROmorphone 2 MG/ML SYR 1 MG IVP (19:45)
== END 2025-09-20 22:36 | disposition home or self-care (01) ==
PROVIDERS: Emergency Provider Emergency Medicine; PCP Family Medicine
DX: N39.0 Urinary tract infection, site not specified (principal); R74.02 Elevation of levels of lactic acid dehydrogenase [LDH]; I25.10 Atherosclerotic heart disease of native coronary artery without angina pectoris; I25.2 Old myocardial infarction; E11.22 Type 2 diabetes mellitus with diabetic chronic kidney disease; I12.9 Hypertensive chronic kidney disease with stage 1 through stage 4 chronic kidney disease, or unspecified chronic kidney disease; N18.4 Chronic kidney disease, stage 4 (severe); Z86.73 Personal history of transient ischemic attack (TIA), and cerebral infarction without residual deficits; Z79.4 Long term (current) use of insulin; Z79.82 Long term (current) use of aspirin; Z79.85 Long-term (current) use of injectable non-insulin antidiabetic drugs; Z87.891 Personal history of nicotine dependence
CPT/HCPCS: 80053; 83690; 96361; 96365; 96366; 96367; 96375; 99285; 74176; 83605; 83735; 85025; 99284; J0131; J0696; J1171; J3475

== ENCOUNTER 2025-09-26 13:43 | Emergency (ER) | payer MEDICARE, MEDICAID, SELFPAY ==
[2025-09-26] VITALS (32 sets, daily range): BP systolic 124–157; BP diastolic 45–71; PULSE 64–91; RESP 12–23; TEMP 35.7; O2SAT 95–100
--- NOTE | 2025-09-26 13:45 | RT.EKG_ITS ---
APPROVED REPORT Exam: Resting ECG Reason for Exam: possible stroke Patient Location: E HR:73 bpm ECG Measurements Heart Rate 73 AXIS AZ 180 P 64 QRSd 94 QRS 8 QT 400 T 39 QTc 442 Conclusion Sinus rhythm...normal P axis, V-rate 60- 99 No STEMI
--- NOTE | 2025-09-26 13:58 | W.ED.GENAD ---
Discharge Plan Discharge Details Chief Complaint: AMS/LOC Clinical Impression: Acute CVA (cerebrovascular accident), Carotid artery stenosis Primary Care Provider: Nica Carrasco ED Provider: Nicholas Yusuf Gunlock Meds and New Rx's Prescriptions: No Action aspirin [Adult Aspirin Regimen] 81 mg tablet,delayed release (DR/EC) 81 mg PO DAILY gabapentin 300 mg capsule 300 mg PO TID glucagon 1 mg recon soln 1 mg subcut Q20M PRN Rx Instructions: until target blood sugar attained naloxone 4 mg/actuation spray,non-aerosol 4 mg intranasal Q2M Rx Instructions: spray 1 dose into ONE nostril; alternate nostrils w each dose until help arrives nitroglycerin 0.4 mg tablet, sublingual 0.4 mg sublingual Q5M PRN Rx Instructions: do not exceed 3 doses per episode ranolazine 500 mg tablet extended release 12 hr 500 mg PO BID sevelamer HCl 800 mg tablet 800 mg PO TID Rx Instructions: must administer with a meal/food risperidone 1 mg tablet 1 mg PO BID metoprolol succinate 25 mg tablet extended release 24 hr 50 mg PO DAILY epinephrine [EpiPen] 0.3 mg/0.3 mL auto-injector 0.3 mg IM ONCE PRN Rx Instructions: as a single dose; may repeat once ipratropium-albuterol 0.5 mg-3 mg(2.5 mg base)/3 mL solution for nebulization 3 ml inhalation QID PRN B complex-vitamin C-folic acid 0.8 mg tablet 1 tab PO DAILY torsemide 20 mg tablet 20 mg PO DAILY Qty: 0 0RF Rx Instructions: Hold until 06/11/25 magnesium oxide 400 mg magnesium capsule 400 mg PO DAILY Qty: 7 0RF Biofreeze (menthol) 4 % gel 1 applic topical Q6H PRN PRNQty: 237 0RF ropinirole 1 mg tablet 1 mg PO BID Qty: 0 0RF vilazodone [Viibryd] 20 mg tablet 20 mg PO DAILY Patient Comments: takes with a 10mg tablet for total dose of 30mg Rx Instructions: must administer with a meal/food acetaminophen 500 mg capsule 650 mg PO Q4H PRN clopidogrel [Plavix] 75 mg tablet 75 mg PO DAILY Qty: 20 0RF ketoconazole 2 % shampoo 1 applic topical Q2W polyethylene glycol 3350 17 gram/dose powder 17 g PO DAILY PRN Rx Instructions: Constipation amlodipine 10 mg tablet 5 mg PO DAILY rosuvastatin 20 mg tablet 40 mg PO HS diazepam 5 mg tablet 5 mg PO BID PRN albuterol sulfate 2.5 mg /3 mL (0.083 %) solution for nebulization 2.5 mg inhalation Q6H PRN insulin asp prt-insulin aspart [Novolog Mix 70-30 U-100 Insuln] 100 unit/mL (70-30) solution 45 unit subcut DAILY Rx Instructions: In AM insulin asp prt-insulin aspart [Novolog Mix 70-30 U-100 Insuln] 100 unit/mL (70-30) solution See Rx Instructions subcut .COMPLEX Rx Instructions: subcutaneously with meals with sliding scale isosorbide mononitrate 60 mg tablet extended release 24 hr 60 mg PO DAILY Patient Comments: takes w/30mg tablet for total dose of 90mg isosorbide mononitrate 30 mg tablet extended release 24 hr 30 mg PO DAILY Trulicity 3 mg/0.5 mL pen injector 0.75 mg subcut QWEEK Rx Instructions: takes on Mondays vilazodone [Viibryd] 10 mg tablet 10 mg PO DAILY Rx Instructions: must administer with a meal/food (DME) Dexcom G7 Inspector And Mender Misc See Rx Instructions .ROUTE Rx Instructions: As directed hydrocodone-acetaminophen 10-325 mg tablet 1 tab PO Q4H PRN cefpodoxime 200 mg tablet 200 mg PO BID 10 Days Qty: 20 0RF Rx Instructions: must administer with a meal/food HPI General Date/Time Provider Initiated Documentation: 09/26/25 13:52. HPI Narrative: MDM/Narrative: 70-year-old male with multiple medical comorbidities including evaluation in the emergency department recently for symptoms consistent with TIA presents for evaluation of acute onset dysarthria left upper extremity weakness and left lower extremity numbness and weakness starting at approximately 1230 this afternoon. Exam concerning for left hemiparesis and numbness. Code stroke called, IV established, patient sent for emergent CTA of the brain and neck. Given also patient's other medical comorbidities will assess for evidence of toxic metabolic derangement, as well as infection which could be stroke mimic. ED Course: [address] Atwood ([facility]) who shares concern for CVA in this patient, however he would recommend no tPA as there is concern for recent CVAs given inability to ambulate the past several weeks. Vascular surgery consult recommended, continue aspirin/plavix. 1538 Case discussed with [facility], CT imaging sent over, pending callback for vascular surgery recs regarding carotid stenosis. 1552 Case discussed with nurse at [facility] and rehab who verifies patient has received his daily rosuvastatin 40 mg, Plavix 75 mg, but only a dose of 81 mg of aspirin. 243 mg of aspirin was ordered. Still waiting vascular surgery recommendations. [address] Moreland of [facility] vascular surgery, who recommends the patient is transferred to [facility] for further management, we will discuss with their medical instructor if patient should be admitted to the neurology team or the vascular surgery team. 1450 Case discussed with [facility] who has declined patient based on bed availability. 1703 Case discussed with [facility] who clears patient for transfer and will contact Stroke/Neuro for further consultation at this time. 1800 Patient signed out to Dr. Goddard pending [facility] recommendations regarding disposition. Disposition: Transfer to [facility] HPI: 70-year-old male with a past medical history of recent TIA, CAD, hypertension, CKD, COPD, and diabetes, presents for sudden onset acute weakness numbness of the left upper extremity and left lower extremity starting approximately 1230 today while patient was watching TV. Denies any associated headache, but does endorse that he has had symptoms like this recently in the past several months and notes that he has been bedbound due to persistent difficulty ambulating following acute onset of weakness of his leg. He denies any associated fever, chills, chest pain or any other concerning symptoms. ROS: Negative besides as mentioned above Exam: Gen: A&O NAD HEENT: NCAT, EOMI, not icteric. External ears normal. No rhinorrhea. Moist mucous membranes. Neck: Supple, full range of motion, no observable masses, No meningeal sign. Lungs: No Respiratory distress. CV: RRR, no edema. Abdomen: Soft, nondistended, No rebound tenderness. MSK: No joint swelling, no redness. Skin: No rashes, petechiae, lesions. Normal color per patient. Neuro: Dysarthric, following commands, motor strength is preserved throughout the right upper extremity and right lower extremity, there is 3 out of 5 motor strength in the left upper extremity, and 1 out of 5 motor strength throughout the left lower extremity. Patient endorses loss of sensation to touch over the left lower extremity. Psych: Appropriate for situation. Rhythm: NSR Rate: 73 [place]: Normal axis Intervals: Normal intervals Other findings: No acute ST segment or T wave changes to suggest acute ischemia. Labs: Laboratory Tests Range/Units 09/26/25 09/26/25 14:30 15:01 WBC (4.4-10.8) 10^3/uL 8.88 RBC (4.36-5.78) 10^6/uL 3.80 L Hgb (13.5-17.5) g/dL 11.5 L Hct (40.0-50.0) % 34.9 L MCV (80-95) fL 92 MCH (27.0-33.0) pg 30.3 MCHC (32.0-36.0) % 33.0 RDW (11.8-14.1) % 11.8 Plt Count (130-400) 10^3/uL 224 MPV (8.0-11.0) fL 9.9 Immature Gran % % 0.5 Neutrophils % % 71.4 Lymphocytes % % 19.7 Monocytes % % 6.5 Eosinophils % % 1.6 Basophils % % 0.3 Nucleated RBC % (0.0-0.3) % 0.0 Absolute Neutrophils (1.2-6.7) 10^3/uL 6.34 Absolute Lymphocytes (1.2-3.4) 10^3/uL 1.75 Absolute Monocytes (0.1-0.8) 10^3/uL 0.58 Absolute Eosinophils (0.0-0.7) 10^3/uL 0.14 Absolute Basophils (0.0-0.2) 10^3/uL 0.03 PT (9.1-11.1) sec 10.2 INR (0.9-1.1) 1.0 APTT (20.6-30.2) sec 22.8 VBG Lactate (<or=2.0) mmol/L 3.9 H* Sodium (136-145) mmol/L 142 Potassium (3.5-5.1) mmol/L 4.5 Chloride (98-107) mmol/L 101 Carbon Dioxide (20.0-31.0) mmol/L 31.9 H Anion Gap (3-11) mmol/L 9.1 BUN (9-23) mg/dL 32 H Creatinine (0.73-1.18) mg/dL 1.46 H Est GFR (CKD-EPI 2020) (mL/min/1.73m2) 48.00 Glucose (74-106) mg/dL 165 H Calcium (8.3-10.6) mg/dL 9.7 Magnesium (1.6-2.6) mg/dL 1.4 L Total Bilirubin (0.2-1.2) mg/dL 0.30 AST (<34) U/L 23 ALT (10-49) U/L 27 Alkaline Phosphatase (46-116) U/L 65 Troponin I (<54) ng/L < 3 NT-Pro-B Natriuret Pep (<300) pg/mL 795 H Total Protein (5.7-8.2) g/dL 7.1 Albumin (3.2-5.0) g/dL 4.4 Urine Color (Yellow) Yellow Urine Clarity (Clear) Clear Urine pH (5-8) 5.0 Ur Specific [place] (1.005-1.025) 1.010 Urine Protein (Neg-Trace) mg/dL Negative Urine Ketones (Negative) mg/dL Negative Urine Blood (Negative) Trace-intact H Urine Nitrite (Negative) Negative Urine Bilirubin (Negative) Negative Urine Urobilinogen (Up to 0.2) mg/dL 0.2 Ur Leukocyte Esterase (Negative) Small H Urine RBC (0-2) HPF 10-20 H Urine WBC (0-5) HPF 5-10 Ur Epithelial Cells (Negative) HPF Few Urine Crystals (Negative) HPF Negative Urine Bacteria (Negative) HPF Few Urine Casts (Negative) LPF Negative Urine Mucus (Negative) Negative Ur Culture Indicated? No Urine Glucose (Negative) mg/dL Negative Radiology: Exam(s) CT BRAIN NECK CTA EXAM: CT BRAIN NECK CTA CLINICAL HISTORY: stroke symptoms. TECHNIQUE: Imaging Protocol: Axial CT angiography was performed with multi-slice acquisition and multi-planar and MIP reconstructions. CONTRAST MATERIAL: Intravenous: Omnipaque 350 Contrast volume:70 ml COMPARISON: CT CT HEAD WO from 09/16/2025 FINDINGS: CT Head W/O and W contrast: Ventricles and Extra axial spaces: Normal in size and morphology for the patient's age. Hemorrhage: None. Cerebral parenchyma: No evidence of acute infarct or mass. Midline shift: None. Brainstem/Cerebellum: No acute findings.. Calvarium: Hyperostosis frontalis interna. Visualized Paranasal sinuses/Mastoids: Clear. Soft Tissues: Unremarkable. Enhancement: Normal. Venous sinuses are patent. CTA Brain W: Internal Carotid Arteries: Right: No aneurysm, occlusion or significant stenosis. Left: No aneurysm, occlusion or significant stenosis. Middle Cerebral Arteries: Right: No aneurysm, occlusion or significant stenosis. Left: No aneurysm, occlusion or significant stenosis. Anterior Cerebral Arteries: Right: No aneurysm, occlusion or significant stenosis. Left: No aneurysm, occlusion or significant stenosis. Posterior cerebral Arteries: Right: No aneurysm, occlusion or significant stenosis. Left: No aneurysm, occlusion or significant stenosis. Vertebral Arteries: Right: No aneurysm, occlusion or significant stenosis. Left: No aneurysm, occlusion or significant stenosis. Basilar Artery: No aneurysm, occlusion or significant stenosis. CTA Neck W: Visualized aorta: Unremarkable. Visualized pulmonary arteries: Unremarkable. Subclavian arteries: Unremarkable. Common Carotid: Plaque at the common carotid bulbs. Right: No dissection, occlusion or significant stenosis. Left: No dissection, occlusion or significant stenosis. External Carotid: Right: No dissection, occlusion or significant stenosis. Left: No dissection, occlusion or significant stenosis. Internal Carotid: Right: Irregular calcified and noncalcified plaque extending along the proximal internal carotid artery. There is severe stenosis at the origin and moderate stenosis in the proximal portion no dissection, occlusion or significant stenosis. Left: Mixed calcified and noncalcified plaque causing moderate to severe stenosis at the origin. No dissection, occlusion or significant stenosis. Vertebral Artery: Right: Dominant. No dissection, occlusion or significant stenosis. Left: No dissection, occlusion or significant stenosis. Lung Apices: No acute findings. Bones: No acute abnormality. Extensive hardware in the cervical spine to upper thoracic spine. Multiple laminectomy defects. Severe degenerative disc changes with prominent endplate osteophytes. Soft Tissues: Normal. IMPRESSION: 1. CTA brain: Normal CTA examination of the [place]. 2. Head CT: No acute abnormality. 3. CTA neck: Irregular calcified and noncalcified plaque at the proximal internal carotid arteries causing severe stenosis on the right and moderate to severe stenosis on the left. Findings called to Dr. Yusuf of the emergency department Exam(s) XR CHEST 1V IN DI DEPT EXAM: XR CHEST 1V IN DI DEPT CLINICAL HISTORY: weakness TECHNIQUE: 2D digital imaging was performed. COMPARISON: CR XR PORTABLE CHEST AP from 07/17/2025 FINDINGS: LUNGS: Clear. No pleural abnormality seen. HEART: Normal size. AORTA: Normal diameter. BONES: Hardware in the lower cervical to the upper thoracic spine. Soft tissues: Unremarkable. IMPRESSION: No acute findings. Related Data Home Medications ?Medication ?Instructions ?Recorded ?Confirmed aspirin 81 mg tablet,delayed 81 mg PO DAILY 07/06/24 08/20/25 release (Adult Aspirin Regimen) gabapentin 300 mg capsule 300 mg PO TID 07/06/24 08/20/25 glucagon 1 mg solution for 1 mg subcut Q20M PRN 07/06/24 08/20/25 injection naloxone 4 mg/actuation nasal spray 4 mg intranasal Q2M 07/06/24 08/20/25 nitroglycerin 0.4 mg sublingual 0.4 mg sublingual Q5M PRN 07/06/24 08/20/25 tablet ranolazine 500 mg tablet,extended 500 mg PO BID 07/06/24 08/20/25 release,12 hr risperidone 1 mg tablet 1 mg PO BID 07/06/24 08/20/25 sevelamer HCl 800 mg tablet 800 mg PO TID 07/06/24 08/20/25 isosorbide mononitrate 60 mg 60 mg PO DAILY 03/15/25 08/20/25 tablet,extended release 24 hr magnesium oxide 400 mg PO DAILY #7 caps 06/10/25 08/20/25 menthol 4 % topical gel (Biofreeze 1 applic topical Q6H PRN PRN #237 06/10/25 08/20/25 (menthol)) mL ropinirole 1 mg tablet 1 mg PO BID #0 tabs 06/10/25 08/20/25 torsemide 20 mg tablet 20 mg PO DAILY #0 tabs 06/10/25 08/20/25 acetaminophen 500 mg capsule 650 mg PO Q4H PRN 06/13/25 08/20/25 vilazodone 20 mg tablet (Viibryd) 20 mg PO DAILY 06/13/25 08/20/25 clopidogrel 75 mg tablet (Plavix) 75 mg PO DAILY #20 tabs 06/14/25 08/20/25 ketoconazole 2 % shampoo 1 applic topical Q2W 06/20/25 08/20/25 amlodipine 10 mg tablet 5 mg PO DAILY 06/28/25 08/20/25 polyethylene glycol 3350 17 17 g PO DAILY PRN 06/28/25 08/20/25 gram/dose oral powder albuterol sulfate 2.5 mg/3 mL 2.5 mg inhalation Q6H PRN 07/07/25 08/20/25 (0.083 %) solution for nebulization diazepam 5 mg tablet 5 mg PO BID PRN 07/07/25 08/20/25 insulin aspar prt-insulin aspart 45 unit subcut DAILY 07/07/25 08/20/25 100 unit/mL (70-30) subcutaneous soln (Novolog Mix 70-30 U-100 Insuln) insulin aspar prt-insulin aspart See Rx Instructions subcut .COMPLEX 07/07/25 08/20/25 100 unit/mL (70-30) subcutaneous soln (Novolog Mix 70-30 U-100 Insuln) rosuvastatin 20 mg tablet 40 mg PO HS 07/07/25 08/20/25 epinephrine 0.3 mg/0.3 mL 0.3 mg IM ONCE PRN 07/12/25 08/20/25 injection, auto-injector (EpiPen) ipratropium 0.5 mg-albuterol 3 mg 3 ml inhalation QID PRN 07/12/25 08/20/25 (2.5 mg base)/3 mL nebulization soln vitamin B complex-vitamin C-folic 1 tab PO DAILY 07/12/25 08/20/25 acid 0.8 mg tablet metoprolol succinate 25 mg 50 mg PO DAILY 07/17/25 08/20/25 tablet,extended release 24 hr blood-glucose,popcorn candy maker,cont 08/20/25 08/20/25 (Dexcom G7 Inspector And Mender) dulaglutide 3 mg/0.5 mL 0.75 mg subcut QWEEK 08/20/25 08/20/25 subcutaneous pen injector (Trulicity) hydrocodone 10 mg-acetaminophen 1 tab PO Q4H PRN 08/20/25 08/20/25 325 mg tablet isosorbide mononitrate 30 mg 30 mg PO DAILY 08/20/25 08/20/25 tablet,extended release 24 hr vilazodone 10 mg tablet (Viibryd) 10 mg PO DAILY 08/20/25 08/20/25 cefpodoxime 200 mg tablet 200 mg PO BID 10 days #20 tabs 09/20/25 Previous Rx's ?Medication ?Instructions ?Recorded magnesium oxide 400 mg PO DAILY #7 caps 06/10/25 menthol 4 % topical gel (Biofreeze 1 applic topical Q6H PRN PRN #237 06/10/25 (menthol)) mL ropinirole 1 mg tablet 1 mg PO BID #0 tabs 06/10/25 torsemide 20 mg tablet 20 mg PO DAILY #0 tabs 06/10/25 clopidogrel 75 mg tablet (Plavix) 75 mg PO DAILY #20 tabs 06/14/25 cefpodoxime 200 mg tablet 200 mg PO BID 10 days #20 tabs 09/20/25 Allergies Allergy/AdvReac Type Severity Reaction Status Date / Time bee venom protein (honey bee) Allergy Intermediate Anaphylaxis Verified 09/20/25 16:36 clonidine Allergy Mild Unknown Verified 09/20/25 16:36 Influenza Virus Vaccines Allergy Mild Unknown Verified 09/20/25 16:36 prednisone Allergy Unknown Other (See Verified 09/20/25 16:36 Comment) tamsulosin (From Flomax) Allergy Unknown Other (See Verified 09/20/25 16:36 Comment) General Stated Complaint: AMS/LOC VALERI: 2 Course Vital Signs Vital signs: Vital Signs Temperature 35.7 C L 09/26/25 13:50 Pulse 83 09/26/25 13:50 Respiratory Rate 16 09/26/25 13:50 Blood Pressure 141/61 H 09/26/25 13:50 Pulse Oximetry 98 09/26/25 13:50 Temperature 35.7 C L 09/26/25 13:50 Temperature Source Temporal Artery Scan 09/26/25 13:50 Pulse 83 09/26/25 13:50 Respiratory Rate 16 09/26/25 13:50 Blood Pressure 141/61 H 09/26/25 13:50 Pulse Oximetry 98 09/26/25 13:50 PFSH All Active Problems (Updated 09/26/25 @ 18:01 by Nicholas Yusuf MD) Carotid artery stenosis (Acute) Acute CVA (cerebrovascular accident) (Acute) Elevated lactic acid level (Acute) Urinary tract infection (Acute) Transient confusion (Acute) Hypoglycemia (Acute) Acute non-ST elevation myocardial infarction (NSTEMI) (Acute) Ear pain, left (Acute) Tinnitus of both ears (Acute) Chest pain (Acute) TIA (transient ischemic attack) (Acute) CAD S/P percutaneous coronary angioplasty (Acute) Acute on chronic kidney failure (Acute) Unstable angina (Acute) Osteoarthritis of hip (Acute) Right hip pain (Acute) PAD (peripheral artery disease) (Acute) Lymphedema (Acute) Venous ulcers of both lower extremities (Acute) Venous (peripheral) insufficiency (Acute) Phantom limb syndrome (Acute) PTSD (post-traumatic stress disorder) (Chronic) Vitamin D deficiency (Acute) Nondisplaced fracture of right scaphoid bone (Acute 02/01/24) Right wrist pain (Acute) GERD (gastroesophageal reflux disease) (Chronic) Hypertension (Chronic) Neuropathy (Acute) History of venous thrombosis and embolism (Acute) Pityriasis versicolor (Acute) Hyperlipidemia (Chronic) Atherosclerotic heart disease of [place] coronary artery without angina pectoris (Acute) CKD stage 4 due to type 2 diabetes mellitus (Chronic) Heart failure (Chronic) Anxiety (Chronic) Morbid obesity (Chronic) Subacute osteomyelitis, left ankle and foot (Acute) Chronic pain (Chronic) COPD (chronic obstructive pulmonary disease) (Chronic) Asthma (Chronic) Type 2 diabetes mellitus (Chronic) Medical History (Updated 09/26/25 @ 18:01 by Nicholas Yusuf MD) Iron deficiency anemia CAD (coronary artery disease), [place] coronary artery Chronic bipolar disorder Chronic back pain greater than 3 months duration Diabetes mellitus type 2, insulin dependent MRSA infection Testicular hypofunction Low back pain Surgical History (Updated 07/10/25 @ 08:26 by Bre Molina RN, RN) S/P spinal surgery S/P hip hemiarthroplasty S/P cardiac cath Stent to LAD Social History Smoking/Tobacco Use Status: Former Tobacco Use Smoking risk assessment performed?: Yes Alcohol Intake: current Alcohol Intake frequency: holidays/special occasions only Drug use: Never Substance use type: does not use Housing: assisted living facility Do you feel safe at home: Yes Do you feel safe in your relationship?: Yes
[2025-09-26] MEDS: Normal Saline - Diluent 50 ML VIAL IJ (14:33)
[2025-09-26] MEDS: Normal Saline Flush 10 ML SYR IVP (14:33)
[2025-09-26] MEDS: Omnipaque 350 MG/ML 500 ML BTL-Imaging package IJ (14:34)
[2025-09-26 14:40] LABS: Abs Immature Grans 0.04 10^3/uL (0.0-0.06); HCT 34.9 % (40.0-50.0); HGB 11.5 g/dL (13.5-17.5); Immature Grans % 0.5 %; MCH 30.3 pg (27.0-33.0); MCHC 33.0 % (32.0-36.0); MCV 92 fL (80-95); MPV 9.9 fL (8.0-11.0); Platelet Count 224 10^3/uL (130-400); RBC 3.80 10^6/uL (4.36-5.78); RDW 11.8 % (11.8-14.1); RDW-SD 39.8 fL; WBC 8.88 10^3/uL (4.4-10.8)
--- NOTE | 2025-09-26 14:53 | DI.CT_ITS ---
Exam(s) CT BRAIN NECK CTA EXAM: CT BRAIN NECK CTA CLINICAL HISTORY: stroke symptoms. TECHNIQUE: Imaging Protocol: Axial CT angiography was performed with multi- slice acquisition and multi-planar and MIP reconstructions. CONTRAST MATERIAL: Intravenous: Omnipaque 350 Contrast volume:70 ml COMPARISON: CT CT HEAD WO from 09/16/2025 FINDINGS: CT Head W/O and W contrast: Ventricles and Extra axial spaces: Normal in size and morphology for the patient's age. Hemorrhage: None. Cerebral parenchyma: No evidence of acute infarct or mass. Midline shift: None. Brainstem/Cerebellum: No acute findings.. Calvarium: Hyperostosis frontalis interna. Visualized Paranasal sinuses/Mastoids: Clear. Soft Tissues: Unremarkable. Enhancement: Normal. Venous sinuses are patent. CTA Brain W: Internal Carotid Arteries: Right: No aneurysm, occlusion or significant stenosis. Left: No aneurysm, occlusion or significant stenosis. Middle Cerebral Arteries: Right: No aneurysm, occlusion or significant stenosis. Left: No aneurysm, occlusion or significant stenosis. Anterior Cerebral Arteries: Right: No aneurysm, occlusion or significant stenosis. Left: No aneurysm, occlusion or significant stenosis. Posterior cerebral Arteries: Right: No aneurysm, occlusion or significant stenosis. Left: No aneurysm, occlusion or significant stenosis. Vertebral Arteries: Right: No aneurysm, occlusion or significant stenosis. Left: No aneurysm, occlusion or significant stenosis. Basilar Artery: No aneurysm, occlusion or significant stenosis. CTA Neck W: Visualized aorta: Unremarkable. Visualized pulmonary arteries: Unremarkable. Subclavian arteries: Unremarkable. Common Carotid: Plaque at the common carotid bulbs. Right: No dissection, occlusion or significant stenosis. Left: No dissection, occlusion or significant stenosis. External Carotid: Right: No dissection, occlusion or significant stenosis. Left: No dissection, occlusion or significant stenosis. Internal Carotid: Right: Irregular calcified and noncalcified plaque extending along the proximal internal carotid artery. There is severe stenosis at the origin and moderate stenosis in the proximal portion no dissection, occlusion or significant stenosis. Left: Mixed calcified and noncalcified plaque causing moderate to severe stenosis at the origin. No dissection, occlusion or significant stenosis. Vertebral Artery: Right: Dominant. No dissection, occlusion or significant stenosis. Left: No dissection, occlusion or significant stenosis. Lung Apices: No acute findings. Bones: No acute abnormality. Extensive hardware in the cervical spine to upper thoracic spine. Multiple laminectomy defects. Severe degenerative disc changes with prominent endplate osteophytes. Soft Tissues: Normal. IMPRESSION: 1. CTA brain: Normal CTA examination of the [place]. 2. Head CT: No acute abnormality. 3. CTA neck: Irregular calcified and noncalcified plaque at the proximal internal carotid arteries causing severe stenosis on the right and moderate to severe stenosis on the left. Findings called to Dr. Yusuf of the emergency department. RADIATION DOSE DELIVERED: Total DLP DATA REPOSITORY: All CT scans at this facility are submitted to the National Radiology Data Registry (NRDR) Dose Index Registry (DIR) with the [employer] (ACR). RADIATION OPTIMIZATION: All CT scans at this facility use at least one of these dose optimization techniques: automated exposure control; mA and/or kV adjustment per patient size (includes targeted exams where dose is matched to clinical indication); or iterative reconstruction.
[2025-09-26 14:56] LABS: Magnesium 1.4 mg/dL (1.6-2.6)
[2025-09-26 14:58] LABS: ALT 27 U/L (10-49); AST 23 U/L (<34); Albumin 4.4 g/dL (3.2-5.0); Alkaline Phosphatase 65 U/L (46-116); Anion Gap 9.1 mmol/L (3-11); BUN 32 mg/dL (9-23); Bilirubin, Total 0.30 mg/dL (0.2-1.2); CO2 31.9 mmol/L (20.0-31.0); Calcium 9.7 mg/dL (8.3-10.6); Chloride 101 mmol/L (98-107); Glucose 165 mg/dL (74-106); Potassium 4.5 mmol/L (3.5-5.1); Sodium 142 mmol/L (136-145); Total Protein 7.1 g/dL (5.7-8.2)
[2025-09-26 15:08] LABS: Troponin I < 3 ng/L (<54)
[2025-09-26 15:10] LABS: INR 1.0 (0.9-1.1); PTT Activated 22.8 sec (20.6-30.2); Prothrombin Time 10.2 sec (9.1-11.1)
[2025-09-26 15:22] LABS: Glucose Negative (Negative)
[2025-09-26 15:34] LABS: C & S Indicated? No
[2025-09-26] MEDS: Aspirin 81 MG CHEW 243 MG CH (16:15)
[2025-09-26 16:17] LABS: Troponin I < 3 ng/L (<54)
--- NOTE | 2025-09-26 19:10 | W.EDPROG ---
Date of service: 09/26/25 Time of Service: 19:10 Medical Decision Making While awaiting for transfer patient started becoming anxious and nervous, he requested something to help with anxiety during transport so I ordered him an IV dose of 0.5 mg Ativan. Discharge Plan Disposition Specific Acute Inpt Facility: [facility] Discharge Details Chief Complaint: AMS/LOC Clinical Impression: Acute CVA (cerebrovascular accident), Carotid artery stenosis Primary Care Provider: Nica Carrasco ED Provider: Nicholas Yusuf Home Meds and New Rx's Prescriptions: No Action aspirin [Adult Aspirin Regimen] 81 mg tablet,delayed release (DR/EC) 81 mg PO DAILY gabapentin 300 mg capsule 300 mg PO TID glucagon 1 mg recon soln 1 mg subcut Q20M PRN Rx Instructions: until target blood sugar attained naloxone 4 mg/actuation spray,non-aerosol 4 mg intranasal Q2M Rx Instructions: spray 1 dose into ONE nostril; alternate nostrils w each dose until help arrives nitroglycerin 0.4 mg tablet, sublingual 0.4 mg sublingual Q5M PRN Rx Instructions: do not exceed 3 doses per episode ranolazine 500 mg tablet extended release 12 hr 500 mg PO BID sevelamer HCl 800 mg tablet 800 mg PO TID Rx Instructions: must administer with a meal/food risperidone 1 mg tablet 1 mg PO BID metoprolol succinate 25 mg tablet extended release 24 hr 50 mg PO DAILY epinephrine [EpiPen] 0.3 mg/0.3 mL auto-injector 0.3 mg IM ONCE PRN Rx Instructions: as a single dose; may repeat once ipratropium-albuterol 0.5 mg-3 mg(2.5 mg base)/3 mL solution for nebulization 3 ml inhalation QID PRN B complex-vitamin C-folic acid 0.8 mg tablet 1 tab PO DAILY torsemide 20 mg tablet 20 mg PO DAILY Qty: 0 0RF Rx Instructions: Hold until 06/11/25 magnesium oxide 400 mg magnesium capsule 400 mg PO DAILY Qty: 7 0RF Biofreeze (menthol) 4 % gel 1 applic topical Q6H PRN PRNQty: 237 0RF ropinirole 1 mg tablet 1 mg PO BID Qty: 0 0RF vilazodone [Viibryd] 20 mg tablet 20 mg PO DAILY Patient Comments: takes with a 10mg tablet for total dose of 30mg Rx Instructions: must administer with a meal/food acetaminophen 500 mg capsule 650 mg PO Q4H PRN clopidogrel [Plavix] 75 mg tablet 75 mg PO DAILY Qty: 20 0RF ketoconazole 2 % shampoo 1 applic topical Q2W polyethylene glycol 3350 17 gram/dose powder 17 g PO DAILY PRN Rx Instructions: Constipation amlodipine 10 mg tablet 5 mg PO DAILY rosuvastatin 20 mg tablet 40 mg PO HS diazepam 5 mg tablet 5 mg PO BID PRN albuterol sulfate 2.5 mg /3 mL (0.083 %) solution for nebulization 2.5 mg inhalation Q6H PRN insulin asp prt-insulin aspart [Novolog Mix 70-30 U-100 Insuln] 100 unit/mL (70-30) solution 45 unit subcut DAILY Rx Instructions: In AM insulin asp prt-insulin aspart [Novolog Mix 70-30 U-100 Insuln] 100 unit/mL (70-30) solution See Rx Instructions subcut .COMPLEX Rx Instructions: subcutaneously with meals with sliding scale isosorbide mononitrate 60 mg tablet extended release 24 hr 60 mg PO DAILY Patient Comments: takes w/30mg tablet for total dose of 90mg isosorbide mononitrate 30 mg tablet extended release 24 hr 30 mg PO DAILY Trulicity 3 mg/0.5 mL pen injector 0.75 mg subcut QWEEK Rx Instructions: takes on Mondays vilazodone [Viibryd] 10 mg tablet 10 mg PO DAILY Rx Instructions: must administer with a meal/food (DME) Dexcom G7 Hat Maker Misc See Rx Instructions .ROUTE Rx Instructions: As directed hydrocodone-acetaminophen 10-325 mg tablet 1 tab PO Q4H PRN cefpodoxime 200 mg tablet 200 mg PO BID 10 Days Qty: 20 0RF Rx Instructions: must administer with a meal/food
[2025-09-26] MEDS: LORazepam 2 MG/ML VIAL 0.5 MG IVP (19:14)
[2025-09-26] MEDS: HYDROmorphone 2 MG/ML SYR 1 MG IVP (20:25)
--- NOTE | 2025-09-27 10:19 | NUR.NOTE ---
Nursing Note: [facility] called looking for an update on the patient. I notified them that he has been transferred to [facility] for acute CVA and carotid artery stenosis. I spoke with Marcela at [facility]
== END 2025-09-26 20:34 | disposition short-term general hospital (02) ==
PROVIDERS: Emergency Provider General Practice; PCP Family Medicine
DX: I63.9 Cerebral infarction, unspecified (principal); I65.23 Occlusion and stenosis of bilateral carotid arteries
CPT/HCPCS: 99285 ×2; 36416; 36415; 82962; 96374; 96375; 00123; 70496; 70498; 80053; 86850; 86900; 86901; 93005; 71045; 81003; 81015; 83605; 83735; 83880; 84484; 85025; 85610; 85730; 93010; J1171; J2060

== ENCOUNTER 2025-10-05 19:09 | Emergency (ER) | payer MEDICARE, MEDICAID, SELFPAY ==
[2025-10-05 19:12] VITALS: BP 127/57; PULSE 62; RESP 20; TEMP 35.2; O2SAT 97
--- NOTE | 2025-10-05 19:15 | RT.EKG_ITS ---
APPROVED REPORT Exam: Resting ECG Reason for Exam: weakness Patient Location: E HR:59 bpm ECG Measurements Heart Rate 59 AXIS FL 210 P 59 QRSd 100 QRS -1 QT 439 T 37 QTc 435 Conclusion Sinus bradycardia...rate< 60
[2025-10-05 19:19] VITALS: RESP 20
--- NOTE | 2025-10-05 19:30 | DI.CT_ITS ---
Exam(s) CT HEAD WO EXAM: CT HEAD WO CLINICAL HISTORY: ams. TECHNIQUE: Imaging Protocol: Axial computed tomography images with coronal and sagittal reformatted images were created and reviewed COMPARISON: CT CT BRAIN NECK CTA from 09/26/2025 FINDINGS: There are no skull fractures. There is no fluid in the visualized paranasal sinuses. However, some fluid in left mastoid air cells is again noted. Right mastoid air cells remain clear. There is no evidence of intracranial hemorrhage, mass effect, or shift of midline structures. There are no extra-axial fluid collections. The ventricles are not enlarged or shifted and there is no blood within the ventricular system nor within the basal cisterns. IMPRESSION: No acute intracranial findings on this noninfused CT scan of the brain. Left mastoid effusion again noted as was evident on 09/26/2025. Preliminary virtual Radiology report was reviewed RADIATION DOSE DELIVERED: 901.25mGy.cm Total DLP DATA REPOSITORY: All CT scans at this facility are submitted to the National Radiology Data Registry (NRDR) Dose Index Registry (DIR) with the [employer] ([employer]). RADIATION OPTIMIZATION: All CT scans at this facility use at least one of these dose optimization techniques: automated exposure control; mA and/or kV adjustment per patient size (includes targeted exams where dose is matched to clinical indication); or iterative reconstruction.
[2025-10-05 19:33] VITALS: BP 140/74; PULSE 64; RESP 18; TEMP 35.2; O2SAT 97
--- NOTE | 2025-10-05 19:37 | W.ED.GENAD ---
Discharge Plan Disposition Patient Disposition: Group Home Facility(SNF) Condition: Improving Discharge Details Clinical Impression: Urinary retention Primary Care Provider: Nica Carrasco ED Provider: Alexis Verduzco Home Meds and New Rx's Prescriptions: Continued aspirin [Adult Aspirin Regimen] 81 mg tablet,delayed release (DR/EC) 81 mg PO DAILY gabapentin 300 mg capsule 300 mg PO TID glucagon 1 mg recon soln 1 mg subcut Q20M PRN Rx Instructions: until target blood sugar attained naloxone 4 mg/actuation spray,non-aerosol 4 mg intranasal Q2M Rx Instructions: spray 1 dose into ONE nostril; alternate nostrils w each dose until help arrives nitroglycerin 0.4 mg tablet, sublingual 0.4 mg sublingual Q5M PRN Rx Instructions: do not exceed 3 doses per episode ranolazine 500 mg tablet extended release 12 hr 500 mg PO BID sevelamer HCl 800 mg tablet 800 mg PO TID Rx Instructions: must administer with a meal/food risperidone 1 mg tablet 1 mg PO BID metoprolol succinate 25 mg tablet extended release 24 hr 50 mg PO DAILY epinephrine [EpiPen] 0.3 mg/0.3 mL auto-injector 0.3 mg IM ONCE PRN Rx Instructions: as a single dose; may repeat once ipratropium-albuterol 0.5 mg-3 mg(2.5 mg base)/3 mL solution for nebulization 3 ml inhalation QID PRN B complex-vitamin C-folic acid 0.8 mg tablet 1 tab PO DAILY torsemide 20 mg tablet 20 mg PO DAILY Qty: 0 0RF Rx Instructions: Hold until 06/11/25 magnesium oxide 400 mg magnesium capsule 400 mg PO DAILY Qty: 7 0RF Biofreeze (menthol) 4 % gel 1 applic topical Q6H PRN PRNQty: 237 0RF ropinirole 1 mg tablet 1 mg PO BID Qty: 0 0RF vilazodone [Viibryd] 20 mg tablet 20 mg PO DAILY Patient Comments: takes with a 10mg tablet for total dose of 30mg Rx Instructions: must administer with a meal/food acetaminophen 500 mg capsule 650 mg PO Q4H PRN clopidogrel [Plavix] 75 mg tablet 75 mg PO DAILY Qty: 20 0RF ketoconazole 2 % shampoo 1 applic topical Q2W polyethylene glycol 3350 17 gram/dose powder 17 g PO DAILY PRN Rx Instructions: Constipation amlodipine 10 mg tablet 5 mg PO DAILY rosuvastatin 20 mg tablet 40 mg PO HS diazepam 5 mg tablet 5 mg PO BID PRN albuterol sulfate 2.5 mg /3 mL (0.083 %) solution for nebulization 2.5 mg inhalation Q6H PRN insulin asp prt-insulin aspart [Novolog Mix 70-30 U-100 Insuln] 100 unit/mL (70-30) solution 45 unit subcut DAILY Rx Instructions: In AM insulin asp prt-insulin aspart [Novolog Mix 70-30 U-100 Insuln] 100 unit/mL (70-30) solution See Rx Instructions subcut .COMPLEX Rx Instructions: subcutaneously with meals with sliding scale isosorbide mononitrate 60 mg tablet extended release 24 hr 60 mg PO DAILY Patient Comments: takes w/30mg tablet for total dose of 90mg isosorbide mononitrate 30 mg tablet extended release 24 hr 30 mg PO DAILY Trulicity 3 mg/0.5 mL pen injector 0.75 mg subcut QWEEK Rx Instructions: takes on Mondays vilazodone [Viibryd] 10 mg tablet 10 mg PO DAILY Rx Instructions: must administer with a meal/food (DME) Dexcom G7 Transaction Manager Misc See Rx Instructions .ROUTE Rx Instructions: As directed hydrocodone-acetaminophen 10-325 mg tablet 1 tab PO Q4H PRN Discharge Instructions Instructions: Urinary Retention Additional Instructions: Your laboratory values do reveal that your BUN and creatinine are elevated compared to your baseline but this is likely secondary to your urinary retention. Yang drained over 1200 cc of urine and after that you were then able to urinate spontaneously. I do strongly recommend monitoring your fluid intake and your urine output over the next couple of days. I would also recheck your renal function to be sure it is going in the right direction and more towards your baseline. No evidence of any focal deficit on neurologic exam. No evidence of infection. You feel like you are at your baseline and are comfortable being discharged back to your facility. Please watch for new or worsening symptoms and return immediately to the ER. Otherwise please follow-up with your facility provider tomorrow. Discharge Data Discharge Date/Time-TO BE ENTERED AT DEPARTURE: 10/05/25 22:21 HPI General Mode of arrival: EMS. Date/Time Provider Initiated Documentation: 10/05/25 19:21. Limitations to Documentation: no limitations. Information obtained by: patient and EMS. History of Present Illness 70 year old M presents to the emergency department with the chief complaint of Generalized weakness, fatigue, described as mild, with intensity rated at 3. Quality is described as other (No pain), Patient started experiencing this hour(s) (7) and it has been constant. No relieving factors improve symptom(s), No exacerbating factors reported . Patient notes other (Muscle soreness status post PT); denies confusion and fever/chills. Patient did receive the following treatments prior to arrival, other (EMS) Related Data Home Medications ?Medication ?Instructions ?Recorded ?Confirmed aspirin 81 mg tablet,delayed 81 mg PO DAILY 07/06/24 10/05/25 release (Adult Aspirin Regimen) gabapentin 300 mg capsule 300 mg PO TID 07/06/24 10/05/25 glucagon 1 mg solution for 1 mg subcut Q20M PRN 07/06/24 10/05/25 injection naloxone 4 mg/actuation nasal spray 4 mg intranasal Q2M 07/06/24 10/05/25 nitroglycerin 0.4 mg sublingual 0.4 mg sublingual Q5M PRN 07/06/24 10/05/25 tablet ranolazine 500 mg tablet,extended 500 mg PO BID 07/06/24 10/05/25 release,12 hr risperidone 1 mg tablet 1 mg PO BID 07/06/24 10/05/25 sevelamer HCl 800 mg tablet 800 mg PO TID 07/06/24 10/05/25 isosorbide mononitrate 60 mg 60 mg PO DAILY 03/15/25 10/05/25 tablet,extended release 24 hr magnesium oxide 400 mg PO DAILY #7 caps 06/10/25 10/05/25 menthol 4 % topical gel (Biofreeze 1 applic topical Q6H PRN PRN #237 06/10/25 10/05/25 (menthol)) mL ropinirole 1 mg tablet 1 mg PO BID #0 tabs 06/10/25 10/05/25 torsemide 20 mg tablet 20 mg PO DAILY #0 tabs 06/10/25 10/05/25 acetaminophen 500 mg capsule 650 mg PO Q4H PRN 06/13/25 10/05/25 vilazodone 20 mg tablet (Viibryd) 20 mg PO DAILY 06/13/25 10/05/25 clopidogrel 75 mg tablet (Plavix) 75 mg PO DAILY #20 tabs 06/14/25 10/05/25 ketoconazole 2 % shampoo 1 applic topical Q2W 06/20/25 10/05/25 amlodipine 10 mg tablet 5 mg PO DAILY 06/28/25 10/05/25 polyethylene glycol 3350 17 17 g PO DAILY PRN 06/28/25 10/05/25 gram/dose oral powder albuterol sulfate 2.5 mg/3 mL 2.5 mg inhalation Q6H PRN 07/07/25 10/05/25 (0.083 %) solution for nebulization diazepam 5 mg tablet 5 mg PO BID PRN 07/07/25 10/05/25 insulin aspar prt-insulin aspart 45 unit subcut DAILY 07/07/25 10/05/25 100 unit/mL (70-30) subcutaneous soln (Novolog Mix 70-30 U-100 Insuln) insulin aspar prt-insulin aspart See Rx Instructions subcut .COMPLEX 07/07/25 10/05/25 100 unit/mL (70-30) subcutaneous soln (Novolog Mix 70-30 U-100 Insuln) rosuvastatin 20 mg tablet 40 mg PO HS 07/07/25 10/05/25 epinephrine 0.3 mg/0.3 mL 0.3 mg IM ONCE PRN 07/12/25 10/05/25 injection, auto-injector (EpiPen) ipratropium 0.5 mg-albuterol 3 mg 3 ml inhalation QID PRN 07/12/25 10/05/25 (2.5 mg base)/3 mL nebulization soln vitamin B complex-vitamin C-folic 1 tab PO DAILY 07/12/25 10/05/25 acid 0.8 mg tablet metoprolol succinate 25 mg 50 mg PO DAILY 07/17/25 10/05/25 tablet,extended release 24 hr blood-glucose,field pipelines supervisor,cont 08/20/25 10/05/25 (Dexcom G7 Transaction Manager) dulaglutide 3 mg/0.5 mL 0.75 mg subcut QWEEK 08/20/25 10/05/25 subcutaneous pen injector (Trulicity) hydrocodone 10 mg-acetaminophen 1 tab PO Q4H PRN 08/20/25 10/05/25 325 mg tablet isosorbide mononitrate 30 mg 30 mg PO DAILY 08/20/25 10/05/25 tablet,extended release 24 hr vilazodone 10 mg tablet (Viibryd) 10 mg PO DAILY 08/20/25 10/05/25 Previous Rx's ?Medication ?Instructions ?Recorded magnesium oxide 400 mg PO DAILY #7 caps 06/10/25 menthol 4 % topical gel (Biofreeze 1 applic topical Q6H PRN PRN #237 06/10/25 (menthol)) mL ropinirole 1 mg tablet 1 mg PO BID #0 tabs 06/10/25 torsemide 20 mg tablet 20 mg PO DAILY #0 tabs 06/10/25 clopidogrel 75 mg tablet (Plavix) 75 mg PO DAILY #20 tabs 06/14/25 Allergies Allergy/AdvReac Type Severity Reaction Status Date / Time bee venom protein (honey bee) Allergy Intermediate Anaphylaxis Verified 10/05/25 19:36 clonidine Allergy Mild Unknown Verified 10/05/25 19:36 Influenza Virus Vaccines Allergy Mild Unknown Verified 10/05/25 19:36 prednisone Allergy Unknown Other (See Verified 10/05/25 19:36 Comment) tamsulosin (From Flomax) Allergy Unknown Other (See Verified 10/05/25 19:36 Comment) General Stated Complaint: AMS/LOC VALERI: 3 Review of Systems Constitutional Constitutional: Reports fatigue, Denies fever(s), Denies headache(s) and Reports weakness (Generalized, no focal) Eyes Eyes: Denies change in vision ENT Ears, Nose, Mouth, and Throat: Denies headache(s) and Denies neck pain Cardiovascular Cardiovascular: Denies chest pain and Denies dyspnea Respiratory Respiratory: Denies cough and Denies dyspnea Gastrointestinal Gastrointestinal: Denies abdominal pain, Denies nausea and Denies vomiting Genitourinary Genitourinary: Denies dysuria and Reports urinary hesitancy Musculoskeletal Musculoskeletal: Denies neck pain Integumentary/Breasts Skin/Breast: Reports rash (chronic legs) Neurologic Neurologic: Denies headache(s) and Reports weakness (Generalized, no focal) Endocrine Endocrine: Reports fatigue Hematologic/Lymphatic Hematologic/Lymphatic: Reports easy bleeding and Reports easy bruising Exam Const General: cooperative, healthy appearing, comfortable and no acute distress Orientation: alert, awake and oriented x3 HENMT Head: normal to inspection, normocephalic and atraumatic Face and sinus: normal facial exam Mouth: moist mucous membranes Throat: posterior oropharynx normal Eyes General: appearance normal, both eyes and all related structures Conjunctivae: conjunctivae normal EOM: EOM intact bilaterally Direct ophthalmoscopy: normal light reflex Neck Neck: normal visual inspection, full ROM, no meningeal signs, trachea midline and supple Resp Effort & Inspection: normal respiratory effort and able to speak in complete sentences Auscultation: clear to auscultation bilaterally Cardio Rate: regular rate Rhythm: regular rhythm GI Inspection: normal to inspection Palpation: soft, not firm, no guarding, not rigid and nontender Auscultation: normal bowel sounds Back/Spine/Pelvis Back: no CVA tenderness and No back tenderness Skin Other: Chronic appearing erythematous rash/hyperpigmentation bilateral lower extremities. Some of these areas have prior sterile markings around them, the rash is all within these markings. Neuro General: patient alert, patient awake, patient oriented x3, moves all extremities and no focal motor deficits Cranial Nerves: CN's II-XI intact bilaterally Cognition: normal cognition Speech: abnormal speech (Slow and deliberate but appropriate) Gait: other (Does not ambulate. 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 Patient able able to hold all extremities against gravity. Right slightly better than the left. Although no obvious focal weakness appreciated. This seems to be consistent with recent neuro eval at [facility] when reviewing records. Decreased sensation bilateral lower extremities distal to the knees, patient reports this baseline. Able to appreciate light touch to bilateral upper extremities. Extrem General: normal to inspection (Other than rash as above), capillary refill normal, pedal edema bilaterally non-pitting and 1+ and other (Demonstrates the ability to move all extremities.) Psych Appearance: grossly normal Mental Status: mental status grossly normal Speech and Movement: slowed movement and other (Slow and deliberate speech although appropriate) Mood: congruent mood Affect: normal affect Attitude: cooperative Thought Process: normal Course Vital Signs Vital signs: Vital Signs Temperature 35.2 C L 10/05/25 19:12 Pulse 62 10/05/25 19:12 Respiratory Rate 20 10/05/25 19:12 Blood Pressure 127/57 L 10/05/25 19:12 Pulse Oximetry 97 10/05/25 19:12 Temperature 35.2 C L 10/05/25 19:33 Temperature Source Rectal 10/05/25 19:33 Pulse 64 10/05/25 19:33 Respiratory Rate 18 10/05/25 19:33 Respiratory Effort Normal 10/05/25 19:19 Respiratory Depth Normal 10/05/25 19:19 Respiratory Pattern Normal 10/05/25 19:19 Blood Pressure 140/74 10/05/25 19:33 Blood Pressure Position Supine 10/05/25 19:33 Pulse Oximetry 97 10/05/25 19:33 Oxygen Delivery Method Room Air 10/05/25 19:33 Oxygen Flow Rate 0 10/05/25 19:12 Pain Level 0 10/05/25 19:33 Medical Decision Making This is a pleasant 70-year-old gentleman presenting via EMS from local care facility, past medical history of hypertension, diabetes, CAD, CKD, CAD with unstable angina, HDL, cervical myopathy status post C3-C7 laminectomy. Speaks with baseline dysarthria. Recently seen in our ER and subsequently transferred to [facility] for left-sided neurodeficit, I was able to review these records, patient was not a surgical candidate and recommended medical management. Patient does not ambulate, EMS states that he is typically moved by Elva lift or assisted stand and pivot. Presents for question of altered mental status for the last 7 hours. EMS states that they know him well and this appears to be his baseline. Patient tells me he does not feel confused, he does feel tired secondary to working with physical therapy and has some muscular soreness but otherwise feels well. General weakness but no focal weakness. Glucose level upon arrival was 180. Patient is able to give me an accurate history. By all accounts this appears to be his baseline. Given his age, multiple comorbidities, recent stroke workup, will initiate a cardiac workup although low suspicion for acute TIA, stroke, cardiac etiology, excetra. Will obtain routine screening laboratory values to assess electrolytes and possible infection. He is afebrile, sats are 97% on room air, he is normotensive. Clinically no signs of significant CHF. He is able to follow command and is acting appropriately. It was brought to my attention that he was unable to provide a urine sample, straight cath ordered. Patient had over 1200 cc of urine drained. Immediately patient reported that he overall felt much better. He was later able to spontaneously urinate more. Upon reevaluation he appears more awake, less tired, and more engaging. He is currently asymptomatic. Laboratory values reveal no evidence of leukocytosis. Near baseline anemia, denies black tarry stools or bright red blood in the stools. Electrolytes unremarkable. Patient does have CKD, BUN is 66, creatinine 2.38 giving a GFR of 27.31, these numbers do appear to be higher than his baseline although upon reviewing records, it does appear as though he has been near this in the past. Urinary retention likely the cause of elevated BUN and creatinine. Again, he felt much better after the catheter, and then was later able to spontaneously void. Glucose of 173. Magnesium 1.9, LFTs unremarkable. Troponin of 6, delta troponin 7. TSH of 2.13. Urinalysis without evidence of infection. Negative head CT, clear chest x-ray. Upon reevaluation patient remains awake, alert, acting appropriate. Is engaging. States that he feels much better after having his bladder drained and then subsequently urinating. Given he was able to urinate, no need to keep a Yang in. Overall his examination is encouraging and his laboratory values are reassuring. No obvious emergent process noted. Patient states that he feels well and is comfortable going back to his facility in his current condition which I believe is completely reasonable. Did discuss the importance of watching his intake and output. Needs to be sure that he is able to continue to urinate appropriately. I would expect his BUN and creatinine to return to near their baseline and recommend this being rechecked in the next 24-48 hours. I also recommend that he be evaluated by his facility provider tomorrow. He was encouraged to watch for new or worsening symptoms and return immediately to the ER. Appropriate transportation arranged to his facility. Standard discharge and return precautions were provided. Patient understands, is agreeable to this plan, and has no additional questions or concerns upon discharge. This documentation was generated using Picturelife[employer] system, please disregard any oddities of phrase or misspellings. Medical Records Medical records reviewed: Yes I reviewed the patient's medical records. Medical records narrative: Able to review recent discharge summary from [facility]. Workup completed MRI of the head without evidence of stroke. Symptoms thought to be secondary to symptomatic right ICA stenosis; however, unfortunately patient was considered to be a poor surgical candidate given cardiac history and functional baseline. Recommend medical management. Continue aspirin 81 mg daily and Plavix 75 mg daily. Final diagnosis was of bilateral carotid artery stenosis. Recommend speaking with the outpatient provider regarding risperidone dosing and secondary parkinsonian to symptoms. Imaging Data Radiologic Study: Imaging: CT Scan Radiologist's impression: Head CT no acute intracranial hemorrhage, mass effect, or midline shift. Large left mastoid air cell effusion again noted. Radiologic Study #2: Imaging: X-Ray Radiologist's impression: Chest x-ray, no acute findings Lab Data Lab results reviewed: Yes I reviewed the patient's lab results. Labs: Laboratory Tests Range/Units 10/05/25 10/05/25 10/05/25 20:02 20:40 21:15 WBC (4.4-10.8) 10^3/uL 4.16 L RBC (4.36-5.78) 10^6/uL 3.78 L Hgb (13.5-17.5) g/dL 11.6 L Hct (40.0-50.0) % 35.0 L MCV (80-95) fL 93 MCH (27.0-33.0) pg 30.7 MCHC (32.0-36.0) % 33.1 RDW (11.8-14.1) % 11.9 Plt Count (130-400) 10^3/uL 176 MPV (8.0-11.0) fL 10.2 Immature Gran % % 0.2 Neutrophils % % 51.9 Lymphocytes % % 35.6 Monocytes % % 8.2 Eosinophils % % 3.6 Basophils % % 0.5 Nucleated RBC % (0.0-0.3) % 0.5 H Absolute Neutrophils (1.2-6.7) 10^3/uL 2.16 Absolute Lymphocytes (1.2-3.4) 10^3/uL 1.48 Absolute Monocytes (0.1-0.8) 10^3/uL 0.34 Absolute Eosinophils (0.0-0.7) 10^3/uL 0.15 Absolute Basophils (0.0-0.2) 10^3/uL 0.02 Sodium (136-145) mmol/L 142 Potassium (3.5-5.1) mmol/L 4.4 Chloride (98-107) mmol/L 105 Carbon Dioxide (20.0-31.0) mmol/L 30.4 Anion Gap (3-11) mmol/L 6.6 BUN (9-23) mg/dL 66 H Creatinine (0.73-1.18) mg/dL 2.38 H Est GFR (CKD-EPI 2020) (mL/min/1.73m2) 27.31 Glucose (74-106) mg/dL 173 H Calcium (8.3-10.6) mg/dL 9.3 Magnesium (1.6-2.6) mg/dL 1.9 Total Bilirubin (0.2-1.2) mg/dL 0.30 AST (<34) U/L 30 ALT (10-49) U/L 48 Alkaline Phosphatase (46-116) U/L 69 Troponin I (<54) ng/L 6 7 Total Protein (5.7-8.2) g/dL 6.8 Albumin (3.2-5.0) g/dL 4.2 TSH (0.55-4.78) uIU/mL 2.13 Urine Color (Yellow) Yellow Urine Clarity (Clear) Clear Urine pH (5-8) 5.0 Ur Specific [place] (1.005-1.025) 1.025 Urine Protein (Neg-Trace) mg/dL Negative Urine Ketones (Negative) mg/dL Negative Urine Blood (Negative) Negative Urine Nitrite (Negative) Negative Urine Bilirubin (Negative) Negative Urine Urobilinogen (Up to 0.2) mg/dL 0.2 Ur Leukocyte Esterase (Negative) Negative Urine Glucose (Negative) mg/dL Negative Range/Units 10/05/25 22:40 WBC (4.4-10.8) 10^3/uL RBC (4.36-5.78) 10^6/uL Hgb (13.5-17.5) g/dL Hct (40.0-50.0) % MCV (80-95) fL MCH (27.0-33.0) pg MCHC (32.0-36.0) % RDW (11.8-14.1) % Plt Count (130-400) 10^3/uL MPV (8.0-11.0) fL Immature Gran % % Neutrophils % % Lymphocytes % % Monocytes % % Eosinophils % % Basophils % % Nucleated RBC % (0.0-0.3) % Absolute Neutrophils (1.2-6.7) 10^3/uL Absolute Lymphocytes (1.2-3.4) 10^3/uL Absolute Monocytes (0.1-0.8) 10^3/uL Absolute Eosinophils (0.0-0.7) 10^3/uL Absolute Basophils (0.0-0.2) 10^3/uL Sodium (136-145) mmol/L Potassium (3.5-5.1) mmol/L Chloride (98-107) mmol/L Carbon Dioxide (20.0-31.0) mmol/L Anion Gap (3-11) mmol/L BUN (9-23) mg/dL Creatinine (0.73-1.18) mg/dL Est GFR (CKD-EPI 2020) (mL/min/1.73m2) Glucose (74-106) mg/dL Calcium (8.3-10.6) mg/dL Magnesium (1.6-2.6) mg/dL Total Bilirubin (0.2-1.2) mg/dL AST (<34) U/L ALT (10-49) U/L Alkaline Phosphatase (46-116) U/L Troponin I (<54) ng/L Cancelled Total Protein (5.7-8.2) g/dL Albumin (3.2-5.0) g/dL TSH (0.55-4.78) uIU/mL Urine Color (Yellow) Urine Clarity (Clear) Urine pH (5-8) Ur Specific [place] (1.005-1.025) Urine Protein (Neg-Trace) mg/dL Urine Ketones (Negative) mg/dL Urine Blood (Negative) Urine Nitrite (Negative) Urine Bilirubin (Negative) Urine Urobilinogen (Up to 0.2) mg/dL Ur Leukocyte Esterase (Negative) Urine Glucose (Negative) mg/dL ECG Data Attestation: I personally reviewed and interpreted this ECG (s) as follows: Interpretation: Sinus bradycardia, ventricular to 59. No STEMI. Please see official ER report by Dr. Elliott [facility] All Active Problems Urinary retention (Acute) Carotid artery stenosis (Acute) Acute CVA (cerebrovascular accident) (Acute) Elevated lactic acid level (Acute) Urinary tract infection (Acute) Transient confusion (Acute) Hypoglycemia (Acute) Acute non-ST elevation myocardial infarction (NSTEMI) (Acute) Ear pain, left (Acute) Tinnitus of both ears (Acute) Chest pain (Acute) TIA (transient ischemic attack) (Acute) CAD S/P percutaneous coronary angioplasty (Acute) Acute on chronic kidney failure (Acute) Unstable angina (Acute) Osteoarthritis of hip (Acute) Right hip pain (Acute) PAD (peripheral artery disease) (Acute) Lymphedema (Acute) Venous ulcers of both lower extremities (Acute) Venous (peripheral) insufficiency (Acute) Phantom limb syndrome (Acute) PTSD (post-traumatic stress disorder) (Chronic) Vitamin D deficiency (Acute) Nondisplaced fracture of right scaphoid bone (Acute 02/01/24) Right wrist pain (Acute) GERD (gastroesophageal reflux disease) (Chronic) Hypertension (Chronic) Neuropathy (Acute) History of venous thrombosis and embolism (Acute) Pityriasis versicolor (Acute) Hyperlipidemia (Chronic) Atherosclerotic heart disease of [place] coronary artery without angina pectoris (Acute) CKD stage 4 due to type 2 diabetes mellitus (Chronic) Heart failure (Chronic) Anxiety (Chronic) Morbid obesity (Chronic) Subacute osteomyelitis, left ankle and foot (Acute) Chronic pain (Chronic) COPD (chronic obstructive pulmonary disease) (Chronic) Asthma (Chronic) Type 2 diabetes mellitus (Chronic) Medical History Iron deficiency anemia CAD (coronary artery disease), [place] coronary artery Chronic bipolar disorder Chronic back pain greater than 3 months duration Diabetes mellitus type 2, insulin dependent MRSA infection Testicular hypofunction Low back pain Surgical History S/P spinal surgery S/P hip hemiarthroplasty S/P cardiac cath Stent to LAD Social History Smoking/Tobacco Use Status: Former Tobacco Use Smoking risk assessment performed?: Yes Alcohol Intake: current Alcohol Intake frequency: holidays/special occasions only Drug use: Never Substance use type: does not use Housing: assisted living facility Do you feel safe at home: Yes Do you feel safe in your relationship?: Yes
--- NOTE | 2025-10-05 19:40 | DI.RAD_ITS ---
Exam(s) XR CHEST 1V IN DI DEPT EXAM: XR CHEST 1V IN DI DEPT CLINICAL HISTORY: ams. TECHNIQUE: 2D digital imaging was performed. COMPARISON: CR XR CHEST 1V IN DI DEPT from 09/26/2025 FINDINGS: Single AP portable view. There is cervical spinal fusion hardware noted. Heart size is upper normal. The mediastinum is not widened. Lungs are clear. No infiltrates nor obvious pleural effusions. IMPRESSION: No acute pulmonary findings on this single AP portable view of the chest. DATA REPOSITORY: RADIATION DOSE DELIVERED:
[2025-10-05 20:21] LABS: Abs Immature Grans 0.01 10^3/uL (0.0-0.06); HCT 35.0 % (40.0-50.0); HGB 11.6 g/dL (13.5-17.5); Immature Grans % 0.2 %; MCH 30.7 pg (27.0-33.0); MCHC 33.1 % (32.0-36.0); MCV 93 fL (80-95); MPV 10.2 fL (8.0-11.0); Platelet Count 176 10^3/uL (130-400); RBC 3.78 10^6/uL (4.36-5.78); RDW 11.9 % (11.8-14.1); RDW-SD 40.2 fL; WBC 4.16 10^3/uL (4.4-10.8)
--- NOTE | 2025-10-05 20:27 | NUR.NOTE ---
Nursing Note: Pt. kept saying that he had to urinate, provided with urinal but was unable to void. Bladder scan showed over 800ml of urine, pt. was straight cathed without difficulty, 1200ml of clear dark yellow urine out. UA sent to lab.
[2025-10-05] MEDS: Normal Saline 1,000 ML 1000 ML IV (20:30)
[2025-10-05 20:32] LABS: Magnesium 1.9 mg/dL (1.6-2.6); Troponin I 6 ng/L (<54)
[2025-10-05 20:34] LABS: ALT 48 U/L (10-49); AST 30 U/L (<34); Albumin 4.2 g/dL (3.2-5.0); Alkaline Phosphatase 69 U/L (46-116); Anion Gap 6.6 mmol/L (3-11); BUN 66 mg/dL (9-23); Bilirubin, Total 0.30 mg/dL (0.2-1.2); CO2 30.4 mmol/L (20.0-31.0); Calcium 9.3 mg/dL (8.3-10.6); Chloride 105 mmol/L (98-107); Glucose 173 mg/dL (74-106); Potassium 4.4 mmol/L (3.5-5.1); Sodium 142 mmol/L (136-145); Total Protein 6.8 g/dL (5.7-8.2)
[2025-10-05 20:36] LABS: TSH (W/Ref FT4) 2.13 uIU/mL (0.55-4.78)
[2025-10-05 20:51] LABS: Glucose Negative (Negative)
[2025-10-05 21:18] VITALS: PULSE 56; RESP 18; O2SAT 97
--- NOTE | 2025-10-05 21:26 | DI.VRAD_ITS ---
PROCEDURE INFORMATION: Exam: CT Head Without Contrast Exam date and time: 10/05/2025 8:48 PM Age: 70 years old Clinical indication: Altered mental status/memory loss TECHNIQUE: Imaging protocol: Computed tomography of the head without contrast. COMPARISON: CT BRAIN NECK CTA 09/26/2025 2:38 PM FINDINGS: Brain: No hemorrhage. Unremarkable white matter. No mass effect. Cerebral ventricles: No ventriculomegaly. Paranasal sinuses: Visualized sinuses are unremarkable. No fluid levels. Mastoid air cells: There is fluid noted throughout the left mastoid air cells, similar to prior examination. Bones: No acute fracture. Soft tissues: Unremarkable. IMPRESSION: 1. No acute intracranial hemorrhage, mass effect or midline shift. 2. Large left mastoid air cell effusion again noted. Dictated and Authenticated by: Desire Vizcaino MD. Orderin Dax Espinoza MD
--- NOTE | 2025-10-05 21:27 | DI.VRAD_ITS ---
PROCEDURE INFORMATION: Exam: XR Chest Exam date and time: 10/05/2025 9:02 PM Age: 70 years old Clinical indication: Other: AMS TECHNIQUE: Imaging protocol: Radiologic exam of the chest. Views: 1 view. COMPARISON: CR XR CHEST 1V IN DI DEPT 09/26/2025 2:51 PM FINDINGS: Lungs: Unremarkable. No consolidation. Pleural spaces: Unremarkable. No pleural effusion. No pneumothorax. Heart/Mediastinum: Unremarkable. No cardiomegaly. Bones/joints: No acute fracture. Cervical spinal fusion partially visualized. IMPRESSION: No acute findings. Dictated and Authenticated by: Desire Vizcaino MD. Orderin Dax Espinoza MD
[2025-10-05 21:52] VITALS: PULSE 58; RESP 18
[2025-10-05 21:54] LABS: Troponin I 7 ng/L (<54)
--- NOTE | 2025-10-05 22:25 | NUR.NOTE ---
Nursing Note: This nurse called to give report to [facility]. Care transferred.
== END 2025-10-05 22:21 | disposition skilled nursing facility (03) ==
PROVIDERS: Emergency Provider Physician Assistant; PCP Family Medicine
DX: R33.9 Retention of urine, unspecified (principal); R41.82 Altered mental status, unspecified
CPT/HCPCS: 99283; 99285; 36415; 36416; 82962; 80053; 93005; 96360; 70450; 71045; 81003; 83735; 84443; 84484; 85025; 93010

== ENCOUNTER 2025-10-09 21:03 | Emergency (ER) | payer MEDICARE, MEDICAID, SELFPAY ==
[2025-10-09] VITALS (86 sets, daily range): BP systolic 120–162; BP diastolic 59–87; PULSE 39–85; RESP 6–19; TEMP 36.5–36.6; O2SAT 96–99
--- NOTE | 2025-10-09 21:00 | RT.EKG_ITS ---
APPROVED REPORT Exam: Resting ECG Reason for Exam: [facility] Patient Location: E HR:81 bpm ECG Measurements Heart Rate 81 AXIS SD 48 P 0 QRSd 100 QRS 17 QT 401 T 48 QTc 465 Conclusion Sinus rhythm...normal P axis, V-rate 60- 99 Multiple ventricular premature complexes...V complexes w/ short R-R intervls
--- NOTE | 2025-10-09 21:16 | W.ED.GENAD ---
Discharge Plan Disposition Patient Disposition: Home Condition: Stable Discharge Details Clinical Impression: Dehydration Primary Care Provider: Nica Carrasco ED Provider: Brennen Goddard [place] Meds and New Rx's Prescriptions: Continued aspirin [Adult Aspirin Regimen] 81 mg tablet,delayed release (DR/EC) 81 mg PO DAILY gabapentin 300 mg capsule 300 mg PO TID glucagon 1 mg recon soln 1 mg subcut Q20M PRN Rx Instructions: until target blood sugar attained naloxone 4 mg/actuation spray,non-aerosol 4 mg intranasal Q2M Rx Instructions: spray 1 dose into ONE nostril; alternate nostrils w each dose until help arrives nitroglycerin 0.4 mg tablet, sublingual 0.4 mg sublingual Q5M PRN Rx Instructions: do not exceed 3 doses per episode ranolazine 500 mg tablet extended release 12 hr 500 mg PO BID sevelamer HCl 800 mg tablet 800 mg PO TID Rx Instructions: must administer with a meal/food risperidone 1 mg tablet 1 mg PO BID metoprolol succinate 25 mg tablet extended release 24 hr 50 mg PO DAILY epinephrine [EpiPen] 0.3 mg/0.3 mL auto-injector 0.3 mg IM ONCE PRN Rx Instructions: as a single dose; may repeat once ipratropium-albuterol 0.5 mg-3 mg(2.5 mg base)/3 mL solution for nebulization 3 ml inhalation QID PRN B complex-vitamin C-folic acid 0.8 mg tablet 1 tab PO DAILY torsemide 20 mg tablet 20 mg PO DAILY Qty: 0 0RF Rx Instructions: Hold until 06/11/25 magnesium oxide 400 mg magnesium capsule 400 mg PO DAILY Qty: 7 0RF Biofreeze (menthol) 4 % gel 1 applic topical Q6H PRN PRNQty: 237 0RF ropinirole 1 mg tablet 1 mg PO BID Qty: 0 0RF vilazodone [Viibryd] 20 mg tablet 20 mg PO DAILY Patient Comments: takes with a 10mg tablet for total dose of 30mg Rx Instructions: must administer with a meal/food acetaminophen 500 mg capsule 650 mg PO Q4H PRN clopidogrel [Plavix] 75 mg tablet 75 mg PO DAILY Qty: 20 0RF ketoconazole 2 % shampoo 1 applic topical Q2W polyethylene glycol 3350 17 gram/dose powder 17 g PO DAILY PRN Rx Instructions: Constipation amlodipine 10 mg tablet 5 mg PO DAILY rosuvastatin 20 mg tablet 40 mg PO HS diazepam 5 mg tablet 5 mg PO BID PRN albuterol sulfate 2.5 mg /3 mL (0.083 %) solution for nebulization 2.5 mg inhalation Q6H PRN insulin asp prt-insulin aspart [Novolog Mix 70-30 U-100 Insuln] 100 unit/mL (70-30) solution 45 unit subcut DAILY Rx Instructions: In AM insulin asp prt-insulin aspart [Novolog Mix 70-30 U-100 Insuln] 100 unit/mL (70-30) solution See Rx Instructions subcut .COMPLEX Rx Instructions: subcutaneously with meals with sliding scale prazosin 1 mg capsule 1 mg PO .bedtime isosorbide mononitrate 60 mg tablet extended release 24 hr 60 mg PO DAILY Patient Comments: takes w/30mg tablet for total dose of 90mg isosorbide mononitrate 30 mg tablet extended release 24 hr 30 mg PO DAILY Trulicity 3 mg/0.5 mL pen injector 0.75 mg subcut QWEEK Rx Instructions: takes on Mondays vilazodone [Viibryd] 10 mg tablet 10 mg PO DAILY Rx Instructions: must administer with a meal/food (DME) Dexcom G7 Strike On Machine Operator Misc See Rx Instructions .ROUTE Rx Instructions: As directed hydrocodone-acetaminophen 10-325 mg tablet 1 tab PO Q4H PRN Discharge Instructions Additional Instructions: Your labs showed signs of dehydration. Try to make sure you are drinking fluids during the day stay hydrated. Your glucose here was 146. There was no signs of DKA. Follow-up with your PCP within 1 week. If you feel more ill or have new symptoms such as high fevers return to the emergency department for reevaluation. Stand Alone Forms: Portal Information HPI General Mode of arrival: EMS. Date/Time Provider Initiated Documentation: 10/09/25 21:06. Information obtained by: patient and EMS. History of Present Illness 70 year old M presents to the emergency department with the chief complaint of elevated blood sugars, described as moderate, Patient started experiencing this unknown and it has been now resolved. No relieving factors improve symptom(s), No exacerbating factors reported . Patient notes denies chest pain and shortness of breath. Patient did receive the following treatments prior to arrival, none Related Data Home Medications ?Medication ?Instructions ?Recorded ?Confirmed aspirin 81 mg tablet,delayed 81 mg PO DAILY 07/06/24 10/09/25 release (Adult Aspirin Regimen) gabapentin 300 mg capsule 300 mg PO TID 07/06/24 10/09/25 glucagon 1 mg solution for 1 mg subcut Q20M PRN 07/06/24 10/09/25 injection naloxone 4 mg/actuation nasal spray 4 mg intranasal Q2M 07/06/24 10/09/25 nitroglycerin 0.4 mg sublingual 0.4 mg sublingual Q5M PRN 07/06/24 10/09/25 tablet ranolazine 500 mg tablet,extended 500 mg PO BID 07/06/24 10/09/25 release,12 hr risperidone 1 mg tablet 1 mg PO BID 07/06/24 10/09/25 sevelamer HCl 800 mg tablet 800 mg PO TID 07/06/24 10/09/25 isosorbide mononitrate 60 mg 60 mg PO DAILY 03/15/25 10/09/25 tablet,extended release 24 hr magnesium oxide 400 mg PO DAILY #7 caps 06/10/25 10/09/25 menthol 4 % topical gel (Biofreeze 1 applic topical Q6H PRN PRN #237 06/10/25 10/09/25 (menthol)) mL ropinirole 1 mg tablet 1 mg PO BID #0 tabs 06/10/25 10/09/25 torsemide 20 mg tablet 20 mg PO DAILY #0 tabs 06/10/25 10/09/25 acetaminophen 500 mg capsule 650 mg PO Q4H PRN 06/13/25 10/09/25 vilazodone 20 mg tablet (Viibryd) 20 mg PO DAILY 06/13/25 10/09/25 clopidogrel 75 mg tablet (Plavix) 75 mg PO DAILY #20 tabs 06/14/25 10/09/25 ketoconazole 2 % shampoo 1 applic topical Q2W 06/20/25 10/09/25 amlodipine 10 mg tablet 5 mg PO DAILY 06/28/25 10/09/25 polyethylene glycol 3350 17 17 g PO DAILY PRN 06/28/25 10/09/25 gram/dose oral powder albuterol sulfate 2.5 mg/3 mL 2.5 mg inhalation Q6H PRN 07/07/25 10/09/25 (0.083 %) solution for nebulization diazepam 5 mg tablet 5 mg PO BID PRN 07/07/25 10/09/25 insulin aspar prt-insulin aspart 45 unit subcut DAILY 07/07/25 10/09/25 100 unit/mL (70-30) subcutaneous soln (Novolog Mix 70-30 U-100 Insuln) insulin aspar prt-insulin aspart See Rx Instructions subcut .COMPLEX 07/07/25 10/09/25 100 unit/mL (70-30) subcutaneous soln (Novolog Mix 70-30 U-100 Insuln) rosuvastatin 20 mg tablet 40 mg PO HS 07/07/25 10/09/25 epinephrine 0.3 mg/0.3 mL 0.3 mg IM ONCE PRN 07/12/25 10/09/25 injection, auto-injector (EpiPen) ipratropium 0.5 mg-albuterol 3 mg 3 ml inhalation QID PRN 07/12/25 10/09/25 (2.5 mg base)/3 mL nebulization soln vitamin B complex-vitamin C-folic 1 tab PO DAILY 07/12/25 10/09/25 acid 0.8 mg tablet metoprolol succinate 25 mg 50 mg PO DAILY 07/17/25 10/09/25 tablet,extended release 24 hr blood-glucose,internet and e business project manager,cont 08/20/25 10/09/25 (Dexcom G7 Strike On Machine Operator) dulaglutide 3 mg/0.5 mL 0.75 mg subcut QWEEK 08/20/25 10/09/25 subcutaneous pen injector (Trulicity) hydrocodone 10 mg-acetaminophen 1 tab PO Q4H PRN 08/20/25 10/09/25 325 mg tablet isosorbide mononitrate 30 mg 30 mg PO DAILY 08/20/25 10/09/25 tablet,extended release 24 hr vilazodone 10 mg tablet (Viibryd) 10 mg PO DAILY 08/20/25 10/09/25 prazosin 1 mg capsule 1 mg PO .bedtime 10/09/25 10/09/25 Previous Rx's ?Medication ?Instructions ?Recorded magnesium oxide 400 mg PO DAILY #7 caps 06/10/25 menthol 4 % topical gel (Biofreeze 1 applic topical Q6H PRN PRN #237 06/10/25 (menthol)) mL ropinirole 1 mg tablet 1 mg PO BID #0 tabs 06/10/25 torsemide 20 mg tablet 20 mg PO DAILY #0 tabs 06/10/25 clopidogrel 75 mg tablet (Plavix) 75 mg PO DAILY #20 tabs 06/14/25 Allergies Allergy/AdvReac Type Severity Reaction Status Date / Time bee venom protein (honey bee) Allergy Intermediate Anaphylaxis Verified 10/09/25 21:09 clonidine Allergy Mild Unknown Verified 10/09/25 21:09 Influenza Virus Vaccines Allergy Mild Unknown Verified 10/09/25 21:09 prednisone Allergy Unknown Other (See Verified 10/09/25 21:09 Comment) tamsulosin (From Flomax) Allergy Unknown Other (See Verified 10/09/25 21:09 Comment) General Stated Complaint: Diabetes VALERI: 3 Review of Systems All systems reviewed & are unremarkable except as noted in HPI and below Constitutional Constitutional: Denies chills, Reports fatigue and Denies fever(s) Cardiovascular Cardiovascular: Denies chest pain and Denies dyspnea Respiratory Respiratory: Denies cough and Denies dyspnea Gastrointestinal Gastrointestinal: Denies abdominal pain, Denies nausea and Denies vomiting Endocrine Endocrine: Reports fatigue Exam Const General: no acute distress Orientation: alert HENMT Head: normal to inspection Ears: external ears normal General nose exam: external nose normal Mouth: moist mucous membranes Eyes General: appearance normal, both eyes and all related structures Neck Neck: normal visual inspection Resp Effort & Inspection: normal respiratory effort Cardio Rate: regular rate Skin General skin exam: no rashes or lesions noted Neuro General: patient alert, patient oriented x3 and moves all extremities Extrem General: normal to inspection Psych Mental Status: mental status grossly normal Course Vital Signs Vital signs: Vital Signs Temperature 36.5 C 10/09/25 21:03 Pulse 85 10/09/25 21:03 Respiratory Rate 18 10/09/25 21:03 Blood Pressure 120/62 10/09/25 21:03 Pulse Oximetry 99 10/09/25 21:03 Temperature 36.5 C 10/09/25 21:03 Temperature Source Rectal 10/09/25 21:03 Pulse 85 10/09/25 21:03 Respiratory Rate 18 10/09/25 21:03 Blood Pressure 120/62 10/09/25 21:03 Pulse Oximetry 99 10/09/25 21:03 Oxygen Delivery Method Room Air 10/09/25 21:03 Oxygen Flow Rate 0 10/09/25 21:03 Medical Decision Making 70-year-old male with a history of coronary artery disease, recent transferred to [facility] for left-sided neurodeficits in the setting of vascular occlusions of the neck and deemed not a surgical candidate, was seen on the fourth of this month in the ER and had a Yang placed for urinary retention comes in rehab with complaints that his sugars have been elevated today and he had fatigue. Patient is currently alert and oriented on my exam speaking slowly at his baseline. He is able to move all his extremities equally. Denies any chest pain, difficulty breathing, headaches. No abdominal tenderness. His blood glucose on arrival here is 133. Given his recent urinary retention and elevated sugars we will check a CBC to evaluate possible anemia and check a CMP to evaluate for worsening kidney function as he does have CKD, he has no chest pain or difficulty breathing so I do not feel cardiac workup is indicated. He is at his baseline mental status currently without headaches and I do not feel imaging of his head is indicated as it his history is inconsistent with TIA versus CVA. Patient is stable still alert and answering questions appropriately. Stable anemia, BUN and creatinine have improved since the fourth. Sodium is 147 so I suspect he is mildly dehydrated and was given a liter of saline. He has a Yang in place which is draining urine. I do not feel further testing at this time is indicated. Suspect dehydration as the cause for her symptoms, advised to try and increase his oral intake of liquids and will follow-up with his PCP, return precautions given. Differential Diagnosis Differential Diagnosis: Hyperglycemia, uremia Medical Records Medical records reviewed: Yes I reviewed the patient's medical records. Lab Data Lab results reviewed: Yes I reviewed the patient's lab results. ECG Data Attestation: I personally reviewed and interpreted this ECG (s) as follows: Prior ECG tracings: available for review Interpretation: Sinus rhythm, PVCs, rate 81, no STEMI PFSH All Active Problems (Updated 10/09/25 @ 22:34 by Brennen Goddard MD) Dehydration (Acute) Urinary retention (Acute) Carotid artery stenosis (Acute) Acute CVA (cerebrovascular accident) (Acute) Elevated lactic acid level (Acute) Urinary tract infection (Acute) Transient confusion (Acute) Hypoglycemia (Acute) Acute non-ST elevation myocardial infarction (NSTEMI) (Acute) Ear pain, left (Acute) Tinnitus of both ears (Acute) Chest pain (Acute) TIA (transient ischemic attack) (Acute) CAD S/P percutaneous coronary angioplasty (Acute) Acute on chronic kidney failure (Acute) Unstable angina (Acute) Osteoarthritis of hip (Acute) Right hip pain (Acute) PAD (peripheral artery disease) (Acute) Lymphedema (Acute) Venous ulcers of both lower extremities (Acute) Venous (peripheral) insufficiency (Acute) Phantom limb syndrome (Acute) PTSD (post-traumatic stress disorder) (Chronic) Vitamin D deficiency (Acute) Nondisplaced fracture of right scaphoid bone (Acute 02/01/24) Right wrist pain (Acute) GERD (gastroesophageal reflux disease) (Chronic) Hypertension (Chronic) Neuropathy (Acute) History of venous thrombosis and embolism (Acute) Pityriasis versicolor (Acute) Hyperlipidemia (Chronic) Atherosclerotic heart disease of [place] coronary artery without angina pectoris (Acute) CKD stage 4 due to type 2 diabetes mellitus (Chronic) Heart failure (Chronic) Anxiety (Chronic) Morbid obesity (Chronic) Subacute osteomyelitis, left ankle and foot (Acute) Chronic pain (Chronic) COPD (chronic obstructive pulmonary disease) (Chronic) Asthma (Chronic) Type 2 diabetes mellitus (Chronic) Medical History Iron deficiency anemia CAD (coronary artery disease), [place] coronary artery Chronic bipolar disorder Chronic back pain greater than 3 months duration Diabetes mellitus type 2, insulin dependent MRSA infection Testicular hypofunction Low back pain Surgical History S/P spinal surgery S/P hip hemiarthroplasty S/P cardiac cath Stent to LAD Social History Smoking/Tobacco Use Status: Former Tobacco Use Smoking risk assessment performed?: Yes Alcohol Intake: current Alcohol Intake frequency: holidays/special occasions only Drug use: Never Substance use type: does not use Housing: assisted living facility Do you feel safe at home: Yes Do you feel safe in your relationship?: Yes
[2025-10-09] MEDS: Normal Saline 1,000 ML 1000 ML IV (21:38)
[2025-10-09 21:51] LABS: BE (Venous) 0 mmol/L (-2-3); HCO3 (Venous) 26 mmol/L (23-28); O2 Sat (Venous) 55 %; TCO2 (Venous) 24 mmol/L (24-29); pCO2 (Venous) 50 mmHg (41-51); pO2 (Venous) 30 mmHg
[2025-10-09 21:52] LABS: Abs Immature Grans 0.03 10^3/uL (0.0-0.06); HCT 38.4 % (40.0-50.0); HGB 12.2 g/dL (13.5-17.5); Immature Grans % 0.4 %; MCH 29.6 pg (27.0-33.0); MCHC 31.8 % (32.0-36.0); MCV 93 fL (80-95); MPV 10.4 fL (8.0-11.0); Platelet Count 178 10^3/uL (130-400); RBC 4.12 10^6/uL (4.36-5.78); RDW 12.3 % (11.8-14.1); RDW-SD 42.1 fL; WBC 6.95 10^3/uL (4.4-10.8)
[2025-10-09 22:19] LABS: Magnesium 1.8 mg/dL (1.6-2.6)
[2025-10-09 22:20] LABS: ALT 33 U/L (10-49); AST 64 U/L (<34); Albumin 4.3 g/dL (3.2-5.0); Alkaline Phosphatase 64 U/L (46-116); Anion Gap 9.8 mmol/L (3-11); BUN 58 mg/dL (9-23); Bilirubin, Total 0.40 mg/dL (0.2-1.2); CO2 27.2 mmol/L (20.0-31.0); Calcium 9.9 mg/dL (8.3-10.6); Chloride 110 mmol/L (98-107); Glucose 146 mg/dL (74-106); Potassium 4.7 mmol/L (3.5-5.1); Sodium 147 mmol/L (136-145); Total Protein 6.8 g/dL (5.7-8.2)
== END 2025-10-09 22:45 | disposition home or self-care (01) ==
PROVIDERS: Emergency Provider Emergency Medicine; PCP Family Medicine
DX: E86.0 Dehydration (principal); R53.83 Other fatigue; R73.9 Hyperglycemia, unspecified; I69.354 Hemiplegia and hemiparesis following cerebral infarction affecting left non-dominant side
CPT/HCPCS: 99283; 99284; 36415; 36416; 82962; 80053; 82805; 93005; 96360; 83735; 85025; 93010

== ENCOUNTER 2025-10-16 15:52 | Observation (INO) | payer MEDICARE, MEDICAID, SELFPAY ==
[2025-10-16] VITALS (26 sets, daily range): BP systolic 114–144; BP diastolic 53–72; PULSE 64–77; RESP 13–19; TEMP 36.1–36.2; O2SAT 92–98
--- NOTE | 2025-10-16 15:45 | RT.EKG_ITS ---
APPROVED REPORT Exam: Resting ECG Reason for Exam: AMS Patient Location: E HR:68 bpm ECG Measurements Heart Rate 68 AXIS MA 75 P 0 QRSd 92 QRS 29 QT 399 T 55 QTc 423 Conclusion Sinus rhythm, rate 68 No interval abnormalities No STEMI No significant changes from prior, though PVCs have reduced in frequency
--- NOTE | 2025-10-16 15:58 | DI.CT_ITS ---
Exam(s) CT BRAIN NECK CTA EXAM: CT BRAIN NECK CTA CLINICAL HISTORY: Slurred speech, recent stroke. TECHNIQUE: Imaging Protocol: Axial CT angiography was performed with multi- slice acquisition and multi-planar and MIP reconstructions. CONTRAST MATERIAL: Intravenous: Omnipaque 350 Contrast volume:7 ml COMPARISON: CT CT HEAD WO/W FACIAL W from 03/31/[address] HEAD WO from 09/16/[address] BRAIN NECK CTA from 09/26/[address] HEAD WO from 10/05/2025 FINDINGS: CT Head W/O and W contrast: Ventricles and Extra axial spaces: Normal in size and morphology for the patient's age. Hemorrhage: None. Cerebral parenchyma: No evidence of acute infarct or mass. Midline shift: None. Brainstem/Cerebellum: No acute findings.. Calvarium: Normal. Visualized Paranasal sinuses/Mastoids: Clear. Soft Tissues: Unremarkable. Enhancement: Normal. Venous sinuses are patent. CTA Brain W: Internal Carotid Arteries: Right: No aneurysm, occlusion or significant stenosis. Left: No aneurysm, occlusion or significant stenosis. Middle Cerebral Arteries: Right: No aneurysm, occlusion or significant stenosis. Left: No aneurysm, occlusion or significant stenosis. Anterior Cerebral Arteries: Right: No aneurysm, occlusion or significant stenosis. Left: No aneurysm, occlusion or significant stenosis. Posterior cerebral Arteries: Right: No aneurysm, occlusion or significant stenosis. Left: No aneurysm, occlusion or significant stenosis. Vertebral Arteries: Right: No aneurysm, occlusion or significant stenosis. Left: No aneurysm, occlusion or significant stenosis. Basilar Artery: No aneurysm, occlusion or significant stenosis. CTA Neck W: Visualized aorta: Unremarkable. Visualized pulmonary arteries: Unremarkable. Subclavian arteries: Unremarkable. Common Carotid: Right: Heavy calcification at the bulb. No dissection, occlusion or significant stenosis. Left: No dissection, occlusion or significant stenosis. External Carotid: Right: No dissection, occlusion or significant stenosis. Left: No dissection, occlusion or significant stenosis. Internal Carotid: Right: Heavy calcification at the bulb causing severe stenosis. Additional focal plaque noted in the mid internal carotid artery causing moderate stenosis. No dissection, occlusion or significant stenosis. Left: Calcific plaque in the proximal internal carotid artery causing moderate to severe stenosis. Findings appear similar to the previous exam. No dissection, occlusion or significant stenosis. Vertebral Artery: Right: No dissection, occlusion or significant stenosis. Left: No dissection, occlusion or significant stenosis. Lung Apices: No acute findings. Bones: No acute abnormality. Hardware in the cervical through upper thoracic spine. Extensive degenerative changes. Soft Tissues: Normal. IMPRESSION: 1. CTA brain: Normal CTA examination of the [place]. 2. Head CT: No acute abnormality. 3. CTA neck: Stable appearance of calcific plaque at the common carotid bulb and proximal internal carotid arteries, causing severe stenosis on the right and moderate to severe stenosis on the left. RADIATION DOSE DELIVERED: Total DLP DATA REPOSITORY: All CT scans at this facility are submitted to the National Radiology Data Registry (NRDR) Dose Index Registry (DIR) with the [employer] ([employer]). RADIATION OPTIMIZATION: All CT scans at this facility use at least one of these dose optimization techniques: automated exposure control; mA and/or kV adjustment per patient size (includes targeted exams where dose is matched to clinical indication); or iterative reconstruction.
--- NOTE | 2025-10-16 16:23 | W.ED.GENAD ---
Discharge Plan Disposition Patient Disposition: Admit to [facility] Condition: Stable Discharge Details Clinical Impression: Urinary tract infection, CKD stage 4 due to type 2 diabetes mellitus, Type 2 diabetes mellitus Primary Care Provider: Nica Carrasco ED Provider: Salima Chawla Home Meds and New Rx's Prescriptions: No Action aspirin [Adult Aspirin Regimen] 81 mg tablet,delayed release (DR/EC) 81 mg PO DAILY gabapentin 300 mg capsule 300 mg PO TID glucagon 1 mg recon soln 1 mg subcut Q20M PRN Rx Instructions: until target blood sugar attained naloxone 4 mg/actuation spray,non-aerosol 4 mg intranasal Q2M Rx Instructions: spray 1 dose into ONE nostril; alternate nostrils w each dose until help arrives nitroglycerin 0.4 mg tablet, sublingual 0.4 mg sublingual Q5M PRN Rx Instructions: do not exceed 3 doses per episode ranolazine 500 mg tablet extended release 12 hr 500 mg PO BID sevelamer HCl 800 mg tablet 800 mg PO TID Rx Instructions: must administer with a meal/food risperidone 1 mg tablet 1 mg PO BID metoprolol succinate 25 mg tablet extended release 24 hr 50 mg PO DAILY epinephrine [EpiPen] 0.3 mg/0.3 mL auto-injector 0.3 mg IM ONCE PRN Rx Instructions: as a single dose; may repeat once ipratropium-albuterol 0.5 mg-3 mg(2.5 mg base)/3 mL solution for nebulization 3 ml inhalation QID PRN B complex-vitamin C-folic acid 0.8 mg tablet 1 tab PO DAILY torsemide 20 mg tablet 20 mg PO DAILY Qty: 0 0RF Rx Instructions: Hold until 06/11/25 magnesium oxide 400 mg magnesium capsule 400 mg PO DAILY Qty: 7 0RF Biofreeze (menthol) 4 % gel 1 applic topical Q6H PRN PRNQty: 237 0RF ropinirole 1 mg tablet 1 mg PO BID Qty: 0 0RF vilazodone [Viibryd] 20 mg tablet 20 mg PO DAILY Patient Comments: takes with a 10mg tablet for total dose of 30mg Rx Instructions: must administer with a meal/food acetaminophen 500 mg capsule 650 mg PO Q4H PRN clopidogrel [Plavix] 75 mg tablet 75 mg PO DAILY Qty: 20 0RF ketoconazole 2 % shampoo 1 applic topical Q2W polyethylene glycol 3350 17 gram/dose powder 17 g PO DAILY PRN Rx Instructions: Constipation amlodipine 10 mg tablet 5 mg PO DAILY rosuvastatin 20 mg tablet 40 mg PO HS diazepam 5 mg tablet 5 mg PO BID PRN albuterol sulfate 2.5 mg /3 mL (0.083 %) solution for nebulization 2.5 mg inhalation Q6H PRN insulin asp prt-insulin aspart [Novolog Mix 70-30 U-100 Insuln] 100 unit/mL (70-30) solution 45 unit subcut DAILY Rx Instructions: In AM insulin asp prt-insulin aspart [Novolog Mix 70-30 U-100 Insuln] 100 unit/mL (70-30) solution See Rx Instructions subcut .COMPLEX Rx Instructions: subcutaneously with meals with sliding scale prazosin 1 mg capsule 1 mg PO .bedtime isosorbide mononitrate 60 mg tablet extended release 24 hr 60 mg PO DAILY Patient Comments: takes w/30mg tablet for total dose of 90mg isosorbide mononitrate 30 mg tablet extended release 24 hr 30 mg PO DAILY Trulicity 3 mg/0.5 mL pen injector 0.75 mg subcut QWEEK Rx Instructions: takes on Mondays vilazodone [Viibryd] 10 mg tablet 10 mg PO DAILY Rx Instructions: must administer with a meal/food (DME) Dexcom G7 Medical Auditor Misc See Rx Instructions .ROUTE Rx Instructions: As directed hydrocodone-acetaminophen 10-325 mg tablet 1 tab PO Q4H PRN HPI General Mode of arrival: EMS. Date/Time Provider Initiated Documentation: 10/16/25 15:58. Limitations to Documentation: no limitations. Information obtained by: patient, EMS and old records reviewed. HPI Narrative: This is a 70-year-old male patient with a past medical history most notable for a CVA at the end of last month, carotid artery stenosis, and history of NSTEMI, TIA, CAD, CKD, GERD, hypertension, COPD, and diabetes, who is presenting for evaluation of altered mental status. Per staff report the patient has not been feeling well for the last few days, but today about an hour ago had a sudden decrease in his mental status with some slurring of his speech. He was recently discharged from [facility] after a stroke, those records are not immediately available but it seems that he did not receive tPA during that event, and was not deemed to be a surgical candidate at that time. The patient reports that he just feels generally weak and unwell, does have some persistent left-sided weakness that is documented on his prior ER visit, denies pain in his head, chest, or abdomen. He states that he is experiencing pain in his right shoulder after slipping out of bed the other day at his facility. Has numerous pressure ulcers and skin changes noted by the facility, dressed. Related Data Home Medications ?Medication ?Instructions ?Recorded ?Confirmed aspirin 81 mg tablet,delayed 81 mg PO DAILY 07/06/24 10/09/25 release (Adult Aspirin Regimen) gabapentin 300 mg capsule 300 mg PO TID 07/06/24 10/09/25 glucagon 1 mg solution for 1 mg subcut Q20M PRN 07/06/24 10/09/25 injection naloxone 4 mg/actuation nasal spray 4 mg intranasal Q2M 07/06/24 10/09/25 nitroglycerin 0.4 mg sublingual 0.4 mg sublingual Q5M PRN 07/06/24 10/09/25 tablet ranolazine 500 mg tablet,extended 500 mg PO BID 07/06/24 10/09/25 release,12 hr risperidone 1 mg tablet 1 mg PO BID 07/06/24 10/09/25 sevelamer HCl 800 mg tablet 800 mg PO TID 07/06/24 10/09/25 isosorbide mononitrate 60 mg 60 mg PO DAILY 03/15/25 10/09/25 tablet,extended release 24 hr magnesium oxide 400 mg PO DAILY #7 caps 06/10/25 10/09/25 menthol 4 % topical gel (Biofreeze 1 applic topical Q6H PRN PRN #237 06/10/25 10/09/25 (menthol)) mL ropinirole 1 mg tablet 1 mg PO BID #0 tabs 06/10/25 10/09/25 torsemide 20 mg tablet 20 mg PO DAILY #0 tabs 06/10/25 10/09/25 acetaminophen 500 mg capsule 650 mg PO Q4H PRN 06/13/25 10/09/25 vilazodone 20 mg tablet (Viibryd) 20 mg PO DAILY 06/13/25 10/09/25 clopidogrel 75 mg tablet (Plavix) 75 mg PO DAILY #20 tabs 06/14/25 10/09/25 ketoconazole 2 % shampoo 1 applic topical Q2W 06/20/25 10/09/25 amlodipine 10 mg tablet 5 mg PO DAILY 06/28/25 10/09/25 polyethylene glycol 3350 17 17 g PO DAILY PRN 06/28/25 10/09/25 gram/dose oral powder albuterol sulfate 2.5 mg/3 mL 2.5 mg inhalation Q6H PRN 07/07/25 10/09/25 (0.083 %) solution for nebulization diazepam 5 mg tablet 5 mg PO BID PRN 07/07/25 10/09/25 insulin aspar prt-insulin aspart 45 unit subcut DAILY 07/07/25 10/09/25 100 unit/mL (70-30) subcutaneous soln (Novolog Mix 70-30 U-100 Insuln) insulin aspar prt-insulin aspart See Rx Instructions subcut .COMPLEX 07/07/25 10/09/25 100 unit/mL (70-30) subcutaneous soln (Novolog Mix 70-30 U-100 Insuln) rosuvastatin 20 mg tablet 40 mg PO HS 07/07/25 10/09/25 epinephrine 0.3 mg/0.3 mL 0.3 mg IM ONCE PRN 07/12/25 10/09/25 injection, auto-injector (EpiPen) ipratropium 0.5 mg-albuterol 3 mg 3 ml inhalation QID PRN 07/12/25 10/09/25 (2.5 mg base)/3 mL nebulization soln vitamin B complex-vitamin C-folic 1 tab PO DAILY 07/12/25 10/09/25 acid 0.8 mg tablet metoprolol succinate 25 mg 50 mg PO DAILY 07/17/25 10/09/25 tablet,extended release 24 hr blood-glucose,assurance manager insurance,cont 08/20/25 10/09/25 (Dexcom G7 Medical Auditor) dulaglutide 3 mg/0.5 mL 0.75 mg subcut QWEEK 08/20/25 10/09/25 subcutaneous pen injector (Trulicity) hydrocodone 10 mg-acetaminophen 1 tab PO Q4H PRN 08/20/25 10/09/25 325 mg tablet isosorbide mononitrate 30 mg 30 mg PO DAILY 08/20/25 10/09/25 tablet,extended release 24 hr vilazodone 10 mg tablet (Viibryd) 10 mg PO DAILY 08/20/25 10/09/25 prazosin 1 mg capsule 1 mg PO .bedtime 10/09/25 10/09/25 Previous Rx's ?Medication ?Instructions ?Recorded magnesium oxide 400 mg PO DAILY #7 caps 06/10/25 menthol 4 % topical gel (Biofreeze 1 applic topical Q6H PRN PRN #237 06/10/25 (menthol)) mL ropinirole 1 mg tablet 1 mg PO BID #0 tabs 06/10/25 torsemide 20 mg tablet 20 mg PO DAILY #0 tabs 06/10/25 clopidogrel 75 mg tablet (Plavix) 75 mg PO DAILY #20 tabs 06/14/25 Allergies Allergy/AdvReac Type Severity Reaction Status Date / Time bee venom protein (honey bee) Allergy Intermediate Anaphylaxis Verified 10/09/25 21:09 clonidine Allergy Mild Unknown Verified 10/09/25 21:09 Influenza Virus Vaccines Allergy Mild Unknown Verified 10/09/25 21:09 prednisone Allergy Unknown Other (See Verified 10/09/25 21:09 Comment) tamsulosin (From Flomax) Allergy Unknown Other (See Verified 10/09/25 21:09 Comment) General Stated Complaint: AMS/LOC VALERI: 2 Exam Narrative Exam Narrative: Gen: awake and alert, in no apparent distress. Appears well nourished. HEENT: PERRL, EOMs full with bilateral horizontal extinguishable nystagmus. External ears and nose normal, mucous membranes moist. Neck: Supple, full range of motion, no observable masses Lungs: No increased work of breathing, lung sounds clear and equal bilaterally without wheezes, rhonchi, or rales. CV: Heart with regular rate and rhythm, no murmurs auscultated. Strong and symmetrical radial pulses. Abdomen: Soft, nondistended, non-tender to palpation. No rigidity, rebound tenderness, or guarding. MSK: No joint swelling, no redness. Full ROM without limitation with the exception of the right shoulder which is tender with range of motion, no crepitus or deformity. Skin: No rashes or lesions to visualized skin, bilateral heels with reported pressure ulcers, dressed with gauze. Normal color, warm, and dry. Neuro: Cranial nerves II-XII intact and symmetrical bilaterally, though the patient has slurred and barely intelligible speech. 5 out of 5 strength right arm and leg, within the limitations of the patient's shoulder pain, 4 out of 5 strength left upper extremity, 3 out of 5 left lower extremity, no sensory deficits. Psych: Appropriate for situation. Course Vital Signs Vital signs: Vital Signs Temperature 36.2 C L 10/16/25 15:52 Pulse 70 10/16/25 15:52 Respiratory Rate 15 10/16/25 15:52 Blood Pressure 127/72 10/16/25 15:52 Pulse Oximetry 98 10/16/25 15:52 Temperature 36.2 C L 10/16/25 15:52 Pulse 70 10/16/25 15:52 Respiratory Rate 15 10/16/25 15:52 Blood Pressure 127/72 10/16/25 15:52 Blood Pressure Position Supine 10/16/25 15:52 Pulse Oximetry 98 10/16/25 15:52 Oxygen Delivery Method Room Air 10/16/25 15:52 Oxygen Flow Rate 0 10/16/25 15:52 Medical Decision Making This is a 70-year-old male patient presenting for evaluation of slurred speech and altered mental status per his care facility. Differential includes but is not limited to intracranial pathology including worsening/new stroke, intracranial hemorrhage, dissection and aneurysm. I also considered recrudescence given the recent stroke, and inciting events such as infection including UTI, metabolic electrolyte derangement, kidney injury, liver disease, ACS, arrhythmia. I considered traumatic injuries especially right shoulder injury including fracture, dislocation, sprain/strain. Reassuringly, the patient appears to be mentating appropriately, his slurred speech is present but he is answering questions appropriately with no apparent change in orientation. He is not a tPA candidate given his recent stroke, as well as the duration of symptoms, but we will proceed with a CT of the brain and neck with contrast, as well as labs to include CBC, CMP, magnesium, troponin, INR, urinalysis, VBG. An EKG was obtained, which shows a sinus rhythm with a rate of 68, with no evidence of interval abnormality, ectopy, or acute ischemia. - I reviewed the patient's laboratory studies, which show no leukocytosis, a largely stable anemia and no thrombocytopenia. VBG without hypercarbia or acidosis. Chemistry panel reveals no significant electrolyte derangements, though the magnesium is on the low side of normal, renal function is largely at the patient's baseline. No evidence of severe liver function abnormalities, troponin is negative and the TSH is within normal limits. The urinalysis shows new nitrites and pyuria concerning for catheter associated urinary tract infection. CTA of the brain and neck showed no acute abnormalities or changes from most recent priors. The patient's left-sided deficits are likely from his recent stroke, he is on maximal medical management and is not a candidate for TNK or surgical intervention, and I suspect that this patient's speech changes and residual weakness if anything are due to recrudescence versus baseline since his stroke. I certainly do not see an indication at this time to proceed with teleneuro consultation. However, his sleepiness and garbled speech as well as his worsening weakness do make me feel that he may not be as successful in the outpatient environment and could benefit from overnight admission for antibiosis. The patient's x-ray of the shoulder shows degenerative changes, but no evidence of fracture or dislocation. I provided the patient with a dose of ceftriaxone, and the patient has been graciously accepted for admission by the hospitalist for ongoing care. He remained hemodynamically appropriate while under my care. Salima Chawla MD PFSH All Active Problems (Updated 10/16/25 @ 19:02 by Salima Chawla MD) Dehydration (Acute) Urinary retention (Acute) Carotid artery stenosis (Acute) Acute CVA (cerebrovascular accident) (Acute) Elevated lactic acid level (Acute) Urinary tract infection (Acute) Transient confusion (Acute) Hypoglycemia (Acute) Acute non-ST elevation myocardial infarction (NSTEMI) (Acute) Ear pain, left (Acute) Tinnitus of both ears (Acute) Chest pain (Acute) TIA (transient ischemic attack) (Acute) CAD S/P percutaneous coronary angioplasty (Acute) Acute on chronic kidney failure (Acute) Unstable angina (Acute) Osteoarthritis of hip (Acute) Right hip pain (Acute) PAD (peripheral artery disease) (Acute) Lymphedema (Acute) Venous ulcers of both lower extremities (Acute) Venous (peripheral) insufficiency (Acute) Phantom limb syndrome (Acute) PTSD (post-traumatic stress disorder) (Chronic) Vitamin D deficiency (Acute) Nondisplaced fracture of right scaphoid bone (Acute 02/01/24) Right wrist pain (Acute) GERD (gastroesophageal reflux disease) (Chronic) Hypertension (Chronic) Neuropathy (Acute) History of venous thrombosis and embolism (Acute) Pityriasis versicolor (Acute) Hyperlipidemia (Chronic) Atherosclerotic heart disease of [place] coronary artery without angina pectoris (Acute) CKD stage 4 due to type 2 diabetes mellitus (Chronic) Heart failure (Chronic) Anxiety (Chronic) Morbid obesity (Chronic) Subacute osteomyelitis, left ankle and foot (Acute) Chronic pain (Chronic) COPD (chronic obstructive pulmonary disease) (Chronic) Asthma (Chronic) Type 2 diabetes mellitus (Chronic) Medical History Iron deficiency anemia CAD (coronary artery disease), [place] coronary artery Chronic bipolar disorder Chronic back pain greater than 3 months duration Diabetes mellitus type 2, insulin dependent MRSA infection Testicular hypofunction Low back pain Surgical History S/P spinal surgery S/P hip hemiarthroplasty S/P cardiac cath Stent to LAD Social History Smoking/Tobacco Use Status: Former Tobacco Use Smoking risk assessment performed?: Yes Alcohol Intake: current Alcohol Intake frequency: holidays/special occasions only Drug use: Never Substance use type: does not use Housing: assisted living facility Do you feel safe at home: Yes Do you feel safe in your relationship?: Yes
[2025-10-16 16:35] LABS: Abs Immature Grans 0.04 10^3/uL (0.0-0.06); BE (Venous) 2 mmol/L (-2-3); HCO3 (Venous) 28 mmol/L (23-28); HCT 35.2 % (40.0-50.0); HGB 11.6 g/dL (13.5-17.5); Immature Grans % 0.4 %; MCH 29.6 pg (27.0-33.0); MCHC 33.0 % (32.0-36.0); MCV 90 fL (80-95); MPV 10.2 fL (8.0-11.0); O2 Sat (Venous) 59 %; Platelet Count 219 10^3/uL (130-400); RBC 3.92 10^6/uL (4.36-5.78); RDW 12.0 % (11.8-14.1); RDW-SD 39.0 fL; TCO2 (Venous) 26 mmol/L (24-29); WBC 10.18 10^3/uL (4.4-10.8); pCO2 (Venous) 51 mmHg (41-51); pO2 (Venous) 33 mmHg
[2025-10-16 16:48] LABS: INR 1.0 (0.9-1.1); Prothrombin Time 9.8 sec (9.1-11.1)
[2025-10-16] MEDS: Normal Saline Flush 10 ML SYR IVP ×2 (16:50→22:31)
[2025-10-16] MEDS: Omnipaque 350 MG/ML 100 ML BTL IJ (16:50)
[2025-10-16] MEDS: Normal Saline - Diluent 50 ML VIAL IJ (16:50)
[2025-10-16 17:08] LABS: Troponin I 7 ng/L (<54)
[2025-10-16 17:09] LABS: Magnesium 1.5 mg/dL (1.6-2.6)
[2025-10-16 17:11] LABS: ALT 23 U/L (10-49); AST 36 U/L (<34); Albumin 4.0 g/dL (3.2-5.0); Alkaline Phosphatase 67 U/L (46-116); Anion Gap 9.3 mmol/L (3-11); BUN 49 mg/dL (9-23); Bilirubin, Total 0.4 mg/dL (0.2-1.2); CO2 26.7 mmol/L (20.0-31.0); Calcium 9.0 mg/dL (8.3-10.6); Chloride 105 mmol/L (98-107); Glucose 162 mg/dL (74-106); Potassium 4.7 mmol/L (3.5-5.1); Sodium 141 mmol/L (136-145); TSH (W/Ref FT4) 1.16 uIU/mL (0.55-4.78); Total Protein 6.7 g/dL (5.7-8.2)
--- NOTE | 2025-10-16 17:39 | DI.RAD_ITS ---
Exam(s) XR SHOULDER RT COMPLETE 2+V EXAM: XR SHOULDER RT COMPLETE 2+V CLINICAL HISTORY: pain after fall a few days ago. TECHNIQUE: 2D digital imaging was performed. Four views. COMPARISON: CR,XR XR CHEST 1V IN DI DEPT from 10/05/[address] BRAIN NECK CTA from 10/16/2025 FINDINGS: Positioning was limited to patient immobility. BONES: No acute fracture is present. No bony destructive lesion is seen. JOINTS: No dislocation present. There are prominent degenerative changes of the AC joint. There is spurring at the glenohumeral joint. The glenohumeral joint is suboptimally profiled. SOFT TISSUE: Normal. IMPRESSION: Degenerative changes. No acute abnormality. DATA REPOSITORY: RADIATION DOSE DELIVERED:
[2025-10-16 18:13] LABS: Glucose Negative (Negative)
[2025-10-16 18:27] LABS: C & S Indicated? Yes
[2025-10-16] MEDS: cefTRIAXone 1 GM/50 ML BAG IVPB (18:34)
[2025-10-16 18:58] LABS: Troponin I 7 ng/L (<54)
--- NOTE | 2025-10-16 18:58 | W.PM.HP.N ---
Date of service: 10/16/25 Time of Service: 18:58 Assessment and Plan Assessment and plan (1) UTI (urinary tract infection) due to urinary indwelling catheter: Start date: 10/16/25 Status: Acute Assessment and plan: This is a 70-year-old gentleman with recent stroke now in local halfway for rehabilitation presenting with delirium and altered mental status most likely secondary to UTI. He does have a chronic indwelling Yang catheter. He was initiated on Rocephin which will be continued and Yang catheter will be changed as needed. He may require IV hydration support with a history of CKD. He does not appear to be septic at this time. He has had no fever and no elevation in his WBC with vital signs stable. He remains a full code. (2) Delirium: Start date: 10/16/25 Status: Acute Assessment and plan: Affect secondary to his acute infectious process but also he is debilitated with his recent strokes. (3) Hypomagnesemia: Start date: 10/16/25 Status: Acute Assessment and plan: Patient will be repleted with magnesium and follow-up trending magnesium levels. This may be nutritional as well as associated with chronic diuretic therapy. (4) Stenosis of right internal carotid artery with cerebral infarction: Status: Chronic Assessment and plan: With left-sided weakness as a residual but CT showing no acute infarct. Continue Plavix and aspirin. (5) Type 2 diabetes mellitus: Status: Chronic Assessment and plan: Hold outpatient medical therapy with sliding scale and moderate insulin coverage. (6) CKD stage 4 due to type 2 diabetes mellitus: Status: Chronic Assessment and plan: This appears stable and will be monitored with IV hydration as needed. Patient does have change in mental status and may not take oral hydration well. (7) Hypertension: Status: Chronic Assessment and plan: Continue outpatient medical therapy adjusted as needed. (8) COPD (chronic obstructive pulmonary disease): Status: Chronic Assessment and plan: Continue outpatient medical therapy. (9) Phantom limb syndrome: Status: Chronic Assessment and plan: Patient does not appear to be on active narcotics or benzodiazepines by review of the PDMP and with his delirium, hydrocodone and diazepam will be held. He does have a history of hydromorphone use in the past but this was in 2023. Urine drug screen was positive for opiates and benzodiazepines with patient having hydrocodone and diazepam on his med list. This can be reconciled in the morning as patient's mental status clears as to the need for these meds. He is not self treating being in the rehabilitation center. History of Present Illness History of Present Illness Chief Complaint: Altered mental status day of admission. Narrative: This is a 70-year-old male patient who resides at a local halfway for rehabilitation from a recent stroke about 1 month ago. He is on aspirin and Plavix. He does have a history of CKD which appears stable and diabetes which is fairly well-controlled. He also has atherosclerotic vessel disease with CAD and is TIAs and strokes recently. He has COPD as well. He has not been feeling well over several days but the day of presentation had a sudden change in mental status with some speech difficulty. He was sent to the ED for evaluation with CTA of the head and neck revealing no acute changes with right carotid stenosis known on appropriate treatment and not been a surgical candidate for intervention with his previous stroke. He has residual left-sided weakness from his stroke. He was noncommunicative when I interviewed the patient but did answer some questions per the nurse per the ED provider. He does have a chronic indwelling Yang catheter and was found to have a probable UTI as a cause of his change in mental status though he does not appear septic. The rest of his evaluation lab appears stable with his chronic diseases. His medication list did need to be reviewed and updated because of some discrepancies. He is a diabetic but not eating and drinking well therefore will not continue his outpatient therapy but have sliding scale with coverage. Patient was initiated on Rocephin which will be continued with follow-up on urine culture. Prognosis is poor with multisystem disease though the patient remains a full code. He will be returning to the rehab facility once he stabilizes. The patient did have a fall with right shoulder injury at the halfway and imaging revealed no acute fractures but arthritic changes. He was not verbalizing any focal complaints at the time my exam and was not communicating well. Review of Systems Narrative: 13 point review of systems per report from halfway otherwise unrevealing or stable, patient is unable to give review of systems. He does have chronic skin changes over his legs with chronic crusted ulcers but no dressing. He also has status post left large toe amputation with a history of chronic phantom pain and body pain with his obesity and debilitated state. He does appear to be on a regimen of diazepam and hydrocodone presently without sedation and having previously been on Dilaudid. This needs to be confirmed. PFSH All Active Problems Hypomagnesemia (Acute) Stenosis of right internal carotid artery with cerebral infarction (Chronic) Delirium (Acute) UTI (urinary tract infection) due to urinary indwelling catheter (Acute) Dehydration (Acute) Urinary retention (Acute) Carotid artery stenosis (Acute) Acute CVA (cerebrovascular accident) (Acute) Elevated lactic acid level (Acute) Urinary tract infection (Acute) Acute non-ST elevation myocardial infarction (NSTEMI) (Acute) Ear pain, left (Acute) Tinnitus of both ears (Acute) Chest pain (Acute) TIA (transient ischemic attack) (Acute) CAD S/P percutaneous coronary angioplasty (Acute) Acute on chronic kidney failure (Acute) Unstable angina (Acute) Osteoarthritis of hip (Acute) Right hip pain (Acute) PAD (peripheral artery disease) (Acute) Lymphedema (Acute) Venous ulcers of both lower extremities (Acute) Venous (peripheral) insufficiency (Acute) Phantom limb syndrome (Chronic) PTSD (post-traumatic stress disorder) (Chronic) Vitamin D deficiency (Acute) Nondisplaced fracture of right scaphoid bone (Acute 02/01/24) Right wrist pain (Acute) GERD (gastroesophageal reflux disease) (Chronic) Hypertension (Chronic) Neuropathy (Acute) History of venous thrombosis and embolism (Acute) Pityriasis versicolor (Acute) Hyperlipidemia (Chronic) Atherosclerotic heart disease of platinum coronary artery without angina pectoris (Acute) CKD stage 4 due to type 2 diabetes mellitus (Chronic) Heart failure (Chronic) Anxiety (Chronic) Morbid obesity (Chronic) Subacute osteomyelitis, left ankle and foot (Acute) Chronic pain (Chronic) COPD (chronic obstructive pulmonary disease) (Chronic) Asthma (Chronic) Type 2 diabetes mellitus (Chronic) Medical History Iron deficiency anemia CAD (coronary artery disease), platinum coronary artery Chronic bipolar disorder Chronic back pain greater than 3 months duration Diabetes mellitus type 2, insulin dependent MRSA infection Testicular hypofunction Low back pain Surgical History S/P spinal surgery S/P hip hemiarthroplasty S/P cardiac cath Stent to LAD Social History Smoking/Tobacco Use Status: Former Tobacco Use Smoking risk assessment performed?: Yes Alcohol Intake: current Alcohol Intake frequency: holidays/special occasions only Drug use: Never Substance use type: does not use Housing: other Do you feel safe at home: Yes Do you feel safe in your relationship?: Yes Meds Allergies and Home Medications Allergies Allergy/AdvReac Type Severity Reaction Status Date / Time bee venom protein (honey bee) Allergy Intermediate Anaphylaxis Verified 10/09/25 21:09 clonidine Allergy Mild Unknown Verified 10/09/25 21:09 Influenza Virus Vaccines Allergy Mild Unknown Verified 10/09/25 21:09 prednisone Allergy Unknown Other (See Verified 10/09/25 21:09 Comment) tamsulosin (From Flomax) Allergy Unknown Other (See Verified 10/09/25 21:09 Comment) Home Medications ?Medication ?Instructions ?Recorded ?Confirmed ?Type aspirin 81 mg tablet,delayed 81 mg PO DAILY 07/06/24 10/16/25 History release (Adult Aspirin Regimen) gabapentin 300 mg capsule 300 mg PO TID 07/06/24 10/16/25 History glucagon 1 mg solution for 1 mg subcut Q20M PRN 07/06/24 10/16/25 History injection nitroglycerin 0.4 mg sublingual 0.4 mg sublingual Q5M PRN 07/06/24 10/16/25 History tablet ranolazine 500 mg tablet,extended 500 mg PO BID 07/06/24 10/16/25 History release,12 hr risperidone 1 mg tablet 1 mg PO BID 07/06/24 10/16/25 History sevelamer HCl 800 mg tablet 800 mg PO TID 07/06/24 10/16/25 History isosorbide mononitrate 60 mg 60 mg PO DAILY 03/15/25 10/16/25 History tablet,extended release 24 hr magnesium oxide 400 mg PO DAILY #7 caps 06/10/25 10/16/25 Rx ropinirole 1 mg tablet 1 mg PO BID #0 tabs 06/10/25 10/16/25 Rx torsemide 20 mg tablet 20 mg PO DAILY #0 tabs 06/10/25 10/16/25 Rx vilazodone 20 mg tablet (Viibryd) 20 mg PO DAILY 06/13/25 10/16/25 History clopidogrel 75 mg tablet (Plavix) 75 mg PO DAILY #20 tabs 06/14/25 10/16/25 Rx amlodipine 10 mg tablet 5 mg PO DAILY 06/28/25 10/16/25 History polyethylene glycol 3350 17 17 g PO DAILY PRN 06/28/25 10/16/25 History gram/dose oral powder albuterol sulfate 2.5 mg/3 mL 2.5 mg inhalation Q6H PRN 07/07/25 10/16/25 History (0.083 %) solution for nebulization diazepam 5 mg tablet 5 mg PO BID PRN 07/07/25 10/16/25 History Held on 10/16/25. Instructions: Per Provider insulin aspar prt-insulin aspart 45 unit subcut DAILY 07/07/25 10/16/25 History 100 unit/mL (70-30) subcutaneous soln (Novolog Mix 70-30 U-100 Insuln) rosuvastatin 20 mg tablet 40 mg PO HS 07/07/25 10/16/25 History epinephrine 0.3 mg/0.3 mL 0.3 mg IM ONCE PRN 07/12/25 10/16/25 History injection, auto-injector (EpiPen) ipratropium 0.5 mg-albuterol 3 mg 3 ml inhalation QID PRN 07/12/25 10/16/25 History (2.5 mg base)/3 mL nebulization soln vitamin B complex-vitamin C-folic 1 tab PO DAILY 07/12/25 10/16/25 History acid 0.8 mg tablet metoprolol succinate 25 mg 50 mg PO DAILY 07/17/25 10/16/25 History tablet,extended release 24 hr blood-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,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,cont 08/20/25 10/16/25 History (Dexcom G7 [employer]or 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 Manager) hydrocodone 10 mg-acetaminophen 1 tab PO Q4H PRN 08/20/25 10/16/25 History 325 mg tablet vilazodone 10 mg tablet (Viibryd) 10 mg PO DAILY 08/20/25 10/16/25 History acetaminophen 325 mg capsule 650 mg PO Q6H PRN 10/16/25 10/16/25 History guaifenesin 100 mg/5 mL oral liquid 200 mg PO Q4H PRN 10/16/25 10/16/25 History insulin glargine 100 unit/mL 36 unit subcut QPM 10/16/25 10/16/25 History subcutaneous solution (Lantus U-100 Insulin) metformin 500 mg tablet 500 mg PO BID 10/16/25 10/16/25 History multivitamin (Daily Value tablet) 1 tab PO DAILY 10/16/25 10/16/25 History prazosin 5 mg capsule 5 mg PO QPM 10/16/25 10/16/25 History risperidone 0.5 mg tablet 0.5 mg PO BID 10/16/25 10/16/25 History (Risperdal) Exam Narrative Exam Narrative: General: Patient appears older than stated age, morbidly obese and lying in bed with his head slightly elevated and eyes closed. He does respond to verbal stimuli but is not conversant. HEENT: Normocephalic, coarse and facial features, eyes with pupils equal and reactive to light symmetrically, extraocular movement intact with sclera anicteric. Oropharynx with dry mucosa and poor dentition. Neck: Supple without JVD. Back: Not examined with patient supine. Lungs: Fair aeration and clear to auscultation percussion with no focalizing rales or rhonchi. Bronchovesicular breath sounds diffusely. No expiratory wheeze. Heart: Tachycardic rate with regular rhythm. Distant heart sounds. Abdomen: Obese contour, soft and nontender to palpation with no palpable hepatosplenomegaly. Bowel sounds positive in all quadrants. Genitalia/rectal: Retracted penis into prepubic fat with Yang catheter in place. Scrotum and testicles appear normal. Rectal exam deferred. Extremities: Chronic 3+ hard edema without dressing over erythematous, crusting skin over both anterior legs and ankles. Loss of hair with hyperpigmentation over same area. Status post amputation left large toe. Fair capillary refill. Skin: Chronic venous stasis skin changes over legs as mentioned, otherwise normal color, warm and dry. Neuro: Decreased motor on the left compared to right with patient delirious with acute infection. Full exam not performed. Cranial nerves II to XII appear to be grossly intact by indirect testing. Patient is delirious. Psych: Patient had delirium with evaluation not possible. Results Imaging Imaging Studies: EXAM: CT BRAIN NECK CTA Date of exam: 10/16/2025 CLINICAL HISTORY: Slurred speech, recent stroke. TECHNIQUE: Imaging Protocol: Axial CT angiography was performed with multi-slice acquisition and multi-planar and MIP reconstructions. CONTRAST MATERIAL: Intravenous: Omnipaque 350 Contrast volume:7 ml COMPARISON: CT CT HEAD WO/W FACIAL W from 03/31/[address] HEAD WO from 09/16/[address] BRAIN NECK CTA from 09/26/[address] HEAD WO from 10/05/2025 FINDINGS: CT Head W/O and W contrast: Ventricles and Extra axial spaces: Normal in size and morphology for the patient's age. Hemorrhage: None. Cerebral parenchyma: No evidence of acute infarct or mass. Midline shift: None. Brainstem/Cerebellum: No acute findings.. Calvarium: Normal. Visualized Paranasal sinuses/Mastoids: Clear. Soft Tissues: Unremarkable. Enhancement: Normal. Venous sinuses are patent. CTA Brain W: Internal Carotid Arteries: Right: No aneurysm, occlusion or significant stenosis. Left: No aneurysm, occlusion or significant stenosis. Middle Cerebral Arteries: Right: No aneurysm, occlusion or significant stenosis. Left: No aneurysm, occlusion or significant stenosis. Anterior Cerebral Arteries: Right: No aneurysm, occlusion or significant stenosis. Left: No aneurysm, occlusion or significant stenosis. Posterior cerebral Arteries: Right: No aneurysm, occlusion or significant stenosis. Left: No aneurysm, occlusion or significant stenosis. Vertebral Arteries: Right: No aneurysm, occlusion or significant stenosis. Left: No aneurysm, occlusion or significant stenosis. Basilar Artery: No aneurysm, occlusion or significant stenosis. CTA Neck W: Visualized aorta: Unremarkable. Visualized pulmonary arteries: Unremarkable. Subclavian arteries: Unremarkable. Common Carotid: Right: Heavy calcification at the bulb. No dissection, occlusion or significant stenosis. Left: No dissection, occlusion or significant stenosis. External Carotid: Right: No dissection, occlusion or significant stenosis. Left: No dissection, occlusion or significant stenosis. Internal Carotid: Right: Heavy calcification at the bulb causing severe stenosis. Additional focal plaque noted in the mid internal carotid artery causing moderate stenosis. No dissection, occlusion or significant stenosis. Left: Calcific plaque in the proximal internal carotid artery causing moderate to severe stenosis. Findings appear similar to the previous exam. No dissection, occlusion or significant stenosis. Vertebral Artery: Right: No dissection, occlusion or significant stenosis. Left: No dissection, occlusion or significant stenosis. Lung Apices: No acute findings. Bones: No acute abnormality. Hardware in the cervical through upper thoracic spine. Extensive degenerative changes. Soft Tissues: Normal. IMPRESSION: 1. CTA brain: Normal CTA examination of the [place]. 2. Head CT: No acute abnormality. 3. CTA neck: Stable appearance of calcific plaque at the common carotid bulb and proximal internal carotid arteries, causing severe stenosis on the right and moderate to severe stenosis on the left. EXAM: XR SHOULDER RT COMPLETE 2+V Date exam: 10/16/2025 CLINICAL HISTORY: pain after fall a few days ago. TECHNIQUE: 2D digital imaging was performed. Four views. COMPARISON: CR,XR XR CHEST 1V IN DI DEPT from 10/05/[address] BRAIN NECK CTA from 10/16/2025 FINDINGS: Positioning was limited to patient immobility. BONES: No acute fracture is present. No bony destructive lesion is seen. JOINTS: No dislocation present. There are prominent degenerative changes of the AC joint. There is spurring at the glenohumeral joint. The glenohumeral joint is suboptimally profiled. SOFT TISSUE: Normal. IMPRESSION: Degenerative changes. No acute abnormality. Labs 10/17/25 06:30 10/17/25 06:30 Labs: Laboratory Results - last 24 hr 10/16/25 10/16/25 16:30 18:00 WBC 10.18 RBC 3.92 L Hgb 11.6 L Hct 35.2 L MCV 90 MCH 29.6 MCHC 33.0 RDW 12.0 Plt Count 219 MPV 10.2 Immature Gran % 0.4 Neutrophils % 76.2 Lymphocytes % 12.3 Monocytes % 9.1 Eosinophils % 1.7 Basophils % 0.3 Nucleated RBC % 0.0 Absolute Neutrophils 7.76 H Absolute Lymphocytes 1.25 Absolute Monocytes 0.93 H Absolute Eosinophils 0.17 Absolute Basophils 0.03 PT 9.8 INR 1.0 VBG pH 7.35 VBG pCO2 51 VBG pO2 33 VBG HCO3 28 VBG Total CO2 26 VBG O2 Saturation 59 VBG Base Excess 2 Sodium 141 Potassium 4.7 Chloride 105 Carbon Dioxide 26.7 Anion Gap 9.3 BUN 49 H Creatinine 2.63 H Est GFR (CKD-EPI 2020) 24.33 Glucose 162 H Calcium 9.0 Magnesium 1.5 L Total Bilirubin 0.4 AST 36 H ALT 23 Alkaline Phosphatase 67 Troponin I 7 Total Protein 6.7 Albumin 4.0 TSH 1.16 Urine Color Yellow Urine Clarity Clear Urine pH 5.0 Ur Specific Campus 1.010 Urine Protein Negative Urine Ketones Negative Urine Blood Small H Urine Nitrite Positive H Urine Bilirubin Negative Urine Urobilinogen 0.2 Ur Leukocyte Esterase Trace H Urine RBC 3-5 H Urine WBC 10-20 H Ur Epithelial Cells Rare Urine Crystals Negative Urine Bacteria Moderate Urine Casts 0-2 Fine Granular Urine Mucus Trace Urine Other Rare Transitional Ur Culture Indicated? Yes Urine Glucose Negative Last Vital Signs Temp 36.2 C L 10/16/25 16:32 Pulse 68 10/16/25 18:26 Resp 15 10/16/25 16:32 BP 127/72 10/16/25 16:32 Pulse Ox 92 10/16/25 18:26 VTE Prohylaxis Risk Level: Moderate/High Risk Contraindications: None Prophylaxis: Pharmacologic and Mechanical Time Spent Time spent with Patient: >75 minutes Time was spent: preparing to see the patient(eg.review tests), obtaining and/or reviewing separately otained hiistory, ordering medications,tests, procedures, indepentently interpreting results and care coordination
[2025-10-16 20:22] LABS: COVID-19 PCR Negative (Negative); RSV PCR Negative (Negative)
[2025-10-16 20:34] LABS: Troponin I 6 ng/L (<54)
[2025-10-16] MEDS: MAGNESIUM SULFATE 4 GM/100 ML BAG IV_INF (22:29)
[2025-10-16] MEDS: risperiDONE 1 MG TAB PO (22:30)
[2025-10-16] MEDS: Gabapentin 300 MG CAP PO (22:30)
[2025-10-16] MEDS: Rosuvastatin 20 MG TAB 40 MG PO (22:30)
[2025-10-16] MEDS: Ranolazine 500 MG TABCR PO (22:40)
[2025-10-16] MEDS: Prazosin 1 MG CAP PO (22:41)
[2025-10-16 23:29] LABS: Cannabinoids THC Negative (Negative)
--- NOTE | 2025-10-16 23:56 | W.PC.ACHO ---
Registration Status: ADM IN Primary Language: Preferred Language: ED Information & Data Chief Complaint AMS/LOC 10/16/25 16:32 Chief Complaint AMS/LOC 10/16/25 16:26 Triage Note Per the nursing facility- 10/16/25 15:52 patient started declining over the weekend- within the past hour he started experiencing garbled speech and not acting right- they also mentioned a new pressure ulcer to his left foot that developed within the last hour Medical / Surgical History (Last Reviewed 10/16/25 @ 18:58 by Nahun Tran) Iron deficiency anemia CAD (coronary artery disease), [place] coronary artery Chronic bipolar disorder Chronic back pain greater than 3 months duration Diabetes mellitus type 2, insulin dependent MRSA infection Testicular hypofunction Low back pain (Last Reviewed 10/16/25 @ 18:58 by Nahun Tran) S/P spinal surgery S/P hip hemiarthroplasty S/P cardiac cath Most Recent Vital Signs Temperature 36.1 C L 10/16/25 21:46 Temperature Source Temporal Artery Scan 10/16/25 21:43 Pulse 71 10/16/25 21:46 Pulse Rhythm Regular 10/16/25 21:46 Pulse 67 10/16/25 20:40 Respiratory Rate 18 10/16/25 21:46 Respiratory Effort Normal 10/16/25 21:46 Respiratory Depth Normal 10/16/25 21:46 Respiratory Pattern Normal 10/16/25 21:46 Blood Pressure 144/66 H 10/16/25 21:46 Blood Pressure Mean 92 10/16/25 21:43 Blood Pressure Position Supine 10/16/25 16:32 Pulse Oximetry 98 10/16/25 21:46 Oxygen Delivery Method Room Air 10/16/25 21:46 Oxygen Flow Rate 0 10/16/25 21:46 Allergies bee venom protein (honey bee) Allergy (Intermediate, Verified 10/09/25 21:09) Anaphylaxis clonidine Allergy (Mild, Verified 10/09/25 21:09) Unknown Influenza Virus Vaccines Allergy (Mild, Verified 10/09/25 21:09) Unknown prednisone Allergy (Unknown, Verified 10/09/25 21:09) Other (See Comment) tamsulosin (From Flomax) Allergy (Unknown, Verified 10/09/25 21:09) Other (See Comment) Precautions Isolation Standard precaution 10/16/25 16:32 Active Medications Generic Name Dose Route Start Last Admin Trade Name Freq PRN Reason Stop Dose Admin Gabapentin 300 mg 10/16/25 22:00 10/16/25 22:30 Gabapentin 300 Mg Cap PO 300 mg TID HANSEL Administration Magnesium Sulfate 4 gm in 100 mls @ 25 mls/hr 10/16/25 22:15 10/16/25 22:29 IV_INF 10/17/25 02:14 25 mls/hr NOW ONE Administration Prazosin HCl 1 mg 10/16/25 22:45 10/16/25 22:41 Prazosin 1 Mg Cap PO 1 mg HS HANSEL Administration Ranolazine 500 mg 10/16/25 21:36 10/16/25 22:40 Ranolazine 500 Mg Tabcr PO 500 mg BID HANSEL Administration Risperidone 1 mg 10/16/25 21:36 10/16/25 22:30 Risperidone 1 Mg Tab PO 1 mg BID HANSEL Administration Rosuvastatin Calcium 40 mg 10/16/25 21:36 10/16/25 22:30 Rosuvastatin 20 Mg Tab PO 40 mg HS HANSEL Administration Sodium Chloride 0 ml 10/16/25 20:00 10/16/25 22:31 Normal Saline Flush 10 Ml Syr IVP 10 ml BID HANSEL Administration IV IV Catheter Type [Forearm] Peripheral IV IV Catheter Gauge [Forearm] 20 Diet Orders Category Date Time Status Diabetes Consistent CHO/Heart Healthy [DIET] Nutrition 10/17/25 Breakfast Ordered Diagnostics 10/16/25 10/16/25 10/16/25 Range/Units 22:55 20:10 19:31 WBC (4.4-10.8) 10^3/uL RBC (4.36-5.78) 10^6/uL Hgb (13.5-17.5) g/dL Hct (40.0-50.0) % MCV (80-95) fL MCH (27.0-33.0) pg MCHC (32.0-36.0) % RDW (11.8-14.1) % Plt Count (130-400) 10^3/uL MPV (8.0-11.0) fL Immature Gran % % Neutrophils % % Lymphocytes % % Monocytes % % Eosinophils % % Basophils % % Nucleated RBC % (0.0-0.3) % Absolute Neutrophils (1.2-6.7) 10^3/uL Absolute Lymphocytes (1.2-3.4) 10^3/uL Absolute Monocytes (0.1-0.8) 10^3/uL Absolute Eosinophils (0.0-0.7) 10^3/uL Absolute Basophils (0.0-0.2) 10^3/uL PT (9.1-11.1) sec INR (0.9-1.1) VBG pH (7.31-7.41) VBG pCO2 (41-51) mmHg VBG pO2 mmHg VBG HCO3 (23-28) mmol/L VBG Total CO2 (24-29) mmol/L VBG O2 Saturation % VBG Base Excess (-2-3) mmol/L Sodium (136-145) mmol/L Potassium (3.5-5.1) mmol/L Chloride (98-107) mmol/L Carbon Dioxide (20.0-31.0) mmol/L Anion Gap (3-11) mmol/L BUN (9-23) mg/dL Creatinine (0.73-1.18) mg/dL Est GFR (CKD-EPI 2020) (mL/min/1.73m2) Glucose (74-106) mg/dL Calcium (8.3-10.6) mg/dL Magnesium (1.6-2.6) mg/dL Total Bilirubin (0.2-1.2) mg/dL AST (<34) U/L ALT (10-49) U/L Alkaline Phosphatase (46-116) U/L Troponin I 6 (<54) ng/L Total Protein (5.7-8.2) g/dL Albumin (3.2-5.0) g/dL TSH (0.55-4.78) uIU/mL Urine Color (Yellow) Urine Clarity (Clear) Urine pH (5-8) Ur Specific [place] (1.005-1.025) Urine Protein (Neg-Trace) mg/dL Urine Ketones (Negative) mg/dL Urine Blood (Negative) Urine Nitrite (Negative) Urine Bilirubin (Negative) Urine Urobilinogen (Up to 0.2) mg/dL Ur Leukocyte Esterase (Negative) Urine RBC (0-2) HPF Urine WBC (0-5) HPF Ur Epithelial Cells (Negative) HPF Urine Crystals (Negative) HPF Urine Bacteria (Negative) HPF Urine Casts (Negative) LPF Urine Mucus (Negative) Urine Other (Negative) Ur Culture Indicated? Urine Glucose (Negative) mg/dL Urine Opiates Screen Positive A (Negative) Urine Methadone Screen Negative (Negative) Ur Barbiturates Screen Negative (Negative) Ur Tricyclics Screen Negative (Negative) Ur Amphetamines Screen Negative (Negative) U Benzodiazepines Scrn Positive A (Negative) Urine Cocaine Screen Negative (Negative) U Cannabinoids Screen Negative (Negative) COVID-19 Source Nasopharynx SARS-CoV-2 (PCR) Negative (Negative) Influenza Type A (PCR) Negative (Negative) Influenza Type B (PCR) Negative (Negative) RSV (PCR) Negative (Negative) 10/16/25 10/16/25 10/16/25 Range/Units 18:30 18:00 16:30 WBC 10.18 (4.4-10.8) 10^3/uL RBC 3.92 L (4.36-5.78) 10^6/uL Hgb 11.6 L (13.5-17.5) g/dL Hct 35.2 L (40.0-50.0) % MCV 90 (80-95) fL MCH 29.6 (27.0-33.0) pg MCHC 33.0 (32.0-36.0) % RDW 12.0 (11.8-14.1) % Plt Count 219 (130-400) 10^3/uL MPV 10.2 (8.0-11.0) fL Immature Gran % 0.4 % Neutrophils % 76.2 % Lymphocytes % 12.3 % Monocytes % 9.1 % Eosinophils % 1.7 % Basophils % 0.3 % Nucleated RBC % 0.0 (0.0-0.3) % Absolute Neutrophils 7.76 H (1.2-6.7) 10^3/uL Absolute Lymphocytes 1.25 (1.2-3.4) 10^3/uL Absolute Monocytes 0.93 H (0.1-0.8) 10^3/uL Absolute Eosinophils 0.17 (0.0-0.7) 10^3/uL Absolute Basophils 0.03 (0.0-0.2) 10^3/uL PT 9.8 (9.1-11.1) sec INR 1.0 (0.9-1.1) VBG pH 7.35 (7.31-7.41) VBG pCO2 51 (41-51) mmHg VBG pO2 33 mmHg VBG HCO3 28 (23-28) mmol/L VBG Total CO2 26 (24-29) mmol/L VBG O2 Saturation 59 % VBG Base Excess 2 (-2-3) mmol/L Sodium 141 (136-145) mmol/L Potassium 4.7 (3.5-5.1) mmol/L Chloride 105 (98-107) mmol/L Carbon Dioxide 26.7 (20.0-31.0) mmol/L Anion Gap 9.3 (3-11) mmol/L BUN 49 H (9-23) mg/dL Creatinine 2.63 H (0.73-1.18) mg/dL Est GFR (CKD-EPI 2020) 24.33 (mL/min/1.73m2) Glucose 162 H (74-106) mg/dL Calcium 9.0 (8.3-10.6) mg/dL Magnesium 1.5 L (1.6-2.6) mg/dL Total Bilirubin 0.4 (0.2-1.2) mg/dL AST 36 H (<34) U/L ALT 23 (10-49) U/L Alkaline Phosphatase 67 (46-116) U/L Troponin I 7 7 (<54) ng/L Total Protein 6.7 (5.7-8.2) g/dL Albumin 4.0 (3.2-5.0) g/dL TSH 1.16 (0.55-4.78) uIU/mL Urine Color Yellow (Yellow) Urine Clarity Clear (Clear) Urine pH 5.0 (5-8) Ur Specific Benton 1.010 (1.005-1.025) Urine Protein Negative (Neg-Trace) mg/dL Urine Ketones Negative (Negative) mg/dL Urine Blood Small H (Negative) Urine Nitrite Positive H (Negative) Urine Bilirubin Negative (Negative) Urine Urobilinogen 0.2 (Up to 0.2) mg/dL Ur Leukocyte Esterase Trace H (Negative) Urine RBC 3-5 H (0-2) HPF Urine WBC 10-20 H (0-5) HPF Ur Epithelial Cells Rare (Negative) HPF Urine Crystals Negative (Negative) HPF Urine Bacteria Moderate (Negative) HPF Urine Casts 0-2 Fine Granular (Negative) LPF Urine Mucus Trace (Negative) Urine Other Rare Transitional (Negative) Ur Culture Indicated? Yes Urine Glucose Negative (Negative) mg/dL Urine Opiates Screen (Negative) Urine Methadone Screen (Negative) Ur Barbiturates Screen (Negative) Ur Tricyclics Screen (Negative) Ur Amphetamines Screen (Negative) U Benzodiazepines Scrn (Negative) Urine Cocaine Screen (Negative) U Cannabinoids Screen (Negative) COVID-19 Source SARS-CoV-2 (PCR) (Negative) Influenza Type A (PCR) (Negative) Influenza Type B (PCR) (Negative) RSV (PCR) (Negative) 10/16/25 18:00 Urine Culture - Pending Urine - Reflex from [id number] Documentation Fingerstick Glucose Start: 10/16/25 15:58 Freq: .Stat Status: Active Protocol: Activity Type Activity Date Activity User E-sign Co-sign Detail Recorded Client Recorded Date Recorded By Document 10/16/25 16:35 BKG DAEMON(10) [id number] 10/16/25 16:35 BKG DAEMON(10) Fingerstick Glucose Start: 10/16/25 21:36 Freq: AC & HS Status: Active Protocol: Activity Type Activity Date Activity User E-sign Co-sign Detail Recorded Client Recorded Date Recorded By Document 10/16/25 21:42 ON [id number] 10/16/25 21:42 ON Intake and Output - 24 Hour Total 10/16/25 15:36 thru 10/16/25 22:00 Intake Total 50 Output Total 875 Balance -825 Weight 137.8 kg Intake: IV 50 Output: Urine 875 Other: Urine Color Yellow Urine Appearance Clear Falls Risk Assessment History of Falls Previous History 10/16/25 21:46 Contributing Factors Confusion,Impairments, 10/16/25 21:46 Incontinence Ambulatory Aids Uses ambulatory device 10/16/25 16:32 Tubes/Lines With any additional score 10/16/25 21:46 Gait Evaluation W/any additional score 10/16/25 21:46 Cognition Cognitive impairment 10/16/25 16:32 Fall Total Score 64 10/16/25 21:46 Level of Risk High Risk 10/16/25 21:46 Problems (Last Reviewed 10/16/25 @ 18:58 by Nahun Tran) Hypomagnesemia (Acute) 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 Additional Patient Information/Comments: Pt arrived to [facility] with dasilva cath, pressure sore to coccyx and wound to bilateral heel with clean dressing on. Coccyx wound cleaned and zinc protectant cream applied. L big toe amputated. Pt oriented to room and call light. Fall precaution in place. Pt is being managed for UTI. Urine sample sent. Report Received From: ED RN
[2025-10-17] VITALS (7 sets, daily range): BP systolic 115–132; BP diastolic 57–68; PULSE 61–79; RESP 17–19; TEMP 35.9–37.3; O2SAT 93–95
[2025-10-17] MEDS: risperiDONE 0.5 MG TAB PO ×3 (00:31→19:50)
[2025-10-17] MEDS: rOPINIRole 0.5 MG TAB 1 MG PO ×3 (00:32→19:50)
[2025-10-17 06:53] LABS: Abs Immature Grans 0.03 10^3/uL (0.0-0.06); HCT 31.6 % (40.0-50.0); HGB 10.6 g/dL (13.5-17.5); Immature Grans % 0.4 %; MCH 30.2 pg (27.0-33.0); MCHC 33.5 % (32.0-36.0); MCV 90 fL (80-95); MPV 10.1 fL (8.0-11.0); Platelet Count 213 10^3/uL (130-400); RBC 3.51 10^6/uL (4.36-5.78); RDW 12.0 % (11.8-14.1); RDW-SD 39.5 fL; WBC 8.15 10^3/uL (4.4-10.8)
[2025-10-17 07:14] LABS: Magnesium 2.2 mg/dL (1.6-2.6)
[2025-10-17 07:16] LABS: ALT 20 U/L (10-49); AST 23 U/L (<34); Albumin 3.7 g/dL (3.2-5.0); Alkaline Phosphatase 61 U/L (46-116); Anion Gap 9.6 mmol/L (3-11); BUN 47 mg/dL (9-23); Bilirubin, Total 0.3 mg/dL (0.2-1.2); CO2 27.4 mmol/L (20.0-31.0); Calcium 9.3 mg/dL (8.3-10.6); Chloride 106 mmol/L (98-107); Glucose 144 mg/dL (74-106); Potassium 4.3 mmol/L (3.5-5.1); Sodium 143 mmol/L (136-145); Total Protein 6.2 g/dL (5.7-8.2)
--- NOTE | 2025-10-17 08:05 | NUR.NOTE ---
Access chart, [facility] called asking about disposition of this patient. Told Anju Varela that he was admitted and transferred the call to them. Nursing Note:
[2025-10-17] MEDS: Magnesium Oxide 400 MG TAB PO (08:32)
[2025-10-17] MEDS: Vitamins B Comp w/C TAB 1 TAB PO (08:32)
[2025-10-17] MEDS: Folic Acid 1 MG TAB PO (08:32)
[2025-10-17] MEDS: amLODIPine 10 MG TAB 5 MG PO (08:33)
[2025-10-17] MEDS: Vilazodone 20 MG TAB PO (08:33)
[2025-10-17] MEDS: Clopidogrel 75 MG TAB PO (08:33)
[2025-10-17] MEDS: Multivitamin TAB 1 TAB PO (08:33)
[2025-10-17] MEDS: Metoprolol CR 25 MG TABCR 50 MG PO (08:33)
[2025-10-17] MEDS: Ranolazine 500 MG TABCR PO ×2 (08:33→19:50)
[2025-10-17] MEDS: Aspirin E.C. 81 MG TABEC PO (08:34)
[2025-10-17] MEDS: Gabapentin 300 MG CAP PO ×3 (08:34→19:50)
[2025-10-17] MEDS: Isosorbide Mononitrate 30 MG TABCR 90 MG PO (08:34)
[2025-10-17] MEDS: Torsemide 20 MG TAB PO (08:34)
[2025-10-17] MEDS: risperiDONE 1 MG TAB PO ×2 (08:34→19:50)
[2025-10-17] MEDS: Normal Saline Flush 10 ML SYR IVP ×3 (08:35→19:53)
[2025-10-17] MEDS: Enoxaparin 40 MG/0.4 ML SYR SC ×2 (08:35→19:50)
--- NOTE | 2025-10-17 10:00 | INITIAL_ITS ---
Date of service: 10/17/25 Time of Service: 13:35 Care Management Initial Assmt Initial Assessment Reason for Hospitalization: Complication UTI, Delirium Functional Status/Living Situation Patient Presentation: Mike was awake and lying in bed when CM met with him. He presented to the emergency department for evaluation of altered mental status. Per report, he is scheduled to undergo a CT scan today and may require a urology consultation. Additionally, Mike is noted to have multiple wounds involving the heels, legs, buttocks, and back. Mike has resided at [facility] for over one year and previously lived at another facility. During the encounter, he was pleasant and willing to engage in conversation. He was eating lunch and requested an adaptive spoon, which he reports using at baseline. CM requested that the adaptive spoon be provided and Mike can keep this in his room for use during future meals. Clinical information was sent via email to the development geologist and Admiss ions at [facility]. CM will continue to follow. Town of Residence: [facility] [place] [facility] Resides with: Other ([facility]) Significant Other/Family: Out of area (no significant family. He has not spoken with his daughter in 13 years.) Caregiver/Guardian: [facility] Employment Status: Disabled Instrumental Activities of Daily Living (ADLs): Independent Medications Medication Management: No Issues/Barriers identified Physical Functioning/Mobility Assistive Device: mostly uses a wheel chair. Can take a few steps with a walker Advance Directives Advance Directives: Do you have an Advance Directive: N , 12:49 AD On File at [facility]: N 07/12/25, 12:49 Date Asked 10/16/25 10/16/25, 20:16 AD Date Reviewed COLST On File at [facility] No 07/12/25, 12:49 COLST Date Scanned Code Status Resuscitation Status Full Code Portal Pt does not currently have a portal and education provided: Yes Insurance Coverage/Financial Issues Insurance: Medicare Part A & B - [id number] Medicaid of [place] - [id number] Care Team Visit Care Team Role Provider Type Silvia García NP MD [facility] STAFF PHYSICIAN Nica Carrasco Primary Care Provider NON-[facility] STAFF P ELENA Prieto RDN, [facility] Other Providers [employer] InPatient Dieudonne Mcdonald Other Providers OTHER Margarito De Jesus RDN Other Providers [employer] Salima Chawla MD Emergency Provider [facility] STAFF PHYSICIAN Nahun Tran Admit Provider NON-[facility] STAFF PHYSICIAN Attending Provider Discharge Potential Discharge Needs: PCP F/U Appt Anticipated Barriers to Discharge: None Identified Patient/Family Education Needs: Review discharge instructions, discuss Ask Me Three Transportation: RCT RCT Transportation: Wheel chair van Plan: Anticipate Mike will return to [facility] once medically ready. It is recommended he follow up with his community providers and continue per his discharge plan of care. Mike will transport via RCT wheelchair van. CM will continue to follow. Social Determinants of Health Screening Social Determinants of health last assessed in clinic: 10/17/25 Will the Patient Participate in the Screening?: Yes Do you worry about having a steady place to live?: no Problems where you live: no known problems In the past 12 months, have you had to go without electric, gas, oil or water in your home?: no 1. Within the past 12 months, we worried whether our food would run out before we got money to buy more.: Never true 2. Within the past 12 months, the food we bought just didn't last and we didn't have money to get more.: Never true Has lack of transportation kept you from medical appointments or from doing things needed for daily living?: no Has anyone in your life made you feel unsafe or unsupported?: no How hard is it for you to pay for the very basics like food, housing, medical care, and heating? Would you say it is:: Not hard at all Do you want help finding or keeping work or a job?: I do not need or want help If for any reason you need help with day-to-day activities such as bathing, preparing meals, shopping, managing finances, etc., do you get the help you need?: I get all the help I need How often do you feel lonely or isolated from those around you?: Sometimes Do you speak a language other than Moroccan at home?: No Does the patient want assistance with any of the above?: Yes Comments: Pt came from rehab. 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) Delirium (Acute) UTI (urinary tract infection) due to urinary indwelling catheter (Acute) Dehydration (Acute) Urinary retention (Acute) Carotid artery stenosis (Acute) Acute CVA (cerebrovascular accident) (Acute) Elevated lactic acid level (Acute) Urinary tract infection (Acute) Acute non-ST elevation myocardial infarction (NSTEMI) (Acute) Ear pain, left (Acute) Tinnitus of both ears (Acute) Chest pain (Acute) TIA (transient ischemic attack) (Acute) CAD S/P percutaneous coronary angioplasty (Acute) Acute on chronic kidney failure (Acute) Unstable angina (Acute) Osteoarthritis of hip (Acute) Right hip pain (Acute) PAD (peripheral artery disease) (Acute) Lymphedema (Acute) Venous ulcers of both lower extremities (Acute) Venous (peripheral) insufficiency (Acute) Phantom limb syndrome (Chronic) PTSD (post-traumatic stress disorder) (Chronic) Vitamin D deficiency (Acute) Nondisplaced fracture of right scaphoid bone (Acute 02/01/24) Right wrist pain (Acute) GERD (gastroesophageal reflux disease) (Chronic) Hypertension (Chronic) Neuropathy (Acute) History of venous thrombosis and embolism (Acute) Pityriasis versicolor (Acute) Hyperlipidemia (Chronic) Atherosclerotic heart disease of [place] coronary artery without angina pectoris (Acute) CKD stage 4 due to type 2 diabetes mellitus (Chronic) Heart failure (Chronic) Anxiety (Chronic) Morbid obesity (Chronic) Subacute osteomyelitis, left ankle and foot (Acute) Chronic pain (Chronic) COPD (chronic obstructive pulmonary disease) (Chronic) Asthma (Chronic) Type 2 diabetes mellitus (Chronic) Medical History Iron deficiency anemia CAD (coronary artery disease), [place] coronary artery Chronic bipolar disorder Chronic back pain greater than 3 months duration Diabetes mellitus type 2, insulin dependent MRSA infection Testicular hypofunction Low back pain Surgical History S/P spinal surgery S/P hip hemiarthroplasty S/P cardiac cath Stent to LAD Social History Smoking/Tobacco Use Status: Former Tobacco Use Smoking risk assessment performed?: Yes Alcohol Intake: current Alcohol Intake frequency: holidays/special occasions only Drug use: Never Substance use type: does not use Housing: other Do you feel safe at home: Yes Do you feel safe in your relationship?: Yes Readmission Within the Past 30 Days Yes or No: No
--- NOTE | 2025-10-17 10:14 | DI.CT_ITS ---
Exam(s) CT ABDOMEN PELVIS WO EXAM: CT ABDOMEN PELVIS WO CLINICAL HISTORY: UTI hx kidney stones. TECHNIQUE: Imaging Protocol: Axial computed tomography images with coronal and sagittal reformatted images were created and reviewed. COMPARISON: CT CT CHEST/ABD/PEL WO from 10/28/[address] ABDOMEN PELVIS WO from 03/15/[address] ABDOMEN PELVIS WO from 09/20/2025 FINDINGS: There is artifact in the pelvis from the patient's bilateral total hip arthroplasties. ABDOMEN: Lung Bases: There is a tiny left pleural effusion. Liver: Normal density. No measurable mass. Gallbladder and biliary tract: No radiodense calculus or biliary ductal dilation. There is high density material seen in the dependent portion of the gallbladder likely vicarious excretion reflecting the patient's recent CT scan. Pancreas: Normal density, no abnormal calcifications or inflammatory process. Spleen: There is a calcified granuloma in the spleen. Kidneys: Normal size, contour and axis.There is bilateral nephrolithiasis. The largest on the left is in the superior pole and measures 1.6 cm. The largest on the right is also in the superior pole and measures 0.9 cm. There is no obstructive uropathy. No masses seen. Adrenal glands: No mass is seen. Lymph nodes: Within normal limits. Abdominal Aorta: Abdominal portion non-dilated. Atherosclerotic calcification is present. PELVIS: Bladder:There is a Yang catheter within the urinary bladder. There is air seen within the urinary bladder likely reflecting catheterization. Urinary bladder is otherwise unremarkable. Bowel: No obstruction or bowel wall thickening. There is no evidence of appendicitis. Peritoneal cavity: No ascites, collection or mesenteric inflammatory response. No free air. Reproductive organs: Unremarkable as visualized. Bones: There has been no change in appearance of the spine. Soft Tissues: Within normal limits. IMPRESSION: 1. Bilateral nephrolithiasis. There is no obstructive uropathy. 2. Air seen in the urinary bladder likely related to the Yang catheter. 3. Tiny left pleural effusion. RADIATION DOSE DELIVERED: 1,553.57mGy.cm Total DLP DATA REPOSITORY: All CT scans at this facility are submitted to the National Radiology Data Registry (NRDR) Dose Index Registry (DIR) with the [employer] (ACR). RADIATION OPTIMIZATION: All CT scans at this facility use at least one of these dose optimization techniques: automated exposure control; mA and/or kV adjustment per patient size (includes targeted exams where dose is matched to clinical indication); or iterative reconstruction.
[2025-10-17] MEDS: Acetaminophen 325 MG TAB 650 MG PO ×2 (11:13→22:14)
[2025-10-17] MEDS: Insulin Aspart 300 UNITS/3 ML PEN SC ×2 (12:11→16:59)
--- NOTE | 2025-10-17 13:29 | PHA.REVIEW2 ---
Pharmacy Admission Review Admission Clinical Review Admission Pharmacy Review: Hypomagnesemia (Acute) Delirium (Acute) UTI (urinary tract infection) due to urinary indwelling catheter (Acute) bee venom protein (honey bee) Allergy (Intermediate, Verified 10/09/25 21:09) Anaphylaxis clonidine Allergy (Mild, Verified 10/09/25 21:09) Unknown Influenza Virus Vaccines Allergy (Mild, Verified 10/09/25 21:09) Unknown prednisone Allergy (Unknown, Verified 10/09/25 21:09) Other (See Comment) tamsulosin (From Flomax) Allergy (Unknown, Verified 10/09/25 21:09) Other (See Comment) Resuscitation Status Full Code Height 6 ft 1 in Weight 137.8 kg Pharmacy Admission Review Renal Dosing Renal Dosing: BUN 47 mg/dL (9-23) H 10/17/25 06:30 Creatinine 2.30 mg/dL (0.73-1.18) H 10/17/25 06:30 Medications needing adjustments: Reviewed (CrCl 44 mL/min, BUN and SCr decreased) List of meds needing interventions: Current medications are okay Anticoagulation Anticoagulation: Hgb 10.6 g/dL (13.5-17.5) L 10/17/25 06:30 Hct 31.6 % (40.0-50.0) L 10/17/25 06:30 Plt Count 213 10^3/uL (130-400) 10/17/25 06:30 INR 1.0 (0.9-1.1) 10/16/25 16:30 Creatinine 2.30 mg/dL (0.73-1.18) H 10/17/25 06:30 DVT Prophylaxis: Reviewed Medications: Enoxaparin (40mg BID - BMI > 40) Relevant Labs Relevant Labs: Sodium 143 mmol/L (136-145) 10/17/25 06:30 Potassium 4.3 mmol/L (3.5-5.1) 10/17/25 06:30 Chloride 106 mmol/L (98-107) 10/17/25 06:30 Phosphorus 3.0 mg/dL (2.4-5.1) 10/17/25 06:30 Magnesium 2.2 mg/dL (1.6-2.6) 10/17/25 06:30 Electrolytes, C-Reactive P, ESR: Reviewed DM Control DM Control: Glucose 144 mg/dL (74-106) H 10/17/25 06:30 Finger Stick Blood Glucose 311 1211 Finger Stick Blood Glucose 311 1137 Finger Stick Blood Glucose 311 1137 Finger Stick Blood Glucose 135 0744 Finger Stick Blood Glucose 135 0735 Finger Stick Blood Glucose 135 0735 DM Control: Reviewed Insulin Dosing, Diabetic Medication: Has order for SS insulin Cardiac Review Cardiac Review: Troponin I 6 ng/L (<54) 10/16/25 20:10 BP, HR, EF%: Reviewed (HR/BP WNL) List meds needing interventions: Has orders for amlodipine 5mg daily, isosorbide ER 60mg daily and IR 20mg daily, metoprolol XL 50mg daily and torsemide 20mg daily QTc Review QTc: Reviewed (423 from 10/16/25) IV to PO Switch IV Medications: Reviewed (ceftriaxone) Home Meds Home Med List reviewed: Intervened Relevent Home Meds Not ordered & why?: hydrocodone (on hold per H+P), diazepam (on hold per H+P), Epipen (PRN), glargine and metformin Asked nurse to fax med rec from rehab center to pharmacy to verify home med list. Following changes were made - provider aware / orders updated Changed metformin from 500mg BID to 1000mg BID Added vilazodone 10mg daily - taken in addition to 20mg tablet Added isosorbide mononitrate 20mg tab daily - taken in addition to 60mg ER tablet Changed sevelamer to patients own order (non-formulary). Reached out to nurse to see if this could be brought in from home. Waiting to hear back. Current Meds Current Medication Order Review: Intervened Comments: Changed Miralax order from bottle to packet Changed amlodipine order from 10mg tabs to 5mg tabs (dose = 5mg) Pharmacy Antibiotic Review Relevant Labs: WBC 8.15 10^3/uL (4.4-10.8) 10/17/25 06:30 Temperature 36.0 C Temperature 35.9 C Temperature 36.4 C Microbiology 10/16/25 18:00 Urine Culture - Preliminary Urine - Reflex from Ua Proteus species Pharmacy Antibiotic Activity: C/S review and Reviewed, no change Comments: Patient is on ceftriaxone, day 1, for complicated UTI.
[2025-10-17] MEDS: cefTRIAXone 1 GM/50 ML BAG IVPB (18:10)
--- NOTE | 2025-10-17 18:34 | W.PM.PROGNOT ---
Date of Service Date of service: 10/17/25 Time of Service: 18:34 Assessment and Plan Assessment and plan (1) UTI (urinary tract infection) due to urinary indwelling catheter: Status: Acute Assessment and plan: He does have a chronic indwelling Yang catheter - changed today. Continue Rocephin. CT abd/pelvis: Bilateral nephrolithiasis. There is no obstructive uropathy. Air seen in the urinary bladder likely related to the Yang catheter. (2) Delirium: Status: Acute Assessment and plan: Monitor (3) Hypomagnesemia: Start date: 10/16/25 Status: Resolved Assessment and plan: 2.2 (4) Stenosis of right internal carotid artery with cerebral infarction: Status: Chronic Assessment and plan: Continue Plavix and aspirin. (5) Type 2 diabetes mellitus: Status: Chronic Assessment and plan: Sliding scale FS ACHS (6) CKD stage 4 due to type 2 diabetes mellitus: Status: Chronic Assessment and plan: Chronic (7) Hypertension: Status: Chronic Assessment and plan: Continue outpatient medical therapy adjusted as needed. Avoid nephrotoxic drugs (8) COPD (chronic obstructive pulmonary disease): Status: Chronic Assessment and plan: Continue outpatient medical therapy. (9) Phantom limb syndrome: Status: Chronic Assessment and plan: No current therapy Subjective Subjective Patient reports: no new complaints, feels better, tolerating liquids well, tolerating a regular diet and voiding w/o difficulty (Yang catheter changed); denies bowel movement, diarrhea, nausea, vomiting or shortness of breath Interval history since last seen: Awake, alert, Exam Const General: no acute distress Orientation: alert HENMT Head: normal to inspection Ears: external ears normal General nose exam: external nose normal Mouth: moist mucous membranes Eyes General: appearance normal, both eyes and all related structures Neck Neck: normal visual inspection Resp Effort & Inspection: normal respiratory effort Cardio Rate: regular rate Skin General skin exam: no rashes or lesions noted Neuro General: patient alert, patient oriented x3 and moves all extremities Extrem General: normal to inspection Psych Mental Status: mental status grossly normal Objective Last Vital Signs Temp 36.6 C 10/17/25 14:37 Pulse 64 10/17/25 14:37 Resp 18 10/17/25 14:37 BP 119/64 10/17/25 14:37 Pulse Ox 94 10/17/25 14:37 Laboratory Results - last 24 hr 10/16/25 10/16/25 10/16/25 18:30 19:31 20:10 WBC RBC Hgb Hct MCV MCH MCHC RDW Plt Count MPV Immature Gran % Neutrophils % Lymphocytes % Monocytes % Eosinophils % Basophils % Nucleated RBC % Absolute Neutrophils Absolute Lymphocytes Absolute Monocytes Absolute Eosinophils Absolute Basophils Sodium Potassium Chloride Carbon Dioxide Anion Gap BUN Creatinine Est GFR (CKD-EPI 2020) Glucose Calcium Phosphorus Magnesium Total Bilirubin AST ALT Alkaline Phosphatase Troponin I 7 6 Total Protein Albumin Urine Opiates Screen Urine Methadone Screen Ur Barbiturates Screen Ur Tricyclics Screen Ur Amphetamines Screen U Benzodiazepines Scrn Urine Cocaine Screen U Cannabinoids Screen COVID-19 Source Nasopharynx SARS-CoV-2 (PCR) Negative Influenza Type A (PCR) Negative Influenza Type B (PCR) Negative RSV (PCR) Negative 10/16/25 10/17/25 22:55 06:30 WBC 8.15 RBC 3.51 L Hgb 10.6 L Hct 31.6 L MCV 90 MCH 30.2 MCHC 33.5 RDW 12.0 Plt Count 213 MPV 10.1 Immature Gran % 0.4 Neutrophils % 67.7 Lymphocytes % 19.8 Monocytes % 9.4 Eosinophils % 2.5 Basophils % 0.2 Nucleated RBC % 0.0 Absolute Neutrophils 5.52 Absolute Lymphocytes 1.61 Absolute Monocytes 0.77 Absolute Eosinophils 0.20 Absolute Basophils 0.02 Sodium 143 Potassium 4.3 Chloride 106 Carbon Dioxide 27.4 Anion Gap 9.6 BUN 47 H Creatinine 2.30 H Est GFR (CKD-EPI 2020) 28.40 Glucose 144 H Calcium 9.3 Phosphorus 3.0 Magnesium 2.2 Total Bilirubin 0.3 AST 23 ALT 20 Alkaline Phosphatase 61 Troponin I Total Protein 6.2 Albumin 3.7 Urine Opiates Screen Positive A Urine Methadone Screen Negative Ur Barbiturates Screen Negative Ur Tricyclics Screen Negative Ur Amphetamines Screen Negative U Benzodiazepines Scrn Positive A Urine Cocaine Screen Negative U Cannabinoids Screen Negative COVID-19 Source SARS-CoV-2 (PCR) Influenza Type A (PCR) Influenza Type B (PCR) RSV (PCR) VTE Prohylaxis Risk Level: Moderate/High Risk Contraindications: None Prophylaxis: Pharmacologic and Mechanical Time Spent with Patient Time Spent with Patient: 25-34 minutes Time was spent: preparing to see the patient(eg.review tests), ordering medications,tests, procedures, referring, communicating with other health patient care technician instructor, indepentently interpreting results, counseling the patient and care coordination
[2025-10-17] MEDS: Rosuvastatin 20 MG TAB 40 MG PO (19:50)
[2025-10-17] MEDS: Prazosin 5 MG CAP PO (19:50)
[2025-10-18 03:18] VITALS: BP 132/64; PULSE 73; TEMP 36.7; O2SAT 92
[2025-10-18 07:31] LABS: Abs Immature Grans 0.09 10^3/uL (0.0-0.06); HCT 32.0 % (40.0-50.0); HGB 10.6 g/dL (13.5-17.5); Immature Grans % 1.1 %; MCH 29.7 pg (27.0-33.0); MCHC 33.1 % (32.0-36.0); MCV 90 fL (80-95); MPV 10.3 fL (8.0-11.0); Platelet Count 237 10^3/uL (130-400); RBC 3.57 10^6/uL (4.36-5.78); RDW 11.8 % (11.8-14.1); RDW-SD 38.5 fL; WBC 8.34 10^3/uL (4.4-10.8)
[2025-10-18 07:43] VITALS: BP 133/68; PULSE 68; RESP 17; TEMP 36.4; O2SAT 93
[2025-10-18 07:56] LABS: Magnesium 1.8 mg/dL (1.6-2.6)
[2025-10-18 07:57] LABS: ALT 15 U/L (10-49); AST 15 U/L (<34); Albumin 3.8 g/dL (3.2-5.0); Alkaline Phosphatase 61 U/L (46-116); Anion Gap 10 mmol/L (3-11); BUN 44 mg/dL (9-23); Bilirubin, Total 0.3 mg/dL (0.2-1.2); CO2 28.0 mmol/L (20.0-31.0); Calcium 9.2 mg/dL (8.3-10.6); Chloride 106 mmol/L (98-107); Glucose 151 mg/dL (74-106); Potassium 4.1 mmol/L (3.5-5.1); Sodium 144 mmol/L (136-145); Total Protein 6.4 g/dL (5.7-8.2)
[2025-10-18] MEDS: Clopidogrel 75 MG TAB PO (08:17)
[2025-10-18] MEDS: Folic Acid 1 MG TAB PO (08:17)
[2025-10-18] MEDS: Isosorbide Mononitrate 20 MG TAB PO (08:18)
[2025-10-18] MEDS: Isosorbide Mononitrate 30 MG TABCR 60 MG PO (08:18)
[2025-10-18] MEDS: Vilazodone 20 MG TAB 30 MG PO (08:18)
[2025-10-18] MEDS: Magnesium Oxide 400 MG TAB PO (08:18)
[2025-10-18] MEDS: Aspirin E.C. 81 MG TABEC PO (08:19)
[2025-10-18] MEDS: Acetaminophen 325 MG TAB 650 MG PO ×2 (08:19→12:14)
[2025-10-18] MEDS: amLODIPine 5 MG TAB PO (08:19)
[2025-10-18] MEDS: Torsemide 20 MG TAB PO (08:19)
[2025-10-18] MEDS: Metoprolol CR 25 MG TABCR 50 MG PO (08:19)
[2025-10-18] MEDS: rOPINIRole 0.5 MG TAB 1 MG PO ×2 (08:19→19:49)
[2025-10-18] MEDS: Vitamins B Comp w/C TAB 1 TAB PO (08:19)
[2025-10-18] MEDS: risperiDONE 0.5 MG TAB 1.5 MG PO ×2 (08:19→19:51)
[2025-10-18] MEDS: Multivitamin TAB 1 TAB PO (08:19)
[2025-10-18] MEDS: Ranolazine 500 MG TABCR PO ×2 (08:19→19:50)
[2025-10-18] MEDS: Gabapentin 300 MG CAP PO ×3 (08:20→19:49)
[2025-10-18] MEDS: Insulin Aspart 300 UNITS/3 ML PEN SC ×3 (08:20→17:13)
[2025-10-18] MEDS: Normal Saline Flush 10 ML SYR IVP ×2 (08:20→19:51)
[2025-10-18] MEDS: Enoxaparin 40 MG/0.4 ML SYR SC ×2 (08:20→19:49)
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
[2025-10-18] MEDS: Polyethylene Glycol 3350 17 GM PACKET PO (10:33)
--- NOTE | 2025-10-18 10:40 | PT.INIE ---
PT Notes Visit Reasons: Complicated UTI, Delirium Inpatient Physical Therapy Evaluation Certification Period:? From 10/18/25? Through 11/01/25 I certify the need for these services as being medically necessary and skilled as furnished under this plan of treatment while under my care. Please sign and return within 14 days if you agree with the plan of care listed below.? Thank you for this referral! ? Referring Physician? Date Referring Doctor:? PT Orders: PT CONSULT for exacerbation of chronic condition Precautions: Fall risk Patient Profile/Admitting Diagnosis:? The patient is a 70 yo male [place] [facility] resident admitted on 10/16/25 via the ED with altered mental status. Patient has a history of a recent CVA that occurred in 09/26 with left sided hemiparesis. Patient fell 3 days ago injuring his right shoulder, x-rays negative for fracture but did show arthritic changes. Patient also has a history of CKD stage IV, diabetes, and COPD. Past Medical History: See below Social History/Home Situation: Pt is a resident at [facility] Subjective: Pt is eager to work with PT. He reports having right shoulder pain. Objective: Mental Status: Patient is alert and oriented but poor recall (did not remember how he injured his right shoulder or how long it had been painful) Pain: Right shoulder ROM/Strength: Upper extremities: Right shoulder ROM limited flexion to approximately 100 and painful, Left WFL Strength (B) grossly 4/5-4+/5 Lower extremities: ROM grossly WFL, Pt had difficulty with actively dorsi/plantar flexing left ankle but was able to do it following tactile cues (B) LE strength grossly 4/5 Soft tissue/edema: Pressure ulcers- Dressing in place (B) heels Bed Mobility: Supine to sit mod (A) of 2 Tranfers: Sit to stand mod (A) of 2 and stand by of 3rd person Gait: Ambulated feet 5 ft with rolling walker and mod (A) of 2 and stand by of 3rd person Balance: Sitting static balance fair requiring contact-guard of 1, dynamic sitting balance poor requiring min assist of 2 Static standing balance poor requiring min assist of 2 to maintain and use of front wheeled rolling walker Dynamic standing balance poor requiring mod assist of 2 and use of front wheeled rolling walker [facility] AM-PAC 6 clicks Basic Mobility Inpatient Short Form: Raw Score:??10? CMS Score: 76.75% Treatment: Therapeutic Activity(72123 x 1) Instruction in dynamic activities with one on one patient contact by the provider to improve functional performance as follows: Bed mobility Supine to sit with verbal cues and moderate assist of 2 Sit to stand with Mod (A) of 2 Stand pivot transfer using front wheeled rolling walker and mod assist of 2 with standby a third person, patient had difficulty maintaining an upright position and had significant flexion at his trunk. Informed Consent/Education:? Patient instructed in purpose of PT consult and plan of care and is agreeable Assessment:? Patient is a?70 year old male admitted on for 10/16/25 with altered mental state and UTI.? Patient presents with pain, decreased strength, decreased functional mobility, decreased balance and difficulty with ambulation. The patient would benefit from skilled inpatient services to improve these impairments to maximize function and safety. Patient is assessed as:?Moderate 04724?? History: See above Examination: see above Presentation: Evolving clinical presentation? Decision Making:?Moderate (1-2 history, 2-3 exam, evolving, mod-30 mins) Physical Therapy Goals: 1 week Able to get in/out of bed with min to mod assist of 1 Able to perform sit to/from stand with min to mod assit of 1 Able to perform a stand pivot transfer with a rolling walker and min to mod assist of 1 Plan of Care/Treatment Plan: 1-2x/day, 7 days/week x 1 week. Plan of care has been reviewed with the NFL PLAYER providing the service under Physical Therapy direction. Initiate Physical Therapy intervention for strengthening, bed mobility, transfers, gait, stairs, balance training, use of assistive device. Next visit: height of walker may need to be adjusted Recommend use of steady lift for transfers from bed to chair DISCHARGE RECOMMENDATIONS: Return to [facility] Billing Charges: Treatment Units Time Duration Manual Therapy(07676) Hands-on techniques to modulate pain increase joint range of motion reduce or eliminate soft tissue swelling, inflammation, or restriction facilitate relaxation and improve contractile and non-contractile tissue extensibility ? ? Therapeutic Procedures (62103) Instruction in therapeutic exercises to develop strength and endurance, range of motion and flexibility. HEP instruction and review: Provided skilled instruction in proper exercise performance: Provided skilled manual cues to facilitate proper muscle recruitment and/or movement pattern Neurological Re-Education(23995) To improve balance, coordination, kinesthetic and proprioceptive sensations. ? ? Ultrasound(50759) To promote healing. ? ? Gait Training(13945) ? ? Therapeutic Activity(32458) Instruction in dynamic activities with one on one patient contact by the provider to improve functional performance as follows: ?1 ?10 Self Care Training(18442) ? ? E-Stim (Attended)(29992) ? ? Low IE(97841) 1 30 Mod IE(62855) ? ? High IE(94317) ? ? Time Coded Treatment Time ? 10 Total Treatment Time ? 40 Informed consent Prior to the start and throughout the course of the examination and treatment, patient was made aware of the specifics and purpose of the physical assessment and treatment procedures. Appropriate draping procedures were utilized to protect modesty where applicable. PFSH All Active Problems (Updated 10/18/25 @ 11:57 by Kassie Hwang NP) ACP (advance care planning) (Acute) Palliative care encounter (Acute) Unintentional weight loss (Acute) Multiple wounds of skin (Acute) Encounter for hospice care discussion (Acute) Lives in [place] [facility] (Acute) Deficit in activities of daily living (ADL) (Acute) Stenosis of right internal carotid artery with cerebral infarction (Chronic) Delirium (Acute) UTI (urinary tract infection) due to urinary indwelling catheter (Acute) Dehydration (Acute) Urinary retention (Acute) Carotid artery stenosis (Acute) Acute CVA (cerebrovascular accident) (Acute) Elevated lactic acid level (Acute) Urinary tract infection (Acute) Acute non-ST elevation myocardial infarction (NSTEMI) (Acute) Ear pain, left (Acute) Tinnitus of both ears (Acute) Chest pain (Acute) TIA (transient ischemic attack) (Acute) CAD S/P percutaneous coronary angioplasty (Acute) Acute on chronic kidney failure (Acute) Unstable angina (Acute) Osteoarthritis of hip (Acute) Right hip pain (Acute) PAD (peripheral artery disease) (Acute) Lymphedema (Acute) Venous ulcers of both lower extremities (Acute) Venous (peripheral) insufficiency (Acute) Phantom limb syndrome (Chronic) PTSD (post-traumatic stress disorder) (Chronic) Vitamin D deficiency (Acute) Nondisplaced fracture of right scaphoid bone (Acute 02/01/24) Right wrist pain (Acute) GERD (gastroesophageal reflux disease) (Chronic) Hypertension (Chronic) Neuropathy (Acute) History of venous thrombosis and embolism (Acute) Pityriasis versicolor (Acute) Hyperlipidemia (Chronic) Atherosclerotic heart disease of [place] coronary artery without angina pectoris (Acute) CKD stage 4 due to type 2 diabetes mellitus (Chronic) Heart failure (Chronic) Anxiety (Chronic) Morbid obesity (Chronic) Subacute osteomyelitis, left ankle and foot (Acute) Chronic pain (Chronic) COPD (chronic obstructive pulmonary disease) (Chronic) Asthma (Chronic) Type 2 diabetes mellitus (Chronic) Medical History Iron deficiency anemia CAD (coronary artery disease), [place] coronary artery Chronic bipolar disorder Chronic back pain greater than 3 months duration Diabetes mellitus type 2, insulin dependent MRSA infection Testicular hypofunction Low back pain Surgical History S/P spinal surgery S/P hip hemiarthroplasty S/P cardiac cath Stent to LAD
[2025-10-18 11:33] VITALS: BP 124/88; PULSE 56; RESP 19; TEMP 36.3; O2SAT 96
--- NOTE | 2025-10-18 13:35 | CMPROGNOTE_ITS ---
Date of service: 10/18/25 Time of Service: 13:35 Care Management Progress Note Progress Note Text Progress Note Text: Mike was lying in bed and sleeping at the time CM met with him. He was evaluated by the palliative care team today and, per their assessment, is hospice-eligible. The palliative care note was forwarded to [facility] via email. PT consulted. A wound consult has been ordered as requested by [facility]; however, it is unclear whether this can be completed prior to discharge. Per the provider, a surgical consult will be ordered in lieu of wound care. Anticipate discharge for tomorrow. CM will continue to follow. Discharge Potential Discharge Needs: Consult Consult Services Needed: Other (Surgical consult for wounds) and PCP F/U Appt Anticipated Barriers to Discharge: None Identified Patient/Family Education Needs: Review discharge instructions, discuss Ask Me Three Transportation: RCT RCT Transportation: Wheel chair van Plan: Anticipate Mike will return to [facility] as he is medically ready. It is recommended he follow up with his community providers, wound care and continue per his discharge plan of care. Mike will transport via RCT wheelchair van. CM will continue to follow. Social Determinants of Health Screening Social Determinants of health last assessed in clinic: 10/18/25 Will the Patient Participate in the Screening?: Yes Do you worry about having a steady place to live?: no Problems where you live: no known problems In the past 12 months, have you had to go without electric, gas, oil or water in your home?: no 1. Within the past 12 months, we worried whether our food would run out before we got money to buy more.: Don't know/refused 2. Within the past 12 months, the food we bought just didn't last and we didn't have money to get more.: Don't know/refused Has lack of transportation kept you from medical appointments or from doing things needed for daily living?: no Has anyone in your life made you feel unsafe or unsupported?: no How hard is it for you to pay for the very basics like food, housing, medical care, and heating? Would you say it is:: Not hard at all Do you want help finding or keeping work or a job?: I do not need or want help If for any reason you need help with day-to-day activities such as bathing, preparing meals, shopping, managing finances, etc., do you get the help you nee d?: I get all the help I need How often do you feel lonely or isolated from those around you?: Sometimes Do you speak a language other than [place]ian at home?: No Does the patient want assistance with any of the above?: Yes Comments: Pt came from rehab. Staff helps with total cares Health Related Social Needs Health related social needs: feeling lonely/isolated (Z60.8) Health related social needs details: Pt states he feels lonely sometimes
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
--- NOTE | 2025-10-18 14:52 | PT.INNT ---
PT Notes Visit Reasons: Complicated UTI, Delirium pt not able to stay awake to participate with afternoon therapy session. this therapist attempted to engage multiple times but with the same result.
--- NOTE | 2025-10-18 15:37 | W.PM.PROGNOT ---
Date of Service Date of service: 10/18/25 Time of Service: 15:37 Assessment and Plan Assessment and plan (1) UTI (urinary tract infection) due to urinary indwelling catheter: Status: Acute Assessment and plan: He does have a chronic indwelling Dasilva catheter - changed 10/17y. Continue Rocephin. CT abd/pelvis: Bilateral nephrolithiasis. There is no obstructive uropathy. Air seen in the urinary bladder likely related to the Dasilva catheter. (2) Delirium: Status: Acute Assessment and plan: Monitor (3) Multiple wounds of skin: Status: Acute Assessment and plan: No wound nurse available Nursing to measure wounds and document Surgery consulted. (4) Hypomagnesemia: Status: Resolved Assessment and plan: 1.8 (5) Stenosis of right internal carotid artery with cerebral infarction: Status: Chronic Assessment and plan: Continue Plavix and aspirin. (6) Type 2 diabetes mellitus: Status: Chronic Assessment and plan: Sliding scale FS ACHS Glucose this am 151 (7) CKD stage 4 due to type 2 diabetes mellitus: Status: Chronic Assessment and plan: Chronic Cr 2.3 ~ baseline (8) Hypertension: Status: Chronic Assessment and plan: Continue outpatient medical therapy adjusted as needed. Avoid nephrotoxic drugs BP 124/88 (9) COPD (chronic obstructive pulmonary disease): Status: Chronic Assessment and plan: Continue outpatient medical therapy. (10) Phantom limb syndrome: Status: Chronic Assessment and plan: No current therapy Discharge Planning Discharge Planning: Return to [facility] 10/18 Subjective Subjective Patient reports: no new complaints, feels better, tolerating liquids well, tolerating a regular diet, voiding w/o difficulty (dasilva), no bowel movement (last BM charted 10/15) and blood in stool; denies shortness of breath Exam Const General: no acute distress Orientation: alert [facility] Head: normal to inspection Ears: external ears normal General nose exam: external nose normal Mouth: moist mucous membranes Eyes General: appearance normal, both eyes and all related structures Neck Neck: normal visual inspection Resp Effort & Inspection: normal respiratory effort Cardio Rate: regular rate Skin General skin exam: no rashes or lesions noted Neuro General: patient alert, patient oriented x3 and moves all extremities Extrem General: normal to inspection Psych Mental Status: mental status grossly normal Objective Last Vital Signs Temp 36.3 C L 10/18/25 11:33 Pulse 56 L 10/18/25 11:33 Resp 19 10/18/25 11:33 BP 124/88 10/18/25 11:33 Pulse Ox 96 10/18/25 11:33 Laboratory Results - last 24 hr 10/18/25 06:35 WBC 8.34 RBC 3.57 L Hgb 10.6 L Hct 32.0 L MCV 90 MCH 29.7 MCHC 33.1 RDW 11.8 Plt Count 237 MPV 10.3 Immature Gran % 1.1 Neutrophils % 58.4 Lymphocytes % 28.2 Monocytes % 9.7 Eosinophils % 2.2 Basophils % 0.4 Nucleated RBC % 0.0 Absolute Neutrophils 4.88 Absolute Lymphocytes 2.35 Absolute Monocytes 0.81 H Absolute Eosinophils 0.18 Absolute Basophils 0.03 Sodium 144 Potassium 4.1 Chloride 106 Carbon Dioxide 28.0 Anion Gap 10 BUN 44 H Creatinine 2.30 H Est GFR (CKD-EPI 2020) 28.40 Glucose 151 H Calcium 9.2 Phosphorus 3.3 Magnesium 1.8 Total Bilirubin 0.3 AST 15 ALT 15 Alkaline Phosphatase 61 Total Protein 6.4 Albumin 3.8 VTE Prohylaxis Risk Level: Moderate/High Risk Contraindications: None Prophylaxis: Pharmacologic and Mechanical Time Spent with Patient Time Spent with Patient: 25-34 minutes Time was spent: preparing to see the patient(eg.review tests), ordering medications,tests, procedures, referring, communicating with other health small animal caretaker, indepentently interpreting results, counseling the patient and care coordination
--- NOTE | 2025-10-18 17:11 | NUR.NOTE ---
Nursing Note: pt has requested 4 railings up for movement
--- NOTE | 2025-10-18 17:25 | W.SURGCON ---
Date of service: 10/18/25 Time of Service: 17:25 Assessment and Plan Assessment and plan (1) Multiple wounds of skin: Status: Acute Assessment and plan: Patient is a 70 yo male with multiple medical comorbidities who presented to the ED with altered mental status. He was admitted to the hospitalist service given these findings and concern for UTI. On presentation he had multiple wounds which surgery was asked to evaluate. His wounds all appear pressure related in nature. His bilateral heel wounds have good granulation tissue at the base of left wound and the right appears to be healing from previous blister. He has a stage 2 sacral wound. Discussed with him the nature of this wounds and offloading pressure points, nutrition and glucose control. Given his current status and plan to return to SNF tomorrow with hospice services would recommend mepilex dressings changed as needed and offloading as much as possible. History of Present Illness Narrative: Patient is a 70 yo male with multiple medical comorbidities who presented to the ED with altered mental status. He was admitted to the hospitalist service given these findings and concern for UTI. On presentation he had multiple wounds which surgery was asked to evaluate. On discussion with him today he states that the wounds on his bilateral heels are from shoes that he was wearing without socks. He denies any fevers or chills. He notes that these wounds have been present for some time. He also endorses new sacral pain since his recent hospitalization at a different hospital. Review of Systems Constitutional Constitutional: Denies chills and Denies fever(s) Cardiovascular Cardiovascular: Denies chest pain and Denies dyspnea Respiratory Respiratory: Denies dyspnea PFSH All Active Problems (Updated 10/19/25 @ 11:28 by Lisa Rubalcava APRN) ACP (advance care planning) (Acute) Palliative care encounter (Acute) Unintentional weight loss (Acute) Multiple wounds of skin (Acute) Encounter for hospice care discussion (Acute) Lives in residential (Acute) Deficit in activities of daily living (ADL) (Acute) Stenosis of right internal carotid artery with cerebral infarction (Chronic) Delirium (Acute) UTI (urinary tract infection) due to urinary indwelling catheter (Acute) Dehydration (Acute) Urinary retention (Acute) Carotid artery stenosis (Acute) Acute CVA (cerebrovascular accident) (Acute) Elevated lactic acid level (Acute) Urinary tract infection (Acute) Acute non-ST elevation myocardial infarction (NSTEMI) (Acute) Ear pain, left (Acute) Tinnitus of both ears (Acute) Chest pain (Acute) TIA (transient ischemic attack) (Acute) CAD S/P percutaneous coronary angioplasty (Acute) Acute on chronic kidney failure (Acute) Unstable angina (Acute) Osteoarthritis of hip (Acute) Right hip pain (Acute) PAD (peripheral artery disease) (Acute) Lymphedema (Acute) Venous ulcers of both lower extremities (Acute) Venous (peripheral) insufficiency (Acute) Phantom limb syndrome (Chronic) PTSD (post-traumatic stress disorder) (Chronic) Vitamin D deficiency (Acute) Nondisplaced fracture of right scaphoid bone (Acute 02/01/24) Right wrist pain (Acute) GERD (gastroesophageal reflux disease) (Chronic) Hypertension (Chronic) Neuropathy (Acute) History of venous thrombosis and embolism (Acute) Pityriasis versicolor (Acute) Hyperlipidemia (Chronic) Atherosclerotic heart disease of [place] coronary artery without angina pectoris (Acute) CKD stage 4 due to type 2 diabetes mellitus (Chronic) Heart failure (Chronic) Anxiety (Chronic) Morbid obesity (Chronic) Subacute osteomyelitis, left ankle and foot (Acute) Chronic pain (Chronic) COPD (chronic obstructive pulmonary disease) (Chronic) Asthma (Chronic) Type 2 diabetes mellitus (Chronic) Medical History Iron deficiency anemia CAD (coronary artery disease), [place] coronary artery Chronic bipolar disorder Chronic back pain greater than 3 months duration Diabetes mellitus type 2, insulin dependent MRSA infection Testicular hypofunction Low back pain Surgical History S/P spinal surgery S/P hip hemiarthroplasty S/P cardiac cath Stent to LAD Social History Smoking/Tobacco Use Status: Former Tobacco Use Smoking risk assessment performed?: Yes Alcohol Intake: current Alcohol Intake frequency: holidays/special occasions only Drug use: Never Substance use type: does not use Housing: other Do you feel safe at home: Yes Do you feel safe in your relationship?: Yes Exam Narrative Exam Narrative: General: no acute distress. Skin: Wounds of heels bilaterally, left with 2x2cm circular wound with granulation tissue at the base, right heel wound with blistering and skin slough, no erythema surrounding wounds bilaterally, stage 2 sacral wound HEENT: Normocephalic, atraumatic CV: Regular rate Lungs: Bilateral equal chest rise, non-labored breathing Extremities: Warm Psychiatric: Alert, normal mood and affect Results Last Vital Signs Temp 36.3 C L 10/18/25 11:33 Pulse 56 L 10/18/25 11:33 Resp 19 10/18/25 11:33 BP 124/88 10/18/25 11:33 Pulse Ox 96 10/18/25 11:33 Labs 10/18/25 06:35 10/19/25 06:01 Labs: Laboratory Results - last 24 hr 10/18/25 06:35 WBC 8.34 RBC 3.57 L Hgb 10.6 L Hct 32.0 L MCV 90 MCH 29.7 MCHC 33.1 RDW 11.8 Plt Count 237 MPV 10.3 Immature Gran % 1.1 Neutrophils % 58.4 Lymphocytes % 28.2 Monocytes % 9.7 Eosinophils % 2.2 Basophils % 0.4 Nucleated RBC % 0.0 Absolute Neutrophils 4.88 Absolute Lymphocytes 2.35 Absolute Monocytes 0.81 H Absolute Eosinophils 0.18 Absolute Basophils 0.03 Sodium 144 Potassium 4.1 Chloride 106 Carbon Dioxide 28.0 Anion Gap 10 BUN 44 H Creatinine 2.30 H Est GFR (CKD-EPI 2020) 28.40 Glucose 151 H Calcium 9.2 Phosphorus 3.3 Magnesium 1.8 Total Bilirubin 0.3 AST 15 ALT 15 Alkaline Phosphatase 61 Total Protein 6.4 Albumin 3.8
[2025-10-18] MEDS: cefTRIAXone 1 GM/50 ML BAG IVPB (18:36)
[2025-10-18 19:47] VITALS: BP 134/63; PULSE 76; RESP 16; TEMP 36.5; O2SAT 96
[2025-10-18] MEDS: Prazosin 5 MG CAP PO (19:49)
[2025-10-18] MEDS: HYDROcodone 10/Acetaminophen 325 TAB PO (19:50)
[2025-10-18] MEDS: Rosuvastatin 20 MG TAB 40 MG PO (19:51)
[2025-10-18 20:35] VITALS: BP 134/63; PULSE 76; O2SAT 96
[2025-10-18 22:30] VITALS: BP 127/57; PULSE 55; RESP 18; TEMP 37.2; O2SAT 96
[2025-10-19 02:40] VITALS: BP 130/56; PULSE 70; RESP 18; TEMP 36.8; O2SAT 96
[2025-10-19 06:35] VITALS: BP 125/60; PULSE 73; RESP 18; TEMP 36.6; O2SAT 95
[2025-10-19] MEDS: amLODIPine 5 MG TAB PO (08:33)
[2025-10-19] MEDS: Ranolazine 500 MG TABCR PO (08:33)
[2025-10-19] MEDS: Multivitamin TAB 1 TAB PO (08:33)
[2025-10-19] MEDS: Clopidogrel 75 MG TAB PO (08:34)
[2025-10-19] MEDS: Folic Acid 1 MG TAB PO (08:34)
[2025-10-19] MEDS: Magnesium Oxide 400 MG TAB PO (08:34)
[2025-10-19] MEDS: risperiDONE 0.5 MG TAB 1.5 MG PO (08:34)
[2025-10-19] MEDS: Enoxaparin 40 MG/0.4 ML SYR SC (08:35)
[2025-10-19] MEDS: Aspirin E.C. 81 MG TABEC PO (08:35)
[2025-10-19] MEDS: Isosorbide Mononitrate 20 MG TAB PO (08:35)
[2025-10-19] MEDS: Insulin Aspart 300 UNITS/3 ML PEN SC ×2 (08:36→12:39)
[2025-10-19] MEDS: Isosorbide Mononitrate 30 MG TABCR 60 MG PO (08:37)
[2025-10-19] MEDS: Metoprolol CR 25 MG TABCR 50 MG PO (08:37)
[2025-10-19] MEDS: Gabapentin 300 MG CAP PO ×2 (08:37→12:40)
[2025-10-19 09:10] LABS: ALT 16 U/L (10-49); AST 15 U/L (<34); Albumin 3.8 g/dL (3.2-5.0); Alkaline Phosphatase 60 U/L (46-116); Anion Gap 8.7 mmol/L (3-11); BUN 48 mg/dL (9-23); Bilirubin, Total 0.2 mg/dL (0.2-1.2); CO2 29.3 mmol/L (20.0-31.0); Calcium 9.0 mg/dL (8.3-10.6); Chloride 105 mmol/L (98-107); Glucose 188 mg/dL (74-106); Magnesium 1.7 mg/dL (1.6-2.6); Potassium 4.1 mmol/L (3.5-5.1); Sodium 143 mmol/L (136-145); Total Protein 6.4 g/dL (5.7-8.2)
--- NOTE | 2025-10-19 09:47 | W.PM.DS.N ---
Date of service: 10/19/25 Time of Service: 11:12 DS: Diagnosis Discharge Diagnosis (1) Multiple wounds of skin: Status: Acute Discharge Plan Disposition Patient Disposition: [facility]sp Facility(SNF) Anticipated Discharge Date/Time: 10/19/25 12:00 Condition: Stable Condition: Stable Discharge Details Reason For Visit: Complicated UTI, Delirium Admit Date/Time: 10/16/25 19:25 Admit Provider: Nahun Tran Attending Provider: Nahun Tran Primary Care Provider: Nica Carrasco Hospital Course Hospital Course: This 70-year-old male patient with a past medical history most notable for a CVA at the end of last month, carotid artery stenosis, and history of NSTEMI, TIA, CAD, CKD, GERD, hypertension, COPD, and diabetes presented to the ED on 10/16/2025 for evaluation of altered mental status and right shoulder pain s/p fall w/o head strike.The patient was recently discharged from [facility] after a stroke, those records are not immediately available but it seems that he did not receive tPA during that event, and was not deemed to be a surgical candidate at that time. Work-up in the ED was suspicious for UTI in the setting on chronic indwelling urinary catheter as per UA with nitrites and pyuria, stable anemia; negative CTA of the brain and neck - showing no changes from most recent study. No fracture or dislocation seen on right shoulder XR. Ceftriaxone initiated in the ED. The patient was admitted to the medical surgical floor by the hospitalist service for ongoing his sleepiness and garbled speech as well as his worsening weakness for infectious encephalopathy in the setting of complicated cystitis. Ceftriaxone continued and indwelling urinary catheter changed on 10/17/2025. CT abd/pelvis: bilateral nephrolithiasis without obstructive uropathy. As of 10/19/2025 10 AM, urine cultures are still showing Gram negative rods w/o further results. The patient will be discharged home on cefpodoxime 200 mg orally to complete his antibiotic course. Surgery consultation completed for sacral and heels wound with recommendations for offloading and frequent Mepilex dressing changes as tolerated. Palliative care consultation completed with findings for positive eligibility for hospice with office referral completion as per patient's wishes. Follow-up with PCP within 7 days of discharge with recommendation for outpatient urology referral. On the days of discharge the patient was hemodynamically stable and will be discharged back to his SNF. Discussed with Dr Brian Alejo Meds and New Rx's Prescriptions: New cefpodoxime 200 mg tablet 200 mg PO BID Qty: 8 0RF Rx Instructions: must administer with a meal/food tramadol 50 mg Tablet 50 mg PO Q12H PRN PRNQty: 7 0RF Continued aspirin [Adult Aspirin Regimen] 81 mg tablet,delayed release (DR/EC) 81 mg PO DAILY gabapentin 300 mg capsule 300 mg PO TID glucagon 1 mg recon soln 1 mg subcut Q20M PRN Rx Instructions: until target blood sugar attained nitroglycerin 0.4 mg tablet, sublingual 0.4 mg sublingual Q5M PRN Rx Instructions: do not exceed 3 doses per episode ranolazine 500 mg tablet extended release 12 hr 500 mg PO BID sevelamer HCl 800 mg tablet 800 mg PO TID Rx Instructions: must administer with a meal/food risperidone 1 mg tablet 1 mg PO BID metoprolol succinate 25 mg tablet extended release 24 hr 50 mg PO DAILY epinephrine [EpiPen] 0.3 mg/0.3 mL auto-injector 0.3 mg IM ONCE PRN Rx Instructions: as a single dose; may repeat once ipratropium-albuterol 0.5 mg-3 mg(2.5 mg base)/3 mL solution for nebulization 3 ml inhalation QID PRN B complex-vitamin C-folic acid 0.8 mg tablet 1 tab PO DAILY torsemide 20 mg tablet 20 mg PO DAILY Qty: 0 0RF Rx Instructions: Hold until 06/11/25 magnesium oxide 400 mg magnesium capsule 400 mg PO DAILY Qty: 7 0RF ropinirole 1 mg tablet 1 mg PO BID Qty: 0 0RF vilazodone [Viibryd] 20 mg tablet 20 mg PO DAILY Patient Comments: takes with a 10mg tablet for total dose of 30mg Rx Instructions: must administer with a meal/food clopidogrel [Plavix] 75 mg tablet 75 mg PO DAILY Qty: 20 0RF polyethylene glycol 3350 17 gram/dose powder 17 g PO DAILY PRN Rx Instructions: Constipation amlodipine 10 mg tablet 5 mg PO DAILY rosuvastatin 20 mg tablet 40 mg PO HS diazepam 5 mg tablet 5 mg PO BID PRN albuterol sulfate 2.5 mg /3 mL (0.083 %) solution for nebulization 2.5 mg inhalation Q6H PRN metformin 500 mg tablet 1,000 mg PO BID multivitamin [Daily Value] Tablet 1 tab PO DAILY risperidone [Risperdal] 0.5 mg tablet 0.5 mg PO BID prazosin 5 mg capsule 5 mg PO QPM insulin glargine [Lantus U-100 Insulin] 100 unit/mL solution 36 unit subcut QPM guaifenesin 100 mg/5 mL liquid 200 mg PO Q4H PRN isosorbide mononitrate 20 mg tablet 20 mg PO DAILY Rx Instructions: TAKE WITH 60MG TABLET vilazodone [Viibryd] 10 mg tablet 10 mg PO DAILY Patient Comments: TAKE WITH 20MG TABLET Rx Instructions: must administer with a meal/food isosorbide mononitrate 60 mg tablet extended release 24 hr 60 mg PO DAILY Patient Comments: takes w/30mg tablet for total dose of 90mg (DME) 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 Misc See Rx Instructions .ROUTE Rx Instructions: As directed hydrocodone-acetaminophen 10-325 mg tablet 1 tab PO Q4H PRN Changed acetaminophen 325 mg capsule 650 mg PO Q12H PRN PRNQty: 0 0RF Discharge Instructions Referrals: [facility] [Outside] Nica Carrasco [Primary Care Provider, Medicine] Referral Note: follow-up with outpatient provider within 7 days of discharged Activity:: Activity as Tolerated Equipment/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 Diet:: heart healthy diabetic Discharge Orders Discharge Orders: Discharge Order (Routine); Ordered 10/19/25 Ordered By: Lisa Rubalcava DS: Summary Time Spent with Patient providing and/or coordinating discharge services: Greater than 30 minutes Status at Discharge Functional status at discharge: uses cane/walker Overall status at discharge: patient is progressing back to baseline Mental Status: mental status grossly normal Speech and Movement: speech and movement normal (At baseline) Mood: congruent mood Affect: normal affect and sad Quality:SDOH Health Related Social Needs: Health related social needs lonely/isolated Health related social needs details Pt states he feels lonely sometimes Health related social needs details: Pt states he feels lonely sometimes Exam Narrative Exam Narrative: 70-year-old male looking older than stated age, in no acute distress, nonicteric sclera, no JVD, moist mucous membranes, alert oriented x 3, neurologically at baseline, S1-S2 distant regular, PPP x 4, clear lungs bilaterally diminished left lower lobe, abdomen is obese nondistended soft nontender, no CVA tenderness indwelling urinary catheter in place draining clear yellow urine, chronic discoloration to lower extremities, dressing to chronic wounds as per order Psych Mental Status: mental status grossly normal Speech and Movement: speech and movement normal (At baseline) Mood: congruent mood Affect: normal affect and sad DS: Data Vitals/I&O Vitals and I&O: Vital Signs Temperature 36.8 C 10/19/25 02:40 Temperature Source Temporal Artery Scan 10/19/25 02:40 Pulse 70 10/19/25 02:40 Pulse Rhythm Regular 10/16/25 21:46 Pulse 67 10/16/25 20:40 Respiratory Rate 18 10/19/25 02:40 Respiratory Effort Normal 10/16/25 21:46 Respiratory Depth Normal 10/16/25 21:46 Respiratory Pattern Normal 10/16/25 21:46 Blood Pressure 130/56 L 10/19/25 02:40 Blood Pressure Mean 80 10/19/25 02:40 Blood Pressure Position Supine 10/16/25 16:32 Pulse Oximetry 96 10/19/25 02:40 Oxygen Delivery Method Room Air 10/19/25 02:40 Oxygen Flow Rate 0 10/19/25 02:40 Pain Level 5 10/17/25 22:14 Intake & Output 10/18/25 10/18/25 10/19/25 11:59 23:59 11:59 Intake Total 0 / 250 250 / 250 Output Total 1100 / 2000 900 / 2000 Balance -1100 / -1750 -650 / -1750 Weight 140.81 kg Intake: IV 10 / 10 Oral 0 / 240 240 / 240 Output: Urine 1100 / 1999 900 / 2000 Other: Urine Color Light Jada Urine Appearance Sediment Clear Sediment Stool Size Moderate Stool Characteristics Soft Formed Data Completed and Pending Pending Labs at Discharge: 10/16/25 10/16/25 10/16/25 16:30 18:00 18:30 WBC 10.18 RBC 3.92 L Hgb 11.6 L Hct 35.2 L MCV 90 MCH 29.6 MCHC 33.0 RDW 12.0 Plt Count 219 MPV 10.2 Immature Gran % 0.4 Neutrophils % 76.2 Lymphocytes % 12.3 Monocytes % 9.1 Eosinophils % 1.7 Basophils % 0.3 Nucleated RBC % 0.0 Absolute Neutrophils 7.76 H Absolute Lymphocytes 1.25 Absolute Monocytes 0.93 H Absolute Eosinophils 0.17 Absolute Basophils 0.03 PT 9.8 INR 1.0 VBG pH 7.35 VBG pCO2 51 VBG pO2 33 VBG HCO3 28 VBG Total CO2 26 VBG O2 Saturation 59 VBG Base Excess 2 Sodium 141 Potassium 4.7 Chloride 105 Carbon Dioxide 26.7 Anion Gap 9.3 BUN 49 H Creatinine 2.63 H Est GFR (CKD-EPI 2020) 24.33 Glucose 162 H Calcium 9.0 Phosphorus Magnesium 1.5 L Total Bilirubin 0.4 AST 36 H ALT 23 Alkaline Phosphatase 67 Troponin I 7 7 Total Protein 6.7 Albumin 4.0 TSH 1.16 Urine Color Yellow Urine Clarity Clear Urine pH 5.0 Ur Specific [place] 1.010 Urine Protein Negative Urine Ketones Negative Urine Blood Small H Urine Nitrite Positive H Urine Bilirubin Negative Urine Urobilinogen 0.2 Ur Leukocyte Esterase Trace H Urine RBC 3-5 H Urine WBC 10-20 H Ur Epithelial Cells Rare Urine Crystals Negative Urine Bacteria Moderate Urine Casts 0-2 Fine Granular Urine Mucus Trace Urine Other Rare Transitional Ur Culture Indicated? Yes Urine Glucose Negative Urine Opiates Screen Urine Methadone Screen Ur Barbiturates Screen Ur Tricyclics Screen Ur Amphetamines Screen U Benzodiazepines Scrn Urine Cocaine Screen U Cannabinoids Screen COVID-19 Source SARS-CoV-2 (PCR) Influenza Type A (PCR) Influenza Type B (PCR) RSV (PCR) 10/16/25 10/16/25 10/16/25 19:31 20:10 22:55 WBC RBC Hgb Hct MCV MCH MCHC RDW Plt Count MPV Immature Gran % Neutrophils % Lymphocytes % Monocytes % Eosinophils % Basophils % Nucleated RBC % Absolute Neutrophils Absolute Lymphocytes Absolute Monocytes Absolute Eosinophils Absolute Basophils PT INR VBG pH VBG pCO2 VBG pO2 VBG HCO3 VBG Total CO2 VBG O2 Saturation VBG Base Excess Sodium Potassium Chloride Carbon Dioxide Anion Gap BUN Creatinine Est GFR (CKD-EPI 2020) Glucose Calcium Phosphorus Magnesium Total Bilirubin AST ALT Alkaline Phosphatase Troponin I 6 Total Protein Albumin TSH Urine Color Urine Clarity Urine pH Ur Specific [place] Urine Protein Urine Ketones Urine Blood Urine Nitrite Urine Bilirubin Urine Urobilinogen Ur Leukocyte Esterase Urine RBC Urine WBC Ur Epithelial Cells Urine Crystals Urine Bacteria Urine Casts Urine Mucus Urine Other Ur Culture Indicated? Urine Glucose Urine Opiates Screen Positive A Urine Methadone Screen Negative Ur Barbiturates Screen Negative Ur Tricyclics Screen Negative Ur Amphetamines Screen Negative U Benzodiazepines Scrn Positive A Urine Cocaine Screen Negative U Cannabinoids Screen Negative COVID-19 Source Nasopharynx SARS-CoV-2 (PCR) Negative Influenza Type A (PCR) Negative Influenza Type B (PCR) Negative RSV (PCR) Negative 10/17/25 10/18/25 10/19/25 06:30 06:35 06:01 WBC 8.15 8.34 Pending RBC 3.51 L 3.57 L Pending Hgb 10.6 L 10.6 L Pending Hct 31.6 L 32.0 L Pending MCV 90 90 Pending MCH 30.2 29.7 Pending MCHC 33.5 33.1 Pending RDW 12.0 11.8 Pending Plt Count 213 237 Pending MPV 10.1 10.3 Pending Immature Gran % 0.4 1.1 Pending Neutrophils % 67.7 58.4 Pending Lymphocytes % 19.8 28.2 Pending Monocytes % 9.4 9.7 Pending Eosinophils % 2.5 2.2 Pending Basophils % 0.2 0.4 Pending Nucleated RBC % 0.0 0.0 Absolute Neutrophils 5.52 4.88 Pending Absolute Lymphocytes 1.61 2.35 Pending Absolute Monocytes 0.77 0.81 H Pending Absolute Eosinophils 0.20 0.18 Pending Absolute Basophils 0.02 0.03 Pending PT INR VBG pH VBG pCO2 VBG pO2 VBG HCO3 VBG Total CO2 VBG O2 Saturation VBG Base Excess Sodium 143 144 143 Potassium 4.3 4.1 4.1 Chloride 106 106 105 Carbon Dioxide 27.4 28.0 29.3 Anion Gap 9.6 10 8.7 BUN 47 H 44 H 48 H Creatinine 2.30 H 2.30 H 2.37 H Est GFR (CKD-EPI 2020) 28.40 28.40 27.44 Glucose 144 H 151 H 188 H Calcium 9.3 9.2 9.0 Phosphorus 3.0 3.3 3.5 Magnesium 2.2 1.8 1.7 Total Bilirubin 0.3 0.3 0.2 AST 23 15 15 ALT 20 15 16 Alkaline Phosphatase 61 61 60 Troponin I Total Protein 6.2 6.4 6.4 Albumin 3.7 3.8 3.8 TSH Urine Color Urine Clarity Urine pH Ur Specific [place] Urine Protein Urine Ketones Urine Blood Urine Nitrite Urine Bilirubin Urine Urobilinogen Ur Leukocyte Esterase Urine RBC Urine WBC Ur Epithelial Cells Urine Crystals Urine Bacteria Urine Casts Urine Mucus Urine Other Ur Culture Indicated? Urine Glucose Urine Opiates Screen Urine Methadone Screen Ur Barbiturates Screen Ur Tricyclics Screen Ur Amphetamines Screen U Benzodiazepines Scrn Urine Cocaine Screen U Cannabinoids Screen COVID-19 Source SARS-CoV-2 (PCR) Influenza Type A (PCR) Influenza Type B (PCR) RSV (PCR) Preliminary micro results at discharge 10/16/25 18:00 Urine - Reflex from Ua Urine Culture - Preliminary Gram negative wesley PFSH All Active Problems (Updated 10/19/25 @ 11:28 by Lisa Rubalcava APRN) ACP (advance care planning) (Acute) Palliative care encounter (Acute) Unintentional weight loss (Acute) Multiple wounds of skin (Acute) Encounter for hospice care discussion (Acute) Lives in senior care (Acute) Deficit in activities of daily living (ADL) (Acute) Stenosis of right internal carotid artery with cerebral infarction (Chronic) Delirium (Acute) UTI (urinary tract infection) due to urinary indwelling catheter (Acute) Dehydration (Acute) Urinary retention (Acute) Carotid artery stenosis (Acute) Acute CVA (cerebrovascular accident) (Acute) Elevated lactic acid level (Acute) Urinary tract infection (Acute) Acute non-ST elevation myocardial infarction (NSTEMI) (Acute) Ear pain, left (Acute) Tinnitus of both ears (Acute) Chest pain (Acute) TIA (transient ischemic attack) (Acute) CAD S/P percutaneous coronary angioplasty (Acute) Acute on chronic kidney failure (Acute) Unstable angina (Acute) Osteoarthritis of hip (Acute) Right hip pain (Acute) PAD (peripheral artery disease) (Acute) Lymphedema (Acute) Venous ulcers of both lower extremities (Acute) Venous (peripheral) insufficiency (Acute) Phantom limb syndrome (Chronic) PTSD (post-traumatic stress disorder) (Chronic) Vitamin D deficiency (Acute) Nondisplaced fracture of right scaphoid bone (Acute 02/01/24) Right wrist pain (Acute) GERD (gastroesophageal reflux disease) (Chronic) Hypertension (Chronic) Neuropathy (Acute) History of venous thrombosis and embolism (Acute) Pityriasis versicolor (Acute) Hyperlipidemia (Chronic) Atherosclerotic heart disease of lime coronary artery without angina pectoris (Acute) CKD stage 4 due to type 2 diabetes mellitus (Chronic) Heart failure (Chronic) Anxiety (Chronic) Morbid obesity (Chronic) Subacute osteomyelitis, left ankle and foot (Acute) Chronic pain (Chronic) COPD (chronic obstructive pulmonary disease) (Chronic) Asthma (Chronic) Type 2 diabetes mellitus (Chronic) Medical History Iron deficiency anemia CAD (coronary artery disease), lime coronary artery Chronic bipolar disorder Chronic back pain greater than 3 months duration Diabetes mellitus type 2, insulin dependent MRSA infection Testicular hypofunction Low back pain Surgical History S/P spinal surgery S/P hip hemiarthroplasty S/P cardiac cath Stent to LAD Social History Smoking/Tobacco Use Status: Former Tobacco Use Smoking risk assessment performed?: Yes Alcohol Intake: current Alcohol Intake frequency: holidays/special occasions only Drug use: Never Substance use type: does not use Housing: other Do you feel safe at home: Yes Do you feel safe in your relationship?: Yes Time Spent with Patient Time Spent with Patient: >85 minutes Time was spent: preparing to see the patient(eg.review tests), obtaining and/or reviewing separately otained hiistory, ordering medications,tests, procedures, referring, communicating with other health behavioral health care manager, indepentently interpreting results, counseling the patient, care coordination and other
[2025-10-19] MEDS: HYDROcodone 10/Acetaminophen 325 TAB PO ×2 (10:52→15:04)
[2025-10-19] MEDS: Normal Saline Flush 10 ML SYR IVP (10:56)
[2025-10-19] MEDS: Vilazodone 20 MG TAB 30 MG PO (10:59)
[2025-10-19] MEDS: rOPINIRole 0.5 MG TAB 1 MG PO (10:59)
[2025-10-19] MEDS: Torsemide 20 MG TAB PO (10:59)
[2025-10-19] MEDS: Vitamins B Comp w/C TAB 1 TAB PO (11:00)
--- NOTE | 2025-10-19 11:12 | CMDISCH_ITS ---
Date of service: 10/19/25 Time of Service: 11:12 LACE Index Scoring Tool Questions: Length of Stay (in days): 3 Was the patient admitted via the E.D.?: Yes Comorbidities: Diabetes w/o Complication, Congestive Heart Failure, Chronic Pulmonary Disease and Liver or Renal Disease E.D. Visits: 15 Answers: Total Score: 15 Risk of Readmission: High Risk Care Management Discharge Plan Reason for Hospitalization: Complicated UTI, Delirium Discharge Plan: Mike will return to [facility] today and be admitted to hospice tomorrow; Confirmed plan with [facility]. It is recommended he follow up with his facility providers, wound care, hospice and continue per his discharge plan of care. Mike will transport via [facility] wheelchair van at 17:30, as recommended by PT. This discharge plan has been communicated to DON and Admissions at [facility] via email, and acknowledged. Patient/Family Education Needs: Review of discharge instructions, activity, limitations, and plan of care. Discuss ask me three. SDOH Health Related Social Needs: Health related social needs lonely/isolated Health related social needs details Pt states he feels lonely sometimes Health related social needs details: Pt states he feels lonely sometimes
--- NOTE | 2025-10-19 11:12 | PT.INTREAT ---
PT Notes Visit Reasons: Complicated UTI, Delirium Date: 10/19/2025 PRECAUTIONS: Fall, Standard, Activity as tolerated. SUBJECTIVE: pt in bed when approached for therapy this morning, pt agrees to participating with therapy after he finishes his breakfast. OBJECTIVE: ?dasilva catheter ? PAIN: Denies VITALS: Monitored Via telemetry Therapeutic Activities 27289: Direct one-on-one instruction in dynamic activities to improve functional performance. ?? BED MOBILITY/TRANSFERS? Rolling L/R: mod A Supine-sit: ? mod A? Sit-supine: ? mod A? Sit-stand: ? max A? Stand-sit: ?Mod A ? Bed-Chair:? Mod A? Chair-bed: Mod A Provided skilled cues and instruction on performance and technique throughout. Gait Training 20982: Direct one-on-one instruction and skilled instruction in: Employing an assistive device Modified weight-bearing status Movement sequencing Turning and movement with proper form Provided verbal cues for equipment management and technique Provided instruction in gait pattern Patient education regarding pacing and breathing techniques to maximize activity tolerance? GAIT? Assistive Device: ?FWW? Weight bearing: FWB Assist: ?Mod A ? Distance:?? ?10'x1 ? Deviation: ? ?slow shuffling, increased BUE lean ? Neuromuscular Re-education 25823: Activities that facilitate re-education of movement balance, posture, coordination, and proprioception or kinesthetic sense, requiring skilled tactile and verbal cues Exercises/techniques: ?unsupported sitting on the EOB 5mins weight shifting FWD/BWD side to side, multidirectional lean, standing static balance activity 5mins weight shifting FWD/BWD side to side, multidirectional lean, ASSESSMENT:?Pt tolerated activity well, pt situated in recliner for comfort and safety post session. PLAN: Continue with balance training, global strengthening and general conditioning for improved safety, mobility and activity tolerance until pt is ready for DC. TREATMENT CODE/TIME: [id number], [id number] 25mins (10:00-10:25am)
[2025-10-19 13:28] LABS: HCT 32.3 % (40.0-50.0); HGB 11.1 g/dL (13.5-17.5); Immature Grans % 0.5 %; MCH 31.2 pg (27.0-33.0); MCHC 34.4 % (32.0-36.0); MCV 91 fL (80-95); MPV 10.1 fL (8.0-11.0); Platelet Count 275 10^3/uL (130-400); RBC 3.56 10^6/uL (4.36-5.78); RDW 11.8 % (11.8-14.1); RDW-SD 39.3 fL; WBC 8.14 10^3/uL (4.4-10.8)
[2025-10-19 13:29] LABS: Abs Immature Grans 0.04 10^3/uL (0.0-0.06)
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
--- NOTE | 2025-10-19 18:33 | NUR.NOTE ---
Nursing Note: At 6:30pm [facility] Say[facility]
--- NOTE | 2025-10-20 13:28 | TELEFU_ITS ---
Date of service: 10/19/25 Time of Service: 12:30 Nutrition Note NOTE: Mr Nasim visited multiple times during his last 48 hour of this admission. A1C last May 8.2% with recent hx showing mostly in the 7's. Current BMI conguent with class III obesity Non active related to CVA history. Pt with no teeth and worked with him this admission on menu choices that were appropriate - changed diet order to soft and bs. Basal insulin at home 36 units glargine and metformin BID. Pt transitioning to hospice and will return to [facility] on discharge, where glucose will continue to be monitored/managed. Time Spent in Nutritional Counseling and Treatment: 15 min
== END 2025-10-19 17:28 | disposition skilled nursing facility (03) ==
LOC: ER 20:16 → MS 10-17 07:30
PROVIDERS: Admitting Provider Family Medicine; Emergency Provider Emergency Medicine; PCP Family Medicine; Responsible Provider Nurse Practitioner Acute Care; Visit Provider Family Medicine
DX: T83.511A Infection and inflammatory reaction due to indwelling urethral catheter, initial encounter (principal); N30.00 Acute cystitis without hematuria; N18.4 Chronic kidney disease, stage 4 (severe); F05 Delirium due to known physiological condition; G93.49 Other encephalopathy; E83.42 Hypomagnesemia; G89.29 Other chronic pain; Z79.4 Long term (current) use of insulin; I12.9 Hypertensive chronic kidney disease with stage 1 through stage 4 chronic kidney disease, or unspecified chronic kidney disease; G54.7 Phantom limb syndrome without pain; E86.0 Dehydration; E66.01 Morbid (severe) obesity due to excess calories; L89.629 Pressure ulcer of left heel, unspecified stage; L89.612 Pressure ulcer of right heel, stage 2; L89.152 Pressure ulcer of sacral region, stage 2; Z73.89 Other problems related to life management difficulty; I25.2 Old myocardial infarction; I73.9 Peripheral vascular disease, unspecified; I25.10 Atherosclerotic heart disease of native coronary artery without angina pectoris; Z86.718 Personal history of other venous thrombosis and embolism; J44.9 Chronic obstructive pulmonary disease, unspecified; F41.9 Anxiety disorder, unspecified; E78.5 Hyperlipidemia, unspecified; E11.22 Type 2 diabetes mellitus with diabetic chronic kidney disease; D50.9 Iron deficiency anemia, unspecified; Z68.41 Body mass index [BMI] 40.0-44.9, adult; Z79.82 Long term (current) use of aspirin; Z79.02 Long term (current) use of antithrombotics/antiplatelets; I65.21 Occlusion and stenosis of right carotid artery; I69.354 Hemiplegia and hemiparesis following cerebral infarction affecting left non-dominant side; Z89.412 Acquired absence of left great toe; I87.2 Venous insufficiency (chronic) (peripheral); R53.1 Weakness; R47.89 Other speech disturbances
CPT/HCPCS: 00123; 36415; 70496; 70498; 80053; 80307; 82805; 87077; 87637; 93005; 97112; 97162; 97530; 99231; J1650; 73030; 74176; 81003; 81015; 83735; 84100; 84443; 84484; 85025; 85610; 87086; 87186; 93010; 99223; 99239; G0378; J0696; J1815; J3475; J3490

== ENCOUNTER → 2025-10-23 08:14 | Outpatient (BNVA) | payer MEDICARE, MEDICAID, SELFPAY | PROVIDERS: PCP Family Medicine; Referring Provider Family Medicine; Visit Provider Registered Nurse | DX: I21.4 Non-ST elevation (NSTEMI) myocardial infarction (principal); I50.32 Chronic diastolic (congestive) heart failure; E11.59 Type 2 diabetes mellitus with other circulatory complications; I10 Essential (primary) hypertension; I12.9 Hypertensive chronic kidney disease with stage 1 through stage 4 chronic kidney disease, or unspecified chronic kidney disease; N18.9 Chronic kidney disease, unspecified; J44.9 Chronic obstructive pulmonary disease, unspecified; Z79.02 Long term (current) use of antithrombotics/antiplatelets | CPT/HCPCS: 99215 ==